=== PATIENT | female | born 1935 | race Caucasian/White ===

== ENCOUNTER → 2016-06-25 | Outpatient (REF) | payer MEDICARE, OTHER ==
[~2016-06-25] MED LIST: ACET500C PO; ASPI325T PO; CALCIUM CITRATE PO; CRES20TA PO; DULC5TAB PO; FISHCAP PO; MELO7.5T6 PO; MULTCAP PO; OMEP10CA45 PO; PRIL40CA PO; VITA100041 PO; VITA100T20 PO
== END | disposition home or self-care (01) ==
LOC: M SFHCPLAZ 12:08
PROVIDERS: ATTEND Physician Assistant Medical
DX: Z53.8 Procedure and treatment not carried out for other reasons (principal); E04.1 Nontoxic single thyroid nodule

== ENCOUNTER → 2016-06-30 | Outpatient (CLI) | payer MEDICARE, OTHER ==
--- NOTE | 2016-06-30 10:03 | REP ---
Clinical: Thyroid nodule. Technique: Real time ceron scale and color evaluation using linear high frequency transducer. Findings: The thyroid gland is diffusely heterogeneous with innumerable mixed, complex nodules. Right thyroid lobe measures 4.2 x 1.2 x 1.3 cm with the largest complex nodule in the lower pole measuring 12 x 8 x 7 mm. Left thyroid lobe measures 4.2 x 2.0 x 1.6 cm with the largest complex nodule in the lower pole measuring 21 x 16 x 15 mm. A prominent complex cyst is also identified to the left of the isthmus which measures 7 x 7 x 5 mm. Impression: Heterogeneous multinodular thyroid. Signed by Joce Hughes MD 06/30/2016 09:55 A
== END ==
LOC: M RAD 08:57
PROVIDERS: ATTEND Physician Assistant Medical
DX: E04.2 Nontoxic multinodular goiter (principal)

== ENCOUNTER → 2016-07-12 | Outpatient (CLI) | payer MEDICARE, OTHER ==
[~2016-07-12] MED LIST changes: +LIDOCAINE 1% MDV 20ML VIAL As Ordered ONE
--- NOTE | 2016-07-12 15:35 | REP ---
ULTRASOUND GUIDED LEFT THYROID BIOPSY: The procedure was performed under the direct supervision of Dr. Oliveira. The patient has a history of a large complex nodule in the lower pole of the left thyroid measuring 2.1 x 1.6 x 1.5 cm. The risks and benefits of the procedure were explained to the patient and informed consent was obtained. The left thyroid nodule was localized using ultrasound guidance. The skin was prepped and draped in a sterile fashion. 1% Xylocaine was used as a local anesthetic. Using ultrasound guidance 4 fine-needle aspirations were obtained using 25-gauges needles. The patient tolerated the procedure well and there were no immediate complications. After the appropriate amount of monitored convalescence the patient was discharged from the department. Reviewed by LATASHA Coleman 07/12/2016 04:54 PEdited and Signed by Jc Oliveira MD 07/12/2016 05:04 P
== END ==
LOC: M RADPRO 11:52
PROVIDERS: ATTEND Physician Assistant Medical
DX: D34 Benign neoplasm of thyroid gland (principal); Z88.8 Allergy status to other drugs, medicaments and biological substances; Z88.3 Allergy status to other anti-infective agents; I10 Essential (primary) hypertension; I63.9 Cerebral infarction, unspecified; K21.9 Gastro-esophageal reflux disease without esophagitis; G89.29 Other chronic pain; M54.5 Low back pain; M17.12 Unilateral primary osteoarthritis, left knee; Z79.82 Long term (current) use of aspirin; Z79.899 Other long term (current) drug therapy

== ENCOUNTER → 2016-08-03 | Outpatient (REF) | payer MEDICARE, OTHER ==
[~2016-08-03] MED LIST changes: -LIDOCAINE 1% MDV 20ML VIAL As Ordered ONE
[2016-08-03 15:32] LABS: ANION GAP 8 MEQ/L (8-16); BLOOD UREA NITROGEN 18 MG/DL (7-18); CALCIUM LEVEL 9.2 MG/DL (8.8-10.2); CARBON DIOXIDE LEVEL 28 MEQ/L (21-32); CHLORIDE LEVEL 109 MEQ/L (98-107); CREATININE FOR GFR 0.77 MG/DL (0.55-1.02); GLOMERULAR FILTRATION RATE > 60.0 (>39); GLUCOSE, FASTING 83 MG/DL (83-110); POTASSIUM SERUM 4.1 MEQ/L (3.5-5.1); SODIUM LEVEL 145 MEQ/L (136-145)
== END ==
LOC: M SFHCPLAZ 12:53
PROVIDERS: ATTEND Physician Assistant Medical
DX: N18.3 Chronic kidney disease, stage 3 (moderate) (principal)

== ENCOUNTER 2017-07-28 08:32 | Emergency (ER) | payer MEDICARE, OTHER ==
[2017-07-28 09:28] LABS: BASO % 0.3 % (0.0-1.0); EOS % 0.3 % (0.0-3.0); HEMATOCRIT 43.1 % (36.0-47.0); HEMOGLOBIN 15.4 g/dl (12.0-16.0); IMMATURE GRANULOCYTE % 0.3 % (0-3.0); LYMPH # 1.8 10^3/uL (1.5-4.5); LYMPH % 29.3 % (24.0-44.0); MEAN CORPUSCULAR HEMOGLOBIN 31.9 pg (27.0-33.0); MEAN CORPUSCULAR HGB CONC 35.7 g/dl (32.0-36.5); MEAN CORPUSCULAR VOLUME 89.2 fl (80.0-96.0); MONO # 0.3 10^3/uL (0.0-0.8); MONO % 5.5 % (0.0-5.0); NEUTROPHILS # 3.9 10^3/uL (1.8-7.7); NEUTROPHILS % 64.3 % (36.0-66.0); PLATELET COUNT, AUTOMATED 202 10^3/uL (150-450); RED BLOOD COUNT 4.83 10^6/uL (4.00-5.40); RED CELL DISTRIBUTION WIDTH 12.3 % (11.5-14.5); WHITE BLOOD COUNT 6.1 10^3/uL (4.0-10.0)
[2017-07-28] MEDS: ONDANSETRON 4MG/2ML VIAL (J2405) IV (09:30)
[2017-07-28] MEDS: fentaNYL 100 MCG/2 ML INJECTION (J3010) IV (09:30)
[2017-07-28 09:48] LABS: ALBUMIN 4.2 GM/DL (3.2-5.2); ALBUMIN/GLOBULIN RATIO 1.35 (1.00-1.93); ANION GAP 13 MEQ/L (8-16); AST/SGOT 24 U/L (7-37); BILIRUBIN,DIRECT 0.2 MG/DL (0.0-0.2); BILIRUBIN,TOTAL 0.8 MG/DL (0.2-1.0); BLOOD UREA NITROGEN 14 MG/DL (7-18); CALCIUM LEVEL 9.2 MG/DL (8.8-10.2); CARBON DIOXIDE LEVEL 19 MEQ/L (21-32); CHLORIDE LEVEL 111 MEQ/L (98-107); CPK CREATINE PHOSPHOKINASE 165 U/L (26-192); GLOMERULAR FILTRATION RATE > 60.0 (>32); GLUCOSE, FASTING 106 MG/DL (70-100); LIPASE 223 U/L (73-393); POTASSIUM SERUM 3.2 MEQ/L (3.5-5.1); SODIUM LEVEL 143 MEQ/L (136-145); TOTAL PROTEIN 7.3 GM/DL (6.4-8.2); TROPONIN I < 0.02 NG/ML (< 0.10)
[2017-07-28 09:51] LABS: ALKALINE PHOSPHATASE 66 U/L (45-117); ALT/SGPT 24 U/L (12-78); CK-MB VALUE MASS 1.7 NG/ML (0.0-3.6); MB/CK RELATIVE INDEX 1.03 (< OR =4); NT-PRO BNP 217 PG/ML (<450)
[2017-07-28] MEDS: PERCOCET 5MG/325MG TAB PO (12:31)
[2017-07-28] MEDS: methylPREDNISolone INJ 125 MG/2 ML VIAL (J2930) IV (12:32)
== END 2017-07-28 13:37 | disposition home or self-care (01) ==
LOC: M ED 08:32
DX: M54.2 Cervicalgia (principal); R42 Dizziness and giddiness; M79.621 Pain in right upper arm; M25.511 Pain in right shoulder; K80.20 Calculus of gallbladder without cholecystitis without obstruction; I25.10 Atherosclerotic heart disease of native coronary artery without angina pectoris; M17.11 Unilateral primary osteoarthritis, right knee; E04.2 Nontoxic multinodular goiter; Z86.73 Personal history of transient ischemic attack (TIA), and cerebral infarction without residual deficits
CPT/HCPCS: J2405

== ENCOUNTER → 2017-10-06 | Outpatient (CLI) | payer MEDICARE, OTHER | LOC: M RAD 12:09 | DX: E04.1 Nontoxic single thyroid nodule (principal) | CPT/HCPCS: 78012 ==

== ENCOUNTER → 2020-07-24 | Outpatient (CLI) | payer MEDICARE, OTHER ==
[~2020-07-24] MED LIST changes: +ACET1TAB55 PO; +ASPI-1 PO; +ASPI-546 PO; -ASPI325T PO; +B121000T PO; +CELE1CAP9 PO; +CO Q200C10 PO; -CRES20TA PO; +CRES20TA2 PO; +CYAN100049 PO; +DICL1GEL3 TOP; +MEDR4PAK PO; -MELO7.5T6 PO; +MELO7.5T7 PO; +OMEP10CA PO; -OMEP10CA45 PO; +PRESCAP6 PO; +VITA-182 PO; -VITA100041 PO; -VITA100T20 PO; +VITA100T51 PO; +VITA400C7 PO; +ZANA4TAB PO
--- NOTE | 2020-07-31 02:16 | ECWPNPC ---
PATIENT NAME: LORENZO KHAN : 1935 GENDER: FEMALE VISIT DATE: 07/24/2020 DISCHARGE DATE: 07/24/20 1402 VISIT LOCKED DATE TIME: PHYSICIAN: SUNDAY MARLEY PHYSICIAN PAGER NO: ACTIVE RESOURCE: SUNDAY MARLEY REASON FOR APPOINTMENT 1. THORACIC/LUMBAR INJ- WILL NEED WHEELCHAIR HISTORY OF PRESENT ILLNESS GENERAL: 84-YEAR-OLD FEMALE BEING REFERRED BY [facility] VALEN[facility] TO EVALUATE LOW BACK PAIN AND THORACIC BACK PAIN. LONG HISTORY OF LOW BACK PAIN. WORST AREA OF PAIN IS IN THE PARASPINAL REGION OF THE LOWER THORACIC AND LUMBAR SPINE. MRI OF THE THORACIC SPINE SHOWING T10 COMPRESSION FRACTURE. PAIN IS AGGRAVATED WITH MOVEMENT AND RANGE OF JOINT MOTION OF THE SPINE. HISTORY OF FALLING AND BATHTUB IN FEBRUARY WHEN HER PAIN BEGAN TO BE SEVERE. SHE WAS EVALUATED AFTER THE FALL AND A REFERRAL WAS SENT TO [facility] WHO THEN SENT PATIENT HERE. DENIES BOWEL OR BLADDER INCONTINENCE. DENIES RECENT ILLNESS OR SUDDEN WEIGHT LOSS. -. FALL RISK SCREENING: SCREENING : NO FALLS REPORTED IN THE LAST YEAR. PAIN SCREENING: PATIENT HAS A COMPLAINT OF ACUTE OR CHRONIC PAIN :YES LOCATION OF PAIN:LOW BACK INTENSITY OF PAIN (SCALE OF 1 TO 10):4 WHAT DOES YOUR PAIN FEEL LIKE:ACHING DURATION:CONTINOUS, CONSTANT, ALL DAY PAIN IS INCREASED BY:ACTIVITIES, PROLONGED STANDING PAIN IS DECREASED BY:SITTING NURSING NOTE: -. PAIN CENTER INTAKE QUESTIONS: DO YOU HAVE A HISTORY OF MRSA? :NO DO YOU TAKE A BLOOD THINNERS? :NO DO YOU HAVE ANY BLEEDING DISORDERS? :NO ANY NEW NUMBNESS OR WEAKNESS IN YOUR LEGS OR ARMS? :NO ANY PACEMAKER,DEFIBRILLATOR, OR DORSAL COLUMN STIMULATOR? :NO DO YOU HAVE ANY RASHES OR OPEN SORES? :NO ARE YOU ALLERGIC TO IV DYE? :NO ARE YOU DIABETIC? :NO ANY NEW PROBLEMS WITH YOUR MEDICATIONS? :NO HAVE YOU RECEIVED A VACCINE IN THE PAST 30 DAYS? :YES 1ST COVID 07/07/2020 DO YOU PLAN TO RECEIVE A VACCINE IN THE NEXT 21 DAYS? :YES IF SO WHAT VACCINE AND WHEN? 2ND COVID 08/01/2020 DO YOU NEED ANY PRESCRIPTION? :NO DO YOU TAKE ANY IMMUNOSUPPRESSIVE MEDICATIONS? :NO DO YOU HAVE ANY KIDNEY OR LIVER DISEASE? :NO IS THERE A CHANCE YOU COULD BE ? :NO ARE YOU BREAST FEEDING? :NO CURRENT MEDICATIONS TAKING VITAMIN B12 500 MCG TABLET 1 TABLET ORALLY 1500MG ONCE A DAY TAKING ASPIRIN 81 MG TABLET CHEWABLE 1 TABLET ORALLY ONCE A DAY TAKING OMEPRAZOLE 20 MG CAPSULE DELAYED RELEASE 1 CAPSULE ORALLY ONCE A DAY TAKING VITAMIN D3 50 MCG (2000 UT) CAPSULE 1 CAPSULE ORALLY ONCE A DAY TAKING ARTIFICIAL TEARS 0.2-0.2-1 % SOLUTION DIRECTED OPHTHALMIC THREE TIMES DAILY TAKING CELECOXIB 200 MG CAPSULE 1 CAPSULE WITH FOOD ORALLY TWICE A DAY TAKING KNEE SLIP-ON OPEN PATELLA - MISCELLANEOUS DIRECTED TAKING MAGNESIUM 250 MG TABLET 1 TABLET WITH A MEAL ORALLY ONCE A DAY TAKING PRESERVISION AREDS - TABLET DIRECTED ORALLY TAKING TIZANIDINE HCL 2 MG TABLET 1 TABLET NEEDED ORALLY THREE TIMES A DAY TAKING VITAMIN B COMPLEX - TABLET DIRECTED ORALLY TAKING VITAMIN E 400 UNIT CAPSULE 1 CAPSULE ORALLY ONCE A DAY NOT-TAKING CO Q10 MAXIMUM STRENGTH 200 MG CAPSULE 1 CAPSULE WITH A MEAL ORALLY ONCE A DAY NOT-TAKING DULOXETINE HCL 30 MG CAPSULE DELAYED RELEASE PARTICLES 1 CAPSULE ORALLY ONCE A DAY NOT-TAKING HYDROCODONE-ACETAMINOPHEN 5-325 MG TABLET 1 TABLET NEEDED ORALLY TWO TIMES A DAY NOT-TAKING VOLTAREN 1 % GEL DIRECTED EXTERNALLY NOT-TAKING LORATADINE 10 MG TABLET 1 TABLET ORALLY ONCE A DAY, NOTES: NEEDED NOT-TAKING PROBIOTIC CAPSULE ORALLY NOT-TAKING MAGNESIUM 400 MG CAPSULE 1 TABLET WITH A MEAL ORALLY ONCE A DAY NEEDED, NOTES: NEEDED NOT-TAKING PRESERVISION AREDS - CAPSULE 1 CAP ORALLY DAILY NOT-TAKING DICLOFENAC SODIUM 1 % GEL DIRECTED TRANSDERMAL EVERY 6 HOURS NEEDED NOT-TAKING CALCIUM CARBONATE ANTACID 500 MG TABLET CHEWABLE 1 TAB ORALLY ONCE DAILY AFTER A MEAL NOT-TAKING CELECOXIB 200MG CAPSULE TAKE 1 CAPSULE DAILY WITH FOOD MEDICATION LIST REVIEWED AND RECONCILED WITH THE PATIENT PAST MEDICAL HISTORY GERD ALLERGIC RHINITIS OA OF R KNEE, LUMBAR, HANDS B H/O COMPRESSION FRACTURE OF LUMBAR VERTEBRA 06/2013 H/O BPPV HTN CVA 04/[address] REED, FOR VIS. FIELD DEFICITS H/O HYPOMAGNESEMIA 04/28 S/P COLONOSCOPY 02/26 INCOMPLETE, BARIUM ENEMA NEG. F/U IN 2018 VITAMIN D DEFICIENCY H/O VITAMIN B12 DEFICIENCY THYROID NODULE 1.2 CM IN L LOBE, UNCHANGED FROM 07/19/[address] 01/30/16 ALLERGIES BETADINE: MONTANO SKIN - SIDE EFFECTS STATINS (FOR ALLERGY USE ONLY): MUSCLE PAINS - SIDE EFFECTS SURGICAL HISTORY COLONOSCOPY NEG.,BUT INCOMPLETE 2 SCAR TISSUE; BARIUM ENEMA DONE SAME DATE NEG. 05/2013 S/P HYSTERECTOMY 1964 FAMILY HISTORY FATHER: 75 YRS, DIAGNOSED WITH OTHER SPECIFIED CONDITIONS INFLUENCING HEALTH STATUS MOTHER: 90 YRS, OTHER MALIGNANT NEOPLASM OF UNSPECIFIED SITE SON(S): ALIVE DAUGHTER(S): ALIVE 2 SON(S) , 2 DAUGHTER(S) - HEALTHY. GRANDMA C DM, MOTHER C ORAL/SINUS CA & BLOOD DISORDER. SOCIAL HISTORY GENERAL: TOBACCO USE ARE YOU A:NONSMOKER LATEX QUESTIONNAIRE LATEX ALLERGY : HAVE YOU EVER DEVELOPED ANY TYPE OF REACTION AFTER HANDLING LATEX PRODUCTS SUCH RUBBER GLOVES, CONDOMS, DIAPHRAGMS, BALLOONS, SOCKS, OR UNDERWEAR?YES LATEX ALLERGY : HAVE YOU EVER DEVELOPED ANY TYPE OF REACTION DURING OR AFTER DENTAL APPOINTMENT, VAGINAL/RECTAL EXAMINATION, SURGICAL PROCEDURE, OR ANY OTHER EXPOSURE?NO LATEX RISK : HAVE YOU EVER HAD ANY DIFFICULTY BREATHING OR HIVES AFTER EATING OR HANDLING ANY FRUITS, OR VEGETABLES; SUCH KIWI, BANANAS, STONE FRUITS, OR CHESTNUTSNO LATEX RISK : DO YOU HAVE A PREVIOUS PERSONAL HISTORY OF MORE THAN NINE SURGERIES, SPINA BIFIDA, OR REPEATED CATHERIZATIONS? NO LATEX RISK : ARE YOU FREQUENTLY EXPOSED TO LATEX PRODUCTS IN YOUR OCCUPATION?NO DATE ASKED : 07/24/2020 ALCOHOL USE: YES A GLASS OF WINE. ALCOHOL SCREENING DID YOU HAVE A DRINK CONTAINING ALCOHOL IN THE PAST YEAR?YES HOW OFTEN DID YOU HAVE SIX OR MORE DRINKS ON ONE OCCASION IN THE PAST YEAR?NEVER (0 POINTS) HOW MANY DRINKS DID YOU HAVE ON A TYPICAL DAY WHEN YOU WERE DRINKING IN THE PAST YEAR?1 OR 2 (0 POINTS) HOW OFTEN DID YOU HAVE A DRINK CONTAINING ALCOHOL IN THE PAST YEAR?TWO TO THREE TIMES PER WEEK (3 POINTS) POINTS3 INTERPRETATIONPOSITIVE RECREATIONAL DRUG USE DRUG USE?NO PATIENT DENIES ABUSE OR MISSUSED OF ANY MEDICATION. CAFFEINE: YES CAFFEINE USE?YES HOW OFTEN AND HOW MUCH? 1CUP COFFEE/DAY LEARNING BARRIERS / SPECIAL NEEDS CHANGE FROM LAST VISIT?NO BARRIERS TO LEARNING?NO HEARING IMPAIRED?NO VISION IMPAIRED?YES :CORRECTIVE LENSES COGNITIVELY IMPAIRED?NO READINESS TO LEARN?YES LEARNING PREFERENCES?NO LEARNING CAPABILITIES PRESENT?YES EMOTIONAL BARRIERS?NO SPECIAL DEVICES?YES : NEEDS ONE AT EVERY VISIT DIRECTOR INFORMATION NEEDED?NO OCCUPATION: [employer] [place] RETIRED AFTER 22 YEARS, ALSO STAYED HOME WHEN CHILDREN WERE YOUNG. MARITAL STATUS: . HOSPITALIZATION/MAJOR DIAGNOSTIC PROCEDURE SEE ABOVE REVIEW OF SYSTEMS CONSTITUTIONAL: ANY RECENT FEVER NO . CHILLS NO . WEIGHT CHANGE OF UNKNOWN REASONS NO . MUSCULOSKELETAL: ANY UNUSUAL JOINT PAIN OR SWELLING NOT MENTIONED NO . SYSTEMIC LUPUS NO . ANY NEUROMUSCULAR DISORDER NOT MENTIONED NO . LYME DISEASE NO . GASTROENTEROLOGY: ANY NEW CHANGE IN BOWEL CONTROL? NO . HISTORY OF LIVER DISORDER NOT MENTIONED NO . HISTORY OF UNUSUAL ABDOMINAL PAIN OR CRAMPING NOT MENTIONED NO . NO CONSTIPATION. GENITOURINARY: ANY NEW CHANGE IN BLADDER CONTROL? NO . ANY RENAL/KIDNEY CONDITON NOT MENTIONED NO . NEUROLOGY: HISTORY OF TBI NOT MENTIONED NO . HAVE YOU FALLEN IN THE PAST 12 MONTHS? NO . HEAD INJURY NO . DEMENTIA NO . CEREBRAL PALSY NO . MULTIPLE SCLEROSIS NO . MYAASTHENIA GRAVIS NO . NEW ONSET DIZZINESS OR NEUROLOGICAL CHANGES NOT MENTIONED NO . PATIENT COMPLAINING OF UNSTEADY GAIT SINCE STROKE 2017 . DIZZINESS NO . VERTIGO NO . CARDIOLOGY: HEART SURGERY NO . CONGESTIVE HEART FAILURE/FLUID OVERLOAD NOT MENTIONED NO . STROKE HAD STROKE 2017.REPORTING SLIGHT BALANCE PROBLEMS SINCE STROKE . HISTORY OF CHEST PAIN,IRREGULAR HEART BEAT NOT MENTIONED NO . RESPIRATORY: SHORTNESS OF BREATH ON EXERTION, WHEEZES, UNUSUAL COUGH NOT MENTIONED NO . ENDOCRINOLOGY: ADRENAL GLAND OR THYROID DISORDERS NOT MENTIONED NO . UNUSUAL URINATION, DIZZINESS OR LETHARGY NOT MENTIONED NO . VITAL SIGNS WT 144 LBS, HT 62 IN, BMI 26.34 INDEX, BP 137/69 MM HG, HR 85 /MIN, RR 16 /MIN, TEMP 97.8 F, OXYGEN SAT % 98%, SAFE IN ENV? (Y/N) YEST.TRINA DOMINGO. EXAMINATION GENERAL EXAMINATION: GENERALNO ACUTE DISTRESS, WELL NOURISHED AND HYDRATED. PSYCHAPPROPRIATE MOOD AND AFFECT . NECK:NO LYMPHADENOPATHY, SUPPLE, NO THYROMEGALLY, NO JVD OR BRUITS. LUNGS:CLEAR TO AUSCULTATION BILATERALLY, NO WHEEZES, RHONCHI, RALES. HEART:NO MURMURS, REGULAR RATE AND RHYTHM. MUSCULOSKELETAL: TRIGGER POINTS:, ELICITED WITH PALPATION OVER LUMBAR PARAVERTEBRAL MUSCLES BILATERAL. LUMBAR:TENDERNESS NOTED OVER L/S AXIS AND LUMBAR PARASPINALS . DIAGNOSTIC TESTS REVIEWEDMRI THORACIC SPINE 02/2020 CT LUMBAR SPINE-02/13/2020. ASSESSMENTS MYALGIA, OTHER SITE - M79.18 (PRIMARY) TREATMENT MYALGIA, OTHER SITE [facility] MRI SPINE, L.S. WITHOUT [id number] NOTES: TRIGGER POINT INJECTIONS BILATERAL LOW BACK,BILATERAL THORACIC/MED HOLD SCHEDULE MID AUGUST/COVID IMMO PRINTED AND REVIEWED PRE PROCEDURE WITH PATIENT PADMA DOMINGO. DISPOSITION & COMMUNICATION FOLLOW UP POST PROCEDURE/REVIEW MRI L/S SPINE (REASON: TRIGGER POINT INJECTIONS BILATERAL LOW BACK,BILATERAL THORACIC/MED HOLD SCHEDULE MID AUGUST/COVID IMMO) ELECTRONICALLY SIGNED BY ORALIA DIAL ON 07/30/2020 AT 01:41 PM EDT DISCLAIMER : THIS IS A VISIT SUMMARY EXTRACTED FROM THE [employer] CHART. IT IS NOT A COPY OF THE [employer] PROGRESS NOTE. MTDD
== END ==
LOC: M PAIN 13:00
PROVIDERS: ATTEND Nurse Practitioner Family
DX: M79.18 Myalgia, other site (principal); K21.9 Gastro-esophageal reflux disease without esophagitis; E55.9 Vitamin D deficiency, unspecified; Z88.3 Allergy status to other anti-infective agents; Z88.8 Allergy status to other drugs, medicaments and biological substances; Z79.82 Long term (current) use of aspirin; Z79.899 Other long term (current) drug therapy

== ENCOUNTER → 2020-08-15 | Outpatient (CLI) | payer MEDICARE, OTHER | LOC: M LABSMTC 13:31 | PROVIDERS: ATTEND Anesthesiology | DX: Z20.822 Contact with and (suspected) exposure to COVID-19 (principal) ==

== ENCOUNTER → 2020-08-24 | Outpatient (CLI) | payer MEDICARE, OTHER | LOC: M LABSMTC 11:24 | PROVIDERS: ATTEND Anesthesiology | DX: Z01.812 Encounter for preprocedural laboratory examination (principal) ==

== ENCOUNTER → 2020-08-29 | Outpatient (CLI) | payer MEDICARE, OTHER ==
[~2020-08-29] MED LIST changes: +BUPIVACAINE HCL 0.25% 10ML VIAL As Ordered ONE; +BUPIVACAINE HCL 0.25% 30ML VIAL As Ordered ONE; +TRIAMCINOLONE ACETONIDE SUSP 40 MG/ML VIAL (J3301) As Ordered ONE; +diazePAM 2 MG TAB As Ordered ONE
--- NOTE | 2020-08-29 15:15 | REP ---
INDICATION: ON INSPIRATION . COMPARISON: 07/28/2017 a portable examination and the latest prior FINDINGS: The superior mediastinal structures are midline. The cardiac silhouette is unremarkable in size, shape, and position. The diaphragmatic surfaces of the lungs are regular, and the costophrenic angles are clear. The pulmonary saucedo are clear. The imaged osseous structures show a grade 3 lower thoracic vertebral body anterior wedge compression deformity. The lung saucedo are hyperexpanded. IMPRESSION: 1. Lung field hyperexpansion without evidence of acute cardiopulmonary disease. 2. Age undetermined thoracic vertebral body compression fracture as described above. <Electronically signed by Cedrick Reyes > 08/29/20 [id number]
--- NOTE | 2020-09-05 00:59 | ECWPNPC ---
PATIENT NAME: LORENZO KHAN : 1935 GENDER: FEMALE VISIT DATE: 08/29/2020 DISCHARGE DATE: 08/29/20 154 VISIT LOCKED DATE TIME: PHYSICIAN: BRUCE URIBE MD PHYSICIAN PAGER NO: ACTIVE RESOURCE: BRUCE URIBE MD REASON FOR APPOINTMENT 1. TRIGGER POINT INJECTIONS BILATERAL LOW BACK,BILATERAL THORACIC HISTORY OF PRESENT ILLNESS GENERAL: -. FALL RISK SCREENING: SCREENING 2 OR MORE FALLS IN THE LAST YEAR WITH ER VISITS. PAIN SCREENING: PATIENT HAS A COMPLAINT OF ACUTE OR CHRONIC PAIN :YES LOCATION OF PAIN:MID BACK, LOW BACK INTENSITY OF PAIN (SCALE OF 1 TO 10):5 WHAT DOES YOUR PAIN FEEL LIKE:ACHING DURATION:ONLY WITH SPECIFIC ACTIVITIES PAIN IS INCREASED BY:ACTIVITIES WALKING & STANDING PAIN IS DECREASED BY:USE OF PAIN MEDICATIONS, SITTING NURSING NOTE: -. PAIN CENTER INTAKE QUESTIONS: DO YOU HAVE A HISTORY OF MRSA? :NO DO YOU TAKE A BLOOD THINNERS? :NO DO YOU HAVE ANY BLEEDING DISORDERS? :NO ANY NEW NUMBNESS OR WEAKNESS IN YOUR LEGS OR ARMS? :NO ANY PACEMAKER,DEFIBRILLATOR, OR DORSAL COLUMN STIMULATOR? :NO DO YOU HAVE ANY RASHES OR OPEN SORES? :NO ARE YOU ALLERGIC TO IV DYE? :NO ARE YOU DIABETIC? :NO ANY NEW PROBLEMS WITH YOUR MEDICATIONS? :NO HAVE YOU RECEIVED A VACCINE IN THE PAST 30 DAYS? :YES IF SO WHAT VACCINE AND WHEN? 2ND COVID VACCINE OVER 2 WEEKS AGO DO YOU PLAN TO RECEIVE A VACCINE IN THE NEXT 21 DAYS? :NO DO YOU TAKE ANY IMMUNOSUPPRESSIVE MEDICATIONS? :NO ANY HISTORY OF SEIZURES? :NO ANY HISTORY OF CARDIAC ISSUES OR EVENTS? :YES CVA, VERTIGO, HTN DO YOU HAVE ANY KIDNEY OR LIVER DISEASE? :NO DO YOU HAVE SLEEP APNEA? :NO ANY RECENT HEAD INJURY? :NO DO YOU HAVE ANY NEW INFECTIONS? :NO IS THERE A CHANCE YOU COULD BE ? :NO ARE YOU BREAST FEEDING? :NO WHEN DID YOU LAST EAT? : 08/29/20629 WHEN DID YOU LAST DRINK? : 08/29/20629 WHAT DID YOU LAST DRINK? : MILK NAME OF PERSON DRIVING YOU HOME? : SON DO YOU HAVE ANY OTHER QUESTIONS OR CONCERNS? : - CURRENT MEDICATIONS TAKING VITAMIN B12 500 MCG TABLET 1 TABLET ORALLY 1500MG ONCE A DAY TAKING ASPIRIN 81 MG TABLET CHEWABLE 1 TABLET ORALLY ONCE A DAY TAKING OMEPRAZOLE 20 MG CAPSULE DELAYED RELEASE 1 CAPSULE ORALLY ONCE A DAY TAKING VITAMIN D3 50 MCG (2000 UT) CAPSULE 1 CAPSULE ORALLY ONCE A DAY TAKING ARTIFICIAL TEARS 0.2-0.2-1 % SOLUTION DIRECTED OPHTHALMIC THREE TIMES DAILY TAKING CELECOXIB 200 MG CAPSULE 1 CAPSULE WITH FOOD ORALLY TWICE A DAY TAKING KNEE SLIP-ON OPEN PATELLA - MISCELLANEOUS DIRECTED TAKING MAGNESIUM 250 MG TABLET 1 TABLET WITH A MEAL ORALLY ONCE A DAY TAKING PRESERVISION AREDS - TABLET DIRECTED ORALLY TAKING TIZANIDINE HCL 2 MG TABLET 1 TABLET NEEDED ORALLY THREE TIMES A DAY TAKING VITAMIN B COMPLEX - TABLET DIRECTED ORALLY TAKING VITAMIN E 400 UNIT CAPSULE 1 CAPSULE ORALLY ONCE A DAY NOT-TAKING CO Q10 MAXIMUM STRENGTH 200 MG CAPSULE 1 CAPSULE WITH A MEAL ORALLY ONCE A DAY NOT-TAKING DULOXETINE HCL 30 MG CAPSULE DELAYED RELEASE PARTICLES 1 CAPSULE ORALLY ONCE A DAY NOT-TAKING HYDROCODONE-ACETAMINOPHEN 5-325 MG TABLET 1 TABLET NEEDED ORALLY TWO TIMES A DAY NOT-TAKING VOLTAREN 1 % GEL DIRECTED EXTERNALLY NOT-TAKING LORATADINE 10 MG TABLET 1 TABLET ORALLY ONCE A DAY, NOTES: NEEDED NOT-TAKING PROBIOTIC CAPSULE ORALLY NOT-TAKING MAGNESIUM 400 MG CAPSULE 1 TABLET WITH A MEAL ORALLY ONCE A DAY NEEDED, NOTES: NEEDED NOT-TAKING PRESERVISION AREDS - CAPSULE 1 CAP ORALLY DAILY NOT-TAKING DICLOFENAC SODIUM 1 % GEL DIRECTED TRANSDERMAL EVERY 6 HOURS NEEDED NOT-TAKING CALCIUM CARBONATE ANTACID 500 MG TABLET CHEWABLE 1 TAB ORALLY ONCE DAILY AFTER A MEAL NOT-TAKING CELECOXIB 200MG CAPSULE TAKE 1 CAPSULE DAILY WITH FOOD MEDICATION LIST REVIEWED AND RECONCILED WITH THE PATIENT PAST MEDICAL HISTORY GERD ALLERGIC RHINITIS OA OF R KNEE, LUMBAR, HANDS B H/O COMPRESSION FRACTURE OF LUMBAR VERTEBRA 06/2013 H/O BPPV HTN CVA 04/[address] REED, FOR VIS. FIELD DEFICITS H/O HYPOMAGNESEMIA 04/28 S/P COLONOSCOPY 02/26 INCOMPLETE, BARIUM ENEMA NEG. F/U IN 2019 VITAMIN D DEFICIENCY H/O VITAMIN B12 DEFICIENCY THYROID NODULE 1.2 CM IN L LOBE, UNCHANGED FROM 07/19/[address] 01/30/16 ALLERGIES BETADINE: MONTANO SKIN - SIDE EFFECTS STATINS (FOR ALLERGY USE ONLY): MUSCLE PAINS - SIDE EFFECTS LATEX (FOR ALLERGY USE ONLY): SIDE EFFECTS SURGICAL HISTORY COLONOSCOPY NEG.,BUT INCOMPLETE 2 SCAR TISSUE; BARIUM ENEMA DONE SAME DATE NEG. 05/2013 S/P HYSTERECTOMY 1965 SOCIAL HISTORY GENERAL: TOBACCO USE ARE YOU A:NONSMOKER LATEX QUESTIONNAIRE LATEX ALLERGY : HAVE YOU EVER DEVELOPED ANY TYPE OF REACTION AFTER HANDLING LATEX PRODUCTS SUCH RUBBER GLOVES, CONDOMS, DIAPHRAGMS, BALLOONS, SOCKS, OR UNDERWEAR?YES LATEX ALLERGY : HAVE YOU EVER DEVELOPED ANY TYPE OF REACTION DURING OR AFTER DENTAL APPOINTMENT, VAGINAL/RECTAL EXAMINATION, SURGICAL PROCEDURE, OR ANY OTHER EXPOSURE?NO LATEX RISK : HAVE YOU EVER HAD ANY DIFFICULTY BREATHING OR HIVES AFTER EATING OR HANDLING ANY FRUITS, OR VEGETABLES; SUCH KIWI, BANANAS, STONE FRUITS, OR CHESTNUTSNO LATEX RISK : DO YOU HAVE A PREVIOUS PERSONAL HISTORY OF MORE THAN NINE SURGERIES, SPINA BIFIDA, OR REPEATED CATHERIZATIONS? NO LATEX RISK : ARE YOU FREQUENTLY EXPOSED TO LATEX PRODUCTS IN YOUR OCCUPATION?NO DATE ASKED : 08/28/2020 ALCOHOL USE: NO. ALCOHOL SCREENING DID YOU HAVE A DRINK CONTAINING ALCOHOL IN THE PAST YEAR?YES HOW OFTEN DID YOU HAVE SIX OR MORE DRINKS ON ONE OCCASION IN THE PAST YEAR?NEVER (0 POINTS) HOW MANY DRINKS DID YOU HAVE ON A TYPICAL DAY WHEN YOU WERE DRINKING IN THE PAST YEAR?1 OR 2 (0 POINTS) HOW OFTEN DID YOU HAVE A DRINK CONTAINING ALCOHOL IN THE PAST YEAR?TWO TO THREE TIMES PER WEEK (3 POINTS) POINTS3 INTERPRETATIONPOSITIVE RECREATIONAL DRUG USE DRUG USE?NO PATIENT DENIES ABUSE OR MISSUSED OF ANY MEDICATION. CAFFEINE: YES CAFFEINE USE?YES HOW OFTEN AND HOW MUCH? 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 MARITAL STATUS: . HOSPITALIZATION/MAJOR DIAGNOSTIC PROCEDURE SEE ABOVE VITAL SIGNS WT 128 LBS, HT 62 IN, BMI 23.41 INDEX, BP 147/69 MM HG, HR 85 /MIN, RR 16 /MIN, TEMP 96.1 F, OXYGEN SAT % 99%, SAFE IN ENV? (Y/N) Y, NA INITIALS SC 13:09, REVIEWED BY: SALO. EXAMINATION GENERAL: A HISTORY AND PHYSICAL EXAM ON THE PATIENT WAS DONE ON 07/24/2020 (DATE OF ORIGINAL ASSESSMENT) IN PREPARATION OF SURGERY/PROCEDURE. I HAVE NOW REASSESSED THIS PATIENT'S HEALTH STATUS AND PERFORMED AN UPDATED EXAM TODAY. ALL CHANGES IN THE PATIENT'S HISTORY, PHYSICAL EXAM, PRE-EXISTING CONDITONS, AND INDICATIONS/CONTRAINDICATIONS TO THE PLANNED PROCEDURE AND ANESTHESIA ARE DOCUMENTED AND EVALUATED BELOW. I ATTEST TO THE ADEQUACY AND APPROPRIATENESS OF MY ASSESSMENT, AND CONFIRM THE NECESSITY FOR THE PLANNED PROCEDURE. THE PATIENT IS ALERT, ORIENTED TIMES THREE AND COOPERATIVE. LUNGS ARE CLEAR TO AUSCULTATION. HEART SHOWS REGULAR RHYTHM, NO MURMURS AND NO GALLOPS. ASSESSMENTS MYALGIA - M79.10 (PRIMARY) TREATMENT MYALGIA [facility] CHEST, 2 VIEW (PA\LAT)[id number],KRISTAL 08/29/2020 2:32:35 PM > ON INSPIRATION AND EXPIRATION MEDICATION: VALIUM TAB 2MG ORALLY (DIAZEPAM)YAQUELIN WILDE RN 08/29/2020 1:56:57 PM > VERIFIED. ELLIE CARDENAS 08/29/2020 1:59:15 PM > ADMINISTERED COMPLETION OF PROCEDURAL VISIT WHEN MEETS CRITERIA PROCEDURES PAIN NURSING RECORD PROCEDURE IN ROOM 1300, PHYSICIAN IN ROOM 1422, START 1427, FINISH 1430, PHYSICIAN OUT OF ROOM 1431, OUT OF ROOM 1540, ECG N/A, PATIENT SHIELDED NO, SAFETY STRAP NO, PREP ALCOHOL DR. URIBE, DRESSING TEGADERM Anam CARDENAS RN LOC: 1. ALERT, ORIENTED, ELLIE CARDENAS 08/29/2020 2:30:15 PM > RESP: 1. REGULAR, NO DYSPNEA, ELLIE CARDENAS 08/29/2020 2:30:18 PM > COLOR: 1. PINK, ELLIE CARDENAS 08/29/2020 2:30:22 PM > SKIN: 1. WARM, DRY, ELLIE CARDENAS 08/29/2020 2:30:25 PM > POSITION: 5. SITTING, ELLIE CARDENAS 08/29/2020 2:30:30 PM > VITALS: 171/75, 71, 16, 98%, ELLIE CARDENAS 08/29/2020 3:20:03 PM > 172/90 MANUAL, ELLIE CARDENAS 08/29/2020 3:35:22 PM > PT DENIES CHEST PAIN OR PRESSURE, SOB, EXPLAINED TO PT THAT IT IS COMMON FOR PT'S BLOOD PRESSURE INCREASES S/P PROCEDURE. OFFERED FOR PT TO STAY ANOTHER 20 MINUTES TO SEE IF B/P COMES DOWN AND RECHECK, PT DECLINED STATING SHE WANTED TO GO HOME., ELLIE CARDENAS 08/29/2020 3:42:32 PM > NOTES Anam CARDENAS RN COMPLETION OF PROCEDURE APPOINTMENT: POST PAIN 2, DRESSING SITE DRY AND INTACT, IV N/A, GAIT WHEELCHAIR, TEACHING COMPLETED, PATIENT ACKNOWLEDGES UNDERSTANDING YES, PROCEDURE APPOINTMENT COMPLETED AT 1543 : S/P PROCEDURE, DR URIBE DECIDED HE WANTED PT TO GET CXR PT HAS KYPHOSIS AND WE INJECTED VERY CLOSE TO LUNG. PT WAS BROUGHT DOWN TO X-RAY VIA WHEELCHAIR FOR STAT X-RAY, THEN BROUGHT BACK TO ROOM, PT TOLERATED ACTIVITY WELL. PT DRESSED HERSELF. CXR RESULTS RECEIVED AND GIVEN TO DR URIBE. THERE WAS A COMPRESSION FX NOTED ON XRAY AND DR URIBE DISCUSSED THIS WITH THE PT. THERE WAS NO PNEUMOTHORAX NOTED ON CXR RESULTS. RESULTS SCANNED INTO PT CHART. PT WAS D/C HOME VIA WHEELCHAIR TO CAR WITH BENOIT DAVIS CNA, ELLIE CARDENAS 08/29/2020 3:46:30 PM > PN TRIGGER POINT INJECTION WITH STEROIDS PRE PROCEDURE DIAGNOSIS 1. MYALGIA 2. PAIN AT BILATERAL LOW BACK AREA AND BILATERAL THORACIC AREA POST PROCEDURE DIAGNOSIS 1. MYALGIA 2. PAIN AT BILATERAL LOW BACK AREA AND BILATERAL THORACIC AREA PROCEDURE TRIGGER POINT INJECTION AT BILATERAL LOW BACK AREA AND BILATERAL THORACIC AREA SURGEON DR. BRUCE URIBE FIELD OPERATIONS TECHNICIAN NONE ANESTHESIA LOCAL PRE PROCEDURE NOTE THE PATIENT HAS A HISTORY OF CHRONIC PAIN AT THE RIGHT AND LEFT LOW BACK AREA AND RIGHT AND LEFT THORACIC AREA. I EVALUATED THE PATIENT AND REVIEWED THE CHART. THERE IS EVIDENCE OF BANDS OF TISSUE WITH RESTRICTION OF MOVEMENT AND PRESENCE OF TRIGGER POINT AT THE RIGHT AND LEFT LOW BACK AREA AND RIGHT AND LEFT THORACIC AREA. I WENT OVER THE RISKS, ALTERNATIVES, AND BENEFITS ASSOCIATED WITH THIS PROCEDURE. THE PATIENT WOULD LIKE TO PROCEED AND GIVE CONSENT TO PERFORMED THE PROCEDURE. THE PATIENT DENIES UNEXPLAINABLE WEIGHT LOSS, FEVER, CHILLS, OR NEW CHANGES IN URINARY OR BOWEL CONTROL. THE PATIENT IS COVID-19 NEGATIVE DESCRIPTION OF PROCEDURE THE PATIENT WAS BROUGHT TO THE PROCEDURE ROOM AND PLACED IN THE SITTING POSITION. THE AREA WAS CLEANED WITH ALCOHOL. THE PROCEDURE WAS DONE USING ASEPTIC STERILE TECHNIQUE. A TIMEOUT WAS PERFORMED WHERE THE CONSENTED SITE WAS VERIFIED WITH EVERYONE IN THE ROOM. USING A 25-GAUGE NEEDLE, TRIGGER POINTS WERE INJECTED AT THE RIGHT AND LEFT LOW BACK AREA AND RIGHT AND LEFT THORACIC AREA WITH A TOTAL OF 40 ML OF BUPIVACAINE 0.25% AND KENALOG 40 MG. THE MEDICATIONS WERE VERIFIED WITH THE NURSE. THERE WAS NO EVIDENCE OF BLOOD OR PARESTHESIA DURING THE PROCEDURE. THE PATIENT WAS SENT TO THE RECOVERY ROOM. THE PATIENT WAS MOVING THE EXTREMITIES AND DOING WELL. THERE WERE NO COMPLICATIONS DURING THE PROCEDURE. ESTIMATED BLOOD LOSS WAS LESS THAN 5 ML POST PROCEDURE NOTE I AM LOOKING FOR LONG LASTING PAIN RELIEF. IF PAIN PERSISTS, CONSIDER WORKING WITH THE FACET JOINTS. I WILL ORDER A STAT CHEST X-RAY, AP AND LATERAL ON INSPIRATION AND EXPIRATION, TO RULE OUT PNEUMOTHORAX. THE PROCEDURE DONE WAS DISCUSSED WITH THE PATIENT. THE PATIENT WILL BE SEEN IN A FOLLOW UP IN THE NEXT FEW WEEKS. INSTRUCTIONS WERE GIVEN, QUESTIONS WERE ANSWERED, AND THE PATIENT EXPRESSED UNDERSTANDING AND AGREES WITH THE PLAN. I, KENDRA CARRENO, DOCUMENTED THE ABOVE INFORMATION ACTING A SCRIBE FOR DR. URIBE. I HAVE REVIEWED THE ABOVE DOCUMENT, WRITTEN BY KENDRA CARRENO, [employer] FINANCIAL DEVELOPER, AND I VERIFY THAT IT IS ACCURATE PROCEDURE CODES 03011 INJECT TRIGGER POINTS 3/> DISPOSITION & COMMUNICATION FOLLOW UP FOLLOW UP WITH DIRECTOR [employer] (REASON: POST TRIGGER POINT INJECTION BILATERAL LOW BACK AND BILATERAL THORACIC) ELECTRONICALLY SIGNED BY BRUCE URIBE MD, MD ON 09/04/2020 AT 06:05 PM EDT DISCLAIMER : THIS IS A VISIT SUMMARY EXTRACTED FROM THE [employer] CHART. IT IS NOT A COPY OF THE [employer] PROGRESS NOTE. MTDD
== END ==
LOC: M PAIN 13:00
PROVIDERS: ATTEND Anesthesiology
DX: M79.18 Myalgia, other site (principal); K21.9 Gastro-esophageal reflux disease without esophagitis; E55.9 Vitamin D deficiency, unspecified; Z88.3 Allergy status to other anti-infective agents; Z88.8 Allergy status to other drugs, medicaments and biological substances; Z91.040 Latex allergy status; Z79.82 Long term (current) use of aspirin; Z79.899 Other long term (current) drug therapy
CPT/HCPCS: 20553; 71046; J3301

== ENCOUNTER → 2020-09-26 | Outpatient (CLI) | payer MEDICARE, OTHER ==
[~2020-09-26] MED LIST changes: -BUPIVACAINE HCL 0.25% 10ML VIAL As Ordered ONE; -BUPIVACAINE HCL 0.25% 30ML VIAL As Ordered ONE; -TRIAMCINOLONE ACETONIDE SUSP 40 MG/ML VIAL (J3301) As Ordered ONE; -diazePAM 2 MG TAB As Ordered ONE
--- NOTE | 2020-09-30 03:14 | ECWPNPC ---
PATIENT NAME: LORENZO KHAN : 1935 GENDER: FEMALE VISIT DATE: 09/26/2020 DISCHARGE DATE: 09/26/20 1509 VISIT LOCKED DATE TIME: PHYSICIAN: SUNDAY MARLEY PHYSICIAN PAGER NO: ACTIVE RESOURCE: SUNDAY MARLEY REASON FOR APPOINTMENT 1. POST TRIGGER POINT INJECTIONS BILATERAL LOW BACK,BILATERAL THORACIC HISTORY OF PRESENT ILLNESS DEPRESSION SCREENING: PHQ-9 LITTLE INTEREST OR PLEASURE IN DOING THINGSMORE THAN HALF THE DAYS FEELING DOWN, DEPRESSED, OR HOPELESSSEVERAL DAYS TROUBLE FALLING OR STAYING ASLEEP, OR SLEEPING TOO MUCHNOT AT ALL FEELING TIRED OR HAVING LITTLE ENERGYNOT AT ALL POOR APPETITE OR OVEREATING NOT AT ALL FEELING BAD ABOUT YOURSELF-OR THAT YOU ARE A FAILURE OR HAVE LET YOURSELF OR YOUR FAMILY DOWN NOT AT ALL TROUBLE CONCENTRATING ON THINGS, SUCH READING THE NEWSPAPER OR WATCHING TELEVISION NOT AT ALL MOVING OR SPEAKING SO SLOWLY THAT OTHER PEOPLE COULD HAVE NOTICED. OR THE OPPOSITE- BEING SO FIDGETY OR RESTLESS THAT YOU HAVE BEEN MOVING AROUND A LOT MORE THAN USUALNOT AT ALL THOUGHTS THAT YOU WOULD BE BETTER OFF , OR OF HURTING YOURSELF IN SOME WAY?NOT AT ALL TOTAL SCORE:3 INTERPRETATIONMINIMAL DEPRESSION PHQ-2 (2015 EDITION) LITTLE INTEREST OR PLEASURE IN DOING THINGS?MORE THAN HALF THE DAYS FEELING DOWN, DEPRESSED, OR HOPELESS?SEVERAL DAYS TOTAL SCORE3 GENERAL: HERE FOR FOLLOW-UP OF CHRONIC LOW BACK PAIN. FEELS TRIGGER POINT INJECTIONS THAT SHE HAD AT LAST VISIT WERE SOMEWHAT HELPFUL ALTHOUGH SHE CONTINUES TO SUFFER WITH LOW BACK PAIN. PAIN IS AGGRAVATED BY EXTENSION OF SPINE. PAIN IS RELIEVED BY FLEXION OF SPINE. DISCUSSED THERAPEUTIC LUMBAR FACET BLOCK. REVIEWED LUMBAR STRETCHING EXERCISES. -. FALL RISK SCREENING: SCREENING : NO FALLS REPORTED IN THE LAST YEAR, 2 FALL THIS YEAR ONE IN THE [place] AND WENT TO THE ER IN [place] AND OUTSIDE OF HER HOUSE NO INJURIES FOR EITHER FALL JUST WAS BLACK AND BLUE IN A FEW AREAS. PAIN SCREENING: PATIENT HAS A COMPLAINT OF ACUTE OR CHRONIC PAIN :YES LOCATION OF PAIN:LOW BACK PAIN GOES DOWN BOTH LEGS INTENSITY OF PAIN (SCALE OF 1 TO 10):4 WHAT DOES YOUR PAIN FEEL LIKE:ACHING, CONTINOUS DURATION:ONLY WITH SPECIFIC ACTIVITIES PAIN IS INCREASED BY:ACTIVITIES, PROLONGED STANDING PAIN IS DECREASED BY:SITTING NURSING NOTE: -. PAIN CENTER INTAKE QUESTIONS: DO YOU HAVE A HISTORY OF MRSA? :NO DO YOU TAKE A BLOOD THINNERS? :NO DO YOU HAVE ANY BLEEDING DISORDERS? :NO ANY NEW NUMBNESS OR WEAKNESS IN YOUR LEGS OR ARMS? :YES PAIN IN KNEE MOSTLY ON THE RIGHT ANY PACEMAKER,DEFIBRILLATOR, OR DORSAL COLUMN STIMULATOR? :NO DO YOU HAVE ANY RASHES OR OPEN SORES? :NO ARE YOU ALLERGIC TO IV DYE? :NO ARE YOU DIABETIC? :NO ANY NEW PROBLEMS WITH YOUR MEDICATIONS? :NO HAVE YOU RECEIVED A VACCINE IN THE PAST 30 DAYS? :YES 1ST COVID 07/07/2020 DO YOU PLAN TO RECEIVE A VACCINE IN THE NEXT 21 DAYS? :YES IF SO WHAT VACCINE AND WHEN? 2ND COVID 08/01/2020 DO YOU NEED ANY PRESCRIPTION? :NO DO YOU TAKE ANY IMMUNOSUPPRESSIVE MEDICATIONS? :NO DO YOU HAVE ANY KIDNEY OR LIVER DISEASE? :NO IS THERE A CHANCE YOU COULD BE ? :NO ARE YOU BREAST FEEDING? :NO CURRENT MEDICATIONS TAKING VITAMIN B12 500 MCG TABLET 1 TABLET ORALLY 1500MG ONCE A DAY TAKING ASPIRIN 81 MG TABLET CHEWABLE 1 TABLET ORALLY ONCE A DAY TAKING OMEPRAZOLE 20 MG CAPSULE DELAYED RELEASE 1 CAPSULE ORALLY ONCE A DAY TAKING VITAMIN D3 50 MCG (2000 UT) CAPSULE 1 CAPSULE ORALLY ONCE A DAY TAKING ARTIFICIAL TEARS 0.2-0.2-1 % SOLUTION DIRECTED OPHTHALMIC THREE TIMES DAILY TAKING CELECOXIB 200 MG CAPSULE 1 CAPSULE WITH FOOD ORALLY TWICE A DAY TAKING KNEE SLIP-ON OPEN PATELLA - MISCELLANEOUS DIRECTED TAKING MAGNESIUM 250 MG TABLET 1 TABLET WITH A MEAL ORALLY ONCE A DAY TAKING PRESERVISION AREDS - TABLET DIRECTED ORALLY TAKING TIZANIDINE HCL 2 MG TABLET 1 TABLET NEEDED ORALLY THREE TIMES A DAY TAKING VITAMIN B COMPLEX - TABLET DIRECTED ORALLY TAKING VITAMIN E 400 UNIT CAPSULE 1 CAPSULE ORALLY ONCE A DAY NOT-TAKING CO Q10 MAXIMUM STRENGTH 200 MG CAPSULE 1 CAPSULE WITH A MEAL ORALLY ONCE A DAY NOT-TAKING DULOXETINE HCL 30 MG CAPSULE DELAYED RELEASE PARTICLES 1 CAPSULE ORALLY ONCE A DAY NOT-TAKING HYDROCODONE-ACETAMINOPHEN 5-325 MG TABLET 1 TABLET NEEDED ORALLY TWO TIMES A DAY NOT-TAKING VOLTAREN 1 % GEL DIRECTED EXTERNALLY NOT-TAKING LORATADINE 10 MG TABLET 1 TABLET ORALLY ONCE A DAY, NOTES: NEEDED NOT-TAKING PROBIOTIC CAPSULE ORALLY NOT-TAKING MAGNESIUM 400 MG CAPSULE 1 TABLET WITH A MEAL ORALLY ONCE A DAY NEEDED, NOTES: NEEDED NOT-TAKING PRESERVISION AREDS - CAPSULE 1 CAP ORALLY DAILY NOT-TAKING DICLOFENAC SODIUM 1 % GEL DIRECTED TRANSDERMAL EVERY 6 HOURS NEEDED NOT-TAKING CALCIUM CARBONATE ANTACID 500 MG TABLET CHEWABLE 1 TAB ORALLY ONCE DAILY AFTER A MEAL NOT-TAKING CELECOXIB 200MG CAPSULE TAKE 1 CAPSULE DAILY WITH FOOD MEDICATION LIST REVIEWED AND RECONCILED WITH THE PATIENT PAST MEDICAL HISTORY GERD ALLERGIC RHINITIS OA OF R KNEE, LUMBAR, HANDS B H/O COMPRESSION FRACTURE OF LUMBAR VERTEBRA 06/2013 H/O BPPV HTN CVA 04/[address] REED, FOR VIS. FIELD DEFICITS H/O HYPOMAGNESEMIA 04/28 S/P COLONOSCOPY 02/26 INCOMPLETE, BARIUM ENEMA NEG. F/U IN 2018 VITAMIN D DEFICIENCY H/O VITAMIN B12 DEFICIENCY THYROID NODULE 1.2 CM IN L LOBE, UNCHANGED FROM 07/19/[address] 01/30/16 ALLERGIES BETADINE: MONTANO SKIN - SIDE EFFECTS STATINS (FOR ALLERGY USE ONLY): MUSCLE PAINS - SIDE EFFECTS LATEX (FOR ALLERGY USE ONLY): SIDE EFFECTS SOCIAL HISTORY GENERAL: TOBACCO USE ARE YOU A:NONSMOKER LATEX QUESTIONNAIRE LATEX ALLERGY : HAVE YOU EVER DEVELOPED ANY TYPE OF REACTION AFTER HANDLING LATEX PRODUCTS SUCH RUBBER GLOVES, CONDOMS, DIAPHRAGMS, BALLOONS, SOCKS, OR UNDERWEAR?YES LATEX ALLERGY : HAVE YOU EVER DEVELOPED ANY TYPE OF REACTION DURING OR AFTER DENTAL APPOINTMENT, VAGINAL/RECTAL EXAMINATION, SURGICAL PROCEDURE, OR ANY OTHER EXPOSURE?NO LATEX RISK : HAVE YOU EVER HAD ANY DIFFICULTY BREATHING OR HIVES AFTER EATING OR HANDLING ANY FRUITS, OR VEGETABLES; SUCH KIWI, BANANAS, STONE FRUITS, OR CHESTNUTSNO LATEX RISK : DO YOU HAVE A PREVIOUS PERSONAL HISTORY OF MORE THAN NINE SURGERIES, SPINA BIFIDA, OR REPEATED CATHERIZATIONS? NO LATEX RISK : ARE YOU FREQUENTLY EXPOSED TO LATEX PRODUCTS IN YOUR OCCUPATION?NO DATE ASKED : 09/26/2020 ALCOHOL USE: NO. ALCOHOL SCREENING DID YOU HAVE A DRINK CONTAINING ALCOHOL IN THE PAST YEAR?YES HOW OFTEN DID YOU HAVE SIX OR MORE DRINKS ON ONE OCCASION IN THE PAST YEAR?NEVER (0 POINTS) HOW MANY DRINKS DID YOU HAVE ON A TYPICAL DAY WHEN YOU WERE DRINKING IN THE PAST YEAR?1 OR 2 (0 POINTS) HOW OFTEN DID YOU HAVE A DRINK CONTAINING ALCOHOL IN THE PAST YEAR?TWO TO THREE TIMES PER WEEK (3 POINTS) POINTS3 INTERPRETATIONPOSITIVE RECREATIONAL DRUG USE DRUG USE?NO PATIENT DENIES ABUSE OR MISSUSED OF ANY MEDICATION. CAFFEINE: YES CAFFEINE USE?YES HOW OFTEN AND HOW MUCH? 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 MARITAL STATUS: . REVIEW OF SYSTEMS CONSTITUTIONAL: ANY RECENT FEVER NO . CHILLS NO . WEIGHT CHANGE OF UNKNOWN REASONS NO . GASTROENTEROLOGY: NEW UNEXPLAINABLE CHANGES IN BOWEL CONTROL NO . CONSTIPATION NO . GENITOURINARY: ANY NEW CHANGE IN BLADDER CONTROL? NO . NEUROLOGY: NEW ONSET DIZZINESS OR NEUROLOGICAL CHANGES NOT MENTIONED NO . NEW NUMBNESS OR PAIN PATTERNS NOT MENTIONED AND PERTINENT TO TODAY'S VISIT NO . CARDIOLOGY: NEW CHEST PRESSURE NO . PATIENT DENIES NO . RESPIRATORY: UNEXPLAINABLE COUGH NO . NEW SHORTNESS OF BREATH NO . VITAL SIGNS WT 127.4 LBS, HT 62 IN, BMI 23.30 INDEX, BP 134/69 MM HG, HR 102 /MIN, RR 16 /MIN, TEMP 97.5 F, OXYGEN SAT % 97%, SAFE IN ENV? (Y/N) YES, NA INITIALS PR 14:15T.TRINA DOMINGO. EXAMINATION GENERAL EXAMINATION: LUNGS: LUNG SOUNDS ARE CLEAR . HEART: HEART RATE REGULAR . MUSCULOSKELETAL:*, MUSCLE STRENGTH TESTING 5/5 BILATERAL LOWER EXTREMITIES., ,PALPATION: POSITIVE FOR PAIN OVER L/S SPINE. POSITIVE FOR PAIN OVER L/S PARSPINALS.SPECIFIC POINT TENDERNESS OVER BILAT L4/5-L5/S1 LUMBR FACETS WITH FACET LOADING . DIAGNOSTIC:MRI L/S SPINE . ASSESSMENTS OTHER CHRONIC PAIN - G89.29 (PRIMARY) LOW BACK PAIN - M54.5 LUMBOSACRAL SPONDYLOLYSIS - M43.07 TREATMENT OTHER CHRONIC PAIN PAIN PROCEDURE LOGDATE OF PROCEDURE1PROCEDURE:TRIGGER POINT INJECTION BILATERAL LOW BACK, BILATERAL THORACICAMOUNT OF PRE SEDATEVALIUM 2MGRESULT:SOME IMPROVEMENT CONTINUES TODAY MEDICATION: VALIUM TAB 5MG ORALLY (DIAZEPAM) (ORDERED FOR 10/03/2020) MED: PAIN NORCO TABLET 5MG/325MG ORALLY HYDROCODONE/ACETAMINOPHEN (ORDERED FOR 10/03/2020) SALINE LOCK (ORDERED FOR 10/03/2020) NOTES: BILATERAL THERAPEUTIC LUMBAR FACET BLOCK L4-5,L5-S1 PLEASE GIVE PATIENT HOME STRETCHING EXCERSISES FOR LOW BACK REVIEWED PRE PROCEDURE INFORMATION, PATIENT VERBALIZED UNDERSTANDING, ALSO PRINT INFORMATION ON LOWER BACK STRETCHING AND EXCERSISES FOR PATIENT TonyaJOSUÉ DOMINGO. PROCEDURE CODES FA211 ESTABILISHED PATIENT [facility] CHARGE DISPOSITION & COMMUNICATION FOLLOW UP POST (REASON: BILATERAL THERAPEUTIC LUMBAR FACET BLOCK L4-5,L5-S1) ELECTRONICALLY SIGNED BY ORALIA DIAL ON 09/29/2020 AT 08:37 AM EDT DISCLAIMER : THIS IS A VISIT SUMMARY EXTRACTED FROM THE [employer] CHART. IT IS NOT A COPY OF THE [employer] PROGRESS NOTE. KEILY
== END ==
LOC: M PAIN 13:45
PROVIDERS: ATTEND Nurse Practitioner Family
DX: M54.5 Low back pain (principal); M43.07 Spondylolysis, lumbosacral region; G89.29 Other chronic pain; K21.9 Gastro-esophageal reflux disease without esophagitis; E55.9 Vitamin D deficiency, unspecified; Z88.3 Allergy status to other anti-infective agents; Z88.8 Allergy status to other drugs, medicaments and biological substances; Z91.040 Latex allergy status; Z79.82 Long term (current) use of aspirin; Z79.899 Other long term (current) drug therapy

== ENCOUNTER → 2020-09-27 | Outpatient (CLI) | payer MEDICARE, OTHER | LOC: M LABSMTC 11:09 | PROVIDERS: ATTEND Anesthesiology | DX: Z20.822 Contact with and (suspected) exposure to COVID-19 (principal) ==

== ENCOUNTER → 2020-10-02 | Outpatient (CLI) | payer MEDICARE, OTHER ==
[~2020-10-02] MED LIST changes: +BUPIVACAINE HCL 0.25% 30ML VIAL As Ordered ONE; +LIDOCAINE 1% SDV 30ML VIAL As Ordered ONE; +NORCO, ANEXSIA 5/325MG TABLET (HYDROcodone/ACETAMINOPHEN) As Ordered ONE; +TRIAMCINOLONE ACETONIDE SUSP 40 MG/ML VIAL (J3301) As Ordered ONE; +diazePAM 5MG TABLET As Ordered ONE
--- NOTE | 2020-10-02 14:38 | REP ---
INDICATION: BILATERAL THERAPEUTIC LUMBAR FACET BLOCK. COMPARISON: None. TECHNIQUE: Two C-arm views lower lumbar spine. FINDINGS: [place]and[place] are seen along the lower lumbar facet joints bilaterally. IMPRESSION: 23 seconds fluoroscopy time utilized. <Electronically signed by Stanislav Britt > 10/02/20 5627
--- NOTE | 2020-10-08 00:25 | ECWPNPC ---
PATIENT NAME: LORENZO KHAN : 1935 GENDER: FEMALE VISIT DATE: 10/02/2020 DISCHARGE DATE: 10/02/20 1424 VISIT LOCKED DATE TIME: PHYSICIAN: BRUCE URIBE MD PHYSICIAN PAGER NO: ACTIVE RESOURCE: BRUCE URIBE MD REASON FOR APPOINTMENT 1. BILATERAL THERAPEUTIC LUMBAR FACET BLOCK L4-L5,L5-S1 HISTORY OF PRESENT ILLNESS GENERAL: -. FALL RISK SCREENING: SCREENING : TWO FALLS REPORTED IN THE LAST YEAR, NONE SINCE LAST VISIT WITH US. PAIN SCREENING: PATIENT HAS A COMPLAINT OF ACUTE OR CHRONIC PAIN :YES LOCATION OF PAIN:LOW BACK LEFT > RIGHT INTENSITY OF PAIN (SCALE OF 1 TO 10):7 WHAT DOES YOUR PAIN FEEL LIKE:ACHING DURATION:CONTINOUS PAIN IS INCREASED BY:ACTIVITIES, PROLONGED STANDING PAIN IS DECREASED BY:SITTING NURSING NOTE: -. PAIN CENTER INTAKE QUESTIONS: DO YOU HAVE A HISTORY OF MRSA? :NO DO YOU TAKE A BLOOD THINNERS? :NO DO YOU HAVE ANY BLEEDING DISORDERS? :NO ANY NEW NUMBNESS OR WEAKNESS IN YOUR LEGS OR ARMS? :YES WEAKNESS TO BILATERAL LEGS ANY PACEMAKER,DEFIBRILLATOR, OR DORSAL COLUMN STIMULATOR? :NO DO YOU HAVE ANY RASHES OR OPEN SORES? :NO ARE YOU ALLERGIC TO IV DYE? :YES ARE YOU DIABETIC? :NO ANY NEW PROBLEMS WITH YOUR MEDICATIONS? :NO HAVE YOU RECEIVED A VACCINE IN THE PAST 30 DAYS? :NO DO YOU PLAN TO RECEIVE A VACCINE IN THE NEXT 21 DAYS? :NO DO YOU TAKE ANY IMMUNOSUPPRESSIVE MEDICATIONS? :NO ANY HISTORY OF SEIZURES? :NO ANY HISTORY OF CARDIAC ISSUES OR EVENTS? :YES BLOCKAGE IN [place] 10 YEARS AGO; FOLLOWS WITH DR. GARRETT YEARLY DO YOU HAVE ANY KIDNEY OR LIVER DISEASE? :NO DO YOU HAVE SLEEP APNEA? :NO ANY RECENT HEAD INJURY? :NO DO YOU HAVE ANY NEW INFECTIONS? :NO IS THERE A CHANCE YOU COULD BE ? :NO ARE YOU BREAST FEEDING? :NO WHEN DID YOU LAST EAT? : 0500 WHEN DID YOU LAST DRINK? : 0900 WHAT DID YOU LAST DRINK? : WATER NAME OF PERSON DRIVING YOU HOME? : [employer] DO YOU HAVE ANY OTHER QUESTIONS OR CONCERNS? : - CURRENT MEDICATIONS TAKING VITAMIN B12 500 MCG TABLET 1 TABLET ORALLY 1500MG ONCE A DAY TAKING ASPIRIN 81 MG TABLET CHEWABLE 1 TABLET ORALLY ONCE A DAY TAKING OMEPRAZOLE 20 MG CAPSULE DELAYED RELEASE 1 CAPSULE ORALLY ONCE A DAY TAKING VITAMIN D3 50 MCG (1999 UT) CAPSULE 1 CAPSULE ORALLY ONCE A DAY TAKING ARTIFICIAL TEARS 0.2-0.2-1 % SOLUTION DIRECTED OPHTHALMIC THREE TIMES DAILY TAKING CELECOXIB 200 MG CAPSULE 1 CAPSULE WITH FOOD ORALLY TWICE A DAY TAKING KNEE SLIP-ON OPEN PATELLA - MISCELLANEOUS DIRECTED TAKING MAGNESIUM 250 MG TABLET 1 TABLET WITH A MEAL ORALLY ONCE A DAY TAKING PRESERVISION AREDS - TABLET DIRECTED ORALLY TAKING TIZANIDINE HCL 2 MG TABLET 1 TABLET NEEDED ORALLY THREE TIMES A DAY, NOTES: NONE RECENT TAKING VITAMIN B COMPLEX - TABLET DIRECTED ORALLY TAKING VITAMIN E 400 UNIT CAPSULE 1 CAPSULE ORALLY ONCE A DAY NOT-TAKING CO Q10 MAXIMUM STRENGTH 200 MG CAPSULE 1 CAPSULE WITH A MEAL ORALLY ONCE A DAY NOT-TAKING DULOXETINE HCL 30 MG CAPSULE DELAYED RELEASE PARTICLES 1 CAPSULE ORALLY ONCE A DAY NOT-TAKING HYDROCODONE-ACETAMINOPHEN 5-325 MG TABLET 1 TABLET NEEDED ORALLY TWO TIMES A DAY NOT-TAKING VOLTAREN 1 % GEL DIRECTED EXTERNALLY NOT-TAKING LORATADINE 10 MG TABLET 1 TABLET ORALLY ONCE A DAY, NOTES: NEEDED NOT-TAKING PROBIOTIC CAPSULE ORALLY NOT-TAKING MAGNESIUM 400 MG CAPSULE 1 TABLET WITH A MEAL ORALLY ONCE A DAY NEEDED, NOTES: NEEDED NOT-TAKING PRESERVISION AREDS - CAPSULE 1 CAP ORALLY DAILY NOT-TAKING DICLOFENAC SODIUM 1 % GEL DIRECTED TRANSDERMAL EVERY 6 HOURS NEEDED NOT-TAKING CALCIUM CARBONATE ANTACID 500 MG TABLET CHEWABLE 1 TAB ORALLY ONCE DAILY AFTER A MEAL NOT-TAKING CELECOXIB 200MG CAPSULE TAKE 1 CAPSULE DAILY WITH FOOD MEDICATION LIST REVIEWED AND RECONCILED WITH THE PATIENT PAST MEDICAL HISTORY GERD ALLERGIC RHINITIS OA OF R KNEE, LUMBAR, HANDS B H/O COMPRESSION FRACTURE OF LUMBAR VERTEBRA 06/2013 H/O BPPV HTN CVA 04/[address] REED, FOR VIS. FIELD DEFICITS H/O HYPOMAGNESEMIA 04/28 S/P COLONOSCOPY 02/26 INCOMPLETE, BARIUM ENEMA NEG. F/U IN 2018 VITAMIN D DEFICIENCY H/O VITAMIN B12 DEFICIENCY THYROID NODULE 1.2 CM IN L LOBE, UNCHANGED FROM 07/19/[address] 01/30/16 ALLERGIES BETADINE: MONTANO SKIN - SIDE EFFECTS STATINS (FOR ALLERGY USE ONLY): MUSCLE PAINS - SIDE EFFECTS LATEX (FOR ALLERGY USE ONLY): ITCHING - SIDE EFFECTS IV DYE: DOESN'T REMEMBER - ALLERGY SOCIAL HISTORY GENERAL: TOBACCO USE ARE YOU A:NONSMOKER LATEX QUESTIONNAIRE LATEX ALLERGY : HAVE YOU EVER DEVELOPED ANY TYPE OF REACTION AFTER HANDLING LATEX PRODUCTS SUCH RUBBER GLOVES, CONDOMS, DIAPHRAGMS, BALLOONS, SOCKS, OR UNDERWEAR?YES LATEX ALLERGY : HAVE YOU EVER DEVELOPED ANY TYPE OF REACTION DURING OR AFTER DENTAL APPOINTMENT, VAGINAL/RECTAL EXAMINATION, SURGICAL PROCEDURE, OR ANY OTHER EXPOSURE?NO LATEX RISK : HAVE YOU EVER HAD ANY DIFFICULTY BREATHING OR HIVES AFTER EATING OR HANDLING ANY FRUITS, OR VEGETABLES; SUCH KIWI, BANANAS, STONE FRUITS, OR CHESTNUTSNO LATEX RISK : DO YOU HAVE A PREVIOUS PERSONAL HISTORY OF MORE THAN NINE SURGERIES, SPINA BIFIDA, OR REPEATED CATHERIZATIONS? NO LATEX RISK : ARE YOU FREQUENTLY EXPOSED TO LATEX PRODUCTS IN YOUR OCCUPATION?NO DATE ASKED : 09/26/2020 ACTIVE LATEX ALLERGY ALCOHOL USE: NO. ALCOHOL SCREENING DID YOU HAVE A DRINK CONTAINING ALCOHOL IN THE PAST YEAR?YES HOW OFTEN DID YOU HAVE SIX OR MORE DRINKS ON ONE OCCASION IN THE PAST YEAR?NEVER (0 POINTS) HOW MANY DRINKS DID YOU HAVE ON A TYPICAL DAY WHEN YOU WERE DRINKING IN THE PAST YEAR?1 OR 2 (0 POINTS) HOW OFTEN DID YOU HAVE A DRINK CONTAINING ALCOHOL IN THE PAST YEAR?TWO TO THREE TIMES PER WEEK (3 POINTS) POINTS3 INTERPRETATIONPOSITIVE RECREATIONAL DRUG USE DRUG USE?NO PATIENT DENIES ABUSE OR MISSUSED OF ANY MEDICATION. CAFFEINE: YES CAFFEINE USE?YES HOW OFTEN AND HOW MUCH? 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 MARITAL STATUS: . VITAL SIGNS WT 125.2 LBS, HT 62 IN, BMI 22.90 INDEX, BP 149/70 MM HG, HR 98 /MIN, RR 18 /MIN, TEMP 97.0 F, OXYGEN SAT % 97%, SAFE IN ENV? (Y/N) YES, NA INITIALS AW 1144, REVIEWED BY: Johnny RAMIREZ RN. EXAMINATION GENERAL EXAMINATION: A HISTORY AND PHYSICAL EXAM ON THE PATIENT WAS DONE ON 09/26/2020 (DATE OF ORIGINAL ASSESSMENT) IN PREPARATION OF SURGERY/PROCEDURE. I HAVE NOW REASSESSED THIS PATIENT'S HEALTH STATUS AND PERFORMED AN UPDATED EXAM TODAY. ALL CHANGES IN THE PATIENT'S HISTORY, PHYSICAL EXAM, PRE-EXISTING CONDITONS, AND INDICATIONS/CONTRAINDICATIONS TO THE PLANNED PROCEDURE AND ANESTHESIA ARE DOCUMENTED AND EVALUATED BELOW. I ATTEST TO THE ADEQUACY AND APPROPRIATENESS OF MY ASSESSMENT, AND CONFIRM THE NECESSITY FOR THE PLANNED PROCEDURE. THE PATIENT IS ALERT, ORIENTED TIMES THREE AND COOPERATIVE. LUNGS ARE CLEAR TO AUSCULTATION. HEART SHOWS REGULAR RHYTHM, NO MURMURS AND NO GALLOPS. ASSESSMENTS SPONDYLOSIS WITHOUT MYELOPATHY OR RADICULOPATHY, LUMBAR REGION - M47.816 (PRIMARY) SPONDYLOSIS WITHOUT MYELOPATHY OR RADICULOPATHY, LUMBOSACRAL REGION - M47.817 TREATMENT SPONDYLOSIS WITHOUT MYELOPATHY OR RADICULOPATHY, LUMBAR REGION [facility] FACET BLOCK (PAIN)[id number] COMPLETION OF PROCEDURAL VISIT WHEN MEETS CRITERIAELIAS RAMIREZ 10/02/2020 2:09:23 PM > CRITERIA MET. MEDICATION: VALIUM TAB 5MG ORALLY (DIAZEPAM)ELLIE CARDENAS 10/02/2020 12:32:33 PM > VERIFIED ELIAS RAMIREZ 10/02/2020 12:34:47 PM > ADMINISTERED. SALINE LOCKELIAS RAMIREZ 10/02/2020 12:47:41 PM > SL INSERTED IN LEFT AC, 22 GAUGE, ON FIRST ATTEMPT. SITE CLEAR, FLUSHING WITHOUT DIFFICULTY. ELIAS RAMIREZ 10/02/2020 2:10:08 PM > SL REMOVED, SITE CLEAR, CATHETER TIP INTACT. DSD PLACED OVER SITE. MED: PAIN NORCO TABLET 5MG/325MG ORALLY HYDROCODONE/ACETAMINOPHENELLIE CARDENAS 10/02/2020 12:32:48 PM > VERIFIED ELIAS RAMIREZ 10/02/2020 12:35:04 PM > ADMINISTERED. PROCEDURES PAIN NURSING RECORD PROCEDURE IN ROOM 1316, PHYSICIAN IN ROOM 1339, START 1344, FINISH 1348, PHYSICIAN OUT OF ROOM 1349, OUT OF ROOM 1356, ECG NORMAL SINUS, PATIENT SHIELDED YES, SAFETY STRAP YES, PREP CHLOROPREP Johnny RAMIREZ RN, DRESSING TEGADERM DR. URIBE LOC: ELIAS RAMIREZ 10/02/2020 1:45:23 PM > , 1. ALERT, ORIENTED RESP: ELIAS RAMIREZ 10/02/2020 1:45:26 PM > , 1. REGULAR, NO DYSPNEA COLOR: ELIAS RAMIREZ 10/02/2020 1:45:29 PM > , 1. PINK SKIN: ELIAS RAMIREZ 10/02/2020 1:45:32 PM > , 1. WARM, DRY POSITION: ELIAS RAMIREZ 10/02/2020 1:45:36 PM > , 1. PRONE VITALS: GRETA BURGER 10/02/2020 12:55:07 PM > HR 84 O2 98% 148/73 1310 HR 81 0294% BP 136/71 AW ELIAS RAMIREZ 10/02/2020 1:24:43 PM > 166/97, 91, 18, 98% ELIAS RAMIREZ 10/02/2020 1:28:51 PM > 173/101, 89, 16, 98% ELIAS RAMIREZ 10/02/2020 1:43:34 PM > 171/101, 86, 16, 99% ELIAS RAMIREZ 10/02/2020 1:51:43 PM > 171/93, 83, 16, 98% ELIAS RAMIREZ 10/02/2020 2:07:15 PM > 165/92, 75, 14, 100% COMPLETION OF PROCEDURE APPOINTMENT: POST PAIN 2, DRESSING SITE DRY AND INTACT, IV DISCONTINUED, SITE CLEAR, CATHETER INTACT, GAIT WHEELCHAIR, TEACHING COMPLETED, PATIENT ACKNOWLEDGES UNDERSTANDING YES, PROCEDURE APPOINTMENT COMPLETED AT 1423 BY: Johnny RAMIREZ RN PN LUMBAR FACET BLOCK THERAPEUTIC PRE PROCEDURE DIAGNOSIS LUMBAR SPONDYLOSIS, LUMBOSACRAL SPONDYLOSIS POST PROCEDURE DIAGNOSIS LUMBAR SPONDYLOSIS, LUMBOSACRAL SPONDYLOSIS PROCEDURE BILATERAL L4-L5 AND BILATERAL L5-S1 LUMBAR FACET THERAPEUTIC BLOCK SURGEON DR. BRUCE URBIE SOFTWARE ENGINEER ADVISOR NONE ANESTHESIA LOCAL PRE PROCEDURE NOTE THE PATIENT HAS A HISTORY OF CHRONIC LOW BACK PAIN. I EVALUATED THE PATIENT AND REVIEWED THE CHART. I WENT OVER THE RISKS, ALTERNATIVES, AND BENEFITS ASSOCIATED WITH THIS PROCEDURE. THE PATIENT WOULD LIKE TO PROCEED AND GIVES CONSENT TO PERFORM THE PROCEDURE. THE PATIENT DENIES UNEXPLAINABLE WEIGHT LOSS, FEVER, CHILLS, OR NEW CHANGES IN URINARY OR BOWEL CONTROL. THE PATIENT IS COVID-19 NEGATIVE DESCRIPTION OF PROCEDURE THE PATIENT WAS BROUGHT TO THE PROCEDURE ROOM AND PLACED IN THE PRONE POSITION. THE LUMBOSACRAL AREA WAS CLEANED WITH CHLORAPREP SOLUTION AND DRAPED ASEPTICALLY. THE PROCEDURE WAS DONE UNDER STERILE CONDITIONS. A TIMEOUT WAS PERFORMED WHERE THE CONSENTED SITE WAS VERIFIED WITH EVERYONE IN THE ROOM. UNDER FLUOROSCOPIC GUIDANCE, THE TARGET POINT WAS SELECTED AT THE RIGHT AND LEFT L4-L5 AND RIGHT AND LEFT L5-S1 FACET JOINTS. TARGET POINT WAS SELECTED AFTER LATERAL ROTATION AND TILT OF THE MAGNIFIER OF THE C-ARM. I CONFIRMED AGAIN THE SITE OF TARGET. LIDOCAINE 0.5% WAS USED TO NUMB THE SKIN AND THE SUBCUTANEOUS TISSUE BELOW IT. SPINAL NEEDLES, 22-GAUGE, WERE ADVANCED UNDER FLUOROSCOPIC GUIDANCE AND FOLLOWING PATIENT FEEDBACK UNTIL THE TARGETS WERE TOUCHED. THE POSITION OF THE NEEDLES WAS VERIFIED WITH AP AND LATERAL VIEWS. THE PATIENT HAS AN ALLERGY TO ISOVUE-M DYE. NO ISOVUE-M DYE WAS USED. AFTER PROPER POSITION OF THE NEEDLES WAS ACHIEVED, ISOVUE-M DYE 30%, 0.1 ML, WAS INJECTED SHOWING ADEQUATE SPREAD OF THE DYE. KENALOG 10 MG WAS INJECTED AT EACH SITE. THEN, A SOLUTION OF 1.0 ML OF BUPIVACAINE 0.125% OF WAS USED TO FLUSH EACH SITE. THE MEDICATION WAS VERIFIED WITH THE NURSE. THERE WAS NO EVIDENCE OF BLOOD, PARESTHESIA OR CEREBROSPINAL FLUID DURING THE PROCEDURE. THE PATIENT WAS SENT TO THE RECOVERY ROOM. THE PATIENT WAS MOVING THE EXTREMITIES AND DOING WELL. THERE WERE NO COMPLICATIONS DURING THE PROCEDURE. ESTIMATED BLOOD LOSS WAS LESS THAN 5 ML. FLUOROSCOPY TIME WAS 23 SECONDS POST PROCEDURE NOTE THE PATEINT EXPLAINED TO ME THAT SHE IS HAVING PAIN IN HER UPPER THORACIC. WE SHOULD CONSIDER TRIGGER POINT INJECTIONS IN THE THORACIC AREA. I EXPLAINED TO HER THAT SHE IS BOOKED FOR AN INJECTION IN HER LOW BACK. SHE WANTS TO MOVE FORWARD WITH THE INJECTION THAT SHE IS BOOKED FOR. WE SHOULD WORK WITH HER THORACIC AFTER THIS INJECTION. THE PATIENT WILL BE SEEN IN A FOLLOW UP IN THE NEXT FEW WEEKS. I AM LOOKING FOR LONG LASTING RELIEF FOR THE PATIENT WITH THIS INTERVENTION. INSTRUCTIONS WERE GIVEN, QUESTIONS WERE ANSWERED, AND THE PATIENT EXPRESSED UNDERSTANDING AND AGREES WITH THE PLAN. I, KENDRA CARRENO, DOCUMENTED THE ABOVE INFORMATION ACTING A SCRIBE FOR DR. URIBE. I HAVE REVIEWED THE ABOVE DOCUMENT, WRITTEN BY KENDRA CARRENO, MECHANICAL SERVICE SPECIALIST, AND I VERIFY THAT IT IS ACCURATE PROCEDURE CODES 84458 INJ PARAVERT F JNT L/S 1 LEV, MODIFIERS: 50 [id number] INJ PARAVERT F JNT L/S 2 LEV, MODIFIERS: 50 DISPOSITION & COMMUNICATION FOLLOW UP FOLLOW UP WITH INDEPENDENT DRIVER (REASON: POST BILATERAL THERAPEUTIC LUMBAR FACET BLOCK L4-L5, L5-S1) ELECTRONICALLY SIGNED BY BRUCE URIBE MD, ON 10/07/2020 AT 05:33 PM EDT DISCLAIMER : THIS IS A VISIT SUMMARY EXTRACTED FROM THE [employer] CHART. IT IS NOT A COPY OF THE [employer] PROGRESS NOTE. MTDD
== END ==
LOC: M PAIN 11:20
PROVIDERS: ATTEND Anesthesiology
DX: M47.816 Spondylosis without myelopathy or radiculopathy, lumbar region (principal); M47.817 Spondylosis without myelopathy or radiculopathy, lumbosacral region; K21.9 Gastro-esophageal reflux disease without esophagitis; E55.9 Vitamin D deficiency, unspecified; Z88.8 Allergy status to other drugs, medicaments and biological substances; Z91.040 Latex allergy status; Z91.041 Radiographic dye allergy status; Z79.82 Long term (current) use of aspirin; Z79.899 Other long term (current) drug therapy
CPT/HCPCS: 64493; 64494; J3301

== ENCOUNTER → 2020-10-16 | Outpatient (CLI) | payer MEDICARE, OTHER ==
[~2020-10-16] MED LIST changes: -BUPIVACAINE HCL 0.25% 30ML VIAL As Ordered ONE; -LIDOCAINE 1% SDV 30ML VIAL As Ordered ONE; -NORCO, ANEXSIA 5/325MG TABLET (HYDROcodone/ACETAMINOPHEN) As Ordered ONE; -TRIAMCINOLONE ACETONIDE SUSP 40 MG/ML VIAL (J3301) As Ordered ONE; -diazePAM 5MG TABLET As Ordered ONE
--- NOTE | 2020-10-18 04:15 | ECWPNPC ---
PATIENT NAME: LORENZO KHAN : 1935 GENDER: FEMALE VISIT DATE: 10/16/2020 DISCHARGE DATE: 10/16/20 1506 VISIT LOCKED DATE TIME: PHYSICIAN: SUNDAY MARLEY PHYSICIAN PAGER NO: ACTIVE RESOURCE: SUNDAY MARLEY REASON FOR APPOINTMENT 1. POST BILATERAL THERAPEUTIC LUMBAR FACET BLOCK L4-5,L5-S1 HISTORY OF PRESENT ILLNESS GENERAL: HERE FOR POST PROCEDURE FOLLOW-UP. HAD BILATERAL LUMBAR L4-5, L5-S1 THERAPEUTIC FACET BLOCK ON 10/02/2020. REPORTING MARKED REDUCTION IN LOW BACK PAIN POST PROCEDURE THAT CONTINUES TODAY. REPORTING TWO-WEEK ONSET OF LEFT THORACIC PAIN WITH MOVEMENT. ON EXAM TODAY SHE DEMONSTRATES TRIGGER POINTS IN THAT AREA. REVIEWED TREATMENT PLAN. -. FALL RISK SCREENING: SCREENING : NO FALLS REPORTED IN THE LAST YEAR. PAIN SCREENING: PATIENT HAS A COMPLAINT OF ACUTE OR CHRONIC PAIN :YES LOCATION OF PAIN:LOW BACK INTENSITY OF PAIN (SCALE OF 1 TO 10):0 WHAT DOES YOUR PAIN FEEL LIKE:OTHER NOT IN ANY PAIN RIGHT NOW BECAUSE SHE IS SITTING DURATION:ONLY WITH SPECIFIC ACTIVITIES PAIN IS INCREASED BY:ACTIVITIES PAIN IS DECREASED BY:SITTING, OTHERS RELAXING NURSING NOTE: -. PAIN CENTER INTAKE QUESTIONS: DO YOU HAVE A HISTORY OF MRSA? :NO DO YOU TAKE A BLOOD THINNERS? :NO DO YOU HAVE ANY BLEEDING DISORDERS? :NO ANY NEW NUMBNESS OR WEAKNESS IN YOUR LEGS OR ARMS? :YES PAIN IN KNEE MOSTLY ON THE RIGHT ANY PACEMAKER,DEFIBRILLATOR, OR DORSAL COLUMN STIMULATOR? :NO DO YOU HAVE ANY RASHES OR OPEN SORES? :NO ARE YOU ALLERGIC TO IV DYE? :NO ARE YOU DIABETIC? :NO ANY NEW PROBLEMS WITH YOUR MEDICATIONS? :NO HAVE YOU RECEIVED A VACCINE IN THE PAST 30 DAYS? :YES 1ST COVID 07/07/2020 DO YOU PLAN TO RECEIVE A VACCINE IN THE NEXT 21 DAYS? :YES IF SO WHAT VACCINE AND WHEN? 2ND COVID 08/01/2020 DO YOU NEED ANY PRESCRIPTION? :NO DO YOU TAKE ANY IMMUNOSUPPRESSIVE MEDICATIONS? :NO DO YOU HAVE ANY KIDNEY OR LIVER DISEASE? :NO IS THERE A CHANCE YOU COULD BE ? :NO ARE YOU BREAST FEEDING? :NO CURRENT MEDICATIONS TAKING VITAMIN B12 500 MCG TABLET 1 TABLET ORALLY 1500MG ONCE A DAY TAKING ASPIRIN 81 MG TABLET CHEWABLE 1 TABLET ORALLY ONCE A DAY TAKING OMEPRAZOLE 20 MG CAPSULE DELAYED RELEASE 1 CAPSULE ORALLY ONCE A DAY TAKING VITAMIN D3 50 MCG (2000 UT) CAPSULE 1 CAPSULE ORALLY ONCE A DAY TAKING ARTIFICIAL TEARS 0.2-0.2-1 % SOLUTION DIRECTED OPHTHALMIC THREE TIMES DAILY TAKING CELECOXIB 200 MG CAPSULE 1 CAPSULE WITH FOOD ORALLY TWICE A DAY TAKING KNEE SLIP-ON OPEN PATELLA - MISCELLANEOUS DIRECTED TAKING MAGNESIUM 250 MG TABLET 1 TABLET WITH A MEAL ORALLY ONCE A DAY TAKING PRESERVISION AREDS - TABLET DIRECTED ORALLY TAKING TIZANIDINE HCL 2 MG TABLET 1 TABLET NEEDED ORALLY THREE TIMES A DAY, NOTES: NONE RECENT TAKING VITAMIN B COMPLEX - TABLET DIRECTED ORALLY TAKING VITAMIN E 400 UNIT CAPSULE 1 CAPSULE ORALLY ONCE A DAY NOT-TAKING CO Q10 MAXIMUM STRENGTH 200 MG CAPSULE 1 CAPSULE WITH A MEAL ORALLY ONCE A DAY NOT-TAKING DULOXETINE HCL 30 MG CAPSULE DELAYED RELEASE PARTICLES 1 CAPSULE ORALLY ONCE A DAY NOT-TAKING HYDROCODONE-ACETAMINOPHEN 5-325 MG TABLET 1 TABLET NEEDED ORALLY TWO TIMES A DAY NOT-TAKING VOLTAREN 1 % GEL DIRECTED EXTERNALLY NOT-TAKING LORATADINE 10 MG TABLET 1 TABLET ORALLY ONCE A DAY, NOTES: NEEDED NOT-TAKING PROBIOTIC CAPSULE ORALLY NOT-TAKING MAGNESIUM 400 MG CAPSULE 1 TABLET WITH A MEAL ORALLY ONCE A DAY NEEDED, NOTES: NEEDED NOT-TAKING PRESERVISION AREDS - CAPSULE 1 CAP ORALLY DAILY NOT-TAKING DICLOFENAC SODIUM 1 % GEL DIRECTED TRANSDERMAL EVERY 6 HOURS NEEDED NOT-TAKING CALCIUM CARBONATE ANTACID 500 MG TABLET CHEWABLE 1 TAB ORALLY ONCE DAILY AFTER A MEAL NOT-TAKING CELECOXIB 200MG CAPSULE TAKE 1 CAPSULE DAILY WITH FOOD MEDICATION LIST REVIEWED AND RECONCILED WITH THE PATIENT PAST MEDICAL HISTORY GERD ALLERGIC RHINITIS OA OF R KNEE, LUMBAR, HANDS B H/O COMPRESSION FRACTURE OF LUMBAR VERTEBRA 06/2013 H/O BPPV HTN CVA 04/[address] REED, FOR VIS. FIELD DEFICITS H/O HYPOMAGNESEMIA 04/28 S/P COLONOSCOPY 02/26 INCOMPLETE, BARIUM ENEMA NEG. F/U IN 2019 VITAMIN D DEFICIENCY H/O VITAMIN B12 DEFICIENCY THYROID NODULE 1.2 CM IN L LOBE, UNCHANGED FROM 07/19/[address] 01/30/16 ALLERGIES BETADINE: MONTANO SKIN - SIDE EFFECTS STATINS (FOR ALLERGY USE ONLY): MUSCLE PAINS - SIDE EFFECTS LATEX (FOR ALLERGY USE ONLY): ITCHING - SIDE EFFECTS IV DYE: DOESN'T REMEMBER - ALLERGY SOCIAL HISTORY GENERAL: TOBACCO USE ARE YOU A:NONSMOKER LATEX QUESTIONNAIRE LATEX ALLERGY : HAVE YOU EVER DEVELOPED ANY TYPE OF REACTION AFTER HANDLING LATEX PRODUCTS SUCH RUBBER GLOVES, CONDOMS, DIAPHRAGMS, BALLOONS, SOCKS, OR UNDERWEAR?YES LATEX ALLERGY : HAVE YOU EVER DEVELOPED ANY TYPE OF REACTION DURING OR AFTER DENTAL APPOINTMENT, VAGINAL/RECTAL EXAMINATION, SURGICAL PROCEDURE, OR ANY OTHER EXPOSURE?NO LATEX RISK : HAVE YOU EVER HAD ANY DIFFICULTY BREATHING OR HIVES AFTER EATING OR HANDLING ANY FRUITS, OR VEGETABLES; SUCH KIWI, BANANAS, STONE FRUITS, OR CHESTNUTSNO LATEX RISK : DO YOU HAVE A PREVIOUS PERSONAL HISTORY OF MORE THAN NINE SURGERIES, SPINA BIFIDA, OR REPEATED CATHERIZATIONS? NO LATEX RISK : ARE YOU FREQUENTLY EXPOSED TO LATEX PRODUCTS IN YOUR OCCUPATION?NO DATE ASKED : 10/16/2020 ACTIVE LATEX ALLERGY ALCOHOL USE: NO. ALCOHOL SCREENING DID YOU HAVE A DRINK CONTAINING ALCOHOL IN THE PAST YEAR?YES HOW OFTEN DID YOU HAVE SIX OR MORE DRINKS ON ONE OCCASION IN THE PAST YEAR?NEVER (0 POINTS) HOW MANY DRINKS DID YOU HAVE ON A TYPICAL DAY WHEN YOU WERE DRINKING IN THE PAST YEAR?1 OR 2 (0 POINTS) HOW OFTEN DID YOU HAVE A DRINK CONTAINING ALCOHOL IN THE PAST YEAR?TWO TO THREE TIMES PER WEEK (3 POINTS) POINTS3 INTERPRETATIONPOSITIVE RECREATIONAL DRUG USE DRUG USE?NO PATIENT DENIES ABUSE OR MISSUSED OF ANY MEDICATION. CAFFEINE: YES CAFFEINE USE?YES HOW OFTEN AND HOW MUCH? 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 MARITAL STATUS: . REVIEW OF SYSTEMS CONSTITUTIONAL: ANY RECENT FEVER NO . CHILLS NO . WEIGHT CHANGE OF UNKNOWN REASONS NO . GASTROENTEROLOGY: NEW UNEXPLAINABLE CHANGES IN BOWEL CONTROL NO . CONSTIPATION NO . GENITOURINARY: ANY NEW CHANGE IN BLADDER CONTROL? NO . NEUROLOGY: NEW ONSET DIZZINESS OR NEUROLOGICAL CHANGES NOT MENTIONED NO . NEW NUMBNESS OR PAIN PATTERNS NOT MENTIONED AND PERTINENT TO TODAY'S VISIT NO . CARDIOLOGY: NEW CHEST PRESSURE NO . PATIENT DENIES NO . RESPIRATORY: UNEXPLAINABLE COUGH NO . NEW SHORTNESS OF BREATH NO . VITAL SIGNS WT 127.6 LBS, HT 62 IN, BMI 23.34 INDEX, BP 138/77 MM HG, HR 85 /MIN, RR 18 /MIN, TEMP 99.3 F, OXYGEN SAT % 96%, SAFE IN ENV? (Y/N) YES, NA INITIALS ME 14:21T.TRINA DOMINGO. EXAMINATION GENERAL EXAMINATION: LUNGS:CLEAR TO AUSCULTATION BILATERALLY, NO WHEEZES, RHONCHI, RALES. HEART:NO MURMURS, REGULAR RATE AND RHYTHM. THORACIC SPINE:TRIGGER POINTS ELICITED LEFT SCAPULAR AND LEFT THORACIC REGION. PAIN IS AGGRAVATED WITH RANGE OF JOINT MOTION OF THE SPINE OR BENDING. . ASSESSMENTS MYALGIA, OTHER SITE - M79.18 (PRIMARY) OTHER CHRONIC PAIN - G89.29 TREATMENT MYALGIA, OTHER SITE MEDICATION: VALIUM TAB 5MG ORALLY (DIAZEPAM) (ORDERED FOR 10/30/2020) MED: PAIN NORCO TABLET 5MG/325MG ORALLY HYDROCODONE/ACETAMINOPHEN (ORDERED FOR 10/30/2020) NOTES: TRIGGER POINT INJECTIONS LEFT SCAPULAR,LEFT THORACIC REVIEWED PRE PROCEDURE INFORMATION, PATIENT VERBALIZED UNDERSTANDING. PADMA DOMINGO. OTHER CHRONIC PAIN PAIN PROCEDURE LOGDATE OF PROCEDURE10/02/20PROCEDURE:BILATERAL THERAPEUTIC LUMBAR FACET BLOCK L4-L5, L5-L3FQXNBV OF PRE SEDATEVALIUM 5 MG, NORCO 5-325 MGRESULT:MARKED REDUCTION IN LOW BACK PAIN CONTINUES TODAY PROCEDURE CODES FA211 ESTABILISHED PATIENT [facility] CHARGE DISPOSITION & COMMUNICATION FOLLOW UP POST (REASON: TRIGGER POINT INJECTIONS LEFT SCAPULAR,LEFT THORACIC) ELECTRONICALLY SIGNED BY ORALIA DIAL ON 10/17/2020 AT 01:21 PM EDT DISCLAIMER : THIS IS A VISIT SUMMARY EXTRACTED FROM THE [employer] CHART. IT IS NOT A COPY OF THE [employer] PROGRESS NOTE. KEILY
== END ==
LOC: M PAIN 14:00
PROVIDERS: ATTEND Nurse Practitioner Family
DX: M79.18 Myalgia, other site (principal); K21.9 Gastro-esophageal reflux disease without esophagitis; E55.9 Vitamin D deficiency, unspecified; Z88.3 Allergy status to other anti-infective agents; Z88.8 Allergy status to other drugs, medicaments and biological substances; Z91.040 Latex allergy status; Z91.041 Radiographic dye allergy status; Z79.82 Long term (current) use of aspirin; Z79.899 Other long term (current) drug therapy

== ENCOUNTER → 2020-11-08 | Outpatient (CLI) | payer MEDICARE, OTHER | LOC: M LABSMTC 11:23 | PROVIDERS: ATTEND Anesthesiology | DX: Z20.828 Contact with and (suspected) exposure to other viral communicable diseases (principal); Z11.59 Encounter for screening for other viral diseases ==

== ENCOUNTER 2020-11-19 12:23 | Emergency (ER) | payer MEDICARE, OTHER ==
[~2020-11-19] VITALS: Ht 152.4 cm; Wt 56.8 kg
[2020-11-19] MEDS ORDERED: GABA-1171 (13:07)
[2020-11-19] MEDS ORDERED: PRESCAP PO (13:07)
[2020-11-19] MEDS ORDERED: GNP250TA9 PO (13:07)
[2020-11-19] MEDS ORDERED: NS 1,000 ML IV SCH (13:45)
--- NOTE | 2020-11-19 14:13 | REP ---
INDICATION: Altered Mental Status COMPARISON: None. TECHNIQUE: Frontal view of the pelvis with neutral and frog lateral views of the left hip. FINDINGS: Osteopenia and degenerative changes are appreciated. No acute fracture or dislocation. IMPRESSION: No acute fracture or dislocation. <Electronically signed by Joce Hughes > 11/19/20 [id number]
--- NOTE | 2020-11-19 14:14 | REP ---
INDICATION: Altered Mental Status COMPARISON: 08/29/2020 TECHNIQUE: Portable AP view of the chest FINDINGS: The mediastinum and cardiac silhouette are stable and within normal limits for portable technique. Incidental hiatal hernia again noted. The lung saucedo are clear without acute consolidation, effusion, or pneumothorax. Skeletal structures are intact. IMPRESSION: No acute cardiopulmonary process appreciated. <Electronically signed by Joce Hughes > 11/19/20 [id number]
--- NOTE | 2020-11-19 14:14 | REP ---
INDICATION: Altered Mental Status. COMPARISON: Comparison head CT study 10 April 2014.. TECHNIQUE: Helical scanning is acquired. 5 mm axial images were reformatted. Coronal MPR images were generated. FINDINGS: Bone window settings demonstrate an intact bony calvarium. There is no evidence of skull fracture or incidental bony calvarial lesion. The visualized paranasal sinuses appear clear. No intraorbital abnormality is seen. On soft tissue window setting images; the lateral, third, and fourth ventricles are normal in size and position. Britt-white differentiation pattern is normal above and below the tentorium. There are is no evidence of intracranial hemorrhage. No mass, edema, infarction, or midline shift is seen. No extra-axial fluid collection is appreciated. There is mild generalized volume loss and small vessel changes are noted in the periventricular white matter of the supratentorial brain bilaterally. There is physiologic calcification in the basal ganglia noted bilaterally unchanged from the prior study in 2013. There is mild vascular calcification. IMPRESSION: Generalized volume loss and small vessel changes. No acute intracranial abnormality.. <Electronically signed by Alec Oliveira > 11/19/20 [id number]
--- NOTE | 2020-11-19 14:21 | REP ---
INDICATION: Altered Mental Status. COMPARISON: Comparison lumbar spine radiographs are from May 25, 2013.. TECHNIQUE: Helical scanning is acquired and 4 mm axial images re-formatted. Coronal and sagittal MPR images are generated. FINDINGS: There is mild loss of anterior vertebral body height at the L5 vertebral body, 15-20%. This is unchanged from the comparison radiographs May 25, 2013 and is consistent with an old compression fracture deformity. Lumbar vertebral body heights are otherwise preserved. There are fairly advanced degenerative disc disease changes at L5-S1, L4-5, L2-3, and L1-2. At vacuum phenomena are noted at the L1-2 and L2-3 disc levels. There is a small area of vacuum phenomena in the right side of the L3-4 disc as well. There is no evidence of spondylolysis. There is a degenerative grade 1, 5 mm, L4-5 spondylolisthesis with L4 slightly anterior with respect L5. This is unchanged as well from the 2014 prior study. At L4-5, there is mild central canal stenosis due to diffuse disc bulging along with moderate to marked osteoarthritic facet and mild ligamentum flavum hypertrophy which is present bilaterally. The spinal canal has a triangular configuration at this level. There is disc bulging in the foraminal segments bilaterally producing mild neural foraminal narrowing. At L5-S1, there is diffuse disc bulging. There is discogenic spurring in which in combination with facet hypertrophy produces moderate narrowing of the left L5-S1 neural foramen. The right neural foramen appears adequate. Borderline canal size at L5-S1. At L3-4, there is diffuse disc bulging. Borderline canal size. Facet hypertrophy is noted bilaterally. There is mild neural foraminal narrowing on the right due to disc bulging and facet hypertrophy. At L2-L3, there is diffuse disc bulging. Mild facet hypertrophy is present. There is mild right-sided neural foraminal narrowing due to facet hypertrophy. At L1-2, there is a 3 mm retrolisthesis due to degenerative disc disease and some facet arthropathy. No spinal stenosis is noted. There is bilateral neural foraminal narrowing at L1-2. IMPRESSION: Multilevel degenerative disc and osteoarthritic facet disease. Multilevel neural foraminal narrowing as above. Degenerative spondylolisthesis at L4-5 and degenerative retrolisthesis at L1-2. Chronic partial anterior wedging L5 vertebral body. <Electronically signed by Alec Oliveira > 11/19/20 [id number]
--- NOTE | 2020-11-19 14:25 | REP ---
INDICATION: Altered Mental Status. COMPARISON: Comparison is made with chest radiographs from August 29, 2020.. TECHNIQUE: Helical scanning is acquired and 4 mm axial images re-formatted. Coronal and sagittal MPR images are generated. FINDINGS: There is an old moderate anterior wedge compression fracture deformity at the T10 vertebral body with approximately 50% loss of anterior vertebral body height. There are some reactive sclerosis along the inferior aspect of the T10 vertebral body. Vacuum phenomena is visible in the degenerated T9-10 and in the T10-11 disc spaces. There is a Schmorl's node at the inferior endplate of T10. These findings are all unchanged from the lateral chest x-ray August 29, 2020. Otherwise, thoracic vertebral body heights are preserved. No fracture or collapse is seen. There is partial fusion of the anterior margin of the disc space at the T5-T6 disc level. Mild degenerative disc spurring is seen at the other mid and lower thoracic spine levels. No bony neural foraminal narrowing is seen. No bony destructive lesion is seen. There is no visible thoracic disc protrusion. Lung window settings show no pulmonary parenchymal abnormality. There is a moderate-sized sliding-type hiatal hernia. IMPRESSION: No acute bony abnormality. Old wedge compression deformity T10. Degenerative spondylosis changes. <Electronically signed by Alec Oliveira > 11/19/20 [id number]
[2020-11-19 14:36] LABS: BASO % 0.3 % (0.0-1.0); EOS % 0.5 % (0.0-3.0); HEMATOCRIT 47.1 % (36.0-47.0); HEMOGLOBIN 15.8 g/dl (12.0-15.5); LYMPH # 1.5 10^3/uL (1.5-5.0); LYMPH % 20.5 % (24.0-44.0); MEAN CORPUSCULAR HEMOGLOBIN 31.8 pg (27.0-33.0); MEAN CORPUSCULAR HGB CONC 33.5 g/dl (32.0-36.5); MEAN CORPUSCULAR VOLUME 94.8 fl (80.0-96.0); MONO # 0.6 10^3/uL (0.0-0.8); MONO % 8.5 % (2.0-8.0); NEUTROPHILS # 5.3 10^3/uL (1.5-8.5); NEUTROPHILS % 69.7 % (36.0-66.0); PLATELET COUNT, AUTOMATED 256 10^3/uL (150-450); RED BLOOD COUNT 4.97 10^6/uL (4.00-5.40); WHITE BLOOD COUNT 7.5 10^3/uL (4.0-10.0)
[2020-11-19 15:06] LABS: ACETAMINOPHEN LEVEL < 2.0 UG/ML (10.0-30.0); ALBUMIN 3.6 GM/DL (3.2-5.2); ALT/SGPT 27 U/L (12-78); BILIRUBIN,DIRECT 0.2 MG/DL (0.0-0.2); BILIRUBIN,TOTAL 0.6 MG/DL (0.2-1.0); BLOOD UREA NITROGEN 23 MG/DL (7-18); CALCIUM LEVEL 9.6 MG/DL (8.8-10.2); CARBON DIOXIDE LEVEL 31 MEQ/L (21-32); CHLORIDE LEVEL 104 MEQ/L (98-107); CK-MB VALUE MASS < 1.0 NG/ML (<3.6); CPK CREATINE PHOSPHOKINASE 56 U/L (26-192); CREATININE FOR GFR 0.71 MG/DL (0.55-1.30); ETHYL ALCOHOL (ETHANOL) < 0.003 % (0.000-0.010); GLOMERULAR FILTRATION RATE > 60.0 (>32); GLUCOSE, FASTING 96 MG/DL (70-100); MB/CK RELATIVE INDEX 1.79 (< OR =4); SALICYLATE LEVEL < 1.7 MG/DL (5.0-30.0); SODIUM LEVEL 144 MEQ/L (136-145); THYROID STIMULATING HORMONE 0.893 uIU/ML (0.358-3.740); TOTAL PROTEIN 7.2 GM/DL (6.4-8.2); TROPONIN I 0.03 NG/ML (< 0.10)
[2020-11-19] MEDS ORDERED: NITROFURANTOIN (MACROBID) 100 MG CAP PO ONE (15:45)
[2020-11-19] MEDS ORDERED: NAPROXEN 250 MG TAB PO ONE (15:55)
[2020-11-19] MEDS ORDERED: MACR100C43 PO (16:29)
[2020-11-19] MEDS ORDERED: ROLLMIS8 XX (16:29)
[2020-11-19] MEDS ORDERED: NAPR-837 PO (16:29)
[2020-11-19 16:51] VITALS: BP 203/95
--- NOTE | 2020-11-19 20:15 | ECGEPIP ---
[facility] - ED Test Date: 2020-11-19 Pat Name: LORENZO KHAN Department: Room: - Gender: Female Wrap Turner: vc : 1935 Requested By: ORESTES BARTON Order Number: [id number] Reading MD: Janie Fuentes Measurements Intervals [place] Rate: 66 P: 58 NM: 124 QRS: 22 QRSD: 74 T: 63 QT: 392 QTc: 410 Interpretive Statements Normal sinus rhythm decreased rate 07/28/17 Electronically Signed on 11-19-2020 20:15:17 EDT by Janie Fuentes
--- NOTE | 2020-11-21 14:34 | ED PDOC ---
Post-Departure Follow-Up ct ls spine faxed to dr howell for fu Fe Hastings MD Nov 21, 2020 14:34
== END 2020-11-19 17:10 | disposition home or self-care (01) ==
LOC: EDBD 12:23 → M ED 12:23
DX: N39.0 Urinary tract infection, site not specified (principal); R53.1 Weakness; I10 Essential (primary) hypertension; Z91.030 Bee allergy status; Z88.8 Allergy status to other drugs, medicaments and biological substances

== ENCOUNTER 2020-11-28 22:56 | Inpatient (IN) | payer MEDICARE, OTHER ==
[~2020-11-28] VITALS: Ht 152.4 cm; Wt 57.0 kg
[2020-11-28 16:40] VITALS: BP 142/79
[~2020-11-28 22:56] MED LIST changes: +GABA-1171; +GNP250TA9 PO; +MACR100C43 PO; +NAPR-837 PO; +PRESCAP PO; +ROLLMIS8 XX
[2020-11-28] MEDS ORDERED: HYDR-4571 (23:35)
[2020-11-28] MEDS ORDERED: PRED20TA (23:35)
[2020-11-28] MEDS ORDERED: NAPR-885 (23:35)
[2020-11-28] MEDS ORDERED: GABA-282 (23:35)
[2020-11-29] MEDS ORDERED: ACETAMINOPHEN *IV* 650 MG in IV 1 EA IV ONE (00:20)
[2020-11-29 00:56] LABS: BASO % 0.1 % (0.0-1.0); EOS % 0.3 % (0.0-3.0); HEMATOCRIT 41.5 % (36.0-47.0); HEMOGLOBIN 14.9 g/dl (12.0-15.5); LYMPH # 0.9 10^3/uL (1.5-5.0); LYMPH % 8.7 % (24.0-44.0); MEAN CORPUSCULAR HEMOGLOBIN 32.3 pg (27.0-33.0); MEAN CORPUSCULAR HGB CONC 35.9 g/dl (32.0-36.5); MONO # 0.7 10^3/uL (0.0-0.8); MONO % 6.5 % (2.0-8.0); NEUTROPHILS # 8.7 10^3/uL (1.5-8.5); NEUTROPHILS % 83.9 % (36.0-66.0); PLATELET COUNT, AUTOMATED 262 10^3/uL (150-450); RED BLOOD COUNT 4.61 10^6/uL (4.00-5.40); WHITE BLOOD COUNT 10.4 10^3/uL (4.0-10.0)
[2020-11-29 01:13] LABS: ERYTHROCYTE SEDIMENTATION RATE 7 mm/hr (0-30)
[2020-11-29 01:29] LABS: ALBUMIN 3.4 GM/DL (3.2-5.2); ALT/SGPT 25 U/L (12-78); BILIRUBIN,TOTAL 1.3 MG/DL (0.2-1.0); BLOOD UREA NITROGEN 17 MG/DL (7-18); CALCIUM LEVEL 8.9 MG/DL (8.8-10.2); CARBON DIOXIDE LEVEL 28 MEQ/L (21-32); CHLORIDE LEVEL 89 MEQ/L (98-107); CREATININE FOR GFR 0.58 MG/DL (0.55-1.30); GLOMERULAR FILTRATION RATE > 60.0 (>32); GLUCOSE, FASTING 129 MG/DL (70-100); POTASSIUM SERUM 3.8 MEQ/L (3.5-5.1); SODIUM LEVEL 125 MEQ/L (136-145); TOTAL PROTEIN 6.4 GM/DL (6.4-8.2)
[2020-11-29 01:36] LABS: RSV AMPLIFICATION NEGATIVE (NEGATIVE)
[2020-11-29] MEDS ORDERED: KETOROLAC 30 MG/ML 1ML VIAL IV ONE (02:10)
--- NOTE | 2020-11-29 02:38 | REPVR ---
PROCEDURE INFORMATION: Exam: XR Left Hip Exam date and time: 11/29/2020 1:24 AM Age: 85 years old Clinical indication: Pain, fall TECHNIQUE: Imaging protocol: XR Left hip. Views: 2 or 3 views hip with pelvis when performed. COMPARISON: CR Hip,AP,LAT to include Pelvis 11/19/2020 1:49 PM FINDINGS: Bones/joints: There is no fracture or dislocation of the bony pelvis or left hip. 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 Degenerative changes of the pubic symphysis and lumbar spine are present. Soft tissues: There is calcification in the left gluteus medius tendon that is similar in appearance compared to the prior study on 11/19/2020 and may represent calcific tendinitis or may be dystrophic in nature. Vasculature: Incidental note is made of small round calcifications in the pelvis, which are compatible with phleboliths. IMPRESSION: No fracture or dislocation of the bony pelvis or left hip. Electronically signed by: Toni Orourke On 11/29/2020 02:38:11 AM
[2020-11-29] MEDS ORDERED: MAALOX 30 ML SUSP *UDC PO PRN (03:00)
[2020-11-29] MEDS ORDERED: MOM 30ML SUSPENSION UDC PO PRN (03:00)
[2020-11-29] MEDS ORDERED: ACETAMINOPHEN TAB 650MG DOSE (2X325MG) PO PRN (03:00)
--- NOTE | 2020-11-29 03:02 | HPEPDOC ---
[facility] Medical History & Physical Date of Admission Nov 29, 2020 Date of Service: Nov 29, [address] Issa Alvarez Attending Physician: FRIDA GALLARDO MD History and Physical TIME OF SERVICE: 4:20 AM CHIEF COMPLAINT: Back pain HISTORY OF PRESENT ILLNESS: The history was obtained via chart review and from the patient's son Storm Todd ([phone]) who was at the bedside. the patient has dementia and was too confused to provide any meaningful history. Ms. Orozco, an 85 old female, has been suffering with back pain for several weeks. In September of this year underwent bilateral lumbar L4-L5 and L5-S1 therapeutic facet block; based on the pain management notes from early October she appeared to have improvement of the pain but more recently the pain has become more severe. She was seen at [facility] on November 19 with complaints of left leg pain, and diagnosed with a pinched nerve. According to the patient's son she has been in and out of the hospital about 4 times over the last few weeks for evaluation of back pain. The patient had reported falling earlier on today but according to Mr. Todd, this is in accurate. Mr. Todd added that over the last 3 weeks the patient has been more confused, compared to her baseline, and has been more difficult to manage. About a month ago she could walk. As she developed more difficulties walking the patient's family borrowed a walker from a friend, for her to use but today she was unable to walk. Mr. Todd is not sure if the patient has had any changes in her medications, beyond starting antibiotics for a UTI. Despite treatment for the UTI the patient's mental status has not improved; she has had a poor appetite. A couple of days ago she had diarrhea which subsequently resolved. The patient resides with her niece therefore is unsure whether the patient had fevers or chills recently. REVIEW OF SYSTEMS: Unable to obtain because the patient has dementia PAST MEDICAL/ SURGICAL HISTORY: Dementia, right knee OA, migraines, chronic lower back pain , history of lumbar vertebral compression fracture/osteoporosis, essential HTN, hx of BPPV, hx of CVA, chronic HFpEF with pulmonary hypertension, GERD, allergic rhinitis, vitamin D deficiency, hysterectomy, appendectomy, bilateral bunionectomy, left breast lumpectomy, perineorrhaphy and vaginal suspension to manage cystourethrocele with enterocele, PCI in 2007 that was unremarkable, resection of left foot neuroma, bilateral cataract surgery SOCIAL HISTORY: She resides with her niece, she does not smoke, 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 FAMILY HISTORY: Her father of colon cancer at 75/her mother of some sort of ENT cancer in her 90s/both of her have sons hypertension/one of her daughters has hypothyroidism ALLERGIES: Please see below. HOME MEDICATIONS: Please see below. PHYSICAL EXAMINATION: Vital Signs Date Time Temp Pulse Resp B/P (MAP) Pulse Ox O2 Delivery O2 Flow Rate FiO2 11/28/20 23:18 97.1 109 18 184/99 97 Room Air GENERAL APPEARANCE: well-nourished and developed /is slightly anxious HEENT: EOMI /mucous membranes pink but slightly dry CARDIOVASCULAR: RRR/NMRG / no LE edema LUNGS: CTAB on RA ABDOMEN: contour flat : She has a Devi in place draining clear yellow urine MUSCULOSKELETAL: NCAT INTEGUMENT: not flushed or diaphoretic NEUROLOGICAL: speech not dysarthric /strength is 4 out of 5 at right hip flexor and 3-5 with left hip flexor/she has atrophy of the left quadriceps muscles when compared to the right PSYCHIATRIC: A&O /able to understand and follow all commands LABORATORY DATA: IMAGING: X-ray pelvis and hips IMPRESSION: No fracture or dislocation of the bony pelvis or left hip. MICROBIOLOGY: The respiratory panel is negative ASSESSMENT: Ms. Orozco is an 85-year-old female with a history of Dementia, OA, migraines, chronic back pain, lumbar verterbral fx /osteoporosis, HTN, hx of CVA, & HFpEF who was admitted for evaluation of hyponatremia, encephalopathy, and acute on chronic back pain. PLAN: 1. Acute hyponatremia On November 19 her sodium was 144, today it is 125 This could explain her change in mental status Plan: Admit to medical floor/Place Devi to monitor strict I's and O's/follow-up serum osmolality, urine osmolality, and urine sodium to determine the subtype of hyponatremia prior to selecting IV fluids/follow-up serial BMPs 2 Encephalopathy This could be due to hyponatremia and/or delirium due to uncontrolled pain; we also need to rule out a subacute stroke Plan: Frequent neurochecks/correct hyponatremia/manage pain /follow-up CT of the brain 3 Acute on chronic back pain Plan: Continue with [place], naproxen, celecoxib with PPI, lidocaine patches, and gabapentin/we will asked the daytime team to consult Ortho to discuss whether the patient needs imaging studies and or repeat nerve block 4 Uncontrolled hypertension Plan: IV hydralazine X1 /controlled back pain/the daytime team may consider starting maintenance medications if her blood pressure does not improve DVT PROPHYLAXIS: Lovenox DISPOSITION: Her family is having difficulties caring for her, she will likely need placement in a SNF after more than 2 midnight's stay /PFS consult has been placed LATE ENTRY 1050PM The patient's work-up so far indicates that she has hypovolemic hyponatremia. Her sodium has not improved despite NS Plan: we will dc/NS / dc NSAIDs & PPI which can cause SIADH / check AM cortisol and TSH Home Medications Scheduled Aspirin (Aspirin EC) 81 Mg Tab, 81 MG PO DAILY Celecoxib (Celecoxib) 200 Mg Cap, 200 MG PO BID Cholecalciferol (Vitamin D3) (Vitamin D3) 50 Mcg Capsule, 50 MCG PO DAILY Cyanocobalamin (Vitamin B-12) (B-12) 500 Mcg Tablet, 1,500 MCG PO DAILY Gabapentin (Gabapentin) 300 Mg Capsule, 300 MG PO TID Magnesium Oxide (Magnesium Oxide) 250 Mg Tablet, 250 MG PO DAILY Nitrofurantoin Monohyd/M-Cryst (Macrobid 100 mg Capsule) 100 Mg Capsule, 100 MG PO BID STARTED ON 11/19/20 Omeprazole (Omeprazole) 20 Mg Capsule.dr, 20 MG PO DAILY Vit A/Vit C/Vit E/Zinc/Copper (Preservision Areds Softgel) 1 Each Capsule, 1 CAP PO DAILY Vitamin E (Dl,Tocopheryl Acet) (Vitamin E) 400 Unit Capsule, 400 UNIT PO DAILY Scheduled PRN Hydrocodone/Acetaminophen (Hydrocodone-Acetamin 5-325 mg) 1 Each Tablet, 1 TAB PO TID PRN for PAIN LEVEL 6-10 Lidocaine (Lidocaine) 5% Adh..patch, 1 PATCH TOP DAILY PRN for BACK PAIN PLACED ON LEFT SIDE OF LOWER BACK AROUND THE HIP AREA Naproxen (Naproxen) 500 Mg Tablet, 500 MG PO BID PRN for PAIN LEVEL 1-5 Allergies Coded Allergies: bee venom protein (honey bee) (Verified Allergy, Unknown, 11/19/20) povidone-iodine (Verified Allergy, Unknown, 11/19/20) FRIDA GALLARDO MD Nov 29, 2020 03:02
[2020-11-29] MEDS ORDERED: MAGN400T2 PO (03:22)
[2020-11-29] MEDS ORDERED: GABA-282 PO (03:22)
[2020-11-29] MEDS ORDERED: NAPR-885 PO (03:22)
[2020-11-29] MEDS ORDERED: MACR100C43 PO (03:22)
[2020-11-29] MEDS ORDERED: D31000TA2 PO (03:22)
[2020-11-29] MEDS ORDERED: OMEP1CAP73 PO (03:22)
[2020-11-29] MEDS ORDERED: VITAE40CA PO (03:22)
[2020-11-29] MEDS ORDERED: LIDO1PAD TOP (03:22)
[2020-11-29] MEDS ORDERED: HYDR-4571 PO (03:22)
[2020-11-29] MEDS ORDERED: DICL1GEL3 TOP (03:22)
[2020-11-29] MEDS ORDERED: B-121TAB3 PO (03:24)
[2020-11-29] MEDS ORDERED: D32000CA PO (03:24)
[2020-11-29] MEDS ORDERED: MAGN250T11 PO (03:24)
[2020-11-29] MEDS: PERCOCET 5MG/325MG TAB PO PRN ×2 (04:09→16:59)
[2020-11-29] MEDS ORDERED: hydrALAZINE 20MG/ML 1ML VIAL (J0360 PER 20MG) IV ONE (04:55)
[2020-11-29 04:59] VITALS: BP 177/89
[2020-11-29] MEDS ORDERED: NAPROXEN 250 MG TAB PO PRN (05:20)
[2020-11-29 05:50] LABS: AMORPHOUS SEDIMENT SMALL (NEGATIVE); APPEARANCE, URINE HAZY (CLEAR); BACTERIA, URINE AUTO NEGATIVE (NEGATIVE); BILIRUBIN, URINE AUTO NEGATIVE (NEGATIVE); BLOOD, URINE BLOOD NEGATIVE (NEGATIVE); COLOR, URINE YELLOW (YELLOW); GLUCOSE, URINE (UA) AUTO 2+ mg/dL (NEGATIVE); KETONE, URINE AUTO 1+ mg/dL (NEGATIVE); LEUKOCYTE ESTERASE, URINE AUTO NEGATIVE (NEGATIVE); MUCUS, URINE SMALL (NEGATIVE); NITRITE, URINE AUTO NEGATIVE (NEGATIVE); PROTEIN, URINE AUTO 1+ mg/dL (NEGATIVE); RBC, URINE AUTO 2 /HPF (0-3); SPECIFIC GRAVITY URINE AUTO 1.015 (1.002-1.035); SQUAMOUS EPITHELIAL CELL UR AU 0 /HPF (0-6); UROBILINOGEN, URINE AUTO 0.2 mg/dL (0.0-2.0); WBC, URINE AUTO 8 /HPF (0-3)
[2020-11-29 06:09] LABS: SODIUM,RANDOM URINE 57 MEQ/L
[2020-11-29 06:24] LABS: OSMOLALITY URINE 510 MOSM/KG (50-1400)
[2020-11-29 06:40] VITALS: BP 142/79
[2020-11-29] MEDS: NS 1,000 ML IV SCH ×2 (07:43→19:23)
[2020-11-29 07:58] LABS: HEMATOCRIT 43.4 % (36.0-47.0); HEMOGLOBIN 15.7 g/dl (12.0-15.5); MEAN CORPUSCULAR HEMOGLOBIN 32.4 pg (27.0-33.0); MEAN CORPUSCULAR HGB CONC 36.2 g/dl (32.0-36.5); MEAN CORPUSCULAR VOLUME 89.7 fl (80.0-96.0); PLATELET COUNT, AUTOMATED 177 10^3/uL (150-450); RED BLOOD COUNT 4.84 10^6/uL (4.00-5.40); WHITE BLOOD COUNT 8.8 10^3/uL (4.0-10.0)
[2020-11-29 08:23] LABS: OSMOLALITY SERUM 261 MOSM/KG (280-301)
[2020-11-29 08:27] LABS: BLOOD UREA NITROGEN 19 MG/DL (7-18); CALCIUM LEVEL 9.2 MG/DL (8.8-10.2); CARBON DIOXIDE LEVEL 26 MEQ/L (21-32); CHLORIDE LEVEL 90 MEQ/L (98-107); CREATININE FOR GFR 0.54 MG/DL (0.55-1.30); GLOMERULAR FILTRATION RATE > 60.0 (>32); GLUCOSE, FASTING 123 MG/DL (70-100); POTASSIUM SERUM 4.4 MEQ/L (3.5-5.1); SODIUM LEVEL 126 MEQ/L (136-145)
--- NOTE | 2020-11-29 08:27 | REPVR ---
PROCEDURE INFORMATION: Exam: CT Head Without Contrast Exam date and time: 11/29/2020 5:06 AM Age: 85 years old Clinical indication: Altered mental status/memory loss; Confusion or disorientation TECHNIQUE: Imaging protocol: Computed tomography of the head without contrast. Radiation optimization: All CT scans at this facility use at least one of these dose optimization techniques: automated exposure control; mA and/or kV adjustment per patient size (includes targeted exams where dose is matched to clinical indication); or iterative reconstruction. COMPARISON: CT Head without contrast 11/19/2020 1:47 PM FINDINGS: Brain: There is moderate, diffuse parenchymal volume loss. There is heterogeneity of the white matter attenuation, most consistent with moderate chronic white matter ischemic changes. The cortical/white matter interfaces are preserved throughout the brain. There is no evidence of intracranial hemorrhage. Cerebral ventricles: The ventricular system demonstrates moderate diffuse compensatory enlargement. Paranasal sinuses: The visualized paranasal sinuses are clear. Mastoid air cells: The mastoid air cells are clear. Bones/joints: No acute fractures of the skull are identified. Soft tissues: The soft tissues appear unremarkable. IMPRESSION: 1. Diffuse parenchymal volume loss and heterogeneous low attenuation in the white matter, most consistent with chronic small vessel ischemic disease and similar to the prior exam. 2. No evidence of acute infarct or hemorrhage. Electronically signed by: Madhavi Burgos On 11/29/2020 08:26:46 AM
[2020-11-29] MEDS ORDERED: OMEPRAZOLE 20 MG CAP PO SCH (09:00)
[2020-11-29] MEDS: OCUVITE 1 TAB PO SCH (09:57)
[2020-11-29] MEDS: CelecoXIB (CeleBREX) 100 MG CAP PO SCH ×2 (09:57→21:57)
[2020-11-29] MEDS: GABAPENTIN 300 MG CAP PO SCH ×3 (09:57→21:57)
[2020-11-29] MEDS: CYANOCOBALAMIN 500 MCG TAB PO SCH (09:57)
[2020-11-29] MEDS: ASPIRIN 81MG ENTERIC TABLET PO SCH (09:57)
[2020-11-29] MEDS: ENOXAPARIN 40MG/0.4ML SYRINGE (J1650 PER 10MG) SC SCH (09:58)
[2020-11-29 11:24] LABS: BLOOD UREA NITROGEN 19 MG/DL (7-18); CALCIUM LEVEL 8.7 MG/DL (8.8-10.2); CARBON DIOXIDE LEVEL 24 MEQ/L (21-32); CHLORIDE LEVEL 91 MEQ/L (98-107); CREATININE FOR GFR 0.53 MG/DL (0.55-1.30); GLOMERULAR FILTRATION RATE > 60.0 (>32); GLUCOSE, FASTING 119 MG/DL (70-100); POTASSIUM SERUM 3.6 MEQ/L (3.5-5.1); SODIUM LEVEL 127 MEQ/L (136-145)
[2020-11-29] MEDS: NITROFURANTOIN (MACROBID) 100 MG CAP PO SCH ×2 (13:06→21:57)
[2020-11-29 14:00] VITALS: BP 150/82
[2020-11-29 15:33] LABS: BLOOD UREA NITROGEN 19 MG/DL (7-18); CALCIUM LEVEL 8.8 MG/DL (8.8-10.2); CARBON DIOXIDE LEVEL 24 MEQ/L (21-32); CHLORIDE LEVEL 90 MEQ/L (98-107); CREATININE FOR GFR 0.54 MG/DL (0.55-1.30); GLOMERULAR FILTRATION RATE > 60.0 (>32); GLUCOSE, FASTING 151 MG/DL (70-100); POTASSIUM SERUM 3.6 MEQ/L (3.5-5.1); SODIUM LEVEL 125 MEQ/L (136-145)
[2020-11-29] MEDS ORDERED: **NOTE PATIENT COMMENT** MISC XX PRN (21:00)
[2020-11-29 22:00] VITALS: BP 167/79
[2020-11-29 23:30] LABS: BLOOD UREA NITROGEN 17 MG/DL (7-18); CARBON DIOXIDE LEVEL 23 MEQ/L (21-32); CHLORIDE LEVEL 93 MEQ/L (98-107); CREATININE FOR GFR 0.49 MG/DL (0.55-1.30); GLOMERULAR FILTRATION RATE > 60.0 (>32); GLUCOSE, FASTING 111 MG/DL (70-100); POTASSIUM SERUM 3.2 MEQ/L (3.5-5.1); SODIUM LEVEL 124 MEQ/L (136-145)
[2020-11-30 06:00] VITALS: BP 134/69
[2020-11-30 06:41] LABS: BASO % 0.1 % (0.0-1.0); EOS # 0.1 10^3/uL (0.0-0.5); EOS % 0.6 % (0.0-3.0); HEMATOCRIT 36.1 % (36.0-47.0); LYMPH # 0.9 10^3/uL (1.5-5.0); LYMPH % 9.4 % (24.0-44.0); MEAN CORPUSCULAR HEMOGLOBIN 31.8 pg (27.0-33.0); MEAN CORPUSCULAR VOLUME 88.3 fl (80.0-96.0); MONO # 0.8 10^3/uL (0.0-0.8); MONO % 8.8 % (2.0-8.0); NEUTROPHILS # 7.3 10^3/uL (1.5-8.5); NEUTROPHILS % 80.5 % (36.0-66.0); PLATELET COUNT, AUTOMATED 244 10^3/uL (150-450); RED BLOOD COUNT 4.09 10^6/uL (4.00-5.40)
[2020-11-30 06:56] LABS: BLOOD UREA NITROGEN 15 MG/DL (7-18); CALCIUM LEVEL 8.1 MG/DL (8.8-10.2); CARBON DIOXIDE LEVEL 24 MEQ/L (21-32); CHLORIDE LEVEL 93 MEQ/L (98-107); CREATININE FOR GFR 0.39 MG/DL (0.55-1.30); GLOMERULAR FILTRATION RATE > 60.0 (>32); GLUCOSE, FASTING 97 MG/DL (70-100); POTASSIUM SERUM 3.3 MEQ/L (3.5-5.1); SODIUM LEVEL 126 MEQ/L (136-145)
[2020-11-30] MEDS: GABAPENTIN 300 MG CAP PO SCH ×3 (10:11→21:37)
[2020-11-30] MEDS: ASPIRIN 81MG ENTERIC TABLET PO SCH (10:11)
[2020-11-30] MEDS: NITROFURANTOIN (MACROBID) 100 MG CAP PO SCH ×2 (10:11→21:37)
[2020-11-30] MEDS: OCUVITE 1 TAB PO SCH (10:11)
[2020-11-30] MEDS: ENOXAPARIN 40MG/0.4ML SYRINGE (J1650 PER 10MG) SC SCH (10:11)
[2020-11-30] MEDS: CYANOCOBALAMIN 500 MCG TAB PO SCH (10:11)
[2020-11-30] MEDS: PERCOCET 5MG/325MG TAB PO PRN (13:43)
[2020-11-30 14:00] VITALS: BP 149/81
--- NOTE | 2020-11-30 17:46 | IPNPDOC ---
Text Note Date of Service The patient was seen on 11/30/20. NOTE SUBJECTIVE: Patient is fully AOx3 this morning and is c/o low back pain that is worse since a fall 2 weeks ago. She also reports left lower extremity weakness that has been stable since around the time of the fall. She does report MRI of low back performed by [facility] last week and cannot recall specifically what it said. Her son corroborated this and also cannot recall the specifics, but does state that she was not told to go to the ED because of the findings. PHYSICAL EXAMINATION: VITAL SIGNS: see below GENERAL APPEARANCE: Awake, alert, oriented x 3, sleeping but easily roused for exam with soft voice HEENT: Atraumatic, normocephalic. Eyes are anicteric. Mucous membranes are pink and moist CARDIOVASCULAR: NSR, regular rhythm, no noted murmurs LUNGS: CTAB ABDOMEN: Normoactive sounds, soft, nondistended. No rebound tenderness or guarding. MSK: pain with left SLR, TTP over mid lumbar spinal region, no fluctuation, erythema or warmth. EXTREMITIES: No lower extremity edema, no apparent rashes/petechiae. NEUROLOGICAL: Awake, speech is clear, AOx3, 3/5 strength in LLE, 5/5 strength in all other extremities, 1+ reflexes bilaterally. Sensation to light touch intact to BLE. Did not ambulate patient at this time LABORATORY STUDIES: See below RADIOLOGY STUDIES: No recent. Will obtain MRI results in the am. ASSESSMENT: Ms. Orozco is an 85-year-old female with a history of Dementia, OA, migraines, chronic back pain, lumbar verterbral fx /osteoporosis, HTN, hx of CVA, & HFpEF who was admitted for evaluation of hyponatremia, encephalopathy, and acute on chronic back pain. PLAN: # Acute hyponatremia: This is slightly improved on labs today, however her mentation is considerably improved and therefore while it is a possible contributor to her encephalopathy, it is not likely solely causing her encephalopathy. 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 Cortisol level is pending, all other causes have been optimized at this time including discontinuation of her celebrex. Now that she is tolerating PO, will hold IVF, though if serum sodium level decreases again, may have to restart IVF. Meds: None Encourage PO Follow am cortisol # Encephalopathy: Resolved, likely multifactorial including acute on chronic pain, hyponatremia, polypharmacy. Will continue to monitor. # acute on chronic back pain: Will receive results of MRI obtained earlier this week and consider additional management. Will also engage with physical therapy. 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 Meds: Gabapentin Lidoderm Hot/Cold packs Repositioning PT consult Obtain MRI results in the morning # HTN: Patient's BP is improved following improvement in pain and mentation. Will continue to monitor and consider initiating new medications for SBP goal of <130/80 # Recent UTI: Continuing Macrobid BID DISPOSITION: Med surg DIET: regular DVT PROPHY: Lovenox CONSULTS: PT DISCHARGE: Pending pain improvement and PT eval VS,Aze, I+O VS, Marciobone, I+O Laboratory Tests 11/29/20 22:55 11/30/20 05:37 Vital Signs Date Time Temp Pulse Resp B/P (MAP) Pulse Ox O2 Delivery O2 Flow Rate FiO2 11/30/20 14:13 18 97 Room Air 11/30/20 06:00 97.8 111 134/69 (90) I&O- Last 24 Hours up to 6 AM 11/30/20 06:00 Intake Total 985 ml Output Total 1375 ml Balance -390 ml VELASQUEZ NOEL MD MPH Nov 30, 2020 17:46
[2020-11-30] MEDS ORDERED: ACETAMINOPHEN TAB 650MG DOSE (2X325MG) PO PRN (17:50)
[2020-11-30 22:00] VITALS: BP 118/70
[2020-12-01] MEDS: PERCOCET 5MG/325MG TAB PO PRN ×2 (03:52→10:17)
[2020-12-01 06:00] VITALS: BP 142/68
--- NOTE | 2020-12-01 07:52 | IPNPDOC ---
Text Note Date of Service The patient was seen on 12/01/20. NOTE SUBJECTIVE: Patient was seen this morning and had endorsed minimal to no pain. Just after lunch nursing obtain VS and found her slightly hypotensive but mentating appropriately. This was shortly after receiving Percocet and Gabapentin. Patient endorsed only feeling sleepy. Repeat manual BP was improved. PHYSICAL EXAMINATION: VITAL SIGNS: see below GENERAL APPEARANCE: Awake, alert, oriented x 3, sleeping but easily roused for exam with soft voice HEENT: Atraumatic, normocephalic. Eyes are anicteric. Mucous membranes are pink and moist CARDIOVASCULAR: NSR, regular rhythm, no noted murmurs LUNGS: CTAB ABDOMEN: Normoactive sounds, soft, nondistended. No rebound tenderness or guarding. MSK: Unchanged from prior EXTREMITIES: No lower extremity edema, no apparent rashes/petechiae. NEUROLOGICAL: Awake, speech is clear, AOx3, 3/5 strength in LLE, 5/5 strength in all other extremities LABORATORY STUDIES: See below RADIOLOGY STUDIES: MRI from 11/26/2020: Impression: Significant diffuse degenerative disease with multiple areas of spondylolisthesis identified. There is only mild spinal stenosis although there is fairly significant foraminal compromise at multiple levels most significant at L1-2. There is chronic compression fracture of L5. ASSESSMENT: Ms. Orozco is an 85-year-old female with a history of Dementia, OA, migraines, chronic back pain, lumbar verterbral fx /osteoporosis, HTN, hx of CVA, & HFpEF who was admitted for evaluation of hyponatremia, encephalopathy, and acute on chronic back pain. PLAN: # Acute hyponatremia: This is unchanged today. 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 Cortisol level is high normal and therefore unlikely to be the cause of her SIADH, all other causes have been optimized at this time including discontinuation of her celebrex. Now that she is tolerating PO she has only been taking in 300-500cc fluids and this free water limitation has not led to improvement in serum sodium levels. Will increase NS and recheck BMP this afternoon. She may ultimately require salt supplementation Meds: NS @200 cc/hr Encourage PO food and continued free water limitation # Transient hypotension: This is likely due to concurrent slightly sedating medications. Will adjust pain regimen as per below. # Encephalopathy: Resolved, likely multifactorial including acute on chronic pain, hyponatremia, polypharmacy. Will continue to monitor. # acute on chronic back pain: Will receive results of MRI obtained early last week and consider additional management. Will also engage with physical therapy. Have held scheduled NSAIDs in setting of SIADH and will provide with topical medications, gabapentin and consideration for nerve block by ortho following MRI results review. Meds: Gabapentin decreased to 100mg TID Schedule Acetaminophen 400mg QID Provide with PRN Ibuprofen Lidoderm Hot/Cold packs Repositioning PT consult # HTN: Patient's BP is improved following improvement in pain and mentation. Will continue to monitor. # Recent UTI: Completed Macrobid DISPOSITION: Med surg DIET: regular DVT PROPHY: Lovenox CONSULTS: PT DISCHARGE: Pending pain improvement and PT eval VS,Fishbone, I+O VS, Fishbone, I+O Vital Signs Date Time Temp Pulse Resp B/P (MAP) Pulse Ox O2 Delivery O2 Flow Rate FiO2 12/01/20 06:00 98.0 99 18 142/68 (92) 96 Room Air I&O- Last 24 Hours up to 6 AM 12/01/20 06:00 Intake Total 1410 ml Output Total 1300 ml Balance 110 ml VELASQUEZ NOEL MD [facility] Dec 01, 2020 07:52
[2020-12-01 09:16] LABS: BLOOD UREA NITROGEN 13 MG/DL (7-18); CALCIUM LEVEL 8.8 MG/DL (8.8-10.2); CARBON DIOXIDE LEVEL 26 MEQ/L (21-32); CHLORIDE LEVEL 90 MEQ/L (98-107); CREATININE FOR GFR 0.41 MG/DL (0.55-1.30); GLOMERULAR FILTRATION RATE > 60.0 (>32); GLUCOSE, FASTING 98 MG/DL (70-100); POTASSIUM SERUM 3.1 MEQ/L (3.5-5.1); SODIUM LEVEL 125 MEQ/L (136-145)
[2020-12-01 09:44] LABS: CORTISOL AM 25.4 UG/DL (4.3-22.4)
[2020-12-01] MEDS: CYANOCOBALAMIN 500 MCG TAB PO SCH (10:14)
[2020-12-01] MEDS: ASPIRIN 81MG ENTERIC TABLET PO SCH (10:14)
[2020-12-01] MEDS: OCUVITE 1 TAB PO SCH (10:14)
[2020-12-01] MEDS: NITROFURANTOIN (MACROBID) 100 MG CAP PO SCH (10:14)
[2020-12-01] MEDS: GABAPENTIN 300 MG CAP PO SCH (10:14)
[2020-12-01] MEDS: ENOXAPARIN 40MG/0.4ML SYRINGE (J1650 PER 10MG) SC SCH (10:15)
[2020-12-01] MEDS: LIDOCAINE 5% (LIDODERM) PATCH TOP PRN (10:16)
[2020-12-01] MEDS: NS 1,000 ML IV SCH ×3 (12:40→23:14)
[2020-12-01 14:00] VITALS: BP 76/40
[2020-12-01 14:05] VITALS: BP 90/60
[2020-12-01 15:23] VITALS: BP 138/80
[2020-12-01] MEDS: ACETAMINOPHEN TAB 650MG DOSE (2X325MG) PO SCH ×3 (15:55→20:36)
[2020-12-01] MEDS: GABAPENTIN 100 MG CAP PO SCH ×2 (15:55→20:36)
[2020-12-01 16:09] LABS: BLOOD UREA NITROGEN 16 MG/DL (7-18); CALCIUM LEVEL 8.6 MG/DL (8.8-10.2); CARBON DIOXIDE LEVEL 24 MEQ/L (21-32); CHLORIDE LEVEL 93 MEQ/L (98-107); CREATININE FOR GFR 0.49 MG/DL (0.55-1.30); GLOMERULAR FILTRATION RATE > 60.0 (>32); GLUCOSE, FASTING 92 MG/DL (70-100); POTASSIUM SERUM 3.1 MEQ/L (3.5-5.1); SODIUM LEVEL 126 MEQ/L (136-145)
[2020-12-01] MEDS: IBUPROFEN 400MG TAB PO PRN (21:34)
[2020-12-01 22:00] VITALS: BP 134/69
[2020-12-01] MEDS ORDERED: KETOROLAC 30 MG/ML 1ML VIAL IV ONE (22:55)
[2020-12-01] MEDS ORDERED: NORCO, ANEXSIA 5/325MG TABLET (HYDROcodone/ACETAMINOPHEN) PO ONE (23:05)
[2020-12-02] MEDS: NS 1,000 ML IV SCH ×3 (04:06→23:46)
[2020-12-02 05:43] VITALS: BP 153/92
[2020-12-02] MEDS: IBUPROFEN 400MG TAB PO PRN (06:10)
[2020-12-02 06:36] LABS: BLOOD UREA NITROGEN 10 MG/DL (7-18); CALCIUM LEVEL 7.9 MG/DL (8.8-10.2); CARBON DIOXIDE LEVEL 23 MEQ/L (21-32); CHLORIDE LEVEL 95 MEQ/L (98-107); CREATININE FOR GFR 0.37 MG/DL (0.55-1.30); GLOMERULAR FILTRATION RATE > 60.0 (>32); GLUCOSE, FASTING 90 MG/DL (70-100); MAGNESIUM LEVEL 1.7 MG/DL (1.8-2.4); SODIUM LEVEL 126 MEQ/L (136-145)
[2020-12-02] MEDS: CYANOCOBALAMIN 500 MCG TAB PO SCH (08:55)
[2020-12-02] MEDS: GABAPENTIN 100 MG CAP PO SCH ×3 (08:55→20:05)
[2020-12-02] MEDS: OCUVITE 1 TAB PO SCH (08:55)
[2020-12-02] MEDS: ASPIRIN 81MG ENTERIC TABLET PO SCH (08:55)
[2020-12-02] MEDS: ACETAMINOPHEN TAB 650MG DOSE (2X325MG) PO SCH ×4 (08:56→20:06)
[2020-12-02] MEDS: ENOXAPARIN 40MG/0.4ML SYRINGE (J1650 PER 10MG) SC SCH (08:57)
[2020-12-02] MEDS ORDERED: MAG SULF 1GM/100ML (MAG RUN) 1 GM in IV 1 EA IV ONE (09:00)
[2020-12-02] MEDS ORDERED: DOCUSATE SODIUM 100MG CAPSULE PO SCH (09:15)
[2020-12-02] MEDS: SODIUM CHLORIDE 1 GM TAB PO SCH ×2 (10:29→20:05)
[2020-12-02] MEDS: DOCUSATE SODIUM 100MG CAPSULE PO SCH ×2 (10:30→20:05)
[2020-12-02 14:00] VITALS: BP 124/71
--- NOTE | 2020-12-02 19:33 | IPNPDOC ---
Date Seen The patient was seen on 12/02/20. Progress Note SUBJECTIVE: Patient appear to be in mild discomfort and fatigue. However, states that she looks better than yesterday. Reports stiffness in R. leg. Na unchanged 126, K 3.0. Some ankle edema, IVF @ 200 cc/hr reduced. OBJECTIVE PHYSICAL EXAMINATION: VITAL SIGNS: Please see below. General: No acute distress, Alert Eyes: Normal sclera, EOMI HENT: Atraumatic Cardiovascular: Normal rate, normal rhythm. Pulmonary: Clear to auscultation b/l, no wheezing GI: Soft, nontender, nondistended Skin: Warm and dry Neuro: CN grossly intact. No focal deficits. Strengths equal b/l. Psych: oriented x 3 LABORATORY DATA, IMAGING STUDIES, MICROBIOLOGY: Please see below. ASSESSMENT AND PLAN: 1. Acute hypotonic hyponatremia - Cortisol level high, TSH WNL. - Serum osmo lower at 261. - IVF previously at 200 cc/hr without improvement but increased swelling. Reduced down to 75 cc/hr and added sodium tablets. - No significant symptoms at this time. - Free water restriction. 2. Encephalopathy - polypharmacy, pain and hyponatremia. Appear to have resolved although Na has not changed much. - Treatment of hyponatremia ongoing. Salt tablets added. 3. Acute on chronic pain - MRI reportedly done last week. - NSAID held due to SIADH. c/w gabapentin, tylenol, lidoderm patch. 4. HTN - monitor DVT ppx: lovenox Code status: Full code DISPOSITION: Home. VS, I&O, 24H, Fishbone Vital Signs/I&O Vital Signs Date Time Temp Pulse Resp B/P (MAP) Pulse Ox O2 Delivery O2 Flow Rate FiO2 12/02/20 14:00 97.9 100 18 124/71 (88) 95 Room Air I&O- Last 24 Hours up to 6 AM 12/02/20 05:59 Intake Total 1957 ml Output Total 900 ml Balance 1057 ml Laboratory Data 24H LABS Laboratory Tests 2 12/02/20 05:51: Anion Gap 8, Glomerular Filtration Rate > 60.0, Calcium Level 7.9L, Magnesium Level 1.7L CBC/BMP Laboratory Tests 12/02/20 05:51 KOLTON PAULA MD Dec 02, 2020 19:33
[2020-12-02] MEDS: POTASSIUM CHLORIDE 10 MEQ SR TABLET PO SCH (20:05)
[2020-12-02 22:00] VITALS: BP 141/82
[2020-12-03] MEDS: IBUPROFEN 400MG TAB PO PRN (01:26)
[2020-12-03] MEDS ORDERED: KETOROLAC 30 MG/ML 1ML VIAL IV ONE (05:20)
[2020-12-03] MEDS ORDERED: PERCOCET 5MG/325MG TAB PO ONE (05:35)
[2020-12-03] MEDS: LIDOCAINE 5% (LIDODERM) PATCH TOP PRN (05:50)
[2020-12-03 06:00] VITALS: BP 148/78
[2020-12-03 06:04] LABS: BLOOD UREA NITROGEN 9 MG/DL (7-18); CARBON DIOXIDE LEVEL 24 MEQ/L (21-32); CHLORIDE LEVEL 104 MEQ/L (98-107); CREATININE FOR GFR 0.35 MG/DL (0.55-1.30); GLOMERULAR FILTRATION RATE > 60.0 (>32); GLUCOSE, FASTING 96 MG/DL (70-100); POTASSIUM SERUM 3.5 MEQ/L (3.5-5.1); SODIUM LEVEL 134 MEQ/L (136-145)
[2020-12-03 06:05] LABS: CALCIUM LEVEL 7.7 MG/DL (8.8-10.2); MAGNESIUM LEVEL 1.9 MG/DL (1.8-2.4)
[2020-12-03] MEDS: GABAPENTIN 100 MG CAP PO SCH (09:36)
[2020-12-03] MEDS: ENOXAPARIN 40MG/0.4ML SYRINGE (J1650 PER 10MG) SC SCH (09:36)
[2020-12-03] MEDS: POTASSIUM CHLORIDE 10 MEQ SR TABLET PO SCH (09:37)
[2020-12-03] MEDS: SODIUM CHLORIDE 1 GM TAB PO SCH (09:37)
[2020-12-03] MEDS: DOCUSATE SODIUM 100MG CAPSULE PO SCH (09:37)
[2020-12-03] MEDS: ACETAMINOPHEN TAB 650MG DOSE (2X325MG) PO SCH ×2 (09:37→13:00)
[2020-12-03] MEDS: CYANOCOBALAMIN 500 MCG TAB PO SCH (09:37)
[2020-12-03] MEDS: ASPIRIN 81MG ENTERIC TABLET PO SCH (09:37)
[2020-12-03] MEDS: OCUVITE 1 TAB PO SCH (09:38)
[2020-12-03] MEDS ORDERED: traMADol 50 MG TAB PO PRN (11:45)
[2020-12-03] MEDS ORDERED: IBUP-1114 PO (11:53)
[2020-12-03] MEDS ORDERED: TRAM50TA2 PO (11:53)
[2020-12-03] MEDS ORDERED: MOM30SS2 PO (11:53)
[2020-12-03] MEDS ORDERED: MYLASSUD PO (11:53)
[2020-12-03] MEDS ORDERED: GABA-1171 PO (11:53)
[2020-12-03] MEDS ORDERED: DOK1CAP7 PO (11:53)
[2020-12-03] MEDS ORDERED: ACET1TAB55 PO (11:53)
[2020-12-03] MEDS ORDERED: SODI1TAB6 PO (11:53)
--- NOTE | 2020-12-03 11:55 | DS.PDOC ---
Discharge Summary General Date of Admission Nov 29, 2020 at 07:25 Date of Discharge 12/03/20 Discharge Summary PROCEDURES PERFORMED DURING STAY: [None]. ADMITTING DIAGNOSES: 1. Acute on chronic back pain DISCHARGE DIAGNOSES: 1. Acute on chronic back pain Secondary diagnosis: 1. Dementia 2. Migraines 3. HTN 4. hx CVA 5. HFpEF chronic COMPLICATIONS/CHIEF COMPLAINT: Hyponatremia. HISTORY OF PRESENT ILLNESS: Dr. Renee: "The history was obtained via chart review and from the patient's son Storm Todd ([phone]) who was at the bedside. the patient has dementia and was too confused to provide any meaningful history. Ms. Orozco, an 85 old female, has been suffering with back pain for several weeks. In September of this year underwent bilateral lumbar L4-L5 and L5-S1 therapeutic facet block; based on the pain management notes from early October she appeared to have improvement of the pain but more recently the pain has become more severe. She was seen at [facility] on November 19 with complaints of left leg pain, and diagnosed with a pinched nerve. According to the patient's son she has been in and out of the hospital about 4 times over the last few weeks for evaluation of back pain. The patient had reported falling earlier on today but according to Mr. Todd, this is in acc urate. Mr. Todd added that over the last 3 weeks the patient has been more confused, compared to her baseline, and has been more difficult to manage. About a month ago she could walk. As she developed more difficulties walking the patient's family borrowed a walker from a friend, for her to use but today she was unable to walk. Mr. Todd is not sure if the patient has had any changes in her medications, beyond starting antibiotics for a UTI. Despite treatment for the UTI the patient's mental status has not improved; she has had a poor appetite. A couple of days ago she had diarrhea which subsequently resolved. The patient resides with her niece therefore is unsure whether the patient had fevers or chills recently." HOSPITAL COURSE: Patient was treated for hyponatremia and a number of electrolyte disturbance. Mental status improved notably and has been working with PT and OT. ARU was consulted and accepted patient for Rehab. Patient to be discharged to ARU for further therapy prior to discharge home. Some medications were changed due to encephalopathy potentially due to polypharmacy. She was previously on Percocet but changed to Tramadol now. May escalate in future if needed. DISCHARGE MEDICATIONS: Please see below. ALLERGIES: Please see below. PHYSICAL EXAMINATION ON DISCHARGE: VITAL SIGNS: Please see below. PHYSICAL EXAMINATION: VITAL SIGNS: Please see below. General: No acute distress, Alert Eyes: Normal sclera, EOMI HENT: Atraumatic Cardiovascular: Normal rate, normal rhythm. Pulmonary: Clear to auscultation b/l, no wheezing GI: Soft, nontender, nondistended Skin: Warm and dry Neuro: CN grossly intact. No focal deficits. Strengths equal b/l. Psych: oriented x 3 LABORATORY DATA: Please see below. IMAGING: X-ray pelvis and hips : IMPRESSION: No fracture or dislocation of the bony pelvis or left hip. CT head: 1. Diffuse parenchymal volume loss and heterogeneous low attenuation in the white matter, most consistent with chronic small vessel ischemic disease and similar to the prior exam. 2. No evidence of acute infarct or hemorrhage. ACTIVITY: [As tolerated]. DIET: Regular DISCHARGE PLAN: Start daily na tablet supplementation f/u PCP post discharge c/w PT in ARU DISPOSITION: ARU. DISCHARGE INSTRUCTIONS: Start daily na tablet supplementation f/u PCP post discharge c/w PT in ARU DISCHARGE CONDITION: [Stable]. TIME SPENT ON DISCHARGE: 34 minutes. Vital Signs/I&Os Vital Signs Date Time Temp Pulse Resp B/P (MAP) Pulse Ox O2 Delivery O2 Flow Rate FiO2 12/03/20 06:16 16 Room Air 12/03/20 06:00 97.5 96 148/78 (101) 94 I&O- Last 24 Hours up to 6 AM 12/03/20 05:59 Intake Total 4295 ml Output Total 1950 ml Balance 2345 ml Laboratory Data Labs 24H Laboratory Tests 2 12/03/20 05:27: Anion Gap 6L, Glomerular Filtration Rate > 60.0, Calcium Level 7.7L, Magnesium Level 1.9 CBC/BMP Laboratory Tests 12/03/20 05:27 Discharge Medications Scheduled Acetaminophen (Acetaminophen) 325 Mg Tablet, 650 MG PO QID Aspirin (Aspirin EC) 81 Mg Tab, 81 MG PO DAILY, (Reported) Celecoxib (Celecoxib) 200 Mg Cap, 200 MG PO BID, (Reported) Cholecalciferol (Vitamin D3) (Vitamin D3) 50 Mcg Capsule, 50 MCG PO DAILY, (Reported) Cyanocobalamin (Vitamin B-12) (B-12) 500 Mcg Tablet, 1,500 MCG PO DAILY, (Reported) Docusate Sodium (Dok) 100 Mg Capsule, 100 MG PO BID Gabapentin (Gabapentin) 300 Mg Capsule, 300 MG PO TID, (Reported) Gabapentin (Gabapentin) 100 Mg Capsule, 100 MG PO TID Magnesium Oxide (Magnesium Oxide) 250 Mg Tablet, 250 MG PO DAILY, (Reported) Omeprazole (Omeprazole) 20 Mg Capsule.dr, 20 MG PO DAILY, (Reported) Sodium Chloride (Sodium Chloride) 1 Gm Tablet, 1 GM PO DAILY Vit A/Vit C/Vit E/Zinc/Copper (Preservision Areds Softgel) 1 Each Capsule, 1 CAP PO DAILY, (Reported) Vitamin E (Dl,Tocopheryl Acet) (Vitamin E) 400 Unit Capsule, 400 UNIT PO DAILY, (Reported) Scheduled PRN Aluminum/Magnesium/Simeth (Mag-Al Plus Suspension) 30 Ml Oral.susp, 30 ML PO DAILY PRN for DYSPEPSIA Ibuprofen (Ibuprofen) 400 Mg Tablet, 400 MG PO Q8HP PRN for PAIN LEVEL 1-5 Lidocaine (Lidocaine) 5% Adh..patch, 1 PATCH TOP DAILY PRN for BACK PAIN, (Reported) PLACED ON LEFT SIDE OF LOWER BACK AROUND THE HIP AREA Magnesium Hydroxide (Milk of Magnesia) 400 Mg/5 Ml Oral.susp, 30 ML PO DAILY PRN for CONSTIPATION Naproxen (Naproxen) 500 Mg Tablet, 500 MG PO BID PRN for PAIN LEVEL 1-5, (Reported) Tramadol HCl (Tramadol HCl) 50 Mg Tablet, 50 MG PO Q6HP PRN for SEVERE PAIN Allergies Coded Allergies: bee venom protein (honey bee) (Verified Allergy, Unknown, 11/19/20) povidone-iodine (Verified Allergy, Unknown, 11/19/20) KOLTON PAULA MD Dec 03, 2020 11:55
[2020-12-03] MEDS: NS 1,000 ML IV SCH (13:09)
[2020-12-03 14:00] VITALS: BP 166/96
--- NOTE | 2020-12-03 18:19 | ECGEPIP ---
[facility] Test Date: 2020-12-03 Pat Name: LORENZO KHAN Department: Room: [place] [address] Gender: Female Power Crane Operator: TRANG : [id number] Requested By: SHERIN Garcia Order Number: [id number] Reading MD: Bret Dahl Measurements Intervals Thicket Rate: 94 P: 58 NJ: 130 QRS: -5 QRSD: 78 T: 49 QT: 342 QTc: 427 Interpretive Statements Normal sinus rhythm Compared to prior tracings in the system, no remarkable changes but faster heart rate Electronically Signed on 12-03-2020 18:18:59 EDT by Bret Dahl
== END 2020-12-03 16:34 | DRG 641 ==
LOC: M ED 22:56 → ENRESERV 11-29 05:29 → M ED 11-29 06:36 → M MSPAV 11-29 07:25
PROVIDERS: ADMIT Internal Medicine; ATTEND Student in an Organized Health Care Education/Training Program
DX: E87.1 Hypo-osmolality and hyponatremia (principal); G93.40 Encephalopathy, unspecified; I50.32 Chronic diastolic (congestive) heart failure; F03.90 Unspecified dementia, unspecified severity, without behavioral disturbance, psychotic disturbance, mood disturbance, and anxiety; Z86.73 Personal history of transient ischemic attack (TIA), and cerebral infarction without residual deficits; I11.0 Hypertensive heart disease with heart failure; G43.909 Migraine, unspecified, not intractable, without status migrainosus; Z79.899 Other long term (current) drug therapy; Z79.82 Long term (current) use of aspirin; Z91.030 Bee allergy status; Z88.8 Allergy status to other drugs, medicaments and biological substances; M17.11 Unilateral primary osteoarthritis, right knee; M81.0 Age-related osteoporosis without current pathological fracture; I27.20 Pulmonary hypertension, unspecified; K21.9 Gastro-esophageal reflux disease without esophagitis; E55.9 Vitamin D deficiency, unspecified; M54.5 Low back pain

== ENCOUNTER 2020-12-03 12:52 | Inpatient (IN) | payer MEDICARE, OTHER ==
[~2020-12-03] VITALS: Ht 152.4 cm; Wt 50.6 kg
[~2020-12-03 12:52] MED LIST changes: +B-121TAB3 PO; +D31000TA2 PO; +D32000CA PO; +DOK1CAP4 PO; +GABA-1171 PO; +GABA-282; +GABA-282 PO; +HYDR-4571; +HYDR-4571 PO; +IBUP-1114 PO; +LIDO1PAD TOP; +MAGN250T11 PO; +MAGN400T2 PO; +MOM30SS2 PO; +MYLASSUD PO; +NAPR-885; +NAPR-885 PO; +OMEP1CAP73 PO; +PRED20TA; +SODI1TAB6 PO; +TRAM50TA2 PO; +VITAE40CA PO
[2020-12-03] MEDS ORDERED: MAALOX 30 ML SUSP *UDC PO PRN (13:10)
[2020-12-03] MEDS ORDERED: BISACODYL 10 MG SUPP PR PRN (13:10)
--- NOTE | 2020-12-03 13:22 | HPEPDOC ---
Finance Advisor Note DATE OF ADMISSION: 12/03/20 DATE OF SERVICE: 12/04/20 TIME OF ADMISSION: Please refer to physician's admission order. SOURCE OF ADMISSION INFORMATION: [facility] record and patient CHIEF COMPLAINT: weakness in setting of low back pain HISTORY OF PRESENT ILLNESS: 85F pmh chronic diastolic CHF, HTN, migraines, dementia, right knee OA, lumbar vertebral compression fractures, BPPV, hx of CVAs, diplopia, pulmonary HTN, chronic low back pain s/p recent bilateral lumbar facet blocks with left leg pain and weakness presented to [facility] ED On 11-29-20 with worsening confusion, reported falls, and found to have acute hyponatremia with a sodium level of 125. She was noted to be encephalopathic and had uncontrolled blood pressures. CTH was negative for acute intracranial findings and pelvic imaging was negative for fracture. 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 Her NSAIDs were also discontinued as thought to be contributing to SIADH. Her sodium improved as well as her mentation and she was evaluated by therapy who found her to have mobility and ADL impairments below her prior level of function and she was deemed medically appropriate for discharge to ARU on 12-03-20. On initial eval patient reports she feels short of breath, but denies cough or congestion. She also states she has some difficulty swallowing which she attributes to the dry hospital air and states this happens to her any time she in the hospital. She reports she has not had a bowel movement in days. REVIEW OF SYSTEMS: The following is a completed review of systems and has been reviewed. Review of systems otherwise unremarkable. PAIN: Patient self reports left leg pain and low back EYES: No recent vision changes, chronic diplopia EARS, NOSE, & THROAT: No throat pain, + reports difficulty swallowing due to dry mouth CARDIOVASCULAR: Denies chest pain or palpitations PULMONARY: +mild shortness of breath GASTROINTESTINAL: + constipation GENITOURINARY: denies dysuria MUSCULOSKELETAL: left sided weakness NEUROLOGICAL:denies tremor or paresthesias HEMATOLOGICAL: denies easy bruising SKIN: denies rash PSYCHIATRIC: Unremarkable All other review of systems found to be negative. PAST MEDICAL HISTORY: as per HPI ALLERGIES: Please see below. MEDICATIONS: Please see below. FAMILY HISTORY: Cancer, cardiac, hypothyroidism SOCIAL HISTORY: Lives with her niece and , has a son who lives nearby, no smoking/etoh/illicit drugs DIET: regular PHYSICAL EXAMINATION: VITAL SIGNS: Please see below. GENERAL: Pleasant and cooperative. No acute distress. HEENT: PERRL. Extraocular movements intact. Clear conjunctiva CARDIOVASCULAR: Regular rate and rhythm. No murmurs, rubs, or gallops LUNGS: Clear to auscultation bilaterally. No wheezes. No rhonchi ABDOMEN: Soft, nontender, mildly distended, non-tender to palpation, Positive bowel sounds NEUROLOGICAL: Alert and oriented times three. Cranial nerves II through XII grossly intact. Sensation grossly intact in all 4 limbs EXTREMITIES: 5-\\5 strength bilateral upper extremities. 5\\5 strength right lower extremity. 4-/5 strength in left lower extremity. +bilat LE edema, + colton's on left SKIN: no sacral erythema LABORATORY DATA: Please see below. IMAGING:Imaging documentation personally reviewed by record FUNCTIONAL STATUS: Premorbid: Independent with all activities of daily life as well as mobility On Admission: Mod- Assist for bed mobility, functional transfers, ambulation, dressing GOALS: Supervision for bed mobility, functional transfers, ambulation, stairs, dressing, toileting, bathing ASSESSMENT:85-year-old F with past medical history of 2 CVAs, diastolic CHF, chronic low back pain s/p recent lumbar facet blocks with left leg weakness who presents status post encephalopathy due to hyponatremia and polypharmacy PLAN: 1. Rehab- PT/OT advance mobility and ADLs, strengthen/stretch/maintain ROM all 4 limbs, brace left leg as needed -ACCOUNTING OFFICER for swallow eval, patient reporting dry mouth interfering with swallowing, denies coughing with water 2. Neuro-recent admission for metabolic encephalopathy due to hyponatremia and polypharmacy, monitor on ARU, judicious with pain meds - hx of CVAs with diplopia, c/u secondary stroke prevention, ASA 3. 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 Multilevel neural foraminal narrowing as above. Degenerative spondylolisthesis at L4-5 and degenerative retrolisthesis at L1-2. Chronic partial anterior wedging L5 vertebral body." f/u pain clinic on d/c 3. Cardiac- chronic diastolic CHF, daily weights, fluid restrict, concern patient may be fluid overloaded given weight gain on record, subjective shortness of breath, and recent IVF given on acute side for her hyponatremia, will add BNP to today's labs, CXR ordered as well 4. Resp- monitor for infection 5. VAsc- patient reporting she has had clots in her legs in the past? +Colton's on left side, will order dopplers to r/o DVT - on lovenox currently for DVT ppx 6. GI ppx- omeprazole -maximize bowel meds as patient very constipated 7. Pain- gabapentin, tylneol, tramadol, lidoderm patch 8. - monitor PVRs 9. Electrolyes- recent hyponatremia due to SIADH, Na normalized, will stop salt tabs given concern for possible fluid overload, and c/u to monitor 10. Dispo- tbd 11. Code: patient does not want chest compressions, however if she still has a pulse, but her breathing is compromised she would like a trial of intubation, MOLST form has been signed POST ADMISSION PHYSICIAN EVALUATION: Medical and functional status: Description of medical status, medical assessment: As above. Rehabilitation diagnosis and current and prior cold morbid medical conditions as above. Risk of complications and plans to mitigate them as above. Description of functional status current status is as above. Prior status as above. Status compared to preadmission: There are no clinically significant differences between the patient's current status and the information described on the preadmission screening document. Treatment plan anticipated: Treatment plan is as described above. Required disciplines including physical therapy, occupational therapy, others as noted above Intensity of services: 3 hours a day, 6 days a week. Special considerations: There are no specific special or safety considerations that would likely preclude immediate implementation of an intensive rehabilitation program or subsequently influence the plan of care. ATTESTATION: Considering all the information above, it is my best judgment that this patient requires intensive rehabilitation therapy as described above and an inpatient hospital environment due to the complexity of nursing, medical, and rehabilitation needs required by the patient. Furthermore, this patient can reasonably be expected to participate in an benefit from an inpatient rehabilitation stay with an interdisciplinary team approach to the delivery of rehabilitation care under the direction and supervision of rehabilitation physician. PROGNOSIS: good ESTIMATED LENGTH OF STAY:18-21 days. PROJECTED DISCHARGE DESTINATION: Home with family support and any durable medical equipment required to increase functional safety and mobility. TIME SPENT COUNSELING AND COORDINATING INITIAL CARE: Greater than 70 minutes. Vital Signs Vital Signs Date Time Temp Pulse Resp B/P (MAP) Pulse Ox O2 Delivery O2 Flow Rate FiO2 12/03/20 16:43 98.5 95 18 152/74 (100) 97 Room Air Home Medications Scheduled Acetaminophen (Acetaminophen) 325 Mg Tablet, 650 MG PO QID Aspirin (Aspirin EC) 81 Mg Tab, 81 MG PO DAILY, (Reported) Celecoxib (Celecoxib) 200 Mg Cap, 200 MG PO BID, (Reported) Cholecalciferol (Vitamin D3) (Vitamin D3) 50 Mcg Capsule, 50 MCG PO DAILY, (Reported) Cyanocobalamin (Vitamin B-12) (B-12) 500 Mcg Tablet, 1,500 MCG PO DAILY, (Reported) Docusate Sodium (Dok) 100 Mg Capsule, 100 MG PO BID Gabapentin (Gabapentin) 300 Mg Capsule, 300 MG PO TID, (Reported) Gabapentin (Gabapentin) 100 Mg Capsule, 100 MG PO TID Magnesium Oxide (Magnesium Oxide) 250 Mg Tablet, 250 MG PO DAILY, (Reported) Omeprazole (Omeprazole) 20 Mg Capsule.dr, 20 MG PO DAILY, (Reported) Sodium Chloride (Sodium Chloride) 1 Gm Tablet, 1 GM PO DAILY Vit A/Vit C/Vit E/Zinc/Copper (Preservision Areds Softgel) 1 Each Capsule, 1 CAP PO DAILY, (Reported) Vitamin E (Dl,Tocopheryl Acet) (Vitamin E) 400 Unit Capsule, 400 UNIT PO DAILY, (Reported) Scheduled PRN Aluminum/Magnesium/Simeth (Mag-Al Plus Suspension) 30 Ml Oral.susp, 30 ML PO DAILY PRN for DYSPEPSIA Ibuprofen (Ibuprofen) 400 Mg Tablet, 400 MG PO Q8HP PRN for PAIN LEVEL 1-5 Lidocaine (Lidocaine) 5% Adh..patch, 1 PATCH TOP DAILY PRN for BACK PAIN, (Reported) PLACED ON LEFT SIDE OF LOWER BACK AROUND THE HIP AREA Magnesium Hydroxide (Milk of Magnesia) 400 Mg/5 Ml Oral.susp, 30 ML PO DAILY PRN for CONSTIPATION Naproxen (Naproxen) 500 Mg Tablet, 500 MG PO BID PRN for PAIN LEVEL 1-5, (Reported) Tramadol HCl (Tramadol HCl) 50 Mg Tablet, 50 MG PO Q6HP PRN for SEVERE PAIN Allergies Coded Allergies: bee venom protein (honey bee) (Verified Allergy, Unknown, 11/19/20) povidone-iodine (Verified Allergy, Unknown, 11/19/20) A-FIB/CHADSVASC A-FIB History Current/History of A-Fib/PAF?: No Current PO Anticoag Therapy: No MICHAEL NEGRO MD Dec 03, 2020 13:22
[2020-12-03] MEDS: REMEDY PHYTOPLEX Z-GUARD PASTE 113GM TUBE (FROM STOREROOM PRODUCT) TOP SCH ×2 (16:00→20:31)
[2020-12-03 16:43] VITALS: BP 152/74
[2020-12-03] MEDS: ACETAMINOPHEN TAB 650MG DOSE (2X325MG) PO SCH ×2 (17:25→20:31)
[2020-12-03] MEDS: GABAPENTIN 100 MG CAP PO SCH ×2 (17:25→20:31)
[2020-12-03] MEDS: SENNA 8.6 MG TAB (SENOKOT) PO SCH (20:30)
[2020-12-03] MEDS: DOCUSATE SODIUM 100MG CAPSULE PO SCH (20:30)
[2020-12-03] MEDS: **NOTE PATIENT COMMENT** MISC XX SCH (20:31)
[2020-12-03] MEDS: traMADol 50 MG TAB PO PRN (20:31)
[2020-12-03 22:00] VITALS: BP 140/67
[2020-12-04] MEDS: traMADol 50 MG TAB PO PRN (04:48)
[2020-12-04 06:00] VITALS: BP 138/73
[2020-12-04] MEDS: OMEPRAZOLE 20 MG CAP PO SCH (07:20)
[2020-12-04] MEDS: CYANOCOBALAMIN 500 MCG TAB PO SCH (07:20)
[2020-12-04] MEDS: GABAPENTIN 100 MG CAP PO SCH ×3 (07:20→20:42)
[2020-12-04] MEDS: DOCUSATE SODIUM 100MG CAPSULE PO SCH ×3 (07:20→20:42)
[2020-12-04] MEDS: ENOXAPARIN 40MG/0.4ML SYRINGE (J1650 PER 10MG) SC SCH (07:21)
[2020-12-04] MEDS: OCUVITE 1 TAB PO SCH (07:21)
[2020-12-04] MEDS: ACETAMINOPHEN TAB 650MG DOSE (2X325MG) PO SCH ×4 (07:21→20:43)
[2020-12-04] MEDS: LIDOCAINE 5% (LIDODERM) PATCH TD SCH (07:21)
[2020-12-04] MEDS: MAGNESIUM OXIDE 400MG TAB (MAG-OX) PO SCH (07:21)
[2020-12-04] MEDS: REMEDY PHYTOPLEX Z-GUARD PASTE 113GM TUBE (FROM STOREROOM PRODUCT) TOP SCH ×3 (07:22→20:45)
[2020-12-04] MEDS: ASPIRIN 81MG ENTERIC TABLET PO SCH (07:22)
[2020-12-04] MEDS: MIRALAX *UNIT DOSE* 17GM PACKET PO SCH (08:54)
[2020-12-04] MEDS ORDERED: SODIUM CHLORIDE 1 GM TAB PO SCH (09:00)
[2020-12-04 09:22] LABS: BASO % 0.4 % (0.0-1.0); EOS # 0.2 10^3/uL (0.0-0.5); EOS % 2.9 % (0.0-3.0); HEMATOCRIT 34.7 % (36.0-47.0); HEMOGLOBIN 12.2 g/dl (12.0-15.5); LYMPH # 1.1 10^3/uL (1.5-5.0); LYMPH % 13.8 % (24.0-44.0); MEAN CORPUSCULAR HEMOGLOBIN 32.7 pg (27.0-33.0); MEAN CORPUSCULAR HGB CONC 35.2 g/dl (32.0-36.5); MONO # 0.4 10^3/uL (0.0-0.8); MONO % 5.5 % (2.0-8.0); NEUTROPHILS # 6.2 10^3/uL (1.5-8.5); NEUTROPHILS % 77.1 % (36.0-66.0); PLATELET COUNT, AUTOMATED 240 10^3/uL (150-450); RED BLOOD COUNT 3.73 10^6/uL (4.00-5.40)
[2020-12-04 10:08] LABS: BLOOD UREA NITROGEN 11 MG/DL (7-18); CALCIUM LEVEL 8.6 MG/DL (8.8-10.2); CARBON DIOXIDE LEVEL 26 MEQ/L (21-32); CHLORIDE LEVEL 103 MEQ/L (98-107); CREATININE FOR GFR 0.47 MG/DL (0.55-1.30); GLOMERULAR FILTRATION RATE > 60.0 (>32); GLUCOSE, FASTING 114 MG/DL (70-100); SODIUM LEVEL 136 MEQ/L (136-145)
[2020-12-04] MEDS: SALIVA SUBSTITUTE(MOUTHKOTE) BTL MT SCH ×3 (12:40→20:43)
--- NOTE | 2020-12-04 13:11 | REP ---
INDICATION: shortness of breath COMPARISON: 11/19/2020 as well as other prior exams. TECHNIQUE: PA/Lateral FINDINGS: There is a new small left pleural effusion with some mild adjacent left base atelectasis/infiltrate. The right lung appears clear. The heart is not enlarged. The mediastinal silhouette is unchanged. There are degenerative changes of the spine. There is chronic compression deformity of a lower thoracic vertebral body which is stable. IMPRESSION: New small left pleural effusion with mild adjacent left base atelectasis/infiltrate. <Electronically signed by Stanislav Britt > 12/04/20 [id number]
[2020-12-04] MEDS ORDERED: FUROSEMIDE 20MG/2ML VIAL (J1940) IV ONE (13:20)
[2020-12-04 13:39] LABS: NT-PRO BNP 624 PG/ML (<450)
[2020-12-04 13:58] VITALS: BP 127/58
[2020-12-04] MEDS: COMBIVENT RESPIMAT 100-20MCG INHALER 4GM INH SCH ×2 (14:00→20:00)
[2020-12-04] MEDS: LACTOBACILLUS ACIDOPHILUS CAP (BACID) PO SCH ×2 (15:39→20:42)
[2020-12-04] MEDS: PIPERACILLIN/TAZOBACTAM SOD 4.5 GM in D5W MINI-BAG PLUS 50 ML IV SCH ×2 (15:40→20:43)
[2020-12-04] MEDS: guaiFENesin 200 MG TAB PO SCH ×2 (15:40→20:43)
[2020-12-04] MEDS ORDERED: FLEET ENEMA PR ONE (17:00)
[2020-12-04 20:00] VITALS: BP 123/57
[2020-12-04] MEDS: traMADol 50 MG TAB PO SCH (20:42)
[2020-12-04] MEDS: SENNA 8.6 MG TAB (SENOKOT) PO SCH (20:42)
--- NOTE | 2020-12-04 20:43 | REPVR ---
PROCEDURE INFORMATION: Exam: US Duplex Lower Extremity Veins, Bilateral Exam date and time: 12/04/2020 8:20 PM Age: 85 years old Clinical indication: Edema, localized; Lower extremity, bilateral; Additional info: Immobility R/O dvt TECHNIQUE: Imaging protocol: Real-time duplex ultrasound of the extremities with 2-D ceron scale, color Doppler flow and spectral waveform analysis with image documentation. Complete exam focused on the bilateral lower extremity veins. COMPARISON: No relevant prior studies available. FINDINGS: Right deep veins: Unremarkable. The common femoral, femoral and popliteal veins are patent without thrombus. Normal Doppler waveforms. Normal compressibility and/or augmentation response. Right superficial veins: Saphenofemoral junction is patent without thrombus. Left deep veins: Unremarkable. The common femoral, femoral and popliteal veins are patent without thrombus. Normal Doppler waveforms. Normal compressibility and/or augmentation response. Left superficial veins: Saphenofemoral junction is patent without thrombus. Soft tissues: Unremarkable. IMPRESSION: No sonographic evidence of deep vein thrombosis. Electronically signed by: Adan Johnson On 12/04/2020 20:42:21 PM
[2020-12-04] MEDS: **NOTE PATIENT COMMENT** MISC XX SCH (20:44)
[2020-12-05] MEDS: PIPERACILLIN/TAZOBACTAM SOD 4.5 GM in D5W MINI-BAG PLUS 50 ML IV SCH ×4 (01:50→22:13)
[2020-12-05] MEDS: traMADol 50 MG TAB PO SCH ×2 (05:16→21:46)
[2020-12-05 06:00] VITALS: BP 153/75
[2020-12-05] MEDS: COMBIVENT RESPIMAT 100-20MCG INHALER 4GM INH SCH ×3 (07:22→17:52)
[2020-12-05 07:43] LABS: BASO % 0.4 % (0.0-1.0); EOS # 0.3 10^3/uL (0.0-0.5); EOS % 3.9 % (0.0-3.0); HEMATOCRIT 35.8 % (36.0-47.0); HEMOGLOBIN 12.4 g/dl (12.0-15.5); LYMPH # 0.9 10^3/uL (1.5-5.0); LYMPH % 11.2 % (24.0-44.0); MEAN CORPUSCULAR HEMOGLOBIN 32.1 pg (27.0-33.0); MEAN CORPUSCULAR HGB CONC 34.6 g/dl (32.0-36.5); MEAN CORPUSCULAR VOLUME 92.7 fl (80.0-96.0); MONO # 0.4 10^3/uL (0.0-0.8); MONO % 5.1 % (2.0-8.0); NEUTROPHILS # 6.6 10^3/uL (1.5-8.5); PLATELET COUNT, AUTOMATED 240 10^3/uL (150-450); RED BLOOD COUNT 3.86 10^6/uL (4.00-5.40); WHITE BLOOD COUNT 8.4 10^3/uL (4.0-10.0)
[2020-12-05] MEDS: LIDOCAINE 5% (LIDODERM) PATCH TD SCH (08:22)
[2020-12-05] MEDS: MIRALAX *UNIT DOSE* 17GM PACKET PO SCH (08:22)
[2020-12-05] MEDS: OMEPRAZOLE 20 MG CAP PO SCH (08:23)
[2020-12-05] MEDS: FUROSEMIDE 20 MG TAB PO SCH (08:23)
[2020-12-05] MEDS: ENOXAPARIN 40MG/0.4ML SYRINGE (J1650 PER 10MG) SC SCH (08:23)
[2020-12-05] MEDS: CYANOCOBALAMIN 500 MCG TAB PO SCH (08:23)
[2020-12-05] MEDS: MAGNESIUM OXIDE 400MG TAB (MAG-OX) PO SCH (08:23)
[2020-12-05] MEDS: OCUVITE 1 TAB PO SCH (08:24)
[2020-12-05] MEDS: DOCUSATE SODIUM 100MG CAPSULE PO SCH ×3 (08:24→21:45)
[2020-12-05] MEDS: guaiFENesin 200 MG TAB PO SCH ×3 (08:24→21:45)
[2020-12-05] MEDS: ASPIRIN 81MG ENTERIC TABLET PO SCH (08:24)
[2020-12-05] MEDS: ACETAMINOPHEN TAB 650MG DOSE (2X325MG) PO SCH ×4 (08:24→21:46)
[2020-12-05] MEDS: LACTOBACILLUS ACIDOPHILUS CAP (BACID) PO SCH ×3 (08:24→21:46)
[2020-12-05] MEDS: REMEDY PHYTOPLEX Z-GUARD PASTE 113GM TUBE (FROM STOREROOM PRODUCT) TOP SCH ×3 (08:25→21:48)
[2020-12-05] MEDS: GABAPENTIN 100 MG CAP PO SCH ×3 (08:25→21:46)
[2020-12-05 08:27] LABS: BLOOD UREA NITROGEN 11 MG/DL (7-18); CALCIUM LEVEL 8.8 MG/DL (8.8-10.2); CARBON DIOXIDE LEVEL 27 MEQ/L (21-32); CHLORIDE LEVEL 105 MEQ/L (98-107); CREATININE FOR GFR 0.49 MG/DL (0.55-1.30); GLOMERULAR FILTRATION RATE > 60.0 (>32); GLUCOSE, FASTING 86 MG/DL (70-100); SODIUM LEVEL 139 MEQ/L (136-145)
[2020-12-05] MEDS: SALIVA SUBSTITUTE(MOUTHKOTE) BTL MT SCH ×4 (09:00→21:47)
--- NOTE | 2020-12-05 09:28 | IPNPDOC ---
PM&R Progress Note DATE OF SERVICE: Dec 05, 2020 Solar [employer] Progress Note Subjective: Patient reporting her left leg weakness is new and began about 3 weeks ago. Prior to that she was walking without any device. She also reports she has some numbness in the tina-anal area that also began a few weeks ago. REVIEW OF SYSTEMS: The following is a completed review of systems and has been reviewed. Review of systems otherwise unremarkable. PAIN: Patient self reports left leg pain and low back EYES: No recent vision changes, chronic diplopia EARS, NOSE, & THROAT: No throat pain, + reports difficulty swallowing due to dry mouth CARDIOVASCULAR: Denies chest pain or palpitations PULMONARY: +mild shortness of breath GASTROINTESTINAL: + constipation GENITOURINARY: denies dysuria MUSCULOSKELETAL: left sided weakness NEUROLOGICAL:denies tremor or paresthesias HEMATOLOGICAL: denies easy bruising SKIN: denies rash PSYCHIATRIC: Unremarkable All other review of systems found to be negative. PHYSICAL EXAMINATION: VITAL SIGNS: Please see below. GENERAL: Pleasant and cooperative. No acute distress. HEENT: PERRL. Extraocular movements intact. Clear conjunctiva CARDIOVASCULAR: Regular rate and rhythm. No murmurs, rubs, or gallops LUNGS: Clear to auscultation bilaterally. No wheezes. No rhonchi ABDOMEN: Soft, nontender, mildly distended, non-tender to palpation, Positive bowel sounds NEUROLOGICAL: Alert and oriented times three. Cranial nerves II through XII grossly intact. Sensation grossly intact in all 4 limbs, tina-anal region intact to light touch EXTREMITIES: 5-\\5 strength bilateral upper extremities. 5\\5 strength right lower extremity. 4-/5 strength in left lower extremity. +bilat LE edema SKIN: no sacral erythema ASSESSMENT:85-year-old F with past medical history of 2 CVAs, diastolic CHF, chronic low back pain s/p recent lumbar facet blocks with left leg weakness who presents status post encephalopathy due to hyponatremia and polypharmacy PLAN: 1. Rehab- PT/OT advance mobility and ADLs, strengthen/stretch/maintain ROM all 4 limbs, brace left leg as needed -[employer]NA[employer] for swallow eval, patient reporting dry mouth interfering with swallowing, denies coughing with water 2. Neuro-recent admission for metabolic encephalopathy due to hyponatremia and polypharmacy, monitor on ARU, judicious with pain meds - hx of CVAs with diplopia, c/u secondary stroke prevention, ASA 3. 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 Multilevel neural foraminal narrowing as above. Degenerative spondylolisthesis at L4-5 and degenerative retrolisthesis at L1-2. Chronic partial anterior wedging L5 vertebral body." s/p bilat L4-L5, L5-S1 facet blocks on 10-02-20, patient and family reporting her left leg became very week about 3 weeks ago, patient having constipation with subjective decreased sensation in the perianal region, concern for possible cauda equina, will order MRI and flexion/extension Xrays to check for instability of her spondylolisthesis, discussed case briefly with ortho air route controller recommended I call Spine Surgeon in [place] pending results 3. Cardiac- chronic diastolic CHF, daily weights, fluid restrict, concern patient may have been fluid overloaded on admission given weight gain on mark , subjective shortness of breath, and recent IVF given on acute side for her hyponatremia, BNP mildly elevated 600s, s/p 1x dose IV lasix, c/u on daily lasix and monitor, patient breathing better today 4. Resp- CXR 12-04-20 showing left sided infiltrate and new left sided pleural effusion, started on zosyn for possible aspiration PNA, diet downgraded to level 3 while awaiting [employer] eval, diuretic ordered to treat effusion 5. VAsc- patient reporting she has had clots in her legs in the past? +Kezia's on left side, Doppler negative for DVT bilat - on lovenox currently for DVT ppx 6. GI ppx- omeprazole -maximize bowel meds as patient very constipated, KUB ordered today to r/o ileus/obstruction/retention, it showed fecal retention, patient starting to have BMs 7. Pain- gabapentin, tylneol, tramadol, lidoderm patch 8. - monitor PVRs 9. Electrolytes- recent hyponatremia due to SIADH, Na normalized, c/u off salt tabs given concern for possible fluid overload, and c/u to monitor 10. Dispo- tbd, discussed clinical updates with son Alicia Todd today 11. Code: patient does not want chest compressions, however if she still has a pulse, but her breathing is compromised she would like a trial of intubation, MOLST form has been signed Allergies Coded Allergies: bee venom protein (honey bee) (Verified Allergy, Unknown, 11/19/20) povidone-iodine (Verified Allergy, Unknown, 11/19/20) Vital Signs Vital Signs Date Time Temp Pulse Resp B/P (MAP) Pulse Ox O2 Delivery O2 Flow Rate FiO2 12/05/20 06:00 98.1 97 18 153/75 (101) 97 Room Air Laboratory Data CBC/BMP Laboratory Tests 12/05/20 06:57 Labs 24H Laboratory Tests 2 12/05/20 06:57: Immature Granulocyte % (Auto) 0.4, Neutrophils (%) (Auto) 79.0H, Lymphocytes (%) (Auto) 11.2L, Monocytes (%) (Auto) 5.1, Eosinophils (%) (Auto) 3.9H, Basophils (%) (Auto) 0.4, Neutrophils # (Auto) 6.6, Lymphocytes # (Auto) 0.9L, Monocytes # (Auto) 0.4, Eosinophils # (Auto) 0.3, Basophils # (Auto) 0.0, Nucleated Red Blood Cells % (auto) 0.0, Anion Gap 7L, Glomerular Filtration Rate > 60.0, Margarito cium Level 8.8 Current Medications Current Medications Current Medications Medications (Trade) Dose Ordered Sig/Franck Route PRN Reason Start Time Stop Time Status Last Admin Dose Admin Acetaminophen (Tylenol Tab) 650 mg QID PO 12/03/20 17:00 12/05/20 08:24 Al Hydrox/Mg Hydrox/Simethicone (Mylanta) 30 ml Q4HP PRN PO DYSPEPSIA 12/03/20 13:10 12/03/20 20:31 Albuterol/ Ipratropium (Combivent Respimat 100-20mcg) 1 puff RTID INH 12/04/20 14:00 12/05/20 07:22 Aspirin (Ecotrin) 81 mg DAILY PO 12/04/20 09:00 12/05/20 08:24 Bisacodyl (Dulcolax Suppository) 10 mg DAILYPRN PRN [place] CONSTIPATION 12/03/20 13:10 Cyanocobalamin (Vitamin B12) 1,500 mcg DAILY PO 12/04/20 09:00 12/05/20 08:23 Docusate Sodium (Colace) 100 mg BID PO 12/03/20 21:00 12/04/20 11:47 DC 12/04/20 07:20 Docusate Sodium (Colace) 100 mg TID PO 12/04/20 16:00 12/05/20 08:24 Enoxaparin Sodium (Lovenox) 40 mg DAILY SC 12/04/20 09:00 12/05/20 08:23 Furosemide (Lasix) 20 mg DAILY PO 12/05/20 09:00 12/05/20 08:23 Gabapentin (Neurontin) 100 mg TID PO 12/03/20 16:00 12/05/20 08:25 Guaifenesin (Robitussin Tab) 400 mg TID PO 12/04/20 16:00 12/05/20 08:24 Lactobacillus Acidophilus (Bacid) 1 ea TID PO 12/04/20 16:00 12/05/20 08:24 Lidocaine (Lidoderm Patch) 2 patch DAILY TD 12/04/20 09:00 12/05/20 08:22 Magnesium Oxide (Mag-Ox) 400 mg DAILY PO 12/04/20 09:00 12/05/20 08:23 Multivitamins (Ocuvite(I-Zaira)) 1 tab DAILY PO 12/04/20 09:00 12/05/20 08:24 Non-Formulary Medication ( See Comment Field Below ) REMOVE LIDODERM PATCH DAILY@21 XX 12/03/20 21:00 12/04/20 20:44 Omeprazole (PriLOSEC) 20 mg DAILY PO 12/04/20 09:00 12/05/20 08:23 Piperacillin Sod/ Tazobactam Sod 4.5 gm/Dextrose 50 ml @ 50 mls/hr Q6H IV 12/04/20 14:00 12/05/20 08:22 Polyethylene Glycol (Miralax) 1 pkt DAILY PO 12/04/20 08:45 12/05/20 08:22 Saliva Substitute (Mouthkote) 2 sprays QID MT 12/04/20 13:00 12/04/20 20:43 Senna (Senokot) 1 tab QHS PO 12/03/20 21:00 12/04/20 20:42 Sodium Chloride (Sodium Chloride) 1 gm DAILY PO 12/04/20 09:00 12/04/20 12:37 DC 12/04/20 07:22 Tramadol HCl (Ultram) 50 mg BID@0600,2100 PO 12/04/20 21:00 12/05/20 05:16 Tramadol HCl (Ultram) 50 mg Q4HP PRN PO MODERATE PAIN (PS 5-7) 12/03/20 13:10 12/04/20 11:47 DC 12/04/20 04:48 Tramadol HCl (Ultram) 50 mg Q8HP PRN PO MODERATE PAIN (PS 5-7) 12/04/20 11:45 MICHAEL NEGRO MD Dec 05, 2020 09:28
--- NOTE | 2020-12-05 12:50 | REP ---
INDICATION: obstruction/ileus/fecal retention?. COMPARISON: None. TECHNIQUE: KUB. FINDINGS: There is moderate stool in the rectum. Formed stool is seen in the ascending and descending colon. No colonic distention is seen. No small bowel dilation is seen. Psoas margins are symmetric. Flank stripes are intact. There are phleboliths in the pelvis. No pathologic calcification is seen. IMPRESSION: Moderate formed stool. Otherwise negative KUB. <Electronically signed by Alec Oliveira > 12/05/20 [id number]
[2020-12-05 14:00] VITALS: BP 111/57
--- NOTE | 2020-12-05 14:47 | REP ---
INDICATION: FLEXION and EXTENSION, unstable spondylolisthesis?. COMPARISON: 05/25/2013. CT 11/19/2020. TECHNIQUE: Lateral flexion and extension views. FINDINGS: There is a compression deformity of a lower thoracic vertebral body which is unchanged since 08/29/2020 lateral chest radiograph. There is mild diffuse spurring. There is moderate disc space narrowing with subchondral sclerosis at L1-2 and L2-3. There is diffuse sclerosis at the posterior facet joints. There is mild retrolisthesis of L2 on L3 and mild anterolisthesis of L4 on L5. the listhesis does not change with flexion or extension. IMPRESSION: Degenerative changes as discussed above. Mild retrolisthesis of L 2 on L3 and anterolisthesis of L4 on L5 do not change with flexion and extension. <Electronically signed by Stanislav Britt > 12/05/20 [id number]
--- NOTE | 2020-12-05 18:25 | IPNPDOC ---
Text Note Date of Service The patient was seen on 12/05/20. NOTE Hospitalist Progress Note Subjective: Patient was asleep in bed when I entered the room, but she was easily aroused. She reports that her pain is actually fairly well controlled at this time, and she really does not have any other acute complaints. The remainder of her revi ew systems is negative. Her lunch was sitting untouched on the tray, and therefore I raise the head of the bed and put the tray in front of her, and she proceeded to eat her lunch after our interview, all of this she did without complaint. Objective: General: Awake, alert. Not in any acute distress. HEENT: Head normocephalic, atraumatic, sclera are nonicteric. Hearing is grossly intact to conversation. Respiratory: Clear to auscultation bilaterally with no wheezes, rales, or rhonchi. Cardiovascular: Regular rate and rhythm, with no rubs, gallops, or murmur. Abdomen: Soft, nontender, nondistended, no hepatosplenomegaly appreciated. Bowel sounds present. Extremities: 2+ pulses in the radial and dorsalis pedis bilaterally. No evidence of clubbing or cyanosis. Assessment/Plan: Rehabilitation for mobility and reduced functional ability to perform ADLs Chronic low back pain status post recent lumbar facet blocks with persistent left lower extremity weakness and pain -Per recommendations from PM&R team Left-sided chest infiltrate and pleural effusion -Agree with plan to treat for possible aspiration pneumonia with Zosyn -Patient does not have a productive cough, therefore sputum sample has not been obtained -Also agree with plan for evaluation by speech therapy -Continue to monitor labs on a daily basis. Metabolic encephalopathy Hyponatremia Polypharmacy -All of these seem to be resolved at this time, continue to monitor, and recommend judicious administration of pain medications. GERD -Continue omeprazole DVT prophylaxis -Continue Lovenox VS,Fishbone, I+O VS, Fishbone, I+O Laboratory Tests 12/05/20 06:57 Vital Signs Date Time Temp Pulse Resp B/P (MAP) Pulse Ox O2 Delivery O2 Flow Rate FiO2 12/05/20 14:00 97.5 93 18 111/57 (75) 99 Room Air I&O- Last 24 Hours up to 6 AM 12/05/20 06:00 Intake Total 730 ml Output Total 1400 ml Balance -670 ml SEAN MOYA DO Dec 05, 2020 18:25
[2020-12-05 20:00] VITALS: BP 116/56
[2020-12-05] MEDS: SENNA 8.6 MG TAB (SENOKOT) PO SCH (21:47)
[2020-12-05] MEDS: **NOTE PATIENT COMMENT** MISC XX SCH (21:47)
--- NOTE | 2020-12-06 01:34 | REPVR ---
PROCEDURE INFORMATION: Exam: MR Lumbar Spine Without Contrast Exam date and time: 12/05/2020 12:04 AM Age: 85 years old Clinical indication: Low back pain; Patient HX: Lbp; Additional info: Cauda equina? TECHNIQUE: Imaging protocol: Multiplanar magnetic resonance images of the lumbar spine without intravenous contrast. COMPARISON: 1. CT Spine, lumbar w/o contrast 2020-11-19 13:47 2. CO Spine, Lumbosacral, partial 2020-12-05 14:22 FINDINGS: Vertebrae: 4 mm degenerative L4-L5 retrolisthesis. Mild moderate chronic anterior L4 vertebral body height loss. Degenerative 3 mm L1-L2 retrolisthesis. Mild chronic anterior L1 vertebral body height loss. Spinal cord: Normal distal spinal cord terminating at L1. No cord tethering. Multilevel findings: Diffuse degenerative disc desiccation, disc height loss, and associated degenerative endplate marrow signal changes most severe at L3-L5. L1-L2: Minimal L1-L2 intervertebral disc T2 signal hyperintensity, and associated endplate marrow signal change, likely related to degenerative disc and joint disease with some fluid accumulation, early discitis could appear similarly. Mild disc bulge and facet arthropathy and retrolisthesis causes mild spinal and foraminal stenosis. L2-L3: Facet arthropathy and disc bulging causes mild foraminal and minimal spinal stenosis. L3-L4: Mild facet arthropathy, ligamentum flavum thickening, and disc bulging. Small right far posterolateral disc protrusion. Mild spinal and left and moderate right foraminal stenosis. L4-L5: Moderate facet arthropathy with anterolisthesis, disc bulging, and central disc protrusion causes mild spinal and foraminal and moderate subarticular stenosis. L5-S1: Moderate severe facet arthropathy with facet joint effusions. Moderate left ligamentum flavum thickening. Diffuse disc bulging. Moderate severe left subarticular and foraminal stenosis. Mild spinal and right foraminal stenosis. Soft tissues: Paraspinous muscle atrophy. Tiny filum terminalis lipoma incidentally noted. Kidneys and ureters: Lobulated T2 hyperintense benign appearing left renal 2 cm cyst. IMPRESSION: 1. Mild moderate lumbar spondylosis. 2. Mild L1-L2 inflammatory endplate and disc signal changes from degenerative disc disease. Early discitis could appear similar in the appropriate clinical setting. Electronically signed by: Jhonatan Tubbs On 12/06/2020 01:33:07 AM
[2020-12-06] MEDS: PIPERACILLIN/TAZOBACTAM SOD 4.5 GM in D5W MINI-BAG PLUS 50 ML IV SCH ×4 (02:36→20:12)
[2020-12-06] MEDS: traMADol 50 MG TAB PO SCH ×2 (05:45→20:18)
[2020-12-06 06:00] VITALS: BP 124/72
[2020-12-06] MEDS: COMBIVENT RESPIMAT 100-20MCG INHALER 4GM INH SCH ×3 (07:21→20:14)
[2020-12-06] MEDS: MIRALAX *UNIT DOSE* 17GM PACKET PO SCH (08:15)
[2020-12-06] MEDS: ENOXAPARIN 40MG/0.4ML SYRINGE (J1650 PER 10MG) SC SCH (08:15)
[2020-12-06] MEDS: OCUVITE 1 TAB PO SCH (08:16)
[2020-12-06] MEDS: DOCUSATE SODIUM 100MG CAPSULE PO SCH ×3 (08:16→21:00)
[2020-12-06] MEDS: LIDOCAINE 5% (LIDODERM) PATCH TD SCH (08:17)
[2020-12-06] MEDS: GABAPENTIN 100 MG CAP PO SCH ×3 (08:17→20:17)
[2020-12-06] MEDS: ASPIRIN 81MG ENTERIC TABLET PO SCH (08:22)
[2020-12-06] MEDS: MAGNESIUM OXIDE 400MG TAB (MAG-OX) PO SCH (08:22)
[2020-12-06] MEDS: CYANOCOBALAMIN 500 MCG TAB PO SCH (08:22)
[2020-12-06] MEDS: LACTOBACILLUS ACIDOPHILUS CAP (BACID) PO SCH ×3 (08:22→20:17)
[2020-12-06] MEDS: guaiFENesin 200 MG TAB PO SCH ×3 (08:23→20:16)
[2020-12-06] MEDS: OMEPRAZOLE 20 MG CAP PO SCH (08:23)
[2020-12-06] MEDS: ACETAMINOPHEN TAB 650MG DOSE (2X325MG) PO SCH ×4 (08:23→20:16)
[2020-12-06] MEDS: FUROSEMIDE 20 MG TAB PO SCH (08:23)
[2020-12-06] MEDS: SALIVA SUBSTITUTE(MOUTHKOTE) BTL MT SCH ×4 (08:23→20:19)
[2020-12-06] MEDS: REMEDY PHYTOPLEX Z-GUARD PASTE 113GM TUBE (FROM STOREROOM PRODUCT) TOP SCH ×3 (08:24→20:22)
[2020-12-06 09:37] LABS: C REACTIVE PROTEIN QUANTITATIV < 0.30 MG/DL (0.00-0.30)
[2020-12-06 10:37] LABS: ERYTHROCYTE SEDIMENTATION RATE 6 mm/hr (0-30)
[2020-12-06 14:00] VITALS: BP 129/61
[2020-12-06] MEDS: **NOTE PATIENT COMMENT** MISC XX SCH (20:24)
[2020-12-06] MEDS: SENNA 8.6 MG TAB (SENOKOT) PO SCH (21:00)
[2020-12-07] MEDS: LevoFLOXacin 750 MG TABLET PO SCH (05:37)
[2020-12-07] MEDS: traMADol 50 MG TAB PO SCH ×2 (05:38→19:35)
[2020-12-07 06:25] VITALS: BP 121/59
[2020-12-07] MEDS: COMBIVENT RESPIMAT 100-20MCG INHALER 4GM INH SCH ×3 (07:18→19:51)
[2020-12-07] MEDS: DOCUSATE SODIUM 100MG CAPSULE PO SCH ×3 (09:00→19:55)
[2020-12-07] MEDS: MIRALAX *UNIT DOSE* 17GM PACKET PO SCH (09:00)
[2020-12-07] MEDS: OCUVITE 1 TAB PO SCH (09:09)
[2020-12-07] MEDS: ACETAMINOPHEN TAB 650MG DOSE (2X325MG) PO SCH ×4 (09:09→19:54)
[2020-12-07] MEDS: LACTOBACILLUS ACIDOPHILUS CAP (BACID) PO SCH ×3 (09:09→19:53)
[2020-12-07] MEDS: MAGNESIUM OXIDE 400MG TAB (MAG-OX) PO SCH (09:09)
[2020-12-07] MEDS: OMEPRAZOLE 20 MG CAP PO SCH (09:09)
[2020-12-07] MEDS: ENOXAPARIN 40MG/0.4ML SYRINGE (J1650 PER 10MG) SC SCH (09:09)
[2020-12-07] MEDS: CYANOCOBALAMIN 500 MCG TAB PO SCH (09:10)
[2020-12-07] MEDS: guaiFENesin 200 MG TAB PO SCH ×3 (09:10→19:54)
[2020-12-07] MEDS: FUROSEMIDE 20 MG TAB PO SCH (09:10)
[2020-12-07] MEDS: SALIVA SUBSTITUTE(MOUTHKOTE) BTL MT SCH ×4 (09:10→19:56)
[2020-12-07] MEDS: GABAPENTIN 100 MG CAP PO SCH ×3 (09:10→19:54)
[2020-12-07] MEDS: ASPIRIN 81MG ENTERIC TABLET PO SCH (09:10)
[2020-12-07] MEDS: LIDOCAINE 5% (LIDODERM) PATCH TD SCH (09:11)
[2020-12-07] MEDS: REMEDY PHYTOPLEX Z-GUARD PASTE 113GM TUBE (FROM STOREROOM PRODUCT) TOP SCH ×3 (09:11→19:55)
[2020-12-07 14:00] VITALS: BP 117/57
[2020-12-07] MEDS: SENNA 8.6 MG TAB (SENOKOT) PO SCH (19:55)
[2020-12-07] MEDS: **NOTE PATIENT COMMENT** MISC XX SCH (19:56)
[2020-12-07 20:00] VITALS: BP 123/58
[2020-12-08] MEDS: LevoFLOXacin 750 MG TABLET PO SCH (05:28)
[2020-12-08] MEDS: traMADol 50 MG TAB PO SCH ×2 (05:29→20:23)
[2020-12-08 06:00] VITALS: BP 135/64
[2020-12-08] MEDS: COMBIVENT RESPIMAT 100-20MCG INHALER 4GM INH SCH ×3 (07:32→19:51)
[2020-12-08 07:46] LABS: BASO % 0.2 % (0.0-1.0); EOS # 0.2 10^3/uL (0.0-0.5); EOS % 3.8 % (0.0-3.0); HEMATOCRIT 32.7 % (36.0-47.0); LYMPH # 0.9 10^3/uL (1.5-5.0); LYMPH % 20.8 % (24.0-44.0); MEAN CORPUSCULAR HEMOGLOBIN 32.2 pg (27.0-33.0); MEAN CORPUSCULAR HGB CONC 33.6 g/dl (32.0-36.5); MEAN CORPUSCULAR VOLUME 95.6 fl (80.0-96.0); MONO # 0.3 10^3/uL (0.0-0.8); MONO % 7.5 % (2.0-8.0); NEUTROPHILS % 67.5 % (36.0-66.0); PLATELET COUNT, AUTOMATED 229 10^3/uL (150-450); RED BLOOD COUNT 3.42 10^6/uL (4.00-5.40); WHITE BLOOD COUNT 4.5 10^3/uL (4.0-10.0)
[2020-12-08] MEDS: ACETAMINOPHEN TAB 650MG DOSE (2X325MG) PO SCH ×4 (08:00→20:23)
[2020-12-08 08:15] LABS: BLOOD UREA NITROGEN 8 MG/DL (7-18); CALCIUM LEVEL 8.4 MG/DL (8.8-10.2); CARBON DIOXIDE LEVEL 27 MEQ/L (21-32); CHLORIDE LEVEL 110 MEQ/L (98-107); CREATININE FOR GFR 0.58 MG/DL (0.55-1.30); GLOMERULAR FILTRATION RATE > 60.0 (>32); GLUCOSE, FASTING 104 MG/DL (70-100); POTASSIUM SERUM 3.3 MEQ/L (3.5-5.1); SODIUM LEVEL 143 MEQ/L (136-145)
[2020-12-08] MEDS: ENOXAPARIN 40MG/0.4ML SYRINGE (J1650 PER 10MG) SC SCH (08:23)
[2020-12-08] MEDS: LACTOBACILLUS ACIDOPHILUS CAP (BACID) PO SCH ×3 (08:24→20:23)
[2020-12-08] MEDS: ASPIRIN 81MG ENTERIC TABLET PO SCH (08:24)
[2020-12-08] MEDS: LIDOCAINE 5% (LIDODERM) PATCH TD SCH (08:24)
[2020-12-08] MEDS: CYANOCOBALAMIN 500 MCG TAB PO SCH (08:24)
[2020-12-08] MEDS: OCUVITE 1 TAB PO SCH (08:24)
[2020-12-08] MEDS: GABAPENTIN 100 MG CAP PO SCH ×3 (08:24→20:23)
[2020-12-08] MEDS: guaiFENesin 200 MG TAB PO SCH ×3 (08:25→20:23)
[2020-12-08] MEDS: MAGNESIUM OXIDE 400MG TAB (MAG-OX) PO SCH (08:26)
[2020-12-08] MEDS: MIRALAX *UNIT DOSE* 17GM PACKET PO SCH (08:26)
[2020-12-08] MEDS: OMEPRAZOLE 20 MG CAP PO SCH (08:26)
[2020-12-08] MEDS: DOCUSATE SODIUM 100MG CAPSULE PO SCH ×3 (08:26→20:24)
[2020-12-08] MEDS: FUROSEMIDE 20 MG TAB PO SCH (08:27)
[2020-12-08] MEDS: REMEDY PHYTOPLEX Z-GUARD PASTE 113GM TUBE (FROM STOREROOM PRODUCT) TOP SCH ×3 (08:27→20:24)
[2020-12-08] MEDS: SALIVA SUBSTITUTE(MOUTHKOTE) BTL MT SCH ×4 (08:28→20:24)
[2020-12-08 08:39] LABS: ERYTHROCYTE SEDIMENTATION RATE 21 mm/hr (0-30)
[2020-12-08] MEDS ORDERED: POTASSIUM CHLORIDE 10 MEQ SR TABLET PO ONE (10:00)
[2020-12-08 14:00] VITALS: BP 117/60
[2020-12-08] MEDS: traMADol 50 MG TAB PO PRN (15:11)
[2020-12-08] MEDS: POLYVINYL ALCOHOL OPHTH SOLN 15 ML(LIQUITEARS) OU SCH ×3 (16:05→20:24)
[2020-12-08 20:00] VITALS: BP 132/68
[2020-12-08] MEDS: SENNA 8.6 MG TAB (SENOKOT) PO SCH (20:23)
[2020-12-08] MEDS: **NOTE PATIENT COMMENT** MISC XX SCH (20:25)
[2020-12-09] MEDS: LevoFLOXacin 750 MG TABLET PO SCH (05:09)
[2020-12-09] MEDS: traMADol 50 MG TAB PO SCH ×2 (05:09→20:58)
[2020-12-09 06:00] VITALS: BP 152/86
[2020-12-09] MEDS: COMBIVENT RESPIMAT 100-20MCG INHALER 4GM INH SCH ×3 (07:28→20:31)
[2020-12-09 07:35] LABS: BLOOD UREA NITROGEN 6 MG/DL (7-18); CALCIUM LEVEL 9.3 MG/DL (8.8-10.2); CARBON DIOXIDE LEVEL 27 MEQ/L (21-32); CHLORIDE LEVEL 108 MEQ/L (98-107); CREATININE FOR GFR 0.48 MG/DL (0.55-1.30); GLOMERULAR FILTRATION RATE > 60.0 (>32); GLUCOSE, FASTING 93 MG/DL (70-100); POTASSIUM SERUM 3.8 MEQ/L (3.5-5.1); SODIUM LEVEL 141 MEQ/L (136-145)
[2020-12-09] MEDS: ENOXAPARIN 40MG/0.4ML SYRINGE (J1650 PER 10MG) SC SCH (09:57)
[2020-12-09] MEDS: LIDOCAINE 5% (LIDODERM) PATCH TD SCH (09:57)
[2020-12-09] MEDS: MIRALAX *UNIT DOSE* 17GM PACKET PO SCH (09:57)
[2020-12-09] MEDS: MAGNESIUM OXIDE 400MG TAB (MAG-OX) PO SCH (09:58)
[2020-12-09] MEDS: FUROSEMIDE 20 MG TAB PO SCH (09:58)
[2020-12-09] MEDS: ASPIRIN 81MG ENTERIC TABLET PO SCH (09:58)
[2020-12-09] MEDS: OMEPRAZOLE 20 MG CAP PO SCH (09:58)
[2020-12-09] MEDS: OCUVITE 1 TAB PO SCH (09:58)
[2020-12-09] MEDS: POTASSIUM CHLORIDE 10 MEQ SR TABLET PO SCH (09:58)
[2020-12-09] MEDS: CYANOCOBALAMIN 500 MCG TAB PO SCH (09:58)
[2020-12-09] MEDS: DOCUSATE SODIUM 100MG CAPSULE PO SCH ×3 (09:58→20:59)
[2020-12-09] MEDS: ACETAMINOPHEN TAB 650MG DOSE (2X325MG) PO SCH ×4 (09:59→20:58)
[2020-12-09] MEDS: LACTOBACILLUS ACIDOPHILUS CAP (BACID) PO SCH ×3 (09:59→20:59)
[2020-12-09] MEDS: guaiFENesin 200 MG TAB PO SCH ×3 (09:59→20:59)
[2020-12-09] MEDS: SALIVA SUBSTITUTE(MOUTHKOTE) BTL MT SCH ×4 (09:59→20:58)
[2020-12-09] MEDS: REMEDY PHYTOPLEX Z-GUARD PASTE 113GM TUBE (FROM STOREROOM PRODUCT) TOP SCH ×3 (10:00→21:00)
[2020-12-09] MEDS: POLYVINYL ALCOHOL OPHTH SOLN 15 ML(LIQUITEARS) OU SCH ×4 (10:00→21:00)
[2020-12-09] MEDS: GABAPENTIN 100 MG CAP PO SCH ×3 (10:01→20:58)
--- NOTE | 2020-12-09 10:12 | IPNPDOC ---
Text Note Date of Service The patient was seen on 12/09/20. NOTE Patient was seen and examined. No overnight events Exam General: Awake, alert. Not in any acute distress. HEENT: Head normocephalic, atraumatic, sclera are nonicteric. Hearing is grossly intact to conversation. Respiratory: Clear to auscultation bilaterally with no wheezes, rales, or rhonchi. Cardiovascular: Regular rate and rhythm, with no rubs, gallops, or murmur. Abdomen: Soft, nontender, nondistended, no hepatosplenomegaly appreciated. Bowel sounds present. Extremities: 2+ pulses in the radial and dorsalis pedis bilaterally. No evidence of clubbing or cyanosis. Assessment/Plan: 1) Rehabilitation for mobility and reduced functional ability to perform ADLs Chronic low back pain status post recent lumbar facet blocks with persistent left lower extremity weakness and pain, Per recommendations from PM&R team 2) Left-sided chest infiltrate and pleural effusion -Cont treat for possible aspiration pneumonia with Zosyn -Patient does not have a productive cough, therefore sputum sample has not been obtained -A plan for evaluation by speech therapy -Continue to monitor labs on a daily basis. 2) Metabolic encephalopathy Hyponatremia Polypharmacy -All of these seem to be resolved at this time, continue to monitor, and recommend judicious administration of pain medications. GERD -Continue omeprazole DVT prophylaxis -Continue Lovenox VS,Fishbone, I+O VS, Fishbone, I+O Laboratory Tests 12/09/20 06:42 Vital Signs Date Time Temp Pulse Resp B/P (MAP) Pulse Ox O2 Delivery O2 Flow Rate FiO2 12/09/20 06:00 97.2 103 18 152/86 (108) 97 Room Air I&O- Last 24 Hours up to 6 AM 12/09/20 06:00 Intake Total 890 ml Balance 890 ml LEIGH CAMACHO MD Dec 09, 2020 10:12
[2020-12-09 14:00] VITALS: BP 128/62
[2020-12-09 20:00] VITALS: BP 120/62
[2020-12-09] MEDS: SENNA 8.6 MG TAB (SENOKOT) PO SCH (21:00)
[2020-12-09] MEDS: **NOTE PATIENT COMMENT** MISC XX SCH (21:00)
[2020-12-10] MEDS: LevoFLOXacin 750 MG TABLET PO SCH (05:41)
[2020-12-10] MEDS: traMADol 50 MG TAB PO SCH ×2 (05:41→21:24)
[2020-12-10 06:00] VITALS: BP 130/68
[2020-12-10] MEDS ORDERED: diphenhydrAMINE 25MG CAP PO ONE ×2 (08:00→12:00)
[2020-12-10] MEDS: COMBIVENT RESPIMAT 100-20MCG INHALER 4GM INH SCH ×3 (08:08→20:00)
[2020-12-10 08:57] LABS: BASO % 0.2 % (0.0-1.0); EOS # 0.1 10^3/uL (0.0-0.5); EOS % 2.4 % (0.0-3.0); HEMATOCRIT 34.7 % (36.0-47.0); HEMOGLOBIN 11.6 g/dl (12.0-15.5); LYMPH # 0.8 10^3/uL (1.5-5.0); LYMPH % 18.3 % (24.0-44.0); MEAN CORPUSCULAR HEMOGLOBIN 32.7 pg (27.0-33.0); MEAN CORPUSCULAR HGB CONC 33.4 g/dl (32.0-36.5); MEAN CORPUSCULAR VOLUME 97.7 fl (80.0-96.0); MONO # 0.3 10^3/uL (0.0-0.8); MONO % 7.4 % (2.0-8.0); NEUTROPHILS # 3.3 10^3/uL (1.5-8.5); NEUTROPHILS % 71.3 % (36.0-66.0); PLATELET COUNT, AUTOMATED 238 10^3/uL (150-450); RED BLOOD COUNT 3.55 10^6/uL (4.00-5.40); WHITE BLOOD COUNT 4.6 10^3/uL (4.0-10.0)
[2020-12-10] MEDS: guaiFENesin 200 MG TAB PO SCH ×3 (09:00→21:23)
[2020-12-10] MEDS: REMEDY PHYTOPLEX Z-GUARD PASTE 113GM TUBE (FROM STOREROOM PRODUCT) TOP SCH ×3 (09:00→21:25)
[2020-12-10] MEDS: LACTOBACILLUS ACIDOPHILUS CAP (BACID) PO SCH ×3 (09:13→21:23)
[2020-12-10] MEDS: MIRALAX *UNIT DOSE* 17GM PACKET PO SCH (09:13)
[2020-12-10] MEDS: CYANOCOBALAMIN 500 MCG TAB PO SCH (09:13)
[2020-12-10] MEDS: ACETAMINOPHEN TAB 650MG DOSE (2X325MG) PO SCH ×4 (09:14→21:23)
[2020-12-10] MEDS: FUROSEMIDE 20 MG TAB PO SCH (09:14)
[2020-12-10] MEDS: ASPIRIN 81MG ENTERIC TABLET PO SCH (09:14)
[2020-12-10] MEDS: GABAPENTIN 100 MG CAP PO SCH ×3 (09:14→21:23)
[2020-12-10] MEDS: OCUVITE 1 TAB PO SCH (09:14)
[2020-12-10] MEDS: POTASSIUM CHLORIDE 10 MEQ SR TABLET PO SCH (09:15)
[2020-12-10] MEDS: OMEPRAZOLE 20 MG CAP PO SCH (09:15)
[2020-12-10] MEDS: LIDOCAINE 5% (LIDODERM) PATCH TD SCH (09:15)
[2020-12-10] MEDS: MAGNESIUM OXIDE 400MG TAB (MAG-OX) PO SCH (09:15)
[2020-12-10] MEDS: POLYVINYL ALCOHOL OPHTH SOLN 15 ML(LIQUITEARS) OU SCH ×4 (09:15→21:25)
[2020-12-10] MEDS: ENOXAPARIN 40MG/0.4ML SYRINGE (J1650 PER 10MG) SC SCH (09:15)
[2020-12-10] MEDS: DOCUSATE SODIUM 100MG CAPSULE PO SCH ×3 (09:15→21:24)
[2020-12-10 09:17] LABS: BLOOD UREA NITROGEN 8 MG/DL (7-18); CALCIUM LEVEL 9.1 MG/DL (8.8-10.2); CARBON DIOXIDE LEVEL 27 MEQ/L (21-32); CHLORIDE LEVEL 109 MEQ/L (98-107); CK-MB VALUE MASS 1.3 NG/ML (<3.6); CPK CREATINE PHOSPHOKINASE 49 U/L (26-192); CREATININE FOR GFR 0.63 MG/DL (0.55-1.30); GLOMERULAR FILTRATION RATE > 60.0 (>32); GLUCOSE, FASTING 131 MG/DL (70-100); MB/CK RELATIVE INDEX 2.65 (< OR =4); POTASSIUM SERUM 3.6 MEQ/L (3.5-5.1); SODIUM LEVEL 142 MEQ/L (136-145); TROPONIN I < 0.02 NG/ML (< 0.10)
[2020-12-10] MEDS ORDERED: diphenhydrAMINE 25MG CAP PO PRN (12:45)
--- NOTE | 2020-12-10 12:46 | IPNPDOC ---
PM&R Progress Note DATE OF SERVICE: Dec 08, 2020 [employer] Progress Note Subjective: Patient reporting her eyes feel dry and that she would like some drops. She is using the knee brace to help prevent her left knee from buckling. She staes her pain is well enough controlled. REVIEW OF SYSTEMS: The following is a completed review of systems and has been reviewed. Review of systems otherwise unremarkable. PAIN: Patient self reports left leg pain and low back EYES: No recent vision changes, chronic diplopia EARS, NOSE, & THROAT: No throat pain, + reports difficulty swallowing due to dry mouth CARDIOVASCULAR: Denies chest pain or palpitations PULMONARY: +mild shortness of breath GASTROINTESTINAL: + constipation (resolved) GENITOURINARY: denies dysuria MUSCULOSKELETAL: left sided weakness NEUROLOGICAL:denies tremor or paresthesias HEMATOLOGICAL: denies easy bruising SKIN: denies rash PSYCHIATRIC: Unremarkable All other review of systems found to be negative. PHYSICAL EXAMINATION: VITAL SIGNS: Please see below. GENERAL: Pleasant and cooperative. No acute distress. HEENT: PERRL. Extraocular movements intact. Clear conjunctiva CARDIOVASCULAR: Regular rate and rhythm. No murmurs, rubs, or gallops LUNGS: Clear to auscultation bilaterally. No wheezes. No rhonchi ABDOMEN: Soft, nontender, mildly distended, non-tender to palpation, Positive bowel sounds NEUROLOGICAL: Alert and oriented times three. Cranial nerves II through XII grossly intact. Sensation grossly intact in all 4 limbs, tina-anal region intact to light touch EXTREMITIES: 5-\\5 strength bilateral upper extremities. 5\\5 strength right lower extremity. 4-/5 strength in left lower extremity. +bilat LE edema (improving) SKIN: no sacral erythema ASSESSMENT:85-year-old F with past medical history of 2 CVAs, diastolic CHF, chronic low back pain s/p recent lumbar facet blocks with left leg weakness who presents status post encephalopathy due to hyponatremia and polypharmacy PLAN: 1. Rehab- PT/OT advance mobility and ADLs, strengthen/stretch/maintain ROM all 4 limbs, brace left leg as needed -GREASE PRESS HELPER for swallow eval, patient reporting dry mouth interfering with swallowing, denies coughing with water 2. Neuro-recent admission for metabolic encephalopathy due to hyponatremia and polypharmacy, monitor on ARU, judicious with pain meds - hx of CVAs with diplopia, c/u secondary stroke prevention, ASA 3. 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 Multilevel neural foraminal narrowing as above. Degenerative spondylolisthesis at L4-5 and degenerative retrolisthesis at L1-2. Chronic partial anterior wedging L5 vertebral body." s/p bilat L4-L5, L5-S1 facet blocks on 10-02-20, patient and family reporting her left leg became very weak about 3 weeks ago, patient subjective decreased sensation in the perianal region (sensation intact on exam), now bowel/bladder incontinence however out of concern for possible cauda equina MRI ordered showing multilevel neural foraminal and canal stenosis, no cauda equina, images sent to Ortho clinic in [place] and reviewed by provider who states there are no emergent findings on imaging but would like to see patient soon to discuss possible decompression surgery, appointment set up for 12-12-20 at noon -flexion extension X-rays were negative for spondylolisthesis instability 3. Cardiac- chronic diastolic CHF, daily weights, fluid restrict, concern patient may have been fluid overloaded on admission given weight gain on record, subjective shortness of breath, and recent IVF given on acute side for her hyponatremia, BNP mildly elevated 600s, s/p 1x dose IV lasix, c/u on daily lasix and monitor, patient breathing better today 4. Resp- CXR 12-04-20 showing left sided infiltrate and new left sided pleural effusion, started on zosyn for possible aspiration PNA switched to po levaquin, diet downgraded to level 3 speech following, diuretic ordered to treat effusion 5. VAsc- patient reporting she has had clots in her legs in the past? +Kezia's on left side, however Doppler negative for DVT bilat - on lovenox currently for DVT ppx 6. GI ppx- omeprazole -constipation resolved, patient deneis incontinence 7. Pain- gabapentin, tylneol, tramadol, lidoderm patch 8. - monitor PVRs 9. Electrolytes- recent hyponatremia due to SIADH, Na normalized, c/u off salt tabs given concern for possible fluid overload, and c/u to monitor-stable 11. Code: patient does not want chest compressions, however if she still has a pulse, but her breathing is compromised she would like a trial of intubation, MOLST form has been signed Allergies Coded Allergies: bee venom protein (honey bee) (Verified Allergy, Unknown, 11/19/20) povidone-iodine (Verified Allergy, Unknown, 11/19/20) Vital Signs Vital Signs Date Time Temp Pulse Resp B/P (MAP) Pulse Ox O2 Delivery O2 Flow Rate FiO2 12/10/20 06:00 98.8 91 18 130/68 (88) 96 Room Air Laboratory Data CBC/BMP Laboratory Tests 12/10/20 08:41 Labs 24H Laboratory Tests 2 12/10/20 08:41: Immature Granulocyte % (Auto) 0.4, Neutrophils (%) (Auto) 71.3H, Lymphocytes (%) (Auto) 18.3L, Monocytes (%) (Auto) 7.4, Eosinophils (%) (Auto) 2.4, Basophils (%) (Auto) 0.2, Neutrophils # (Auto) 3.3, Lymphocytes # (Auto) 0.8L, Monocytes # (Auto) 0.3, Eosinophils # (Auto) 0.1, Basophils # (Auto) 0.0, Nucleated Red Blood Cells % (auto) 0.0, Anion Gap 6L, Glomerular Filtration Rate > 60.0, Calcium Level 9.1, Total Creatine Kinase 49, Creatine Kinase MB 1.3, Creatine Kinase MB Relative Index 2.65, Troponin I < 0.02 Current Medications Current Medications Current Medications Medications (Trade) Dose Ordered Sig/Franck Route PRN Reason Start Time Stop Time Status Last Admin Dose Admin Acetaminophen (Tylenol Tab) 650 mg QID PO 12/03/20 17:00 12/10/20 12:15 Al Hydrox/Mg Hydrox/Simethicone (Mylanta) 30 ml Q4HP PRN PO DYSPEPSIA 12/03/20 13:10 12/03/20 20:31 Albuterol/ Ipratropium (Combivent Respimat 100-20mcg) 1 puff RTID INH 12/04/20 14:00 12/10/20 08:08 Artificial Tears (Akwa Tears) 2 drop QID OU 12/08/20 16:05 12/10/20 09:15 Aspirin (Ecotrin) 81 mg DAILY PO 12/04/20 09:00 12/10/20 09:14 Bisacodyl (Dulcolax Suppository) 10 mg DAILYPRN PRN [place] CONSTIPATION 12/03/20 13:10 Cyanocobalamin (Vitamin B12) 1,500 mcg DAILY PO 12/04/20 09:00 12/10/20 09:13 Docusate Sodium (Colace) 100 mg BID PO 12/03/20 21:00 12/04/20 11:47 DC 12/04/20 07:20 Docusate Sodium (Colace) 100 mg TID PO 12/04/20 16:00 12/10/20 09:15 Enoxaparin Sodium (Lovenox) 40 mg DAILY SC 12/04/20 09:00 12/10/20 09:15 Furosemide (Lasix) 20 mg DAILY PO 12/05/20 09:00 12/10/20 09:14 Gabapentin (Neurontin) 100 mg TID PO 12/03/20 16:00 12/10/20 09:14 Guaifenesin (Robitussin Tab) 400 mg TID PO 12/04/20 16:00 12/09/20 20:59 Lactobacillus Acidophilus (Bacid) 1 ea TID PO 12/04/20 16:00 12/10/20 09:13 Levofloxacin (Levaquin) 750 mg DAILY@06 PO 12/07/20 06:00 12/11/20 06:01 12/10/20 05:41 Lidocaine (Lidoderm Patch) 2 patch DAILY TD 12/04/20 09:00 12/10/20 09:15 Magnesium Oxide (Mag-Ox) 400 mg DAILY PO 12/04/20 09:00 12/10/20 09:15 Multivitamins (Ocuvite(I-Zaira)) 1 tab DAILY PO 12/04/20 09:00 12/10/20 09:14 Non-Formulary Medication ( See Comment Field Below ) REMOVE LIDODERM PATCH DAILY@21 XX 12/03/20 21:00 12/09/20 21:00 Omeprazole (PriLOSEC) 20 mg DAILY PO 12/04/20 09:00 12/10/20 09:15 Piperacillin Sod/ Tazobactam Sod 4.5 gm/Dextrose 50 ml @ 50 mls/hr Q6H IV 12/04/20 14:00 12/06/20 23:00 DC 12/06/20 20:12 Polyethylene Glycol (Miralax) 1 pkt DAILY PO 12/04/20 08:45 12/10/20 09:13 Potassium Chloride (Micro-K Extencaps) 10 meq DAILY PO 12/09/20 09:00 12/10/20 09:15 Saliva Substitute (Mouthkote) 2 sprays QID MT 12/04/20 13:00 12/10/20 08:25 DC 12/09/20 20:58 Senna (Senokot) 1 tab QHS PO 12/03/20 21:00 12/07/20 19:55 Sodium Chloride (Sodium Chloride) 1 gm DAILY PO 12/04/20 09:00 12/04/20 12:37 DC 12/04/20 07:22 Tramadol HCl (Ultram) 50 mg BID@0600,2100 PO 12/04/20 21:00 12/10/20 05:41 Tramadol HCl (Ultram) 50 mg Q4HP PRN PO MODERATE PAIN (PS 5-7) 12/03/20 13:10 12/04/20 11:47 DC 12/04/20 04:48 Tramadol HCl (Ultram) 50 mg Q8HP PRN PO MODERATE PAIN (PS 5-7) 12/04/20 11:45 12/08/20 15:11 MICHAEL NEGRO MD Dec 10, 2020 12:46
--- NOTE | 2020-12-10 12:49 | IPNPDOC ---
PM&R Progress Note DATE OF SERVICE: Dec 09, 2020 [employer] Progress Note Subjective: Patient reporting she thinks she will be able to go home and get help from her family. She is agreeable to going to [place] to see the ortho surgeon. REVIEW OF SYSTEMS: The following is a completed review of systems and has been reviewed. Review of systems otherwise unremarkable. PAIN: Patient self reports left leg pain and low back EYES: No recent vision changes, chronic diplopia EARS, NOSE, & THROAT: No throat pain, + reports difficulty swallowing due to dry mouth CARDIOVASCULAR: Denies chest pain or palpitations PULMONARY: +mild shortness of breath GASTROINTESTINAL: + constipation (resolved) GENITOURINARY: denies dysuria MUSCULOSKELETAL: left sided weakness NEUROLOGICAL:denies tremor or paresthesias HEMATOLOGICAL: denies easy bruising SKIN: denies rash PSYCHIATRIC: Unremarkable All other review of systems found to be negative. PHYSICAL EXAMINATION: VITAL SIGNS: Please see below. GENERAL: Pleasant and cooperative. No acute distress. HEENT: PERRL. Extraocular movements intact. Clear conjunctiva CARDIOVASCULAR: Regular rate and rhythm. No murmurs, rubs, or gallops LUNGS: Clear to auscultation bilaterally. No wheezes. No rhonchi ABDOMEN: Soft, nontender, mildly distended, non-tender to palpation, Positive bowel sounds NEUROLOGICAL: Alert and oriented times three. Cranial nerves II through XII grossly intact. Sensation grossly intact in all 4 limbs, tina-anal region intact to light touch EXTREMITIES: 5-\\5 strength bilateral upper extremities. 5\\5 strength right lower extremity. 4-/5 strength in left lower extremity. +bilat LE edema (improving) SKIN: no sacral erythema ASSESSMENT:85-year-old F with past medical history of 2 CVAs, diastolic CHF, chronic low back pain s/p recent lumbar facet blocks with left leg weakness who presents status post encephalopathy due to hyponatremia and polypharmacy PLAN: 1. Rehab- PT/OT advance mobility and ADLs, strengthen/stretch/maintain ROM all 4 limbs, brace left leg as needed -RENAL DIETITIAN for swallow eval, patient reporting dry mouth interfering with swallowing, denies coughing with water 2. Neuro-recent admission for metabolic encephalopathy due to hyponatremia and polypharmacy, monitor on ARU, judicious with pain meds - hx of CVAs with diplopia, c/u secondary stroke prevention, ASA 3. 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 Multilevel neural foraminal narrowing as above. Degenerative spondylolisthesis at L4-5 and degenerative retrolisthesis at L1-2. Chronic partial anterior wedging L5 vertebral body." s/p bilat L4-L5, L5-S1 facet blocks on 10-02-20, patient and family reporting her left leg became very weak about 3 weeks ago, patient subjective decreased sensation in the perianal region (sensation intact on exam), now bowel/bladder incontinence however out of concern for possible cauda equina MRI ordered showing multilevel neural foraminal and canal stenosis, no cauda equina, images sent to Ortho clinic in [place] and reviewed by provider who states there are no emergent findings on imaging but would like to see patient soon to discuss possible decompression surgery, appointment set up for 12-12-20 at noon, son Alicia was called and made aware of spine images and willing to transport his mother to and from [place] appointment on Tuesday pending therapy car-transfer training -flexion extension X-rays were negative for spondylolisthesis instability 3. Cardiac- chronic diastolic CHF, daily weights, fluid restrict, concern patient may have been fluid overloaded on admission given weight gain on record, subjective shortness of breath, and recent IVF given on acute side for her hyponatremia, BNP mildly elevated 600s, s/p 1x dose IV lasix, c/u on daily lasix and monitor, patient breathing better today 4. Resp- CXR 12-04-20 showing left sided infiltrate and new left sided pleural effusion, started on zosyn for possible aspiration PNA switched to po levaquin, diet downgraded to level 3 speech following, diuretic ordered to treat effusion 5. [facility]sc- patient reporting she has had clots in her legs in the past? -Doppler negative for DVT bilat - on lovenox currently for DVT ppx 6. GI ppx- omeprazole -constipation resolved, patient denies incontinence 7. Pain- gabapentin, tylneol, tramadol, lidoderm patch 8. - monitor PVRs 9. Electrolytes- recent hyponatremia due to SIADH, Na normalized, c/u off salt tabs given concern for possible fluid overload, and c/u to monitor-stable 11. Code: patient does not want chest compressions, however if she still has a pulse, but her breathing is compromised she would like a trial of intubation, MOLST form has been signed Allergies Coded Allergies: bee venom protein (honey bee) (Verified Allergy, Unknown, 11/19/20) povidone-iodine (Verified Allergy, Unknown, 11/19/20) Vital Signs Vital Signs Date Time Temp Pulse Resp B/P (MAP) Pulse Ox O2 Delivery O2 Flow Rate FiO2 12/10/20 06:00 98.8 91 18 130/68 (88) 96 Room Air Laboratory Data CBC/BMP Laboratory Tests 12/10/20 08:41 Labs 24H Laboratory Tests 2 12/10/20 08:41: Immature Granulocyte % (Auto) 0.4, Neutrophils (%) (Auto) 71.3H, Lymphocytes (%) (Auto) 18.3L, Monocytes (%) (Auto) 7.4, Eosinophils (%) (Auto) 2.4, Basophils (%) (Auto) 0.2, Neutrophils # (Auto) 3.3, Lymphocytes # (Auto) 0.8L, Monocytes # (Auto) 0.3, Eosinophils # (Auto) 0.1, Basophils # (Auto) 0.0, Nucleated Red Blood Cells % (auto) 0.0, Anion Gap 6L, Glomerular Filtration Rate > 60.0, Calcium Level 9.1, Total Creatine Kinase 49, Creatine Kinase MB 1.3, Creatine Kinase MB Relative Index 2.65, Troponin I < 0.02 Current Medications Current Medications Current Medications Medications (Trade) Dose Ordered Sig/Franck Route PRN Reason Start Time Stop Time Status Last Admin Dose Admin Acetaminophen (Tylenol Tab) 650 mg QID PO 12/03/20 17:00 12/10/20 12:15 Al Hydrox/Mg Hydrox/Simethicone (Mylanta) 30 ml Q4HP PRN PO DYSPEPSIA 12/03/20 13:10 12/03/20 20:31 Albuterol/ Ipratropium (Combivent Respimat 100-20mcg) 1 puff RTID INH 12/04/20 14:00 12/10/20 08:08 Artificial Tears (Akwa Tears) 2 drop QID OU 12/08/20 16:05 12/10/20 09:15 Aspirin (Ecotrin) 81 mg DAILY PO 12/04/20 09:00 12/10/20 09:14 Bisacodyl (Dulcolax Suppository) 10 mg DAILYPRN PRN [place] CONSTIPATION 12/03/20 13:10 Cyanocobalamin (Vitamin B12) 1,500 mcg DAILY PO 12/04/20 09:00 12/10/20 09:13 Docusate Sodium (Colace) 100 mg BID PO 12/03/20 21:00 12/04/20 11:47 DC 12/04/20 07:20 Docusate Sodium (Colace) 100 mg TID PO 12/04/20 16:00 12/10/20 09:15 Enoxaparin Sodium (Lovenox) 40 mg DAILY SC 12/04/20 09:00 12/10/20 09:15 Furosemide (Lasix) 20 mg DAILY PO 12/05/20 09:00 12/10/20 09:14 Gabapentin (Neurontin) 100 mg TID PO 12/03/20 16:00 12/10/20 09:14 Guaifenesin (Robitussin Tab) 400 mg TID PO 12/04/20 16:00 12/09/20 20:59 Lactobacillus Acidophilus (Bacid) 1 ea TID PO 12/04/20 16:00 12/10/20 09:13 Levofloxacin (Levaquin) 750 mg DAILY@06 PO 12/07/20 06:00 12/11/20 06:01 12/10/20 05:41 Lidocaine (Lidoderm Patch) 2 patch DAILY TD 12/04/20 09:00 12/10/20 09:15 Magnesium Oxide (Mag-Ox) 400 mg DAILY PO 12/04/20 09:00 12/10/20 09:15 Multivitamins (Ocuvite(I-Zaira)) 1 tab DAILY PO 12/04/20 09:00 12/10/20 09:14 Non-Formulary Medication ( See Comment Field Below ) REMOVE LIDODERM PATCH DAILY@21 XX 12/03/20 21:00 12/09/20 21:00 Omeprazole (PriLOSEC) 20 mg DAILY PO 12/04/20 09:00 12/10/20 09:15 Piperacillin Sod/ Tazobactam Sod 4.5 gm/Dextrose 50 ml @ 50 mls/hr Q6H IV 12/04/20 14:00 12/06/20 23:00 DC 12/06/20 20:12 Polyethylene Glycol (Miralax) 1 pkt DAILY PO 12/04/20 08:45 12/10/20 09:13 Potassium Chloride (Micro-K Extencaps) 10 meq DAILY PO 12/09/20 09:00 12/10/20 09:15 Saliva Substitute (Mouthkote) 2 sprays QID MT 12/04/20 13:00 12/10/20 08:25 DC 12/09/20 20:58 Senna (Senokot) 1 tab QHS PO 12/03/20 21:00 12/07/20 19:55 Sodium Chloride (Sodium Chloride) 1 gm DAILY PO 12/04/20 09:00 12/04/20 12:37 DC 12/04/20 07:22 Tramadol HCl (Ultram) 50 mg BID@0600,2100 PO 12/04/20 21:00 12/10/20 05:41 Tramadol HCl (Ultram) 50 mg Q4HP PRN PO MODERATE PAIN (PS 5-7) 12/03/20 13:10 12/04/20 11:47 DC 12/04/20 04:48 Tramadol HCl (Ultram) 50 mg Q8HP PRN PO MODERATE PAIN (PS 5-7) 12/04/20 11:45 12/08/20 15:11 MICHAEL NEGRO MD Dec 10, 2020 12:49
--- NOTE | 2020-12-10 13:03 | IPNPDOC ---
PM&R Progress Note DATE OF SERVICE: Dec 10, 2020 Diesel Tractor Engine Mechanic Progress Note Subjective: Patient reporting she ate a handful of [employer] original chewy caramel candies this morning before breakfast, stating this is the first time she has ever had them, and developed a tingling sensation in her tongue. She reported a heavy feeling in her chest after ingesting this candy which resolved following a dose of Benadryl. She says she is allergic to almonds and some other foods, but can't remember what they are. She was evaluated after being given Benadryl and stated she did not feel more short of breath REVIEW OF SYSTEMS: The following is a completed review of systems and has been reviewed. Review of systems otherwise unremarkable. PAIN: Patient self reports left leg pain and low back EYES: No recent vision changes, chronic diplopia EARS, NOSE, & THROAT: No throat pain, + reports difficulty swallowing due to dry mouth CARDIOVASCULAR: Denies chest pain or palpitations PULMONARY: +mild shortness of breath GASTROINTESTINAL: + constipation (resolved) GENITOURINARY: denies dysuria MUSCULOSKELETAL: left sided weakness NEUROLOGICAL:denies tremor or paresthesias HEMATOLOGICAL: denies easy bruising SKIN: denies rash PSYCHIATRIC: Unremarkable All other review of systems found to be negative. PHYSICAL EXAMINATION: VITAL SIGNS: Please see below. GENERAL: Pleasant and cooperative. No acute distress. HEENT: PERRL. Extraocular movements intact. Clear conjunctiva, tongue (not swollen) with several raised papules CARDIOVASCULAR: Regular rate and rhythm. No murmurs, rubs, or gallops LUNGS: Clear to auscultation bilaterally. No wheezes. No rhonchi ABDOMEN: Soft, nontender, mildly distended, non-tender to palpation, Positive bowel sounds NEUROLOGICAL: Alert and oriented times three. Cranial nerves II through XII grossly intact. Sensation grossly intact in all 4 limbs, tina-anal region intact to light touch EXTREMITIES: 5-\\5 strength bilateral upper extremities. 5\\5 strength right lower extremity. 4-/5 strength in left lower extremity. +bilat LE edema (improving) SKIN: no sacral erythema ASSESSMENT:85-year-old F with past medical history of 2 CVAs, diastolic CHF, chronic low back pain s/p recent lumbar facet blocks with left leg weakness who presents status post encephalopathy due to hyponatremia and polypharmacy PLAN: 1. 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 Neuro-recent admission for metabolic encephalopathy due to hyponatremia and polypharmacy, monitor on ARU, judicious with pain meds - hx of CVAs with diplopia, c/u secondary stroke prevention, ASA 3. 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 Multilevel neural foraminal narrowing as above. Degenerative spondylolisthesis at L4-5 and degenerative retrolisthesis at L1-2. Chronic partial anterior wedging L5 vertebral body." s/p bilat L4-L5, L5-S1 facet blocks on 10-02-20, patient and family reporting her left leg became very weak about 3 weeks ago, patient subjective decreased sensation in the perianal region (sensation intact on exam), now bowel/bladder incontinence however out of concern for possible cauda equina MRI ordered showing multilevel neural foraminal and canal stenosis, no cauda equina, images sent to Ortho clinic in [place] and reviewed by provider who states there are no emergent findings on imaging but would like to see patient soon to discuss possible decompression surgery, appointment set up for 12-12-20 at noon, son Alicia was called and made aware of spine images and willing to transport his mother to and from [place] appointment on Tuesday pending therapy car-transfer training -flexion extension X-rays were negative for spondylolisthesis instability 3. Cardiac- chronic diastolic CHF, daily weights, fluid restrict, concern patient may have been fluid overloaded on admission given weight gain on record, subjective shortness of breath, and recent IVF given on acute side for her hyponatremia, BNP mildly elevated 600s, s/p 1x dose IV lasix, c/u on daily lasix and monitor, patient breathing better today 4. Resp- CXR 12-04-20 showing left sided infiltrate and new left sided pleural effusion, started on zosyn for possible aspiration PNA switched to po levaquin, diet downgraded to level 3 speech following, diuretic ordered to treat effusion 5. VAsc- patient reporting she has had clots in her legs in the past? -Doppler negative for DVT bilat - on lovenox currently for DVT ppx 6. GI ppx- omeprazole -constipation resolved, patient denies incontinence 7. Pain- gabapentin, tylneol, tramadol, lidoderm patch 8. - monitor PVRs 9. Electrolytes- recent hyponatremia due to SIADH, Na normalized, c/u off salt tabs given concern for possible fluid overload, and c/u to monitor-stable 11. Code: patient does not want chest compressions, however if she still has a pulse, but her breathing is compromised she would like a trial of intubation, MOLST form has been signed 12. Allergy- patient had allergic reaction today most likely due to [employer] original caramel chewy candies, unclear what component of candy was a trigger, she did not develop tongue swelling, but did have an itchy tongue with inflamed/slightly enlarged tongue papules in addition to a heavy feeling on her chest (likely due to allergic reaction), her symptoms resolved with Benadryl given at 8am and noon, prn Benadryl ordered as well, no signs of respiratory distress -CK/trop ordered due to transient chest pressure which came back negative -also stopped mouthkote as may be irritating her tongue, she has been receiving this since 12-04-20 so could be a delayed hypersensitivity reaction, but more likely it is a food allergy Allergies Coded Allergies: bee venom protein (honey bee) (Verified Allergy, Unknown, 11/19/20) povidone-iodine (Verified Allergy, Unknown, 11/19/20) Vital Signs Vital Signs Date Time Temp Pulse Resp B/P (MAP) Pulse Ox O2 Delivery O2 Flow Rate FiO2 12/10/20 06:00 98.8 91 18 130/68 (88) 96 Room Air Laboratory Data CBC/BMP Laboratory Tests 12/10/20 08:41 Labs 24H Laboratory Tests 2 12/10/20 08:41: Immature Granulocyte % (Auto) 0.4, Neutrophils (%) (Auto) 71.3H, Lymphocytes (%) (Auto) 18.3L, Monocytes (%) (Auto) 7.4, Eosinophils (%) (Auto) 2.4, Basophils (%) (Auto) 0.2, Neutrophils # (Auto) 3.3, Lymphocytes # (Auto) 0.8L, Monocytes # (Auto) 0.3, Eosinophils # (Auto) 0.1, Basophils # (Auto) 0.0, Nucleated Red Blood Cells % (auto) 0.0, Anion Gap 6L, Glomerular Filtration Rate > 60.0, Calcium Level 9.1, Total Creatine Kinase 49, Creatine Kinase MB 1.3, Creatine K inase MB Relative Index 2.65, Troponin I < 0.02 Current Medications Current Medications Current Medications Medications (Trade) Dose Ordered Sig/Franck Route PRN Reason Start Time Stop Time Status Last Admin Dose Admin Acetaminophen (Tylenol Tab) 650 mg QID PO 12/03/20 17:00 12/10/20 12:15 Al Hydrox/Mg Hydrox/Simethicone (Mylanta) 30 ml Q4HP PRN PO DYSPEPSIA 12/03/20 13:10 12/03/20 20:31 Albuterol/ Ipratropium (Combivent Respimat 100-20mcg) 1 puff RTID INH 12/04/20 14:00 12/10/20 08:08 Artificial Tears (Akwa Tears) 2 drop QID OU 12/08/20 16:05 12/10/20 09:15 Aspirin (Ecotrin) 81 mg DAILY PO 12/04/20 09:00 12/10/20 09:14 Bisacodyl (Dulcolax Suppository) 10 mg DAILYPRN PRN [place] CONSTIPATION 12/03/20 13:10 Cyanocobalamin (Vitamin B12) 1,500 mcg DAILY PO 12/04/20 09:00 12/10/20 09:13 Docusate Sodium (Colace) 100 mg BID PO 12/03/20 21:00 12/04/20 11:47 DC 12/04/20 07:20 Docusate Sodium (Colace) 100 mg TID PO 12/04/20 16:00 12/10/20 09:15 Enoxaparin Sodium (Lovenox) 40 mg DAILY SC 12/04/20 09:00 12/10/20 09:15 Furosemide (Lasix) 20 mg DAILY PO 12/05/20 09:00 12/10/20 09:14 Gabapentin (Neurontin) 100 mg TID PO 12/03/20 16:00 12/10/20 09:14 Guaifenesin (Robitussin Tab) 400 mg TID PO 12/04/20 16:00 12/09/20 20:59 Lactobacillus Acidophilus (Bacid) 1 ea TID PO 12/04/20 16:00 12/10/20 09:13 Levofloxacin (Levaquin) 750 mg DAILY@06 PO 12/07/20 06:00 12/11/20 06:01 12/10/20 05:41 Lidocaine (Lidoderm Patch) 2 patch DAILY TD 12/04/20 09:00 12/10/20 09:15 Magnesium Oxide (Mag-Ox) 400 mg DAILY PO 12/04/20 09:00 12/10/20 09:15 Multivitamins (Ocuvite(I-Zaira)) 1 tab DAILY PO 12/04/20 09:00 12/10/20 09:14 Non-Formulary Medication ( See Comment Field Below ) REMOVE LIDODERM PATCH DAILY@21 XX 12/03/20 21:00 12/09/20 21:00 Omeprazole (PriLOSEC) 20 mg DAILY PO 12/04/20 09:00 12/10/20 09:15 Piperacillin Sod/ Tazobactam Sod 4.5 gm/Dextrose 50 ml @ 50 mls/hr Q6H IV 12/04/20 14:00 12/06/20 23:00 DC 12/06/20 20:12 Polyethylene Glycol (Miralax) 1 pkt DAILY PO 12/04/20 08:45 12/10/20 09:13 Potassium Chloride (Micro-K Extencaps) 10 meq DAILY PO 12/09/20 09:00 12/10/20 09:15 Saliva Substitute (Mouthkote) 2 sprays QID MT 12/04/20 13:00 12/10/20 08:25 DC 12/09/20 20:58 Senna (Senokot) 1 tab QHS PO 12/03/20 21:00 12/07/20 19:55 Sodium Chloride (Sodium Chloride) 1 gm DAILY PO 12/04/20 09:00 12/04/20 12:37 DC 12/04/20 07:22 Tramadol HCl (Ultram) 50 mg BID@0600,2100 PO 12/04/20 21:00 12/10/20 05:41 Tramadol HCl (Ultram) 50 mg Q4HP PRN PO MODERATE PAIN (PS 5-7) 12/03/20 13:10 12/04/20 11:47 DC 12/04/20 04:48 Tramadol HCl (Ultram) 50 mg Q8HP PRN PO MODERATE PAIN (PS 5-7) 12/04/20 11:45 12/08/20 15:11 MICHAEL NEGRO MD Dec 10, 2020 13:03
[2020-12-10 14:00] VITALS: BP 122/58
--- NOTE | 2020-12-10 15:58 | IPNPDOC ---
Text Note Date of Service The patient was seen on 12/10/20. NOTE Patient was seen and examined. No overnight events Exam General: Awake, alert. Not in any acute distress. HEENT: Head normocephalic, atraumatic, sclera are nonicteric. Hearing is grossly intact to conversation. Respiratory: Clear to auscultation bilaterally with no wheezes, rales, or rhonchi. Cardiovascular: Regular rate and rhythm, with no rubs, gallops, or murmur. Abdomen: Soft, nontender, nondistended, no hepatosplenomegaly appreciated. Bowel sounds present. Extremities: 2+ pulses in the radial and dorsalis pedis bilaterally. No evidence of clubbing or cyanosis. Assessment/Plan: 1) Rehabilitation for mobility and reduced functional ability to perform ADLs Chronic low back pain status post recent lumbar facet blocks with persistent left lower extremity weakness and pain, Per recommendations from PM&R team 2) Left-sided chest infiltrate and pleural effusion -Cont treat for possible aspiration pneumonia with Zosyn -Patient does not have a productive cough, therefore sputum sample has not been obtained -A plan for evaluation by speech therapy -Continue to monitor labs on a daily basis. 2) Metabolic encephalopathy, Multifactorial. Hyponatremia, Polypharmacy -All of these seem to be resolved at this time, continue to monitor, and recommend judicious administration of pain medications. GERD -Continue omeprazole DVT prophylaxis -Continue Lovenox VS,Fishbone, I+O VS, Fishbone, I+O Laboratory Tests 12/10/20 08:41 Vital Signs Date Time Temp Pulse Resp B/P (MAP) Pulse Ox O2 Delivery O2 Flow Rate FiO2 12/10/20 14:00 99.4 98 18 122/58 (79) 97 Room Air I&O- Last 24 Hours up to 6 AM 12/10/20 06:00 Intake Total 1040 ml Balance 1040 ml LEIGH CAMACHO MD Dec 10, 2020 15:58
[2020-12-10 20:00] VITALS: BP 132/63
[2020-12-10] MEDS: SENNA 8.6 MG TAB (SENOKOT) PO SCH (21:24)
[2020-12-10] MEDS: **NOTE PATIENT COMMENT** MISC XX SCH (21:28)
[2020-12-11] MEDS: LevoFLOXacin 750 MG TABLET PO SCH (05:12)
[2020-12-11] MEDS: traMADol 50 MG TAB PO SCH ×2 (05:12→21:00)
[2020-12-11 06:00] VITALS: BP 133/64
[2020-12-11] MEDS: COMBIVENT RESPIMAT 100-20MCG INHALER 4GM INH SCH ×3 (07:11→20:35)
[2020-12-11] MEDS: MIRALAX *UNIT DOSE* 17GM PACKET PO SCH (07:42)
[2020-12-11] MEDS: ASPIRIN 81MG ENTERIC TABLET PO SCH (07:43)
[2020-12-11] MEDS: guaiFENesin 200 MG TAB PO SCH ×3 (07:43→21:07)
[2020-12-11] MEDS: GABAPENTIN 100 MG CAP PO SCH ×3 (07:43→21:07)
[2020-12-11] MEDS: ACETAMINOPHEN TAB 650MG DOSE (2X325MG) PO SCH ×4 (07:43→21:07)
[2020-12-11] MEDS: ENOXAPARIN 40MG/0.4ML SYRINGE (J1650 PER 10MG) SC SCH (07:43)
[2020-12-11] MEDS: DOCUSATE SODIUM 100MG CAPSULE PO SCH ×3 (07:43→21:00)
[2020-12-11] MEDS: LACTOBACILLUS ACIDOPHILUS CAP (BACID) PO SCH ×3 (07:44→21:07)
[2020-12-11] MEDS: MAGNESIUM OXIDE 400MG TAB (MAG-OX) PO SCH (07:44)
[2020-12-11] MEDS: OCUVITE 1 TAB PO SCH (07:44)
[2020-12-11] MEDS: FUROSEMIDE 20 MG TAB PO SCH (07:44)
[2020-12-11] MEDS: CYANOCOBALAMIN 500 MCG TAB PO SCH (07:44)
[2020-12-11] MEDS: OMEPRAZOLE 20 MG CAP PO SCH (07:44)
[2020-12-11] MEDS: POTASSIUM CHLORIDE 10 MEQ SR TABLET PO SCH (07:45)
[2020-12-11] MEDS: LIDOCAINE 5% (LIDODERM) PATCH TD SCH (07:45)
[2020-12-11] MEDS: REMEDY PHYTOPLEX Z-GUARD PASTE 113GM TUBE (FROM STOREROOM PRODUCT) TOP SCH ×3 (07:46→21:10)
[2020-12-11] MEDS: POLYVINYL ALCOHOL OPHTH SOLN 15 ML(LIQUITEARS) OU SCH ×4 (07:46→21:10)
[2020-12-11 14:00] VITALS: BP 111/69
--- NOTE | 2020-12-11 16:18 | IPNPDOC ---
Text Note Date of Service The patient was seen on 12/11/20. NOTE Patient was seen and examined. No overnight events Exam General: Awake, alert. Not in any acute distress. HEENT: Head normocephalic, atraumatic, sclera are nonicteric. Hearing is grossly intact to conversation. Respiratory: Clear to auscultation bilaterally with no wheezes, rales, or rhonchi. Cardiovascular: Regular rate and rhythm, with no rubs, gallops, or murmur. Abdomen: Soft, nontender, nondistended, no hepatosplenomegaly appreciated. Bowel sounds present. Extremities: 2+ pulses in the radial and dorsalis pedis bilaterally. No evidence of clubbing or cyanosis. Assessment/Plan: 1) Rehabilitation for mobility and reduced functional ability to perform ADLs Chronic low back pain status post recent lumbar facet blocks with persistent left lower extremity weakness and pain, Per recommendations from PM&R team 2) Left-sided chest infiltrate and pleural effusion -Completed the course of abx with levaquin -Patient does not have a productive cough, therefore sputum sample has not been obtained - Cont speech therapy and asp precautions -Continue to monitor labs 2) Metabolic encephalopathy, Multifactorial. Hyponatremia, Polypharmacy -All of these seem to be resolved at this time, continue to monitor, and recommend judicious administration of pain medications. GERD -Continue omeprazole DVT prophylaxis -Continue Lovenox VS,Fishbone, I+O VS, Fishbone, I+O Vital Signs Date Time Temp Pulse Resp B/P (MAP) Pulse Ox O2 Delivery O2 Flow Rate FiO2 12/11/20 14:00 99.4 111 20 111/69 (83) 92 Room Air I&O- Last 24 Hours up to 6 AM 12/11/20 06:00 Intake Total 1400 ml Balance 1400 ml LEIGH CAMACHO MD Dec 11, 2020 16:18
[2020-12-11 20:00] VITALS: BP 106/60
[2020-12-11] MEDS: SENNA 8.6 MG TAB (SENOKOT) PO SCH (21:00)
[2020-12-11] MEDS: **NOTE PATIENT COMMENT** MISC XX SCH (21:10)
[2020-12-12] MEDS: traMADol 50 MG TAB PO SCH ×2 (05:31→21:11)
[2020-12-12 06:00] VITALS: BP 137/66
[2020-12-12] MEDS: COMBIVENT RESPIMAT 100-20MCG INHALER 4GM INH SCH ×3 (07:20→18:00)
[2020-12-12] MEDS: ASPIRIN 81MG ENTERIC TABLET PO SCH (07:52)
[2020-12-12] MEDS: ACETAMINOPHEN TAB 650MG DOSE (2X325MG) PO SCH ×4 (07:52→21:11)
[2020-12-12] MEDS: MAGNESIUM OXIDE 400MG TAB (MAG-OX) PO SCH (07:52)
[2020-12-12] MEDS: guaiFENesin 200 MG TAB PO SCH ×3 (07:52→21:11)
[2020-12-12] MEDS: CYANOCOBALAMIN 500 MCG TAB PO SCH (07:52)
[2020-12-12] MEDS: POTASSIUM CHLORIDE 10 MEQ SR TABLET PO SCH (07:53)
[2020-12-12] MEDS: LACTOBACILLUS ACIDOPHILUS CAP (BACID) PO SCH ×3 (07:53→21:11)
[2020-12-12] MEDS: GABAPENTIN 100 MG CAP PO SCH (07:53)
[2020-12-12] MEDS: ENOXAPARIN 40MG/0.4ML SYRINGE (J1650 PER 10MG) SC SCH (07:53)
[2020-12-12] MEDS: OCUVITE 1 TAB PO SCH (07:53)
[2020-12-12] MEDS: OMEPRAZOLE 20 MG CAP PO SCH (07:53)
[2020-12-12] MEDS: LIDOCAINE 5% (LIDODERM) PATCH TD SCH (07:54)
[2020-12-12] MEDS: POLYVINYL ALCOHOL OPHTH SOLN 15 ML(LIQUITEARS) OU SCH ×4 (07:55→21:12)
[2020-12-12] MEDS: REMEDY PHYTOPLEX Z-GUARD PASTE 113GM TUBE (FROM STOREROOM PRODUCT) TOP SCH ×3 (07:55→21:12)
[2020-12-12] MEDS: MIRALAX *UNIT DOSE* 17GM PACKET PO SCH (07:55)
[2020-12-12] MEDS: FUROSEMIDE 20 MG TAB PO SCH (07:56)
[2020-12-12] MEDS: DOCUSATE SODIUM 100MG CAPSULE PO SCH ×3 (07:56→21:00)
--- NOTE | 2020-12-12 09:15 | IPNPDOC ---
PM&R Progress Note DATE OF SERVICE: Dec 12, 2020 B2B Sales Consultant Progress Note Subjective: Patient seen and assess following her return from [facility] appointment stating she feels well and that she has agreed to have surgery and was told she would be contacted to set this up. REVIEW OF SYSTEMS: The following is a completed review of systems and has been reviewed. Review of systems otherwise unremarkable. PAIN: Patient self reports left leg pain and low back EYES: No recent vision changes, chronic diplopia EARS, NOSE, & THROAT: No throat pain, + reports difficulty swallowing due to dry mouth CARDIOVASCULAR: Denies chest pain or palpitations PULMONARY: +mild shortness of breath GASTROINTESTINAL: + constipation (resolved) GENITOURINARY: denies dysuria, intermittent retention MUSCULOSKELETAL: left sided weakness (improving) NEUROLOGICAL:denies tremor or paresthesias HEMATOLOGICAL: denies easy bruising SKIN: denies rash PSYCHIATRIC: Unremarkable All other review of systems found to be negative. PHYSICAL EXAMINATION: VITAL SIGNS: Please see below. GENERAL: Pleasant and cooperative. No acute distress. HEENT: PERRL. Extraocular movements intact. Clear conjunctiva, tongue (not swollen) with several raised papules CARDIOVASCULAR: Regular rate and rhythm. No murmurs, rubs, or gallops LUNGS: Clear to auscultation bilaterally. No wheezes. No rhonchi ABDOMEN: Soft, nontender, mildly distended, non-tender to palpation, Positive bowel sounds NEUROLOGICAL: Alert and oriented times three. Cranial nerves II through XII grossly intact. Sensation grossly intact in all 4 limbs, tina-anal region intact to light touch EXTREMITIES: 5-\\5 strength bilateral upper extremities. 5\\5 strength right lower extremity. 4-/5 strength in left lower extremity. +bilat LE edema (improving) SKIN: no sacral erythema ASSESSMENT:85-year-old F with past medical history of 2 CVAs, diastolic CHF, chronic low back pain s/p recent lumbar facet blocks with left leg weakness who presents status post encephalopathy due to hyponatremia and polypharmacy PLAN: 1. 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 Neuro-recent admission for metabolic encephalopathy due to hyponatremia and polypharmacy, monitor on ARU, judicious with pain meds - hx of CVAs with diplopia, c/u secondary stroke prevention, ASA 3. 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 Multilevel neural foraminal narrowing as above. Degenerative spondylolisthesis at L4-5 and degenerative retrolisthesis at L1-2. Chronic partial anterior wedging L5 vertebral body." s/p bilat L4-L5, L5-S1 facet blocks on 10-02-20, patient and family reporting her left leg became very weak about 3 weeks ago, patient subjective decreased sensation in the perianal region (sensation intact on exam), no bowel/bladder incontinence however out of concern for possible cauda equina MRI ordered showing multilevel neural foraminal and canal stenosis, no cauda equina, images sent to Ortho clinic in [place] and reviewed by provider who states there are no emergent findings on imaging but would like to see patient soon to discuss possible decompression surgery, appointment set up for 12-12-20 at noon, son Alicia initially agreed to transport his mother, however on 12-10-20 he came for car transfer training, but declined to participate stating he did not feel comfortable driving his mother, I spoke with him 12-11-20 and he agreed to meet his mother at the appointment in [place]- transport set up for today, will await ortho recs, patient does want to consider surgical intervention for her back -flexion extension X-rays were negative for spondylolisthesis instability 3. Cardiac- chronic diastolic CHF, daily weights, fluid restrict, concern patient may have been fluid overloaded on admission given weight gain on record, subjective shortness of breath, and recent IVF given on acute side for her hyponatremia, BNP mildly elevated 600s, s/p 1x dose IV lasix, c/u on daily lasix and monitor, patient breathing c/u to improve 4. Resp- CXR 12-04-20 showing left sided infiltrate and new left sided pleural effusion, started on zosyn for possible aspiration PNA switched to po levaquin, diet downgraded to level 3 speech following, diuretic ordered to treat effusion 5. VAsc- patient reporting she has had clots in her legs in the past? -Doppler negative for DVT bilat - on lovenox currently for DVT ppx 6. GI ppx- omeprazole -constipation resolved, patient denies incontinence 7. Pain- gabapentin, tylneol, tramadol, lidoderm patch 8. - monitor PVRs -patient with intermittent requirement for catheterizations, will start flomax and a q2h voiding schedule for urinary retention 9. Electrolytes- recent hyponatremia due to SIADH, Na normalized, c/u off salt tabs given concern for possible fluid overload, and c/u to monitor-stable 11. Code: patient does not want chest compressions, however if she still has a pulse, but her breathing is compromised she would like a trial of intubation, MOLST form has been signed 12. Allergy- patient had allergic reaction 12-10-20 most likely due to [employer] original caramel chewy candies, unclear what component of candy was a trigger, she did not develop tongue swelling, but did have an itchy tongue with inflamed/slightly enlarged tongue papules in addition to a heavy feeling on her chest (likely due to allergic reaction), her symptoms resolved with Benadryl given at 8am and noon, prn Benadryl ordered as well, no signs of respiratory distress- no further issues -CK/trop ordered due to transient chest pressure which came back negative- no further issues -also stopped mouthkote as may be irritating her tongue, she has been receiving this since 12-04-20 so could be a delayed hypersensitivity reaction, but more likely it is a food allergy 13. Dispo- patient's family unable to provide 24-7 care at this time, she will benefit from ongoing rehab, will clarify with [facility] timeline for upcoming back surgery Allergies Coded Allergies: bee venom protein (honey bee) (Verified Allergy, Unknown, 11/19/20) povidone-iodine (Verified Allergy, Unknown, 11/19/20) Uncoded Allergies: douglas's orgininal chewy candy (Allergy, Intermediate, itchy tongue , 12/10/20) Vital Signs Vital Signs Date Time Temp Pulse Resp B/P (MAP) Pulse Ox O2 Delivery O2 Flow Rate FiO2 12/12/20 06:00 99.1 98 16 137/66 (89) 98 Room Air Current Medications Current Medications Current Medications Medications (Trade) Dose Ordered Sig/Franck Route PRN Reason Start Time Stop Time Status Last Admin Dose Admin Acetaminophen (Tylenol Tab) 650 mg QID PO 12/03/20 17:00 12/12/20 07:52 Al Hydrox/Mg Hydrox/Simethicone (Mylanta) 30 ml Q4HP PRN PO DYSPEPSIA 12/03/20 13:10 12/03/20 20:31 Albuterol/ Ipratropium (Combivent Respimat 100-20mcg) 1 puff RTID INH 12/04/20 14:00 12/12/20 07:20 Artificial Tears (Akwa Tears) 2 drop QID OU 12/08/20 16:05 12/12/20 07:55 Aspirin (Ecotrin) 81 mg DAILY PO 12/04/20 09:00 12/12/20 07:52 Bisacodyl (Dulcolax Suppository) 10 mg DAILYPRN PRN [place] CONSTIPATION 12/03/20 13:10 Cyanocobalamin (Vitamin B12) 1,500 mcg DAILY PO 12/04/20 09:00 12/12/20 07:52 Diphenhydramine HCl (Benadryl) 25 mg Q6HP PRN PO ITCHING 12/10/20 12:45 12/10/20 19:27 Docusate Sodium (Colace) 100 mg BID PO 12/03/20 21:00 12/04/20 11:47 DC 12/04/20 07:20 Docusate Sodium (Colace) 100 mg TID PO 12/04/20 16:00 12/11/20 16:39 Enoxaparin Sodium (Lovenox) 40 mg DAILY SC 12/04/20 09:00 12/12/20 07:53 Furosemide (Lasix) 20 mg DAILY PO 12/05/20 09:00 12/12/20 07:56 Gabapentin (Neurontin) 100 mg TID PO 12/03/20 16:00 12/12/20 07:53 Guaifenesin (Robitussin Tab) 400 mg TID PO 12/04/20 16:00 12/12/20 07:52 Lactobacillus Acidophilus (Bacid) 1 ea TID PO 12/04/20 16:00 12/12/20 07:53 Levofloxacin (Levaquin) 750 mg DAILY@06 PO 12/07/20 06:00 12/11/20 06:01 DC 12/11/20 05:12 Lidocaine (Lidoderm Patch) 2 patch DAILY TD 12/04/20 09:00 12/12/20 07:54 Magnesium Oxide (Mag-Ox) 400 mg DAILY PO 12/04/20 09:00 12/12/20 07:52 Multivitamins (Ocuvite(I-Zaira)) 1 tab DAILY PO 12/04/20 09:00 12/12/20 07:53 Non-Formulary Medication ( See Comment Field Below ) REMOVE LIDODERM PATCH DAILY@21 XX 12/03/20 21:00 12/11/20 21:10 Omeprazole (PriLOSEC) 20 mg DAILY PO 12/04/20 09:00 12/12/20 07:53 Piperacillin Sod/ Tazobactam Sod 4.5 gm/Dextrose 50 ml @ 50 mls/hr Q6H IV 12/04/20 14:00 12/06/20 23:00 DC 12/06/20 20:12 Polyethylene Glycol (Miralax) 1 pkt DAILY PO 12/04/20 08:45 12/11/20 07:42 Potassium Chloride (Micro-K Extencaps) 10 meq DAILY PO 12/09/20 09:00 12/12/20 07:53 Saliva Substitute (Mouthkote) 2 sprays QID MT 12/04/20 13:00 12/10/20 08:25 DC 12/09/20 20:58 Senna (Senokot) 1 tab QHS PO 12/03/20 21:00 12/10/20 21:24 Sodium Chloride (Sodium Chloride) 1 gm DAILY PO 12/04/20 09:00 12/04/20 12:37 DC 12/04/20 07:22 Tamsulosin HCl (Flomax) 0.4 mg QHS PO 12/12/20 21:00 UNV Tramadol HCl (Ultram) 50 mg BID@0600,2100 PO 12/04/20 21:00 12/12/20 05:31 Tramadol HCl (Ultram) 50 mg Q4HP PRN PO MODERATE PAIN (PS 5-7) 12/03/20 13:10 12/04/20 11:47 DC 12/04/20 04:48 Tramadol HCl (Ultram) 50 mg Q8HP PRN PO MODERATE PAIN (PS 5-7) 12/04/20 11:45 12/08/20 15:11 MICHAEL NEGRO MD Dec 12, 2020 09:15
[2020-12-12 19:11] LABS: BASO % 0.5 % (0.0-1.0); EOS # 0.1 10^3/uL (0.0-0.5); EOS % 3.1 % (0.0-3.0); HEMOGLOBIN 10.8 g/dl (12.0-15.5); LYMPH % 25.3 % (24.0-44.0); MEAN CORPUSCULAR HEMOGLOBIN 32.5 pg (27.0-33.0); MEAN CORPUSCULAR HGB CONC 33.8 g/dl (32.0-36.5); MEAN CORPUSCULAR VOLUME 96.4 fl (80.0-96.0); MONO # 0.4 10^3/uL (0.0-0.8); MONO % 10.1 % (2.0-8.0); NEUTROPHILS # 2.4 10^3/uL (1.5-8.5); NEUTROPHILS % 60.7 % (36.0-66.0); PLATELET COUNT, AUTOMATED 235 10^3/uL (150-450); RED BLOOD COUNT 3.32 10^6/uL (4.00-5.40); WHITE BLOOD COUNT 3.9 10^3/uL (4.0-10.0)
[2020-12-12 19:16] LABS: BLOOD UREA NITROGEN 15 MG/DL (7-18); CALCIUM LEVEL 8.8 MG/DL (8.8-10.2); CARBON DIOXIDE LEVEL 26 MEQ/L (21-32); CHLORIDE LEVEL 109 MEQ/L (98-107); CREATININE FOR GFR 0.68 MG/DL (0.55-1.30); GLOMERULAR FILTRATION RATE > 60.0 (>32); GLUCOSE, FASTING 113 MG/DL (70-100); POTASSIUM SERUM 3.9 MEQ/L (3.5-5.1); SODIUM LEVEL 141 MEQ/L (136-145)
[2020-12-12 20:00] VITALS: BP 119/62
[2020-12-12] MEDS: SENNA 8.6 MG TAB (SENOKOT) PO SCH (21:00)
[2020-12-12] MEDS: TAMSULOSIN 0.4 MG CAP PO SCH (21:11)
[2020-12-12] MEDS: **NOTE PATIENT COMMENT** MISC XX SCH (21:12)
[2020-12-13] MEDS: traMADol 50 MG TAB PO SCH ×2 (05:13→20:46)
[2020-12-13 06:00] VITALS: BP 115/56
[2020-12-13] MEDS: COMBIVENT RESPIMAT 100-20MCG INHALER 4GM INH SCH ×3 (07:38→19:40)
[2020-12-13] MEDS: MAGNESIUM OXIDE 400MG TAB (MAG-OX) PO SCH (08:10)
[2020-12-13] MEDS: POLYVINYL ALCOHOL OPHTH SOLN 15 ML(LIQUITEARS) OU SCH ×4 (08:10→20:46)
[2020-12-13] MEDS: ENOXAPARIN 40MG/0.4ML SYRINGE (J1650 PER 10MG) SC SCH (08:10)
[2020-12-13] MEDS: LIDOCAINE 5% (LIDODERM) PATCH TD SCH (08:10)
[2020-12-13] MEDS: ACETAMINOPHEN TAB 650MG DOSE (2X325MG) PO SCH ×4 (08:11→20:45)
[2020-12-13] MEDS: CYANOCOBALAMIN 500 MCG TAB PO SCH (08:11)
[2020-12-13] MEDS: OCUVITE 1 TAB PO SCH (08:11)
[2020-12-13] MEDS: guaiFENesin 200 MG TAB PO SCH ×3 (08:12→20:46)
[2020-12-13] MEDS: OMEPRAZOLE 20 MG CAP PO SCH (08:12)
[2020-12-13] MEDS: MIRALAX *UNIT DOSE* 17GM PACKET PO SCH (08:13)
[2020-12-13] MEDS: ASPIRIN 81MG ENTERIC TABLET PO SCH (08:13)
[2020-12-13] MEDS: DOCUSATE SODIUM 100MG CAPSULE PO SCH ×3 (08:13→20:46)
[2020-12-13] MEDS: LACTOBACILLUS ACIDOPHILUS CAP (BACID) PO SCH ×3 (08:13→20:46)
[2020-12-13] MEDS: FUROSEMIDE 20 MG TAB PO SCH (08:13)
[2020-12-13] MEDS: POTASSIUM CHLORIDE 10 MEQ SR TABLET PO SCH (08:13)
[2020-12-13] MEDS: REMEDY PHYTOPLEX Z-GUARD PASTE 113GM TUBE (FROM STOREROOM PRODUCT) TOP SCH ×3 (08:15→20:47)
[2020-12-13 14:00] VITALS: BP 110/56
[2020-12-13 20:00] VITALS: BP 116/59
[2020-12-13] MEDS: TAMSULOSIN 0.4 MG CAP PO SCH (20:46)
[2020-12-13] MEDS: SENNA 8.6 MG TAB (SENOKOT) PO SCH (20:46)
[2020-12-13] MEDS: **NOTE PATIENT COMMENT** MISC XX SCH (20:47)
[2020-12-14] MEDS: traMADol 50 MG TAB PO PRN (03:49)
[2020-12-14] MEDS: traMADol 50 MG TAB PO SCH ×2 (05:58→20:28)
[2020-12-14 06:00] VITALS: BP 140/65
[2020-12-14] MEDS: COMBIVENT RESPIMAT 100-20MCG INHALER 4GM INH SCH ×3 (07:18→20:00)
[2020-12-14] MEDS: DOCUSATE SODIUM 100MG CAPSULE PO SCH ×3 (07:33→20:22)
[2020-12-14] MEDS: MIRALAX *UNIT DOSE* 17GM PACKET PO SCH (09:00)
[2020-12-14] MEDS: ENOXAPARIN 40MG/0.4ML SYRINGE (J1650 PER 10MG) SC SCH (09:16)
[2020-12-14] MEDS: LACTOBACILLUS ACIDOPHILUS CAP (BACID) PO SCH ×3 (09:17→20:27)
[2020-12-14] MEDS: FUROSEMIDE 20 MG TAB PO SCH (09:17)
[2020-12-14] MEDS: CYANOCOBALAMIN 500 MCG TAB PO SCH (09:17)
[2020-12-14] MEDS: ASPIRIN 81MG ENTERIC TABLET PO SCH (09:18)
[2020-12-14] MEDS: ACETAMINOPHEN TAB 650MG DOSE (2X325MG) PO SCH ×4 (09:19→20:27)
[2020-12-14] MEDS: guaiFENesin 200 MG TAB PO SCH ×3 (09:19→20:28)
[2020-12-14] MEDS: POTASSIUM CHLORIDE 10 MEQ SR TABLET PO SCH (09:19)
[2020-12-14] MEDS: OMEPRAZOLE 20 MG CAP PO SCH (09:19)
[2020-12-14] MEDS: OCUVITE 1 TAB PO SCH (09:20)
[2020-12-14] MEDS: LIDOCAINE 5% (LIDODERM) PATCH TD SCH (09:20)
[2020-12-14] MEDS: MAGNESIUM OXIDE 400MG TAB (MAG-OX) PO SCH (09:20)
[2020-12-14] MEDS: REMEDY PHYTOPLEX Z-GUARD PASTE 113GM TUBE (FROM STOREROOM PRODUCT) TOP SCH ×3 (09:21→20:28)
[2020-12-14] MEDS: POLYVINYL ALCOHOL OPHTH SOLN 15 ML(LIQUITEARS) OU SCH ×4 (09:22→20:28)
[2020-12-14 14:00] VITALS: BP 108/51
[2020-12-14 20:00] VITALS: BP 119/61
[2020-12-14] MEDS: SENNA 8.6 MG TAB (SENOKOT) PO SCH (20:22)
[2020-12-14] MEDS: TAMSULOSIN 0.4 MG CAP PO SCH (20:27)
[2020-12-14] MEDS: **NOTE PATIENT COMMENT** MISC XX SCH (20:29)
[2020-12-15] MEDS: traMADol 50 MG TAB PO PRN (01:11)
[2020-12-15] MEDS: traMADol 50 MG TAB PO SCH ×2 (05:29→21:23)
[2020-12-15 06:00] VITALS: BP 147/68
[2020-12-15 07:12] LABS: BASO % 0.6 % (0.0-1.0); EOS # 0.1 10^3/uL (0.0-0.5); EOS % 1.8 % (0.0-3.0); HEMATOCRIT 36.4 % (36.0-47.0); LYMPH # 0.9 10^3/uL (1.5-5.0); LYMPH % 28.7 % (24.0-44.0); MEAN CORPUSCULAR HEMOGLOBIN 32.2 pg (27.0-33.0); MEAN CORPUSCULAR VOLUME 97.6 fl (80.0-96.0); MONO # 0.3 10^3/uL (0.0-0.8); MONO % 8.8 % (2.0-8.0); NEUTROPHILS % 59.8 % (36.0-66.0); PLATELET COUNT, AUTOMATED 284 10^3/uL (150-450); RED BLOOD COUNT 3.73 10^6/uL (4.00-5.40); WHITE BLOOD COUNT 3.3 10^3/uL (4.0-10.0)
[2020-12-15] MEDS: COMBIVENT RESPIMAT 100-20MCG INHALER 4GM INH SCH ×3 (07:34→20:47)
[2020-12-15 07:35] LABS: BLOOD UREA NITROGEN 10 MG/DL (7-18); CALCIUM LEVEL 9.2 MG/DL (8.8-10.2); CARBON DIOXIDE LEVEL 27 MEQ/L (21-32); CHLORIDE LEVEL 107 MEQ/L (98-107); CREATININE FOR GFR 0.44 MG/DL (0.55-1.30); GLOMERULAR FILTRATION RATE > 60.0 (>32); GLUCOSE, FASTING 99 MG/DL (70-100); POTASSIUM SERUM 4.5 MEQ/L (3.5-5.1); SODIUM LEVEL 140 MEQ/L (136-145)
[2020-12-15] MEDS: OCUVITE 1 TAB PO SCH (08:48)
[2020-12-15] MEDS: guaiFENesin 200 MG TAB PO SCH ×3 (08:48→21:21)
[2020-12-15] MEDS: CYANOCOBALAMIN 500 MCG TAB PO SCH (08:49)
[2020-12-15] MEDS: ACETAMINOPHEN TAB 650MG DOSE (2X325MG) PO SCH ×4 (08:49→21:22)
[2020-12-15] MEDS: MAGNESIUM OXIDE 400MG TAB (MAG-OX) PO SCH (08:50)
[2020-12-15] MEDS: LACTOBACILLUS ACIDOPHILUS CAP (BACID) PO SCH ×3 (08:50→21:22)
[2020-12-15] MEDS: OMEPRAZOLE 20 MG CAP PO SCH (08:50)
[2020-12-15] MEDS: FUROSEMIDE 20 MG TAB PO SCH (08:50)
[2020-12-15] MEDS: ASPIRIN 81MG ENTERIC TABLET PO SCH (08:50)
[2020-12-15] MEDS: POTASSIUM CHLORIDE 10 MEQ SR TABLET PO SCH (08:51)
[2020-12-15] MEDS: MIRALAX *UNIT DOSE* 17GM PACKET PO SCH (08:52)
[2020-12-15] MEDS: DOCUSATE SODIUM 100MG CAPSULE PO SCH ×3 (08:52→21:00)
[2020-12-15] MEDS: POLYVINYL ALCOHOL OPHTH SOLN 15 ML(LIQUITEARS) OU SCH ×4 (08:54→21:23)
[2020-12-15] MEDS: ENOXAPARIN 40MG/0.4ML SYRINGE (J1650 PER 10MG) SC SCH (08:54)
[2020-12-15] MEDS: LIDOCAINE 5% (LIDODERM) PATCH TD SCH (08:57)
[2020-12-15] MEDS: REMEDY PHYTOPLEX Z-GUARD PASTE 113GM TUBE (FROM STOREROOM PRODUCT) TOP SCH ×3 (08:58→21:23)
[2020-12-15 14:00] VITALS: BP 125/63
--- NOTE | 2020-12-15 14:20 | IPNPDOC ---
Text Note Date of Service The patient was seen on 12/15/20. NOTE Patient was seen and examined. No overnight events Exam General: Awake, alert. Not in any acute distress. HEENT: Head normocephalic, atraumatic, sclera are nonicteric. Hearing is grossly intact to conversation. Respiratory: Clear to auscultation bilaterally with no wheezes, rales, or rhonchi. Cardiovascular: Regular rate and rhythm, with no rubs, gallops, or murmur. Abdomen: Soft, nontender, nondistended, no hepatosplenomegaly appreciated. Bowel sounds present. Extremities: 2+ pulses in the radial and dorsalis pedis bilaterally. No evidence of clubbing or cyanosis. Assessment/Plan: 1) Rehabilitation for mobility and reduced functional ability to perform ADLs Chronic low back pain status post recent lumbar facet blocks with persistent left lower extremity weakness and pain, Per recommendations from PM&R team 2) History of chronic low back pain s/p recent lumbar facet blocks with persistent LLE weakness and pain significantly contributing to mobility impairments. 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 Multilevel neural foraminal narrowing as above. Degenerative spondylolisthesis at L4-5 and degenerative retrolisthesis at L1-2. Chronic partial anterior wedging L5 vertebral body." s/p bilat L4-L5, L5-S1 facet blocks on 10-02-20, patient and family reporting her left leg became very weak about 3 weeks ago, MRI showing multilevel neural foraminal and canal stenosis, no cauda equina, . Ortho clinic in [place] and reviewed by provider who states there are no emergent findings on imaging but would like to see patient after dc and currently pt continies rehab 3) Left-sided chest infiltrate and pleural effusion. Completed the course of abx with levaquin. Cont speech therapy and asp precautions. Continue to monitor labs 4) Metabolic encephalopathy, Multifactorial. Hyponatremia, Polypharmacy: All of these seem to be resolved at this time, continue to monitor, and recommend judicious administration of pain medications. GERD: Continue omeprazole DVT prophylaxis: Continue Lovenox Dispo as per primary VS,Fishbone, I+O VS, Fishbone, I+O Laboratory Tests 12/15/20 06:31 Vital Signs Date Time Temp Pulse Resp B/P (MAP) Pulse Ox O2 Delivery O2 Flow Rate FiO2 12/15/20 06:00 98.8 103 18 147/68 (94) 96 Room Air I&O- Last 24 Hours up to 6 AM 12/15/20 06:00 Intake Total 2130 ml Balance 2130 ml LEIGH CAMACHO MD Dec 15, 2020 14:17
[2020-12-15 21:00] VITALS: BP 151/75
[2020-12-15] MEDS: SENNA 8.6 MG TAB (SENOKOT) PO SCH (21:00)
[2020-12-15] MEDS: TAMSULOSIN 0.4 MG CAP PO SCH (21:21)
[2020-12-15] MEDS: **NOTE PATIENT COMMENT** MISC XX SCH (21:23)
[2020-12-16] MEDS: traMADol 50 MG TAB PO SCH ×2 (05:55→21:52)
[2020-12-16 06:26] VITALS: BP 139/67
[2020-12-16] MEDS: COMBIVENT RESPIMAT 100-20MCG INHALER 4GM INH SCH ×3 (07:31→20:42)
[2020-12-16] MEDS: DOCUSATE SODIUM 100MG CAPSULE PO SCH ×3 (09:00→21:53)
[2020-12-16] MEDS: MIRALAX *UNIT DOSE* 17GM PACKET PO SCH (09:00)
[2020-12-16] MEDS: ACETAMINOPHEN TAB 650MG DOSE (2X325MG) PO SCH ×4 (09:38→21:55)
[2020-12-16] MEDS: OCUVITE 1 TAB PO SCH (09:38)
[2020-12-16] MEDS: CYANOCOBALAMIN 500 MCG TAB PO SCH (09:38)
[2020-12-16] MEDS: ASPIRIN 81MG ENTERIC TABLET PO SCH (09:38)
[2020-12-16] MEDS: LACTOBACILLUS ACIDOPHILUS CAP (BACID) PO SCH ×3 (09:38→21:55)
[2020-12-16] MEDS: guaiFENesin 200 MG TAB PO SCH ×3 (09:38→21:55)
[2020-12-16] MEDS: ENOXAPARIN 40MG/0.4ML SYRINGE (J1650 PER 10MG) SC SCH (09:38)
[2020-12-16] MEDS: OMEPRAZOLE 20 MG CAP PO SCH (09:40)
[2020-12-16] MEDS: FUROSEMIDE 20 MG TAB PO SCH (09:40)
[2020-12-16] MEDS: LIDOCAINE 5% (LIDODERM) PATCH TD SCH (09:41)
[2020-12-16] MEDS: MAGNESIUM OXIDE 400MG TAB (MAG-OX) PO SCH (09:41)
[2020-12-16] MEDS: POTASSIUM CHLORIDE 10 MEQ SR TABLET PO SCH (09:41)
[2020-12-16] MEDS: REMEDY PHYTOPLEX Z-GUARD PASTE 113GM TUBE (FROM STOREROOM PRODUCT) TOP SCH ×3 (09:42→21:56)
[2020-12-16] MEDS: POLYVINYL ALCOHOL OPHTH SOLN 15 ML(LIQUITEARS) OU SCH ×4 (09:42→21:00)
--- NOTE | 2020-12-16 13:46 | IPNPDOC ---
Text Note Date of Service The patient was seen on 12/16/20. NOTE Patient was seen and examined. No overnight events Exam General: Awake, alert. Not in any acute distress. HEENT: Head normocephalic, atraumatic, sclera are nonicteric. Hearing is grossly intact to conversation. Respiratory: Clear to auscultation bilaterally with no wheezes, rales, or rhonchi. Cardiovascular: Regular rate and rhythm, with no rubs, gallops, or murmur. Abdomen: Soft, nontender, nondistended, no hepatosplenomegaly appreciated. Bowel sounds present. Extremities: 2+ pulses in the radial and dorsalis pedis bilaterally. No evidence of clubbing or cyanosis. Assessment/Plan: 1) Rehabilitation for mobility and reduced functional ability to perform ADLs Chronic low back pain status post recent lumbar facet blocks with persistent left lower extremity weakness and pain, Per recommendations from PM&R team 2) History of chronic low back pain s/p recent lumbar facet blocks with persist ent LLE weakness and pain significantly contributing to mobility impairments. 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 Multilevel neural foraminal narrowing as above. Degenerative spondylolisthesis at L4-5 and degenerative retrolisthesis at L1-2. Chronic partial anterior wedging L5 vertebral body." s/p bilat L4-L5, L5-S1 facet bl ocks on 10-02-20, patient and family reporting her left leg became very weak about 3 weeks ago, MRI showing multilevel neural foraminal and canal stenosis, no cauda equina, . Ortho clinic in [place] and reviewed by provider who states there are no emerge nt findings on imaging but would like to see patient after dc and currently pt continies rehab 3) Left-sided chest infiltrate and pleural effusion. Completed the course of abx with levaquin. Cont speech therapy and asp precautions. Continue to monitor l abs 4) Metabolic encephalopathy, Multifactorial. Hyponatremia, Polypharmacy: All of these seem to be resolved at this time, continue to monitor, and recommend judicious administration of pain medications. GERD: Continue omeprazole DVT prophylaxis: Continue Lovenox VS,Fishbone, I+O VS, Fishbone, I+O Vital Signs Date Time Temp Pulse Resp B/P (MAP) Pulse Ox O2 Delivery O2 Flow Rate FiO2 12/16/20 06:26 99.0 108 18 139/67 (34) 97 Room Air I&O- Last 24 Hours up to 6 AM 12/16/20 06:00 Intake Total 840 ml Balance 840 ml LEIGH CAMACHO MD Dec 16, 2020 13:46
[2020-12-16 14:00] VITALS: BP 140/65
[2020-12-16 20:00] VITALS: BP 148/65
[2020-12-16] MEDS: SENNA 8.6 MG TAB (SENOKOT) PO SCH (21:53)
[2020-12-16] MEDS: METOPROLOL TART 25 MG TABLET PO SCH (21:53)
[2020-12-16] MEDS: **NOTE PATIENT COMMENT** MISC XX SCH (21:55)
[2020-12-16] MEDS: TAMSULOSIN 0.4 MG CAP PO SCH (21:55)
[2020-12-17 05:11] VITALS: BP 120/62
[2020-12-17] MEDS: METOPROLOL TART 25 MG TABLET PO SCH ×3 (05:55→21:33)
[2020-12-17] MEDS: traMADol 50 MG TAB PO SCH ×2 (05:55→21:35)
[2020-12-17 07:03] LABS: BASO % 0.3 % (0.0-1.0); EOS % 0.9 % (0.0-3.0); HEMATOCRIT 37.7 % (36.0-47.0); HEMOGLOBIN 12.7 g/dl (12.0-15.5); LYMPH # 0.8 10^3/uL (1.5-5.0); LYMPH % 24.3 % (24.0-44.0); MEAN CORPUSCULAR HEMOGLOBIN 32.5 pg (27.0-33.0); MEAN CORPUSCULAR HGB CONC 33.7 g/dl (32.0-36.5); MEAN CORPUSCULAR VOLUME 96.4 fl (80.0-96.0); MONO # 0.3 10^3/uL (0.0-0.8); MONO % 9.1 % (2.0-8.0); NEUTROPHILS # 2.2 10^3/uL (1.5-8.5); NEUTROPHILS % 65.1 % (36.0-66.0); PLATELET COUNT, AUTOMATED 340 10^3/uL (150-450); RED BLOOD COUNT 3.91 10^6/uL (4.00-5.40); WHITE BLOOD COUNT 3.4 10^3/uL (4.0-10.0)
[2020-12-17] MEDS: COMBIVENT RESPIMAT 100-20MCG INHALER 4GM INH SCH ×3 (07:05→19:53)
[2020-12-17 07:29] LABS: BLOOD UREA NITROGEN 12 MG/DL (7-18); CALCIUM LEVEL 9.3 MG/DL (8.8-10.2); CARBON DIOXIDE LEVEL 26 MEQ/L (21-32); CHLORIDE LEVEL 104 MEQ/L (98-107); GLOMERULAR FILTRATION RATE > 60.0 (>32); GLUCOSE, FASTING 116 MG/DL (70-100); POTASSIUM SERUM 4.2 MEQ/L (3.5-5.1); SODIUM LEVEL 139 MEQ/L (136-145)
[2020-12-17] MEDS: LIDOCAINE 5% (LIDODERM) PATCH TD SCH (08:48)
[2020-12-17] MEDS: MAGNESIUM OXIDE 400MG TAB (MAG-OX) PO SCH (08:48)
[2020-12-17] MEDS: guaiFENesin 200 MG TAB PO SCH ×3 (08:48→21:34)
[2020-12-17] MEDS: ENOXAPARIN 40MG/0.4ML SYRINGE (J1650 PER 10MG) SC SCH (08:48)
[2020-12-17] MEDS: DOCUSATE SODIUM 100MG CAPSULE PO SCH ×3 (08:49→21:34)
[2020-12-17] MEDS: ACETAMINOPHEN TAB 650MG DOSE (2X325MG) PO SCH ×4 (08:49→21:34)
[2020-12-17] MEDS: OMEPRAZOLE 20 MG CAP PO SCH (08:49)
[2020-12-17] MEDS: POTASSIUM CHLORIDE 10 MEQ SR TABLET PO SCH (08:49)
[2020-12-17] MEDS: CYANOCOBALAMIN 500 MCG TAB PO SCH (08:49)
[2020-12-17] MEDS: FUROSEMIDE 20 MG TAB PO SCH (08:49)
[2020-12-17] MEDS: LACTOBACILLUS ACIDOPHILUS CAP (BACID) PO SCH ×3 (08:49→21:34)
[2020-12-17] MEDS: MIRALAX *UNIT DOSE* 17GM PACKET PO SCH (08:50)
[2020-12-17] MEDS: OCUVITE 1 TAB PO SCH (08:50)
[2020-12-17] MEDS: ASPIRIN 81MG ENTERIC TABLET PO SCH (08:50)
[2020-12-17] MEDS: REMEDY PHYTOPLEX Z-GUARD PASTE 113GM TUBE (FROM STOREROOM PRODUCT) TOP SCH ×3 (08:51→21:35)
[2020-12-17] MEDS: POLYVINYL ALCOHOL OPHTH SOLN 15 ML(LIQUITEARS) OU SCH ×4 (09:00→21:36)
[2020-12-17 13:43] VITALS: BP 120/59
[2020-12-17 14:00] VITALS: BP 120/59
[2020-12-17 20:00] VITALS: BP 119/72
[2020-12-17] MEDS: **NOTE PATIENT COMMENT** MISC XX SCH (21:33)
[2020-12-17] MEDS: TAMSULOSIN 0.4 MG CAP PO SCH (21:34)
[2020-12-17] MEDS: SENNA 8.6 MG TAB (SENOKOT) PO SCH (21:34)
[2020-12-18] MEDS: traMADol 50 MG TAB PO SCH ×2 (05:19→21:22)
[2020-12-18] MEDS: METOPROLOL TART 25 MG TABLET PO SCH ×3 (05:23→21:20)
[2020-12-18 06:00] VITALS: BP 128/61
[2020-12-18] MEDS: FUROSEMIDE 20 MG TAB PO SCH (07:10)
[2020-12-18] MEDS: CYANOCOBALAMIN 500 MCG TAB PO SCH (07:10)
[2020-12-18] MEDS: ASPIRIN 81MG ENTERIC TABLET PO SCH (07:10)
[2020-12-18] MEDS: OCUVITE 1 TAB PO SCH (07:11)
[2020-12-18] MEDS: DOCUSATE SODIUM 100MG CAPSULE PO SCH ×3 (07:11→21:21)
[2020-12-18] MEDS: ACETAMINOPHEN TAB 650MG DOSE (2X325MG) PO SCH ×4 (07:11→21:21)
[2020-12-18] MEDS: OMEPRAZOLE 20 MG CAP PO SCH (07:11)
[2020-12-18] MEDS: MAGNESIUM OXIDE 400MG TAB (MAG-OX) PO SCH (07:11)
[2020-12-18] MEDS: LIDOCAINE 5% (LIDODERM) PATCH TD SCH (07:12)
[2020-12-18] MEDS: LACTOBACILLUS ACIDOPHILUS CAP (BACID) PO SCH ×3 (07:12→21:21)
[2020-12-18] MEDS: ENOXAPARIN 40MG/0.4ML SYRINGE (J1650 PER 10MG) SC SCH (07:12)
[2020-12-18] MEDS: POLYVINYL ALCOHOL OPHTH SOLN 15 ML(LIQUITEARS) OU SCH ×4 (07:12→21:22)
[2020-12-18] MEDS: guaiFENesin 200 MG TAB PO SCH ×3 (07:12→21:22)
[2020-12-18] MEDS: POTASSIUM CHLORIDE 10 MEQ SR TABLET PO SCH (07:12)
[2020-12-18] MEDS: REMEDY PHYTOPLEX Z-GUARD PASTE 113GM TUBE (FROM STOREROOM PRODUCT) TOP SCH ×3 (07:13→21:22)
[2020-12-18] MEDS: COMBIVENT RESPIMAT 100-20MCG INHALER 4GM INH SCH ×3 (07:45→19:45)
[2020-12-18] MEDS: MIRALAX *UNIT DOSE* 17GM PACKET PO SCH (08:09)
--- NOTE | 2020-12-18 09:45 | IPNPDOC ---
PM&R Progress Note DATE OF SERVICE: Dec 18, 2020 [employer] Maker Progress Note Subjective: Patient seen in her room stating she is feeling good, that she able to void now without getting catheterized and she is getting stronger. REVIEW OF SYSTEMS: The following is a completed review of systems and has been reviewed. Review of systems otherwise unremarkable. PAIN: Patient self reports left leg pain and low back EYES: No recent vision changes, chronic diplopia EARS, NOSE, & THROAT: No throat pain, + reports difficulty swallowing due to dry mouth (resolved) CARDIOVASCULAR: Denies chest pain or palpitations PULMONARY: +mild shortness of breath (resolved) GASTROINTESTINAL: + constipation (resolved) GENITOURINARY: denies dysuria, intermittent retention (improving) MUSCULOSKELETAL: left sided weakness (improving) NEUROLOGICAL:denies tremor or paresthesias HEMATOLOGICAL: denies easy bruising SKIN: denies rash PSYCHIATRIC: Unremarkable All other review of systems found to be negative. PHYSICAL EXAMINATION: VITAL SIGNS: Please see below. GENERAL: Pleasant and cooperative. No acute distress. HEENT: PERRL. Extraocular movements intact. Clear conjunctiva, tongue (not swollen) with several raised papules CARDIOVASCULAR: Regular rate and rhythm. No murmurs, rubs, or gallops LUNGS: Clear to auscultation bilaterally. No wheezes. No rhonchi ABDOMEN: Soft, nontender, mildly distended, non-tender to palpation, Positive bowel sounds NEUROLOGICAL: Alert and oriented times three. Cranial nerves II through XII grossly intact. Sensation grossly intact in all 4 limbs, tina-anal region intact to light touch EXTREMITIES: 5-\\5 strength bilateral upper extremities. 5\\5 strength right lower extremity. 4-/5 strength in left lower extremity. +bilat LE edema (improving) SKIN: no sacral erythema ASSESSMENT:85-year-old F with past medical history of 2 CVAs, diastolic CHF, chronic low back pain s/p recent lumbar facet blocks with left leg weakness who presents status post encephalopathy due to hyponatremia and polypharmacy PLAN: 1. Rehab- PT/OT advance mobility and ADLs, strengthen/stretch/maintain ROM all 4 limbs, brace left leg as needed, ambulating with RW -DRIFT MINER for swallow eval, patient's dysphagia improving, upgraded to regular diet 2. Neuro-recent admission for metabolic encephalopathy due to hyponatremia and polypharmacy, monitor on ARU, judicious with pain meds - hx of CVAs with diplopia, c/u secondary stroke prevention, ASA 3. 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 Multilevel neural foraminal narrowing as above. Degenerative spondylolisthesis at L4-5 and degenerative retrolisthesis at L1-2. Chronic partial anterior wedging L5 vertebral body." s/p bilat L4-L5, L5-S1 facet blocks on 10-02-20, patient and family reporting her left leg became very weak about 3 weeks ago, patient subjective decreased sensation in the perianal region (sensation intact on exam), no bowel/bladder incontinence however out of concern for possible cauda equina MRI ordered showing multilevel neural foraminal and canal stenosis, no cauda equina, images sent to Ortho clinic in [place] and reviewed by provider, patient seen by ortho group 12-12-20 spoke with ortho group at [facility] and they state surgical intervention is not urgent, it will be a same day procedurethat they will set it up over the next several weeks, that patient can continue getting ongoing rehab -flexion extension X-rays negative for spondylolisthesis instability 3. Cardiac- chronic diastolic CHF, daily weights, fluid restrict, c/u on daily lasix and monitor, patient breathing c/u to improve 4. Resp- CXR 12-04-20 showing left sided infiltrate and new left sided pleural effusion, started on zosyn for possible aspiration PNA switched to po levaquin which has been completed 5. VAsc- patient reporting she has had clots in her legs in the past? -Doppler negative for DVT bilat - on lovenox currently for DVT ppx 6. GI ppx- omeprazole -constipation resolved, patient denies incontinence 7. Pain- gabapentin d/c'd due to dry mouth causing dysphagia, cont tylneol, tramadol, lidoderm patch 8. - monitor PVRs, patient voiding better since starting flomax and a q2h voiding schedule 9. Electrolytes- recent hyponatremia due to SIADH, Na normalized, c/u off salt tabs given concern for possible fluid overload, and c/u to monitor-stable 11. Code: patient does not want chest compressions, however if she still has a pulse, but her breathing is compromised she would like a trial of intubation, MOLST form has been signed, DNR trial of Intubation 12. Allergy- patient had allergic reaction 12-10-20 most likely due to [employer] original caramel chewy candies, unclear what component of candy was a trigger, she did not develop tongue swelling, but did have an itchy tongue with inflamed/slightly enlarged tongue papules in addition to a heavy feeling on her chest (likely due to allergic reaction), her symptoms resolved with Benadryl given at 8am and noon, prn Benadryl ordered as well, no signs of respiratory distress- no further issues -CK/trop ordered due to transient chest pressure which came back negative- no further issues -also stopped mouthkote as may be irritating her tongue, she has been receiving this since 12-04-20 so could be a delayed hypersensitivity reaction, but more likely it is a food allergy- no further symptoms 13. Dispo- patient's family unable to provide 24-7 care at this time, she will benefit from ongoing rehab Allergies Coded Allergies: bee venom protein (honey bee) (Verified Allergy, Unknown, 11/19/20) povidone-iodine (Verified Allergy, Unknown, 11/19/20) Uncoded Allergies: douglas's orgininal chewy candy (Allergy, Intermediate, itchy tongue , 12/10/20) Vital Signs Vital Signs Date Time Temp Pulse Resp B/P (MAP) Pulse Ox O2 Delivery O2 Flow Rate FiO2 12/18/20 06:00 98.8 90 18 128/61 (83) 93 Room Air Current Medications Current Medications Current Medications Medications (Trade) Dose Ordered Sig/Franck Route PRN Reason Start Time Stop Time Status Last Admin Dose Admin Acetaminophen (Tylenol Tab) 650 mg QID PO 12/03/20 17:00 12/18/20 07:11 Al Hydrox/Mg Hydrox/Simethicone (Mylanta) 30 ml Q4HP PRN PO DYSPEPSIA 12/03/20 13:10 12/03/20 20:31 Albuterol/ Ipratropium (Combivent Respimat 100-20mcg) 1 puff RTID INH 12/04/20 14:00 12/17/20 19:53 Artificial Tears (Akwa Tears) 2 drop QID OU 12/08/20 16:05 12/18/20 07:12 Aspirin (Ecotrin) 81 mg DAILY PO 12/04/20 09:00 12/18/20 07:10 Bisacodyl (Dulcolax Suppository) 10 mg DAILYPRN PRN OR CONSTIPATION 12/03/20 13:10 Cyanocobalamin (Vitamin B12) 1,500 mcg DAILY PO 12/04/20 09:00 12/18/20 07:10 Diphenhydramine HCl (Benadryl) 25 mg Q6HP PRN PO ITCHING 12/10/20 12:45 12/10/20 19:27 Docusate Sodium (Colace) 100 mg BID PO 12/03/20 21:00 12/04/20 11:47 DC 12/04/20 07:20 Docusate Sodium (Colace) 100 mg TID PO 12/04/20 16:00 12/18/20 07:11 Enoxaparin Sodium (Lovenox) 40 mg DAILY SC 12/04/20 09:00 12/18/20 07:12 Furosemide (Lasix) 20 mg DAILY PO 12/05/20 09:00 12/18/20 07:10 Gabapentin (Neurontin) 100 mg TID PO 12/03/20 16:00 12/12/20 15:04 DC 12/12/20 07:53 Guaifenesin (Robitussin Tab) 400 mg TID PO 12/04/20 16:00 12/17/20 21:34 Lactobacillus Acidophilus (Bacid) 1 ea TID PO 12/04/20 16:00 12/18/20 07:12 Levofloxacin (Levaquin) 750 mg DAILY@06 PO 12/07/20 06:00 12/11/20 06:01 DC 12/11/20 05:12 Lidocaine (Lidoderm Patch) 2 patch DAILY TD 12/04/20 09:00 12/18/20 07:12 Magnesium Oxide (Mag-Ox) 400 mg DAILY PO 12/04/20 09:00 12/18/20 07:11 Metoprolol Tartrate (Lopressor) 25 mg Q8H PO 12/16/20 22:00 12/18/20 05:23 Multivitamins (Ocuvite(I-Zaira)) 1 tab DAILY PO 12/04/20 09:00 12/18/20 07:11 Non-Formulary Medication ( See Comment Field Below ) REMOVE LIDODERM PATCH DAILY@21 XX 12/03/20 21:00 12/17/20 21:33 Omeprazole (PriLOSEC) 20 mg DAILY PO 12/04/20 09:00 12/18/20 07:11 Piperacillin Sod/ Tazobactam Sod 4.5 gm/Dextrose 50 ml @ 50 mls/hr Q6H IV 12/04/20 14:00 12/06/20 23:00 DC 12/06/20 20:12 Polyethylene Glycol (Miralax) 1 pkt DAILY PO 12/04/20 08:45 12/11/20 07:42 Potassium Chloride (Micro-K Extencaps) 10 meq DAILY PO 12/09/20 09:00 12/18/20 07:12 Saliva Substitute (Mouthkote) 2 sprays QID MT 12/04/20 13:00 12/10/20 08:25 DC 12/09/20 20:58 Senna (Senokot) 1 tab QHS PO 12/03/20 21:00 12/17/20 21:34 Sodium Chloride (Sodium Chloride) 1 gm DAILY PO 12/04/20 09:00 12/04/20 12:37 DC 12/04/20 07:22 Tamsulosin HCl (Flomax) 0.4 mg QHS PO 12/12/20 21:00 12/17/20 21:34 Tramadol HCl (Ultram) 50 mg BID@0600,2100 PO 12/04/20 21:00 12/18/20 05:19 Tramadol HCl (Ultram) 50 mg Q4HP PRN PO MODERATE PAIN (PS 5-7) 12/03/20 13:10 12/04/20 11:47 DC 12/04/20 04:48 Tramadol HCl (Ultram) 50 mg Q8HP PRN PO MODERATE PAIN (PS 5-7) 12/04/20 11:45 12/15/20 01:11 MICHAEL NEGRO MD Dec 18, 2020 09:45
--- NOTE | 2020-12-18 09:45 | IPNPDOC ---
PM&R Progress Note DATE OF SERVICE: Dec 16, 2020 Roofer Applicator Progress Note Subjective: Patient seen in her room stating her mouth is less dry and she can swallow better. Her pain is well controlled and she is feeling stronger. REVIEW OF SYSTEMS: The following is a completed review of systems and has been reviewed. Review of systems otherwise unremarkable. PAIN: Patient self reports left leg pain and low back EYES: No recent vision changes, chronic diplopia EARS, NOSE, & THROAT: No throat pain, + reports difficulty swallowing due to dry mouth (resolved) CARDIOVASCULAR: Denies chest pain or palpitations PULMONARY: +mild shortness of breath GASTROINTESTINAL: + constipation (resolved) GENITOURINARY: denies dysuria, intermittent retention (improving) MUSCULOSKELETAL: left sided weakness (improving) NEUROLOGICAL:denies tremor or paresthesias HEMATOLOGICAL: denies easy bruising SKIN: denies rash PSYCHIATRIC: Unremarkable All other review of systems found to be negative. PHYSICAL EXAMINATION: VITAL SIGNS: Please see below. GENERAL: Pleasant and cooperative. No acute distress. HEENT: PERRL. Extraocular movements intact. Clear conjunctiva, tongue (not swollen) with several raised papules CARDIOVASCULAR: Regular rate and rhythm. No murmurs, rubs, or gallops LUNGS: Clear to auscultation bilaterally. No wheezes. No rhonchi ABDOMEN: Soft, nontender, mildly distended, non-tender to palpation, Positive bowel sounds NEUROLOGICAL: Alert and oriented times three. Cranial nerves II through XII grossly intact. Sensation grossly intact in all 4 limbs, tina-anal region intact to light touch EXTREMITIES: 5-\\5 strength bilateral upper extremities. 5\\5 strength right lower extremity. 4-/5 strength in left lower extremity. +bilat LE edema (improving) SKIN: no sacral erythema ASSESSMENT:85-year-old F with past medical history of 2 CVAs, diastolic CHF, chronic low back pain s/p recent lumbar facet blocks with left leg weakness who presents status post encephalopathy due to hyponatremia and polypharmacy PLAN: 1. Rehab- PT/OT advance mobility and ADLs, strengthen/stretch/maintain ROM all 4 limbs, brace left leg as needed, ambulating with RW -CATERING DIRECTOR for swallow eval, patient;s dysphagia improving, upgraded to regular diet 2. Neuro-recent admission for metabolic encephalopathy due to hyponatremia and polypharmacy, monitor on ARU, judicious with pain meds - hx of CVAs with diplopia, c/u secondary stroke prevention, ASA 3. 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 Multilevel neural foraminal narrowing as above. Degenerative spondylolisthesis at L4-5 and degenerative retrolisthesis at L1-2. Chronic partial anterior wedging L5 vertebral body." s/p bilat L4-L5, L5-S1 facet blocks on 10-02-20, patient and family reporting her left leg became very w eak about 3 weeks ago, patient subjective decreased sensation in the perianal region (sensation intact on exam), no bowel/bladder incontinence however out of concern for possible cauda equina MRI ordered showing multilevel neural foraminal and canal stenosis, no cauda equina, images sent to Ortho clinic in [place] and reviewed by provider, patient seen by ortho group 12-12-20 spoke with ortho group at [facility] and they state surgical intervention is not urgent, it will be a same day procedurethat they will set it up over the next several weeks, that patient can continue getting ongoing rehab -flexion extension X-rays negative for spondylolisthesis instability 3. Cardiac- chronic diastolic CHF, daily weights, fluid restrict, c/u on daily l asix and monitor, patient breathing c/u to improve 4. Resp- CXR 12-04-20 showing left sided infiltrate and new left sided pleural effusion, started on zosyn for possible aspiration PNA switched to po levaquin which has been completed 5. VAsc- patient reporting she has had clots in her legs in the past? -Doppler negative for DVT bilat - on lovenox currently for DVT ppx 6. GI ppx- omeprazole -constipation resolved, patient denies incontinence 7. Pain- gabapentin d/c'd due to dry mouth causing dysphagia, cont tylneol, tramadol, lidoderm patch 8. - monitor PVRs, patient voiding better since starting flomax and a q2h voiding schedule 9. Electrolytes- recent hyponatremia due to SIADH, Na normalized, c/u off salt tabs given concern for possible fluid overload, and c/u to monitor-stable 11. Code: patient does not want chest compressions, however if she still has a pulse, but her breathing is compromised she would like a trial of intubation, MOLST form has been signed, DNR trial of Intubation 12. Allergy- patient had allergic reaction 12-10-20 most likely due to [employer] original caramel chewy candies, unclear what component of candy was a trigger, she did not develop tongue swelling, but did have an itchy tongue with inflamed/slightly enlarged tongue papules in addition to a heavy feeling on her chest (likely due to allergic reaction), her symptoms resolved with Benadryl given at 8am and noon, prn Benadryl ordered as well, no signs of respiratory distress- no further issues -CK/trop ordered due to transient chest pressure which came back negative- no further issues -also stopped mouthkote as may be irritating her tongue, she has been receiving this since 12-04-20 so could be a delayed hypersensitivity reaction, but more likely it is a food allergy 13. Dispo- patient's family unable to provide 24-7 care at this time, she will benefit from ongoing rehab Allergies Coded Allergies: bee venom protein (honey bee) (Verified Allergy, Unknown, 11/19/20) povidone-iodine (Verified Allergy, Unknown, 11/19/20) Uncoded Allergies: douglas's orgininal chewy candy (Allergy, Intermediate, itchy tongue , 12/10/20) Vital Signs Vital Signs Date Time Temp Pulse Resp B/P (MAP) Pulse Ox O2 Delivery O2 Flow Rate FiO2 12/18/20 06:00 98.8 90 18 128/61 (83) 93 Room Air Current Medications Current Medications Current Medications Medications (Trade) Dose Ordered Sig/Franck Route PRN Reason Start Time Stop Time Status Last Admin Dose Admin Acetaminophen (Tylenol Tab) 650 mg QID PO 12/03/20 17:00 12/18/20 07:11 Al Hydrox/Mg Hydrox/Simethicone (Mylanta) 30 ml Q4HP PRN PO DYSPEPSIA 12/03/20 13:10 12/03/20 20:31 Albuterol/ Ipratropium (Combivent Respimat 100-20mcg) 1 puff RTID INH 12/04/20 14:00 12/17/20 19:53 Artificial Tears (Akwa Tears) 2 drop QID OU 12/08/20 16:05 12/18/20 07:12 Aspirin (Ecotrin) 81 mg DAILY PO 12/04/20 09:00 12/18/20 07:10 Bisacodyl (Dulcolax Suppository) 10 mg DAILYPRN PRN HI CONSTIPATION 12/03/20 13:10 Cyanocobalamin (Vitamin B12) 1,500 mcg DAILY PO 12/04/20 09:00 12/18/20 07:10 Diphenhydramine HCl (Benadryl) 25 mg Q6HP PRN PO ITCHING 12/10/20 12:45 12/10/20 19:27 Docusate Sodium (Colace) 100 mg BID PO 12/03/20 21:00 12/04/20 11:47 DC 12/04/20 07:20 Docusate Sodium (Colace) 100 mg TID PO 12/04/20 16:00 12/18/20 07:11 Enoxaparin Sodium (Lovenox) 40 mg DAILY SC 12/04/20 09:00 12/18/20 07:12 Furosemide (Lasix) 20 mg DAILY PO 12/05/20 09:00 12/18/20 07:10 Gabapentin (Neurontin) 100 mg TID PO 12/03/20 16:00 12/12/20 15:04 DC 12/12/20 07:53 Guaifenesin (Robitussin Tab) 400 mg TID PO 12/04/20 16:00 12/17/20 21:34 Lactobacillus Acidophilus (Bacid) 1 ea TID PO 12/04/20 16:00 12/18/20 07:12 Levofloxacin (Levaquin) 750 mg DAILY@06 PO 12/07/20 06:00 12/11/20 06:01 DC 12/11/20 05:12 Lidocaine (Lidoderm Patch) 2 patch DAILY TD 12/04/20 09:00 12/18/20 07:12 Magnesium Oxide (Mag-Ox) 400 mg DAILY PO 12/04/20 09:00 12/18/20 07:11 Metoprolol Tartrate (Lopressor) 25 mg Q8H PO 12/16/20 22:00 12/18/20 05:23 Multivitamins (Ocuvite(I-Zaira)) 1 tab DAILY PO 12/04/20 09:00 12/18/20 07:11 Non-Formulary Medication ( See Comment Field Below ) REMOVE LIDODERM PATCH DAILY@21 XX 12/03/20 21:00 12/17/20 21:33 Omeprazole (PriLOSEC) 20 mg DAILY PO 12/04/20 09:00 12/18/20 07:11 Piperacillin Sod/ Tazobactam Sod 4.5 gm/Dextrose 50 ml @ 50 mls/hr Q6H IV 12/04/20 14:00 12/06/20 23:00 DC 12/06/20 20:12 Polyethylene Glycol (Miralax) 1 pkt DAILY PO 12/04/20 08:45 12/11/20 07:42 Potassium Chloride (Micro-K Extencaps) 10 meq DAILY PO 12/09/20 09:00 12/18/20 07:12 Saliva Substitute (Mouthkote) 2 sprays QID MT 12/04/20 13:00 12/10/20 08:25 DC 12/09/20 20:58 Senna (Senokot) 1 tab QHS PO 12/03/20 21:00 12/17/20 21:34 Sodium Chloride (Sodium Chloride) 1 gm DAILY PO 12/04/20 09:00 12/04/20 12:37 DC 12/04/20 07:22 Tamsulosin HCl (Flomax) 0.4 mg QHS PO 12/12/20 21:00 12/17/20 21:34 Tramadol HCl (Ultram) 50 mg BID@0600,2100 PO 12/04/20 21:00 12/18/20 05:19 Tramadol HCl (Ultram) 50 mg Q4HP PRN PO MODERATE PAIN (PS 5-7) 12/03/20 13:10 12/04/20 11:47 DC 12/04/20 04:48 Tramadol HCl (Ultram) 50 mg Q8HP PRN PO MODERATE PAIN (PS 5-7) 12/04/20 11:45 12/15/20 01:11 MICHAEL NEGRO MD Dec 18, 2020 09:45
[2020-12-18] MEDS ORDERED: PILL CUTTER 1 EACH XX PRN (13:30)
[2020-12-18 14:00] VITALS: BP 98/53
[2020-12-18 20:00] VITALS: BP 125/67
[2020-12-18] MEDS: SENNA 8.6 MG TAB (SENOKOT) PO SCH (21:21)
[2020-12-18] MEDS: TAMSULOSIN 0.4 MG CAP PO SCH (21:21)
[2020-12-18] MEDS: **NOTE PATIENT COMMENT** MISC XX SCH (21:21)
[2020-12-19] MEDS: METOPROLOL TART 25 MG TABLET PO SCH ×3 (05:39→21:18)
[2020-12-19] MEDS: traMADol 50 MG TAB PO SCH ×2 (05:40→21:00)
[2020-12-19 05:54] VITALS: BP 124/60
[2020-12-19 06:00] VITALS: BP 113/58
[2020-12-19] MEDS: COMBIVENT RESPIMAT 100-20MCG INHALER 4GM INH SCH ×3 (07:12→20:24)
[2020-12-19 09:38] LABS: BASO % 0.7 % (0.0-1.0); EOS % 0.4 % (0.0-3.0); HEMOGLOBIN 12.1 g/dl (12.0-15.5); LYMPH # 0.6 10^3/uL (1.5-5.0); LYMPH % 13.8 % (24.0-44.0); MEAN CORPUSCULAR HEMOGLOBIN 32.8 pg (27.0-33.0); MEAN CORPUSCULAR HGB CONC 33.6 g/dl (32.0-36.5); MEAN CORPUSCULAR VOLUME 97.6 fl (80.0-96.0); MONO # 0.5 10^3/uL (0.0-0.8); MONO % 10.2 % (2.0-8.0); NEUTROPHILS # 3.4 10^3/uL (1.5-8.5); NEUTROPHILS % 74.5 % (36.0-66.0); PLATELET COUNT, AUTOMATED 365 10^3/uL (150-450); RED BLOOD COUNT 3.69 10^6/uL (4.00-5.40); WHITE BLOOD COUNT 4.5 10^3/uL (4.0-10.0)
[2020-12-19 10:12] LABS: BLOOD UREA NITROGEN 16 MG/DL (7-18); CALCIUM LEVEL 8.9 MG/DL (8.8-10.2); CARBON DIOXIDE LEVEL 26 MEQ/L (21-32); CHLORIDE LEVEL 109 MEQ/L (98-107); CREATININE FOR GFR 0.74 MG/DL (0.55-1.30); GLOMERULAR FILTRATION RATE > 60.0 (>32); GLUCOSE, FASTING 133 MG/DL (70-100); POTASSIUM SERUM 4.2 MEQ/L (3.5-5.1); SODIUM LEVEL 140 MEQ/L (136-145)
[2020-12-19] MEDS: MIRALAX *UNIT DOSE* 17GM PACKET PO SCH (11:00)
[2020-12-19] MEDS: LIDOCAINE 5% (LIDODERM) PATCH TD SCH (11:01)
[2020-12-19] MEDS: OMEPRAZOLE 20 MG CAP PO SCH (11:02)
[2020-12-19] MEDS: DOCUSATE SODIUM 100MG CAPSULE PO SCH ×3 (11:02→21:00)
[2020-12-19] MEDS: LACTOBACILLUS ACIDOPHILUS CAP (BACID) PO SCH ×3 (11:02→21:19)
[2020-12-19] MEDS: CYANOCOBALAMIN 500 MCG TAB PO SCH (11:02)
[2020-12-19] MEDS: OCUVITE 1 TAB PO SCH (11:02)
[2020-12-19] MEDS: ACETAMINOPHEN TAB 650MG DOSE (2X325MG) PO SCH ×4 (11:03→21:18)
[2020-12-19] MEDS: FUROSEMIDE 20 MG TAB PO SCH (11:03)
[2020-12-19] MEDS: ENOXAPARIN 40MG/0.4ML SYRINGE (J1650 PER 10MG) SC SCH (11:04)
[2020-12-19] MEDS: MAGNESIUM OXIDE 400MG TAB (MAG-OX) PO SCH (11:04)
[2020-12-19] MEDS: guaiFENesin 200 MG TAB PO SCH ×3 (11:04→21:16)
[2020-12-19] MEDS: ASPIRIN 81MG ENTERIC TABLET PO SCH (11:04)
[2020-12-19] MEDS: POLYVINYL ALCOHOL OPHTH SOLN 15 ML(LIQUITEARS) OU SCH ×4 (11:05→21:19)
[2020-12-19] MEDS: REMEDY PHYTOPLEX Z-GUARD PASTE 113GM TUBE (FROM STOREROOM PRODUCT) TOP SCH ×3 (11:05→21:20)
[2020-12-19] MEDS: POTASSIUM CHLORIDE 10 MEQ SR TABLET PO SCH (11:06)
[2020-12-19 14:00] VITALS: BP 100/55
--- NOTE | 2020-12-19 14:07 | IPNPDOC ---
PM&R Progress Note DATE OF SERVICE: Dec 19, 2020 Boot And Shoe Laborer Progress Note Subjective: Patient stating she continues to feel well and that her pain is well controlled on the lower dose of tramadol. REVIEW OF SYSTEMS: The following is a completed review of systems and has been reviewed. Review of systems otherwise unremarkable. PAIN: Patient self reports left leg pain and low back EYES: No recent vision changes, chronic diplopia EARS, NOSE, & THROAT: No throat pain, + reports difficulty swallowing due to dry mouth (resolved) CARDIOVASCULAR: Denies chest pain or palpitations PULMONARY: denies cough or shortness of breath GASTROINTESTINAL: + constipation (resolved) GENITOURINARY: denies dysuria, intermittent retention (improving) MUSCULOSKELETAL: left sided weakness (improving) NEUROLOGICAL:denies tremor or paresthesias HEMATOLOGICAL: denies easy bruising SKIN: denies rash PSYCHIATRIC: Unremarkable All other review of systems found to be negative. PHYSICAL EXAMINATION: VITAL SIGNS: Please see below. GENERAL: Pleasant and cooperative. No acute distress. HEENT: PERRL. Extraocular movements intact. Clear conjunctiva, tongue (not swollen) with several raised papules CARDIOVASCULAR: Regular rate and rhythm. No murmurs, rubs, or gallops LUNGS: Clear to auscultation bilaterally. No wheezes. No rhonchi ABDOMEN: Soft, nontender, mildly distended, non-tender to palpation, Positive bowel sounds NEUROLOGICAL: Alert and oriented times three. Cranial nerves II through XII grossly intact. Sensation grossly intact in all 4 limbs, tina-anal region intact to light touch EXTREMITIES: 5-\\5 strength bilateral upper extremities. 5\\5 strength right lower extremity. 4-/5 strength in left lower extremity. +bilat LE edema (resolved) SKIN: no sacral erythema ASSESSMENT:85-year-old F with past medical history of 2 CVAs, diastolic CHF, chronic low back pain s/p recent lumbar facet blocks with left leg weakness who presents status post encephalopathy due to hyponatremia and polypharmacy PLAN: 1. Rehab- PT/OT advance mobility and ADLs, strengthen/stretch/maintain ROM all 4 limbs, brace left leg as needed, ambulating further with RW -HIGHWAY LANDSCAPE ARCHITECT for swallow eval, patient's dysphagia improving, upgraded to regular diet 2. Neuro-recent admission for metabolic encephalopathy due to hyponatremia and polypharmacy, monitor on ARU, judicious with pain meds - hx of CVAs with diplopia, c/u secondary stroke prevention, ASA 3. 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 Multilevel neural foraminal narrowing as above. Degenerative spondylolisthesis at L4-5 and degenerative retrolisthesis at L1-2. Chronic partial anterior wedging L5 vertebral body." s/p bilat L4-L5, L5-S1 facet blocks on 10-02-20, patient and family reporting her left leg became very weak about 3 weeks ago, patient subjective decreased sensation in the perianal region (sensation intact on exam), no bowel/bladder incontinence however out of concern for possible cauda equina MRI ordered showing multilevel neural foraminal and canal stenosis, no cauda equina, images sent to Ortho clinic in [place] and reviewed by provider, patient seen by ortho group 12-12-20 spoke with ortho group at [facility] and they state surgical intervention is not urgent, it will be a same day procedure that they will set it up over the next several weeks, that patient can continue getting ongoing rehab -flexion extension X-rays negative for spondylolisthesis instability 3. Cardiac- chronic diastolic CHF, daily weights, fluid restrict, c/u on daily lasix and monitor, patient breathing c/u to improve 4. Resp- CXR 12-04-20 showing left sided infiltrate and new left sided pleural effusion, started on zosyn for possible aspiration PNA switched to po levaquin which has been completed 5. [facility]- patient reporting she has had clots in her legs in the past? -Doppler negative for DVT bilat - on lovenox currently for DVT ppx 6. GI ppx- omeprazole -constipation resolved, patient denies incontinence 7. Pain- gabapentin d/c'd due to dry mouth causing dysphagia, cont tylneol, tramadol, lidoderm patch 8. - monitor PVRs, patient voiding better since starting flomax and a q2h voiding schedule 9. Electrolytes- recent hyponatremia due to SIADH, Na normalized, c/u off salt tabs given concern for possible fluid overload, and c/u to monitor-stable 11. Code: DNR trial of Intubation 12. Allergy- patient had allergic reaction 12-10-20 most likely due to Werther's original caramel chewy candies, unclear what component of candy was a trigger, she did not develop tongue swelling, but did have an itchy tongue with inflamed/slightly enlarged tongue papules in addition to a heavy feeling on her chest (likely due to allergic reaction), her symptoms resolved with Benadryl given at 8am and noon, prn Benadryl ordered as well, no signs of respiratory di stress- no further issues -CK/trop ordered due to transient chest pressure which came back negative- no further issues -also stopped mouthkote as may be irritating her tongue, she has been receiving this since 12-04-20 so could be a delayed hypersensitivity reaction, but more likely it is a food allergy- no further symptoms 13. Dispo- patient's family unable to provide 24-7 care at this time, she will benefit from ongoing rehab Allergies Coded Allergies: bee venom protein (honey bee) (Verified Allergy, Unknown, 11/19/20) povidone-iodine (Verified Allergy, Unknown, 11/19/20) Uncoded Allergies: ariadna's orgininal chewy candy (Allergy, Intermediate, itchy tongue , 12/10/20) Vital Signs Vital Signs Date Time Temp Pulse Resp B/P (MAP) Pulse Ox O2 Delivery O2 Flow Rate FiO2 12/19/20 05:54 98.2 77 18 124/60 (81) 95 Room Air Laboratory Data CBC/BMP Laboratory Tests 12/19/20 09:21 Labs 24H Laboratory Tests 2 12/19/20 09:21: Immature Granulocyte % (Auto) 0.4, Neutrophils (%) (Auto) 74.5H, Lymphocytes (%) (Auto) 13.8L, Monocytes (%) (Auto) 10.2H, Eosinophils (%) (Auto) 0.4, Basophils (%) (Auto) 0.7, Neutrophils # (Auto) 3.4, Lymphocytes # (Auto) 0.6L, Monocytes # (Auto) 0.5, Eosinophils # (Auto) 0.0, Basophils # (Auto) 0.0, Nucleated Red Blood Cells % (auto) 0.0, Anion Gap 5L, Glomerular Filtration Rate > 60.0, Calcium Level 8.9 Current Medications Current Medications Current Medications Medications (Trade) Dose Ordered Sig/Franck Route PRN Reason Start Time Stop Time Status Last Admin Dose Admin Acetaminophen (Tylenol Tab) 650 mg QID PO 12/03/20 17:00 12/19/20 11:03 Al Hydrox/Mg Hydrox/Simethicone (Mylanta) 30 ml Q4HP PRN PO DYSPEPSIA 12/03/20 13:10 12/03/20 20:31 Albuterol/ Ipratropium (Combivent Respimat 100-20mcg) 1 puff RTID INH 12/04/20 14:00 12/19/20 12:50 Artificial Tears (Akwa Tears) 2 drop QID OU 12/08/20 16:05 12/19/20 11:05 Aspirin (Ecotrin) 81 mg DAILY PO 12/04/20 09:00 12/19/20 11:04 Bisacodyl (Dulcolax Suppository) 10 mg DAILYPRN PRN [place] CONSTIPATION 12/03/20 13:10 Cyanocobalamin (Vitamin B12) 1,500 mcg DAILY PO 12/04/20 09:00 12/19/20 11:02 Diphenhydramine HCl (Benadryl) 25 mg Q6HP PRN PO ITCHING 12/10/20 12:45 12/10/20 19:27 Docusate Sodium (Colace) 100 mg BID PO 12/03/20 21:00 12/04/20 11:47 DC 12/04/20 07:20 Docusate Sodium (Colace) 100 mg TID PO 12/04/20 16:00 12/19/20 11:02 Enoxaparin Sodium (Lovenox) 40 mg DAILY SC 12/04/20 09:00 12/19/20 11:04 Furosemide (Lasix) 20 mg DAILY PO 12/05/20 09:00 12/18/20 07:10 Gabapentin (Neurontin) 100 mg TID PO 12/03/20 16:00 12/12/20 15:04 DC 12/12/20 07:53 Guaifenesin (Robitussin Tab) 400 mg TID PO 12/04/20 16:00 12/19/20 11:04 Lactobacillus Acidophilus (Bacid) 1 ea TID PO 12/04/20 16:00 12/19/20 11:02 Levofloxacin (Levaquin) 750 mg DAILY@06 PO 12/07/20 06:00 12/11/20 06:01 DC 12/11/20 05:12 Lidocaine (Lidoderm Patch) 2 patch DAILY TD 12/04/20 09:00 12/19/20 11:01 Magnesium Oxide (Mag-Ox) 400 mg DAILY PO 12/04/20 09:00 12/19/20 11:04 Metoprolol Tartrate (Lopressor) 25 mg Q8H PO 12/16/20 22:00 12/19/20 05:39 Multivitamins (Ocuvite(I-Zaira)) 1 tab DAILY PO 12/04/20 09:00 12/19/20 11:02 Non-Formulary Medication ( See Comment Field Below ) REMOVE LIDODERM PATCH DAILY@ XX 12/03/20 21:00 12/18/20 21:21 Omeprazole (PriLOSEC) 20 mg DAILY PO 12/04/20 09:00 12/19/20 11:02 Piperacillin Sod/ Tazobactam Sod 4.5 gm/Dextrose 50 ml @ 50 mls/hr Q6H IV 12/04/20 14:00 12/06/20 23:00 DC 12/06/20 20:12 Polyethylene Glycol (Miralax) 1 pkt DAILY PO 12/04/20 08:45 12/19/20 11:00 Potassium Chloride (Micro-K Extencaps) 10 meq DAILY PO 12/09/20 09:00 12/19/20 11:06 Saliva Substitute (Mouthkote) 2 sprays QID MT 12/04/20 13:00 12/10/20 08:25 DC 12/09/20 20:58 Senna (Senokot) 1 tab QHS PO 12/03/20 21:00 12/18/20 21:21 Sodium Chloride (Sodium Chloride) 1 gm DAILY PO 12/04/20 09:00 12/04/20 12:37 DC 12/04/20 07:22 Tamsulosin HCl (Flomax) 0.4 mg QHS PO 12/12/20 21:00 12/18/20 21:21 Tramadol HCl (Ultram) 25 mg BID@0600,2100 PO 12/18/20 21:00 12/19/20 05:40 Tramadol HCl (Ultram) 50 mg BID@0600,2100 PO 12/04/20 21:00 12/18/20 13:24 DC 12/18/20 05:19 Tramadol HCl (Ultram) 50 mg Q4HP PRN PO MODERATE PAIN (PS 5-7) 12/03/20 13:10 12/04/20 11:47 DC 12/04/20 04:48 Tramadol HCl (Ultram) 50 mg Q8HP PRN PO MODERATE PAIN (PS 5-7) 12/04/20 11:45 12/18/20 13:24 DC 12/15/20 01:11 MICHAEL NEGRO MD Dec 19, 2020 14:07
[2020-12-19 20:00] VITALS: BP 113/58
[2020-12-19] MEDS: SENNA 8.6 MG TAB (SENOKOT) PO SCH (21:00)
[2020-12-19] MEDS: **NOTE PATIENT COMMENT** MISC XX SCH (21:18)
[2020-12-19] MEDS: TAMSULOSIN 0.4 MG CAP PO SCH (21:19)
[2020-12-20] MEDS: METOPROLOL TART 25 MG TABLET PO SCH ×3 (06:15→21:12)
[2020-12-20] MEDS: traMADol 50 MG TAB PO SCH ×2 (06:16→20:24)
[2020-12-20 06:27] VITALS: BP 133/63
[2020-12-20] MEDS: COMBIVENT RESPIMAT 100-20MCG INHALER 4GM INH SCH ×3 (07:07→20:18)
[2020-12-20] MEDS: REMEDY PHYTOPLEX Z-GUARD PASTE 113GM TUBE (FROM STOREROOM PRODUCT) TOP SCH ×3 (09:00→20:25)
[2020-12-20] MEDS: FUROSEMIDE 20 MG TAB PO SCH (09:00)
[2020-12-20] MEDS: LIDOCAINE 5% (LIDODERM) PATCH TD SCH (09:24)
[2020-12-20] MEDS: MIRALAX *UNIT DOSE* 17GM PACKET PO SCH (09:24)
[2020-12-20] MEDS: ACETAMINOPHEN TAB 650MG DOSE (2X325MG) PO SCH ×4 (09:25→20:24)
[2020-12-20] MEDS: DOCUSATE SODIUM 100MG CAPSULE PO SCH ×3 (09:25→20:27)
[2020-12-20] MEDS: CYANOCOBALAMIN 500 MCG TAB PO SCH (09:25)
[2020-12-20] MEDS: guaiFENesin 200 MG TAB PO SCH ×3 (09:25→20:24)
[2020-12-20] MEDS: ASPIRIN 81MG ENTERIC TABLET PO SCH (09:25)
[2020-12-20] MEDS: OMEPRAZOLE 20 MG CAP PO SCH (09:25)
[2020-12-20] MEDS: POTASSIUM CHLORIDE 10 MEQ SR TABLET PO SCH (09:25)
[2020-12-20] MEDS: LACTOBACILLUS ACIDOPHILUS CAP (BACID) PO SCH ×3 (09:26→20:24)
[2020-12-20] MEDS: MAGNESIUM OXIDE 400MG TAB (MAG-OX) PO SCH (09:26)
[2020-12-20] MEDS: OCUVITE 1 TAB PO SCH (09:26)
[2020-12-20] MEDS: ENOXAPARIN 40MG/0.4ML SYRINGE (J1650 PER 10MG) SC SCH (09:28)
[2020-12-20] MEDS: POLYVINYL ALCOHOL OPHTH SOLN 15 ML(LIQUITEARS) OU SCH ×4 (09:29→20:25)
[2020-12-20 14:00] VITALS: BP 129/64
[2020-12-20] MEDS: TAMSULOSIN 0.4 MG CAP PO SCH (20:24)
[2020-12-20] MEDS: **NOTE PATIENT COMMENT** MISC XX SCH (20:25)
[2020-12-20] MEDS: SENNA 8.6 MG TAB (SENOKOT) PO SCH (20:27)
[2020-12-20 20:30] VITALS: BP 126/61
[2020-12-21] MEDS: METOPROLOL TART 25 MG TABLET PO SCH ×3 (05:58→21:22)
[2020-12-21] MEDS: traMADol 50 MG TAB PO SCH ×2 (05:59→21:20)
[2020-12-21 06:00] VITALS: BP 127/63
[2020-12-21] MEDS: COMBIVENT RESPIMAT 100-20MCG INHALER 4GM INH SCH ×3 (07:13→19:44)
[2020-12-21] MEDS: CYANOCOBALAMIN 500 MCG TAB PO SCH (08:16)
[2020-12-21] MEDS: MAGNESIUM OXIDE 400MG TAB (MAG-OX) PO SCH (08:16)
[2020-12-21] MEDS: FUROSEMIDE 20 MG TAB PO SCH (08:16)
[2020-12-21] MEDS: OMEPRAZOLE 20 MG CAP PO SCH (08:16)
[2020-12-21] MEDS: guaiFENesin 200 MG TAB PO SCH ×3 (08:16→21:13)
[2020-12-21] MEDS: LACTOBACILLUS ACIDOPHILUS CAP (BACID) PO SCH ×3 (08:16→21:13)
[2020-12-21] MEDS: ASPIRIN 81MG ENTERIC TABLET PO SCH (08:16)
[2020-12-21] MEDS: LIDOCAINE 5% (LIDODERM) PATCH TD SCH (08:17)
[2020-12-21] MEDS: ACETAMINOPHEN TAB 650MG DOSE (2X325MG) PO SCH ×4 (08:17→21:20)
[2020-12-21] MEDS: ENOXAPARIN 40MG/0.4ML SYRINGE (J1650 PER 10MG) SC SCH (08:17)
[2020-12-21] MEDS: OCUVITE 1 TAB PO SCH (08:17)
[2020-12-21] MEDS: POTASSIUM CHLORIDE 10 MEQ SR TABLET PO SCH (08:17)
[2020-12-21] MEDS: MIRALAX *UNIT DOSE* 17GM PACKET PO SCH (08:18)
[2020-12-21] MEDS: POLYVINYL ALCOHOL OPHTH SOLN 15 ML(LIQUITEARS) OU SCH ×4 (08:18→21:20)
[2020-12-21] MEDS: DOCUSATE SODIUM 100MG CAPSULE PO SCH ×3 (08:18→21:00)
[2020-12-21] MEDS: REMEDY PHYTOPLEX Z-GUARD PASTE 113GM TUBE (FROM STOREROOM PRODUCT) TOP SCH ×3 (08:18→21:21)
[2020-12-21 14:00] VITALS: BP 96/52
[2020-12-21 20:00] VITALS: BP 101/55
[2020-12-21] MEDS: SENNA 8.6 MG TAB (SENOKOT) PO SCH (21:00)
[2020-12-21] MEDS: TAMSULOSIN 0.4 MG CAP PO SCH (21:13)
[2020-12-21] MEDS: **NOTE PATIENT COMMENT** MISC XX SCH (21:21)
[2020-12-22 06:00] VITALS: BP 116/58
[2020-12-22 06:47] LABS: BASO % 0.4 % (0.0-1.0); EOS # 0.1 10^3/uL (0.0-0.5); EOS % 1.5 % (0.0-3.0); HEMATOCRIT 37.6 % (36.0-47.0); HEMOGLOBIN 12.6 g/dl (12.0-15.5); LYMPH # 1.2 10^3/uL (1.5-5.0); LYMPH % 24.8 % (24.0-44.0); MEAN CORPUSCULAR HEMOGLOBIN 32.9 pg (27.0-33.0); MEAN CORPUSCULAR HGB CONC 33.5 g/dl (32.0-36.5); MEAN CORPUSCULAR VOLUME 98.2 fl (80.0-96.0); MONO # 0.5 10^3/uL (0.0-0.8); MONO % 9.6 % (2.0-8.0); NEUTROPHILS # 2.9 10^3/uL (1.5-8.5); NEUTROPHILS % 63.1 % (36.0-66.0); PLATELET COUNT, AUTOMATED 395 10^3/uL (150-450); RED BLOOD COUNT 3.83 10^6/uL (4.00-5.40); WHITE BLOOD COUNT 4.7 10^3/uL (4.0-10.0)
[2020-12-22] MEDS: traMADol 50 MG TAB PO SCH ×2 (07:12→20:51)
[2020-12-22] MEDS: METOPROLOL TART 25 MG TABLET PO SCH ×3 (07:13→21:35)
[2020-12-22 07:14] LABS: BLOOD UREA NITROGEN 17 MG/DL (7-18); CALCIUM LEVEL 8.5 MG/DL (8.8-10.2); CARBON DIOXIDE LEVEL 24 MEQ/L (21-32); CHLORIDE LEVEL 109 MEQ/L (98-107); CREATININE FOR GFR 0.58 MG/DL (0.55-1.30); GLOMERULAR FILTRATION RATE > 60.0 (>32); GLUCOSE, FASTING 105 MG/DL (70-100); POTASSIUM SERUM 4.1 MEQ/L (3.5-5.1); SODIUM LEVEL 139 MEQ/L (136-145)
[2020-12-22] MEDS: MIRALAX *UNIT DOSE* 17GM PACKET PO SCH (09:00)
[2020-12-22] MEDS: DOCUSATE SODIUM 100MG CAPSULE PO SCH ×3 (09:00→20:51)
[2020-12-22] MEDS: ENOXAPARIN 40MG/0.4ML SYRINGE (J1650 PER 10MG) SC SCH (09:29)
[2020-12-22] MEDS: LIDOCAINE 5% (LIDODERM) PATCH TD SCH (09:29)
[2020-12-22] MEDS: LACTOBACILLUS ACIDOPHILUS CAP (BACID) PO SCH ×3 (09:30→20:50)
[2020-12-22] MEDS: OCUVITE 1 TAB PO SCH (09:30)
[2020-12-22] MEDS: ASPIRIN 81MG ENTERIC TABLET PO SCH (09:30)
[2020-12-22] MEDS: FUROSEMIDE 20 MG TAB PO SCH (09:31)
[2020-12-22] MEDS: POTASSIUM CHLORIDE 10 MEQ SR TABLET PO SCH (09:32)
[2020-12-22] MEDS: CYANOCOBALAMIN 500 MCG TAB PO SCH (09:32)
[2020-12-22] MEDS: guaiFENesin 200 MG TAB PO SCH ×3 (09:32→20:50)
[2020-12-22] MEDS: MAGNESIUM OXIDE 400MG TAB (MAG-OX) PO SCH (09:32)
[2020-12-22] MEDS: ACETAMINOPHEN TAB 650MG DOSE (2X325MG) PO SCH ×4 (09:33→20:51)
[2020-12-22] MEDS: OMEPRAZOLE 20 MG CAP PO SCH (09:34)
--- NOTE | 2020-12-22 09:36 | IPNPDOC ---
PM&R Progress Note DATE OF SERVICE: Dec 22, 2020 Automotive Technology Instructor Progress Note Subjective: Patient stating she feels stronger each day, no new cough, no new pain, and she is ready to go to short term rehab once there is a bed available. REVIEW OF SYSTEMS: The following is a completed review of systems and has been reviewed. Review of systems otherwise unremarkable. PAIN: Patient self reports left leg pain and low back EYES: No recent vision changes, chronic diplopia EARS, NOSE, & THROAT: No throat pain, + reports difficulty swallowing due to dry mouth (resolved) CARDIOVASCULAR: Denies chest pain or palpitations PULMONARY: denies cough or shortness of breath GASTROINTESTINAL: + constipation (resolved) GENITOURINARY: denies dysuria, intermittent retention (improving) MUSCULOSKELETAL: left sided weakness (improving) NEUROLOGICAL:denies tremor or paresthesias HEMATOLOGICAL: denies easy bruising SKIN: denies rash PSYCHIATRIC: Unremarkable All other review of systems found to be negative. PHYSICAL EXAMINATION: VITAL SIGNS: Please see below. GENERAL: Pleasant and cooperative. No acute distress. HEENT: PERRL. Extraocular movements intact. Clear conjunctiva CARDIOVASCULAR: Regular rate and rhythm. No murmurs, rubs, or gallops LUNGS: Clear to auscultation bilaterally. No wheezes. No rhonchi ABDOMEN: Soft, nontender, mildly distended, non-tender to palpation, Positive bowel sounds NEUROLOGICAL: Alert and oriented times three. Cranial nerves II through XII grossly intact. Sensation grossly intact in all 4 limbs, tina-anal region intact to light touch EXTREMITIES: 5-\\5 strength bilateral upper extremities. 5\\5 strength right lower extremity. 4+/5 strength in left lower extremity. +bilat LE edema (resolved) SKIN: no sacral erythema ASSESSMENT:85-year-old F with past medical history of 2 CVAs, diastolic CHF, ch ronic low back pain s/p recent lumbar facet blocks with left leg weakness who presents status post encephalopathy due to hyponatremia and polypharmacy PLAN: 1. Rehab- PT/OT advance mobility and ADLs, strengthen/stretch/maintain ROM all 4 limbs, brace left leg as needed, ambulating further with RW -TELEGRAPH EDITOR for swallow eval, patient's dysphagia improving, upgraded to regular diet 2. Neuro-recent admission for metabolic encephalopathy due to hyponatremia and polypharmacy, monitor on ARU, judicious with pain meds - hx of CVAs with diplopia, c/u secondary stroke prevention, ASA 3. 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 Multilevel neural foraminal narrowing as above. Degenerative spondylolisthesis at L4-5 and degenerative retrolisthesis at L1-2. Chronic partial anterior wedging L5 vertebral body." s/p bilat L4-L5, L5-S1 facet blocks on 10-02-20, patient and family reporting her left leg became very weak about 3 weeks ago, patient subjective decreased sensation in the perianal r egion (sensation intact on exam), no bowel/bladder incontinence however out of concern for possible cauda equina MRI ordered showing multilevel neural foraminal and canal stenosis, no cauda equina, images sent to Ortho clinic in [place] and reviewed by provider, patient seen by ortho group 12-12-20 spoke with ortho group at [facility] and they state surgical intervention is not urgent, it will be a same day procedure that they will set it up over the next several weeks, that patient can continue getting ongoing rehab -flexion extension X-rays negative for spondylolisthesis instability 3. Cardiac- chronic diastolic CHF, daily weights, fluid restrict, c/u on daily lasix and monitor, patient breathing c/u to improve 4. Resp- CXR 12-04-20 showing left sided infiltrate and new left sided pleural effusion, started on zosyn for possible aspiration PNA switched to po levaquin w hich has been completed 5. [facility]- patient reporting she has had clots in her legs in the past? -Doppler negative for DVT bilat - on lovenox currently for DVT ppx 6. GI ppx- omeprazole -constipation resolved, patient denies incontinence 7. Pain- gabapentin d/c'd due to dry mouth causing dysphagia, cont tylneol, tramadol, lidoderm patch 8. - monitor PVRs, patient voiding better since starting flomax and a q2h voiding schedule 9. Electrolytes- recent hyponatremia due to SIADH, Na normalized, c/u off salt tabs given concern for possible fluid overload, and c/u to monitor-stable 11. Code: DNR trial of Intubation 12. Allergy- patient had allergic reaction 7-28-21 most likely due to Douglas's original caramel chewy candies, unclear what component of candy was a trigger, she did not develop tongue swelling, but did have an itchy tongue with inflamed/slightly enlarged tongue papules in addition to a heavy feeling on her chest (likely due to allergic reaction), her symptoms resolved with Benadryl given at 8am and noon, prn Benadryl ordered as well, no signs of respiratory distress- no further issues -CK/trop ordered due to transient chest pressure which came back negative- no further issues -also stopped mouthkote as may be irritating her tongue, she has been receiving this since 12-04-20 so could be a delayed hypersensitivity reaction, but more likely it is a food allergy- no further symptoms 13. Dispo- patient's family unable to provide 24-7 care at this time, she will benefit from ongoing rehab Allergies Coded Allergies: bee venom protein (honey bee) (Verified Allergy, Unknown, 11/19/20) povidone-iodine (Verified Allergy, Unknown, 11/19/20) Uncoded Allergies: douglas's orgininal chewy candy (Allergy, Intermediate, itchy tongue , 12/10/20) Vital Signs Vital Signs Date Time Temp Pulse Resp B/P (MAP) Pulse Ox O2 Delivery O2 Flow Rate FiO2 12/22/20 07:13 96 116/58 12/22/20 07:12 20 Room Air 12/22/20 06:00 98.8 95 Laboratory Data CBC/BMP Laboratory Tests 12/22/20 06:11 Labs 24H Laboratory Tests 2 12/22/20 06:11: Immature Granulocyte % (Auto) 0.6, Neutrophils (%) (Auto) 63.1, Lymphocytes (%) (Auto) 24.8, Monocytes (%) (Auto) 9.6H, Eosinophils (%) (Auto) 1.5, Basophils (%) (Auto) 0.4, Neutrophils # (Auto) 2.9, Lymphocytes # (Auto) 1.2L, Monocytes # (Auto) 0.5, Eosinophils # (Auto) 0.1, Basophils # (Auto) 0.0, Nucleated Red Blood Cells % (auto) 0.0, Anion Gap 6L, Glomerular Filtration Rate > 60.0, Calcium Level 8.5L Current Medications Current Medications Current Medications Medications (Trade) Dose Ordered Sig/Franck Route PRN Reason Start Time Stop Time Status Last Admin Dose Admin Acetaminophen (Tylenol Tab) 650 mg QID PO 12/03/20 17:00 12/21/20 21:20 Al Hydrox/Mg Hydrox/Simethicone (Mylanta) 30 ml Q4HP PRN PO DYSPEPSIA 12/03/20 13:10 12/03/20 20:31 Albuterol/ Ipratropium (Combivent Respimat 100-20mcg) 1 puff RTID INH 12/04/20 14:00 12/21/20 19:44 Artificial Tears (Akwa Tears) 2 drop QID OU 12/08/20 16:05 12/21/20 21:20 Aspirin (Ecotrin) 81 mg DAILY PO 12/04/20 09:00 12/21/20 08:16 Bisacodyl (Dulcolax Suppository) 10 mg DAILYPRN PRN [place] CONSTIPATION 12/03/20 13:10 Cyanocobalamin (Vitamin B12) 1,500 mcg DAILY PO 12/04/20 09:00 12/21/20 08:16 Diphenhydramine HCl (Benadryl) 25 mg Q6HP PRN PO ITCHING 12/10/20 12:45 12/10/20 19:27 Docusate Sodium (Colace) 100 mg BID PO 12/03/20 21:00 12/04/20 11:47 DC 12/04/20 07:20 Docusate Sodium (Colace) 100 mg TID PO 12/04/20 16:00 12/20/20 16:27 Enoxaparin Sodium (Lovenox) 40 mg DAILY SC 12/04/20 09:00 12/21/20 08:17 Furosemide (Lasix) 20 mg DAILY PO 12/05/20 09:00 12/21/20 08:16 Gabapentin (Neurontin) 100 mg TID PO 12/03/20 16:00 12/12/20 15:04 DC 12/12/20 07:53 Guaifenesin (Robitussin Tab) 400 mg TID PO 12/04/20 16:00 12/21/20 21:13 Lactobacillus Acidophilus (Bacid) 1 ea TID PO 12/04/20 16:00 12/21/20 21:13 Levofloxacin (Levaquin) 750 mg DAILY@06 PO 12/07/20 06:00 12/11/20 06:01 DC 12/11/20 05:12 Lidocaine (Lidoderm Patch) 2 patch DAILY TD 12/04/20 09:00 12/21/20 08:17 Magnesium Oxide (Mag-Ox) 400 mg DAILY PO 12/04/20 09:00 12/21/20 08:16 Metoprolol Tartrate (Lopressor) 25 mg Q8H PO 12/16/20 22:00 12/22/20 07:13 Miscellaneous (Unresolved Clarification Entry) SEE LABEL COMMENTS QID XX 12/21/20 09:00 Multivitamins (Ocuvite(I-Zaira)) 1 tab DAILY PO 12/04/20 09:00 12/21/20 08:17 Non-Formulary Medication ( See Comment Field Below ) REMOVE LIDODERM PATCH DAILY@21 XX 12/03/20 21:00 12/21/20 21:21 Omeprazole (PriLOSEC) 20 mg DAILY PO 12/04/20 09:00 12/21/20 08:16 Piperacillin Sod/ Tazobactam Sod 4.5 gm/Dextrose 50 ml @ 50 mls/hr Q6H IV 12/04/20 14:00 12/06/20 23:00 DC 12/06/20 20:12 Polyethylene Glycol (Miralax) 1 pkt DAILY PO 12/04/20 08:45 12/20/20 09:24 Potassium Chloride (Micro-K Extencaps) 10 meq DAILY PO 12/09/20 09:00 12/21/20 08:17 Saliva Substitute (Mouthkote) 2 sprays QID MT 12/04/20 13:00 12/10/20 08:25 DC 12/09/20 20:58 Senna (Senokot) 1 tab QHS PO 12/03/20 21:00 12/18/20 21:21 Sodium Chloride (Sodium Chloride) 1 gm DAILY PO 12/04/20 09:00 12/04/20 12:37 DC 12/04/20 07:22 Tamsulosin HCl (Flomax) 0.4 mg QHS PO 12/12/20 21:00 12/21/20 21:13 Tramadol HCl (Ultram) 25 mg BID@0600,2100 PO 12/18/20 21:00 12/22/20 07:12 Tramadol HCl (Ultram) 50 mg BID@0600,2100 PO 12/04/20 21:00 12/18/20 13:24 DC 12/18/20 05:19 Tramadol HCl (Ultram) 50 mg Q4HP PRN PO MODERATE PAIN (PS 5-7) 12/03/20 13:10 12/04/20 11:47 DC 12/04/20 04:48 Tramadol HCl (Ultram) 50 mg Q8HP PRN PO MODERATE PAIN (PS 5-7) 12/04/20 11:45 12/18/20 13:24 DC 12/15/20 01:11 MICHAEL NEGRO MD Dec 22, 2020 09:36
[2020-12-22] MEDS: POLYVINYL ALCOHOL OPHTH SOLN 15 ML(LIQUITEARS) OU SCH ×4 (09:56→20:52)
[2020-12-22 09:57] VITALS: BP 116/58
[2020-12-22] MEDS: COMBIVENT RESPIMAT 100-20MCG INHALER 4GM INH SCH ×3 (10:51→20:59)
[2020-12-22] MEDS: REMEDY PHYTOPLEX Z-GUARD PASTE 113GM TUBE (FROM STOREROOM PRODUCT) TOP SCH ×3 (12:17→20:52)
[2020-12-22 14:00] VITALS: BP 98/56
[2020-12-22 20:00] VITALS: BP 118/57
[2020-12-22] MEDS: TAMSULOSIN 0.4 MG CAP PO SCH (20:50)
[2020-12-22] MEDS: SENNA 8.6 MG TAB (SENOKOT) PO SCH (20:51)
[2020-12-22] MEDS: **NOTE PATIENT COMMENT** MISC XX SCH (20:53)
[2020-12-23 06:00] VITALS: BP 104/59
[2020-12-23] MEDS: METOPROLOL TART 25 MG TABLET PO SCH ×3 (06:00→21:21)
[2020-12-23] MEDS: traMADol 50 MG TAB PO SCH ×2 (06:01→21:16)
[2020-12-23] MEDS: COMBIVENT RESPIMAT 100-20MCG INHALER 4GM INH SCH ×3 (07:16→19:31)
[2020-12-23] MEDS: DOCUSATE SODIUM 100MG CAPSULE PO SCH ×3 (09:00→21:00)
[2020-12-23] MEDS: LIDOCAINE 5% (LIDODERM) PATCH TD SCH (09:00)
[2020-12-23] MEDS: MIRALAX *UNIT DOSE* 17GM PACKET PO SCH (09:00)
[2020-12-23] MEDS: OMEPRAZOLE 20 MG CAP PO SCH (09:25)
[2020-12-23] MEDS: LACTOBACILLUS ACIDOPHILUS CAP (BACID) PO SCH ×3 (09:25→21:14)
[2020-12-23] MEDS: guaiFENesin 200 MG TAB PO SCH ×3 (09:25→21:14)
[2020-12-23] MEDS: FUROSEMIDE 20 MG TAB PO SCH (09:25)
[2020-12-23] MEDS: OCUVITE 1 TAB PO SCH (09:25)
[2020-12-23] MEDS: MAGNESIUM OXIDE 400MG TAB (MAG-OX) PO SCH (09:26)
[2020-12-23] MEDS: ENOXAPARIN 40MG/0.4ML SYRINGE (J1650 PER 10MG) SC SCH (09:26)
[2020-12-23] MEDS: POTASSIUM CHLORIDE 10 MEQ SR TABLET PO SCH (09:26)
[2020-12-23] MEDS: CYANOCOBALAMIN 500 MCG TAB PO SCH (09:26)
[2020-12-23] MEDS: ASPIRIN 81MG ENTERIC TABLET PO SCH (09:26)
[2020-12-23] MEDS: POLYVINYL ALCOHOL OPHTH SOLN 15 ML(LIQUITEARS) OU SCH ×4 (09:27→21:16)
[2020-12-23] MEDS: REMEDY PHYTOPLEX Z-GUARD PASTE 113GM TUBE (FROM STOREROOM PRODUCT) TOP SCH ×3 (09:27→21:18)
[2020-12-23] MEDS: ACETAMINOPHEN TAB 650MG DOSE (2X325MG) PO SCH ×3 (09:28→21:15)
--- NOTE | 2020-12-23 12:08 | IPNPDOC ---
PM&R Progress Note DATE OF SERVICE: Dec 23, 2020 Supervisor Welding Equipment Repairer Progress Note Subjective: Patient stating she feels good and her plan after short term rehab is to move into her new home in [place] with her son. She states her left leg is getting stronger and she has no pain. She is agreeable to going to a short term rehab facility that is not in the [place] area if it means she can be transferred sooner. She was open to going to [place]. REVIEW OF SYSTEMS: The following is a completed review of systems and has been reviewed. Review of systems otherwise unremarkable. PAIN: Patient self reports left leg pain and low back EYES: No recent vision changes, chronic diplopia EARS, NOSE, & THROAT: No throat pain, + reports difficulty swallowing due to dry mouth (resolved) CARDIOVASCULAR: Denies chest pain or palpitations PULMONARY: denies cough or shortness of breath GASTROINTESTINAL: + constipation (resolved) GENITOURINARY: denies dysuria, intermittent retention (improving) MUSCULOSKELETAL: left sided weakness (improving) NEUROLOGICAL:denies tremor or paresthesias HEMATOLOGICAL: denies easy bruising SKIN: denies rash PSYCHIATRIC: Unremarkable All other review of systems found to be negative. PHYSICAL EXAMINATION: VITAL SIGNS: Please see below. GENERAL: Pleasant and cooperative. No acute distress. HEENT: PERRL. Extraocular movements intact. Clear conjunctiva CARDIOVASCULAR: Regular rate and rhythm. No murmurs, rubs, or gallops LUNGS: Clear to auscultation bilaterally. No wheezes. No rhonchi ABDOMEN: Soft, nontender, mildly distended, non-tender to palpation, Positive bowel sounds NEUROLOGICAL: Alert and oriented times three. Cranial nerves II through XII grossly intact. Sensation grossly intact in all 4 limbs, tina-anal region intact to light touch EXTREMITIES: 5-\\5 strength bilateral upper extremities. 5\\5 strength right lower extremity. 4+/5 strength in left lower extremity. +bilat LE edema (resolved) SKIN: no sacral erythema ASSESSMENT:85-year-old F with past medical history of 2 CVAs, diastolic CHF, chronic low back pain s/p recent lumbar facet blocks with left leg weakness who presents status post encephalopathy due to hyponatremia and polypharmacy PLAN: 1. Rehab- PT/OT advance mobility and ADLs, strengthen/stretch/maintain ROM all 4 limbs, brace left leg as needed, ambulating further with RW -[employer]S TECHNICIAN for swallow eval, patient's dysphagia improving, upgraded to regular diet 2. Neuro-recent admission for metabolic encephalopathy due to hyponatremia and polypharmacy, monitor on ARU, judicious with pain meds - hx of CVAs with diplopia, c/u secondary stroke prevention, ASA 3. 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 Multilevel neural foraminal narrowing as above. Degenerative spondylolisthesis at L4-5 and degenerative retrolisthesis at L1-2. Chronic partial anterior wedging L5 vertebral body." s/p bilat L4-L5, L5-S1 facet blocks on 10-02-20, patient and family reporting her left leg became very weak about 3 weeks ago, patient subjective decreased sensation in the perianal region (sensation intact on exam), no bowel/bladder incontinence however out of concern for possible cauda equina MRI ordered showing multilevel neural foraminal and canal stenosis, no cauda equina, images sent to Ortho clinic in [place] and reviewed by provider, patient seen by ortho group 12-12-20 spoke with ortho group at [facility] and they state surgical intervention is not urgent, it will be a same day procedure that they will set it up over the next several weeks, that patient can continue getting ongoing rehab -flexion extension X-rays negative for spondylolisthesis instability 3. Cardiac- chronic diastolic CHF, daily weights, fluid restrict, c/u on daily lasix and monitor, patient breathing c/u to improve 4. Resp- CXR 12-04-20 showing left sided infiltrate and new left sided pleural effusion, started on zosyn for possible aspiration PNA switched to po levaquin which has been completed 5. [facility]sc- patient reporting she has had clots in her legs in the past? -Doppler negative for DVT bilat - on lovenox currently for DVT ppx 6. GI ppx- omeprazole -constipation resolved, patient denies incontinence 7. Pain- gabapentin d/c'd due to dry mouth causing dysphagia, cont tylneol, tramadol, lidoderm patch 8. - monitor PVRs, patient voiding better since starting flomax and a q2h voiding schedule 9. Electrolytes- recent hyponatremia due to SIADH, Na normalized, c/u off salt tabs given concern for possible fluid overload, and c/u to monitor-stable 11. Code: DNR trial of Intubation 12. Allergy- patient had allergic reaction 12-10-20 most likely due to Douglas[employer] original caramel chewy candies, unclear what component of candy was a trigger, she did not develop tongue swelling, but did have an itchy tongue with inflamed/slightly enlarged tongue papules in addition to a heavy feeling on her chest (likely due to allergic reaction), her symptoms resolved with Benadryl given at 8am and noon, prn Benadryl ordered as well, no signs of respiratory distress- no further issues -CK/trop ordered due to transient chest pressure which came back negative- no further issues -also stopped mouthkote as may be irritating her tongue, she has been receiving this since 12-04-20 so could be a delayed hypersensitivity reaction, but more likely it is a food allergy- no further symptoms 13. Dispo- patient's family unable to provide 24-7 care at this time, she will benefit from ongoing rehab, awaiting SNF bed to open up Allergies Coded Allergies: bee venom protein (honey bee) (Verified Allergy, Unknown, 11/19/20) povidone-iodine (Verified Allergy, Unknown, 11/19/20) Uncoded Allergies: douglas's orgininal chewy candy (Allergy, Intermediate, itchy tongue , 12/10/20) Vital Signs Vital Signs Date Time Temp Pulse Resp B/P (MAP) Pulse Ox O2 Delivery O2 Flow Rate FiO2 12/23/20 06:01 18 Room Air 12/23/20 06:00 98.4 91 104/59 (74) 96 Current Medications Current Medications Current Medications Medications (Trade) Dose Ordered Sig/Franck Route PRN Reason Start Time Stop Time Status Last Admin Dose Admin Acetaminophen (Tylenol Tab) 650 mg QID PO 12/03/20 17:00 12/23/20 09:28 Al Hydrox/Mg Hydrox/Simethicone (Mylanta) 30 ml Q4HP PRN PO DYSPEPSIA 12/03/20 13:10 12/03/20 20:31 Albuterol/ Ipratropium (Combivent Respimat 100-20mcg) 1 puff RTID INH 12/04/20 14:00 12/23/20 07:16 Artificial Tears (Akwa Tears) 2 drop QID OU 12/08/20 16:05 12/23/20 09:27 Aspirin (Ecotrin) 81 mg DAILY PO 12/04/20 09:00 12/23/20 09:26 Bisacodyl (Dulcolax Suppository) [address] CONSTIPATION 12/03/20 13:10 Cyanocobalamin (Vitamin B12) 1,500 mcg DAILY PO 12/04/20 09:00 12/23/20 09:26 Diphenhydramine HCl (Benadryl) 25 mg Q6HP PRN PO ITCHING 12/10/20 12:45 12/10/20 19:27 Docusate Sodium (Colace) 100 mg BID PO 12/03/20 21:00 12/04/20 11:47 DC 12/04/20 07:20 Docusate Sodium (Colace) 100 mg TID PO 12/04/20 16:00 12/20/20 16:27 Enoxaparin Sodium (Lovenox) 40 mg DAILY SC 12/04/20 09:00 12/23/20 09:26 Furosemide (Lasix) 20 mg DAILY PO 12/05/20 09:00 12/23/20 09:25 Gabapentin (Neurontin) 100 mg TID PO 12/03/20 16:00 12/12/20 15:04 DC 12/12/20 07:53 Guaifenesin (Robitussin Tab) 400 mg TID PO 12/04/20 16:00 12/23/20 09:25 Lactobacillus Acidophilus (Bacid) 1 ea TID PO 12/04/20 16:00 12/23/20 09:25 Levofloxacin (Levaquin) 750 mg DAILY@06 PO 12/07/20 06:00 12/11/20 06:01 DC 12/11/20 05:12 Lidocaine (Lidoderm Patch) 2 patch DAILY TD 12/04/20 09:00 12/22/20 09:29 Magnesium Oxide (Mag-Ox) 400 mg DAILY PO 12/04/20 09:00 12/23/20 09:26 Metoprolol Tartrate (Lopressor) 25 mg Q8H PO 12/16/20 22:00 12/22/20 07:13 Miscellaneous (Unresolved Clarification Entry) SEE LABEL COMMENTS QID XX 12/21/20 09:00 12/22/20 10:50 DC Multivitamins (Ocuvite(I-Zaira)) 1 tab DAILY PO 12/04/20 09:00 12/23/20 09:25 Non-Formulary Medication ( See Comment Field Below ) REMOVE LIDODERM PATCH DAILY@21 XX 12/03/20 21:00 12/21/20 21:21 Omeprazole (PriLOSEC) 20 mg DAILY PO 12/04/20 09:00 12/23/20 09:25 Piperacillin Sod/ Tazobactam Sod 4.5 gm/Dextrose 50 ml @ 50 mls/hr Q6H IV 12/04/20 14:00 12/06/20 23:00 DC 12/06/20 20:12 Polyethylene Glycol (Miralax) 1 pkt DAILY PO 12/04/20 08:45 12/20/20 09:24 Potassium Chloride (Micro-K Extencaps) 10 meq DAILY PO 12/09/20 09:00 12/23/20 09:26 Saliva Substitute (Mouthkote) 2 sprays QID MT 12/04/20 13:00 12/10/20 08:25 DC 12/09/20 20:58 Senna (Senokot) 1 tab QHS PO 12/03/20 21:00 12/18/20 21:21 Sodium Chloride (Sodium Chloride) 1 gm DAILY PO 12/04/20 09:00 12/04/20 12:37 DC 12/04/20 07:22 Tamsulosin HCl (Flomax) 0.4 mg QHS PO 12/12/20 21:00 12/22/20 20:50 Tramadol HCl (Ultram) 25 mg BID@0600,2100 PO 12/18/20 21:00 12/23/20 06:01 Tramadol HCl (Ultram) 50 mg BID@0600,2100 PO 12/04/20 21:00 12/18/20 13:24 DC 12/18/20 05:19 Tramadol HCl (Ultram) 50 mg Q4HP PRN PO MODERATE PAIN (PS 5-7) 12/03/20 13:10 12/04/20 11:47 DC 12/04/20 04:48 Tramadol HCl (Ultram) 50 mg Q8HP PRN PO MODERATE PAIN (PS 5-7) 12/04/20 11:45 12/18/20 13:24 DC 12/15/20 01:11 MICHAEL NEGRO MD Dec 23, 2020 12:08
[2020-12-23 14:00] VITALS: BP 107/53
[2020-12-23 20:00] VITALS: BP 108/57
[2020-12-23] MEDS: SENNA 8.6 MG TAB (SENOKOT) PO SCH (21:00)
[2020-12-23] MEDS: TAMSULOSIN 0.4 MG CAP PO SCH (21:14)
[2020-12-23] MEDS: **NOTE PATIENT COMMENT** MISC XX SCH (21:17)
[2020-12-24 06:00] VITALS: BP 116/69
[2020-12-24] MEDS: traMADol 50 MG TAB PO SCH ×2 (06:11→20:57)
[2020-12-24] MEDS: METOPROLOL TART 25 MG TABLET PO SCH ×3 (06:12→21:01)
[2020-12-24] MEDS: COMBIVENT RESPIMAT 100-20MCG INHALER 4GM INH SCH ×3 (07:23→20:55)
[2020-12-24] MEDS: OCUVITE 1 TAB PO SCH (08:50)
[2020-12-24] MEDS: guaiFENesin 200 MG TAB PO SCH ×3 (08:50→20:58)
[2020-12-24] MEDS: ASPIRIN 81MG ENTERIC TABLET PO SCH (08:50)
[2020-12-24] MEDS: MAGNESIUM OXIDE 400MG TAB (MAG-OX) PO SCH (08:50)
[2020-12-24] MEDS: FUROSEMIDE 20 MG TAB PO SCH (08:50)
[2020-12-24] MEDS: POTASSIUM CHLORIDE 10 MEQ SR TABLET PO SCH (08:50)
[2020-12-24] MEDS: LACTOBACILLUS ACIDOPHILUS CAP (BACID) PO SCH ×3 (08:51→20:58)
[2020-12-24] MEDS: ACETAMINOPHEN TAB 650MG DOSE (2X325MG) PO SCH ×4 (08:51→20:58)
[2020-12-24] MEDS: CYANOCOBALAMIN 500 MCG TAB PO SCH (08:51)
[2020-12-24] MEDS: OMEPRAZOLE 20 MG CAP PO SCH (08:51)
[2020-12-24] MEDS: ENOXAPARIN 40MG/0.4ML SYRINGE (J1650 PER 10MG) SC SCH (08:51)
[2020-12-24] MEDS: DOCUSATE SODIUM 100MG CAPSULE PO SCH ×3 (08:52→20:58)
[2020-12-24] MEDS: MIRALAX *UNIT DOSE* 17GM PACKET PO SCH (08:52)
[2020-12-24] MEDS: POLYVINYL ALCOHOL OPHTH SOLN 15 ML(LIQUITEARS) OU SCH ×4 (08:52→20:59)
[2020-12-24] MEDS: LIDOCAINE 5% (LIDODERM) PATCH TD SCH (08:52)
[2020-12-24] MEDS: REMEDY PHYTOPLEX Z-GUARD PASTE 113GM TUBE (FROM STOREROOM PRODUCT) TOP SCH ×3 (08:53→20:59)
--- NOTE | 2020-12-24 13:57 | IPNPDOC ---
PM&R Progress Note DATE OF SERVICE: Dec 24, 2020 Chief Internal Auditor Progress Note Subjective: Patient seen in her room and has no complaints. She is hoping to be able to go home to her new house in [place] to live with her son once furniture is set up. REVIEW OF SYSTEMS: The following is a completed review of systems and has been reviewed. Review of systems otherwise unremarkable. PAIN: Patient self reports left leg pain and low back EYES: No recent vision changes, chronic diplopia EARS, NOSE, & THROAT: No throat pain, + reports difficulty swallowing due to dry mouth (resolved) CARDIOVASCULAR: Denies chest pain or palpitations PULMONARY: denies cough or shortness of breath GASTROINTESTINAL: + constipation (resolved) GENITOURINARY: denies dysuria, intermittent retention (improving) MUSCULOSKELETAL: left sided weakness (improving) NEUROLOGICAL:denies tremor or paresthesias HEMATOLOGICAL: denies easy bruising SKIN: denies rash PSYCHIATRIC: Unremarkable All other review of systems found to be negative. PHYSICAL EXAMINATION: VITAL SIGNS: Please see below. GENERAL: Pleasant and cooperative. No acute distress. HEENT: PERRL. Extraocular movements intact. Clear conjunctiva CARDIOVASCULAR: Regular rate and rhythm. No murmurs, rubs, or gallops LUNGS: Clear to auscultation bilaterally. No wheezes. No rhonchi ABDOMEN: Soft, nontender, mildly distended, non-tender to palpation, Positive bowel sounds NEUROLOGICAL: Alert and oriented times three. Cranial nerves II through XII grossly intact. Sensation grossly intact in all 4 limbs, tina-anal region intact to light touch EXTREMITIES: 5-\\5 strength bilateral upper extremities. 5\\5 strength right lower extremity. 4+/5 strength in left lower extremity. +bilat LE edema (resolved) SKIN: no sacral erythema ASSESSMENT:85-year-old F with past medical history of 2 CVAs, diastolic CHF, chronic low back pain s/p recent lumbar facet blocks with left leg weakness who presents status post encephalopathy due to hyponatremia and polypharmacy PLAN: 1. Rehab- PT/OT advance mobility and ADLs, strengthen/stretch/maintain ROM all 4 limbs, brace left leg as needed, ambulating further with RW -CLAY HOISTER for swallow eval, patient's dysphagia improving, upgraded to regular diet 2. Neuro-recent admission for metabolic encephalopathy due to hyponatremia and polypharmacy, monitor on ARU, judicious with pain meds - hx of CVAs with diplopia, c/u secondary stroke prevention, ASA 3. 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 Multilevel neural foraminal narrowing as above. Degenerative spondylolisthesis at L4-5 and degenerative retrolisthesis at L1-2. Chronic partial anterior wedging L5 vertebral body." s/p bilat L4-L5, L5-S1 facet blocks on 10-02-20, patient and family reporting her left leg became very weak about 3 weeks ago, patient subjective decreased sensation in the perianal region (sensation intact on exam), no bowel/bladder incontinence however out of concern for possible cauda equina MRI ordered showing multilevel neural foraminal and canal stenosis, no cauda equina, images sent to Ortho clinic in [place] and reviewed by provider, patient seen by ortho group 12-12-20 spoke with ortho group at [facility] and they state surgical intervention is not urgent, it will be a same day procedure that they will set it up over the next several weeks, that patient can continue getting ongoing rehab -flexion extension X-rays negative for spondylolisthesis instability 3. Cardiac- chronic diastolic CHF, daily weights, fluid restrict, c/u on daily lasix and monitor, patient breathing c/u to improve 4. Resp- CXR 12-04-20 showing left sided infiltrate and new left sided pleural effusion, started on zosyn for possible aspiration PNA switched to po levaquin which has been completed 5. [facility]sc- patient reporting she has had clots in her legs in the past? -Doppler negative for DVT bilat - on lovenox currently for DVT ppx 6. GI ppx- omeprazole -constipation resolved, patient denies incontinence 7. Pain- gabapentin d/c'd due to dry mouth causing dysphagia, cont Tylenol, tramadol, Lidoderm patch 8. - monitor PVRs, patient voiding better since starting flomax and a q2h voiding schedule 9. Electrolytes- recent hyponatremia due to SIADH, Na normalized, c/u off salt tabs given concern for possible fluid overload, and c/u to monitor-stable 11. Code: DNR trial of Intubation 12. Allergy- patient had allergic reaction 12-10-20 most likely due to [employer] original caramel chewy candies, unclear what component of candy was a trigger, she did not develop tongue swelling, but did have an itchy tongue with i nflamed/slightly enlarged tongue papules in addition to a heavy feeling on her chest (likely due to allergic reaction), her symptoms resolved with Benadryl given at 8am and noon, prn Benadryl ordered as well, no signs of respiratory distress, CK/trop ordered due to transient chest pressure which came back negative- no further issues -also stopped mouthkote as may be irritating her tongue, she has been receiving this since 12-04-20 so could be a delayed hypersensitivity reaction, but more likely it is a food allergy- no further symptoms 13. Dispo- patient's family unable to provide 24-7 care at this time, she will benefit from ongoing rehab, awaiting SNF bed to open up Allergies Coded Allergies: bee venom protein (honey bee) (Verified Allergy, Unknown, 11/19/20) povidone-iodine (Verified Allergy, Unknown, 11/19/20) Uncoded Allergies: douglas's orgininal chewy candy (Allergy, Intermediate, itchy tongue , 12/10/20) Vital Signs Vital Signs Date Time Temp Pulse Resp B/P (MAP) Pulse Ox O2 Delivery O2 Flow Rate FiO2 12/24/20 13:43 80 102/51 12/24/20 06:11 18 12/24/20 06:00 98.9 96 Room Air Current Medications Current Medications Current Medications Medications (Trade) Dose Ordered Sig/Franck Route PRN Reason Start Time Stop Time Status Last Admin Dose Admin Acetaminophen (Tylenol Tab) 650 mg QID PO 12/03/20 17:00 12/24/20 13:43 Al Hydrox/Mg Hydrox/Simethicone (Mylanta) 30 ml Q4HP PRN PO DYSPEPSIA 12/03/20 13:10 12/03/20 20:31 Albuterol/ Ipratropium (Combivent Respimat 100-20mcg) 1 puff RTID INH 12/04/20 14:00 12/24/20 07:23 Artificial Tears (Akwa Tears) 2 drop QID OU 12/08/20 16:05 12/24/20 08:52 Aspirin (Ecotrin) 81 mg DAILY PO 12/04/20 09:00 12/24/20 08:50 Bisacodyl (Dulcolax Suppository) [address] CONSTIPATION 12/03/20 13:10 Cyanocobalamin (Vitamin B12) 1,500 mcg DAILY PO 12/04/20 09:00 12/24/20 08:51 Diphenhydramine HCl (Benadryl) 25 mg Q6HP PRN PO ITCHING 12/10/20 12:45 12/10/20 19:27 Docusate Sodium (Colace) 100 mg BID PO 12/03/20 21:00 12/04/20 11:47 DC 12/04/20 07:20 Docusate Sodium (Colace) 100 mg TID PO 12/04/20 16:00 12/20/20 16:27 Enoxaparin Sodium (Lovenox) 40 mg DAILY SC 12/04/20 09:00 12/24/20 08:51 Furosemide (Lasix) 20 mg DAILY PO 12/05/20 09:00 12/24/20 08:50 Gabapentin (Neurontin) 100 mg TID PO 12/03/20 16:00 12/12/20 15:04 DC 12/12/20 07:53 Guaifenesin (Robitussin Tab) 400 mg TID PO 12/04/20 16:00 12/24/20 08:50 Lactobacillus Acidophilus (Bacid) 1 ea TID PO 12/04/20 16:00 12/24/20 08:51 Levofloxacin (Levaquin) 750 mg DAILY@06 PO 12/07/20 06:00 12/11/20 06:01 DC 12/11/20 05:12 Lidocaine (Lidoderm Patch) 2 patch DAILY TD 12/04/20 09:00 12/24/20 08:52 Magnesium Oxide (Mag-Ox) 400 mg DAILY PO 12/04/20 09:00 12/24/20 08:50 Metoprolol Tartrate (Lopressor) 25 mg Q8H PO 12/16/20 22:00 12/24/20 06:12 Miscellaneous (Unresolved Clarification Entry) SEE LABEL COMMENTS QID XX 12/21/20 09:00 12/22/20 10:50 DC Multivitamins (Ocuvite(I-Zaira)) 1 tab DAILY PO 12/04/20 09:00 12/24/20 08:50 Non-Formulary Medication ( See Comment Field Below ) REMOVE LIDODERM PATCH DAILY@21 XX 12/03/20 21:00 12/23/20 21:17 Omeprazole (PriLOSEC) 20 mg DAILY PO 12/04/20 09:00 12/24/20 08:51 Piperacillin Sod/ Tazobactam Sod 4.5 gm/Dextrose 50 ml @ 50 mls/hr Q6H IV 12/04/20 14:00 12/06/20 23:00 DC 12/06/20 20:12 Polyethylene Glycol (Miralax) 1 pkt DAILY PO 12/04/20 08:45 12/20/20 09:24 Potassium Chloride (Micro-K Extencaps) 10 meq DAILY PO 12/09/20 09:00 12/24/20 08:50 Saliva Substitute (Mouthkote) 2 sprays QID MT 12/04/20 13:00 12/10/20 08:25 DC 12/09/20 20:58 Senna (Senokot) 1 tab QHS PO 12/03/20 21:00 12/18/20 21:21 Sodium Chloride (Sodium Chloride) 1 gm DAILY PO 12/04/20 09:00 12/04/20 12:37 DC 12/04/20 07:22 Tamsulosin HCl (Flomax) 0.4 mg QHS PO 12/12/20 21:00 12/23/20 21:14 Tramadol HCl (Ultram) 25 mg BID@0600,2100 PO 12/18/20 21:00 12/24/20 06:11 Tramadol HCl (Ultram) 50 mg BID@0600,2100 PO 12/04/20 21:00 12/18/20 13:24 DC 12/18/20 05:19 Tramadol HCl (Ultram) 50 mg Q4HP PRN PO MODERATE PAIN (PS 5-7) 12/03/20 13:10 12/04/20 11:47 DC 12/04/20 04:48 Tramadol HCl (Ultram) 50 mg Q8HP PRN PO MODERATE PAIN (PS 5-7) 12/04/20 11:45 12/18/20 13:24 DC 12/15/20 01:11 MICHAEL NEGRO MD Dec 24, 2020 13:57
[2020-12-24 14:00] VITALS: BP 102/51
[2020-12-24 20:00] VITALS: BP 106/52
[2020-12-24] MEDS: TAMSULOSIN 0.4 MG CAP PO SCH (20:58)
[2020-12-24] MEDS: SENNA 8.6 MG TAB (SENOKOT) PO SCH (20:58)
[2020-12-24] MEDS: **NOTE PATIENT COMMENT** MISC XX SCH (21:00)
[2020-12-25] MEDS: METOPROLOL TART 25 MG TABLET PO SCH ×3 (05:40→21:04)
[2020-12-25] MEDS: traMADol 50 MG TAB PO SCH ×2 (05:40→21:03)
[2020-12-25 06:00] VITALS: BP 134/63
[2020-12-25] MEDS: COMBIVENT RESPIMAT 100-20MCG INHALER 4GM INH SCH ×3 (07:20→19:37)
[2020-12-25] MEDS: LIDOCAINE 5% (LIDODERM) PATCH TD SCH (08:52)
[2020-12-25] MEDS: ENOXAPARIN 40MG/0.4ML SYRINGE (J1650 PER 10MG) SC SCH (08:52)
[2020-12-25] MEDS: MAGNESIUM OXIDE 400MG TAB (MAG-OX) PO SCH (08:53)
[2020-12-25] MEDS: guaiFENesin 200 MG TAB PO SCH ×3 (08:53→21:03)
[2020-12-25] MEDS: OMEPRAZOLE 20 MG CAP PO SCH (08:53)
[2020-12-25] MEDS: OCUVITE 1 TAB PO SCH (08:53)
[2020-12-25] MEDS: POTASSIUM CHLORIDE 10 MEQ SR TABLET PO SCH (08:53)
[2020-12-25] MEDS: ACETAMINOPHEN TAB 650MG DOSE (2X325MG) PO SCH ×4 (08:53→21:04)
[2020-12-25] MEDS: LACTOBACILLUS ACIDOPHILUS CAP (BACID) PO SCH ×3 (08:54→21:04)
[2020-12-25] MEDS: FUROSEMIDE 20 MG TAB PO SCH (08:54)
[2020-12-25] MEDS: CYANOCOBALAMIN 500 MCG TAB PO SCH (08:54)
[2020-12-25] MEDS: ASPIRIN 81MG ENTERIC TABLET PO SCH (08:54)
[2020-12-25] MEDS: DOCUSATE SODIUM 100MG CAPSULE PO SCH ×3 (08:54→21:00)
[2020-12-25] MEDS: MIRALAX *UNIT DOSE* 17GM PACKET PO SCH (08:55)
[2020-12-25] MEDS: REMEDY PHYTOPLEX Z-GUARD PASTE 113GM TUBE (FROM STOREROOM PRODUCT) TOP SCH ×3 (08:55→21:04)
[2020-12-25] MEDS: POLYVINYL ALCOHOL OPHTH SOLN 15 ML(LIQUITEARS) OU SCH ×4 (08:56→21:04)
[2020-12-25 10:44] LABS: BASO % 0.5 % (0.0-1.0); EOS # 0.1 10^3/uL (0.0-0.5); EOS % 1.9 % (0.0-3.0); HEMATOCRIT 37.7 % (36.0-47.0); HEMOGLOBIN 12.4 g/dl (12.0-15.5); LYMPH # 0.9 10^3/uL (1.5-5.0); LYMPH % 21.9 % (24.0-44.0); MEAN CORPUSCULAR HEMOGLOBIN 32.5 pg (27.0-33.0); MEAN CORPUSCULAR HGB CONC 32.9 g/dl (32.0-36.5); MONO # 0.3 10^3/uL (0.0-0.8); MONO % 8.1 % (2.0-8.0); NEUTROPHILS # 2.8 10^3/uL (1.5-8.5); NEUTROPHILS % 67.1 % (36.0-66.0); PLATELET COUNT, AUTOMATED 390 10^3/uL (150-450); RED BLOOD COUNT 3.81 10^6/uL (4.00-5.40); WHITE BLOOD COUNT 4.2 10^3/uL (4.0-10.0)
[2020-12-25 11:06] LABS: BLOOD UREA NITROGEN 14 MG/DL (7-18); CALCIUM LEVEL 9.1 MG/DL (8.8-10.2); CARBON DIOXIDE LEVEL 26 MEQ/L (21-32); CHLORIDE LEVEL 108 MEQ/L (98-107); CREATININE FOR GFR 0.64 MG/DL (0.55-1.30); GLOMERULAR FILTRATION RATE > 60.0 (>32); GLUCOSE, FASTING 125 MG/DL (70-100); POTASSIUM SERUM 4.6 MEQ/L (3.5-5.1); SODIUM LEVEL 140 MEQ/L (136-145)
[2020-12-25 14:00] VITALS: BP 102/58
[2020-12-25] MEDS: SENNA 8.6 MG TAB (SENOKOT) PO SCH (21:00)
[2020-12-25] MEDS: TAMSULOSIN 0.4 MG CAP PO SCH (21:04)
[2020-12-25] MEDS: **NOTE PATIENT COMMENT** MISC XX SCH (21:04)
[2020-12-25 22:00] VITALS: BP 110/57
[2020-12-26] MEDS: traMADol 50 MG TAB PO SCH ×2 (05:52→20:21)
[2020-12-26] MEDS: METOPROLOL TART 25 MG TABLET PO SCH ×3 (05:53→21:01)
[2020-12-26 06:00] VITALS: BP 119/55
[2020-12-26] MEDS: COMBIVENT RESPIMAT 100-20MCG INHALER 4GM INH SCH ×3 (07:14→19:49)
[2020-12-26] MEDS: REMEDY PHYTOPLEX Z-GUARD PASTE 113GM TUBE (FROM STOREROOM PRODUCT) TOP SCH ×3 (09:00→20:21)
[2020-12-26] MEDS: CYANOCOBALAMIN 500 MCG TAB PO SCH (10:07)
[2020-12-26] MEDS: ENOXAPARIN 40MG/0.4ML SYRINGE (J1650 PER 10MG) SC SCH (10:08)
[2020-12-26] MEDS: ASPIRIN 81MG ENTERIC TABLET PO SCH (10:08)
[2020-12-26] MEDS: ACETAMINOPHEN TAB 650MG DOSE (2X325MG) PO SCH ×4 (10:08→20:20)
[2020-12-26] MEDS: POTASSIUM CHLORIDE 10 MEQ SR TABLET PO SCH (10:09)
[2020-12-26] MEDS: DOCUSATE SODIUM 100MG CAPSULE PO SCH ×3 (10:09→20:21)
[2020-12-26] MEDS: OCUVITE 1 TAB PO SCH (10:09)
[2020-12-26] MEDS: LACTOBACILLUS ACIDOPHILUS CAP (BACID) PO SCH ×3 (10:09→20:20)
[2020-12-26] MEDS: MAGNESIUM OXIDE 400MG TAB (MAG-OX) PO SCH (10:09)
[2020-12-26] MEDS: guaiFENesin 200 MG TAB PO SCH ×3 (10:09→20:21)
[2020-12-26] MEDS: OMEPRAZOLE 20 MG CAP PO SCH (10:10)
[2020-12-26] MEDS: FUROSEMIDE 20 MG TAB PO SCH (10:10)
[2020-12-26] MEDS: POLYVINYL ALCOHOL OPHTH SOLN 15 ML(LIQUITEARS) OU SCH ×4 (10:10→20:22)
[2020-12-26] MEDS: LIDOCAINE 5% (LIDODERM) PATCH TD SCH (10:10)
[2020-12-26] MEDS: MIRALAX *UNIT DOSE* 17GM PACKET PO SCH (10:10)
[2020-12-26 14:00] VITALS: BP 101/55
[2020-12-26 20:00] VITALS: BP 106/55
[2020-12-26] MEDS: TAMSULOSIN 0.4 MG CAP PO SCH (20:20)
[2020-12-26] MEDS: SENNA 8.6 MG TAB (SENOKOT) PO SCH (20:21)
[2020-12-26] MEDS: **NOTE PATIENT COMMENT** MISC XX SCH (20:22)
--- NOTE | 2020-12-26 22:28 | IPNPDOC ---
PM&R Progress Note DATE OF SERVICE: Dec 25, 2020 Face Man Progress Note Subjective: Patient seen in therapy in the gym stating she feels good and has no new complaints. REVIEW OF SYSTEMS: The following is a completed review of systems and has been reviewed. Review of systems otherwise unremarkable. PAIN: Patient self reports left leg pain and low back EYES: No recent vision changes, chronic diplopia EARS, NOSE, & THROAT: No throat pain, + reports difficulty swallowing due to dry mouth (resolved) CARDIOVASCULAR: Denies chest pain or palpitations PULMONARY: denies cough or shortness of breath GASTROINTESTINAL: + constipation (resolved) GENITOURINARY: denies dysuria, intermittent retention (improving) MUSCULOSKELETAL: left sided weakness (improving) NEUROLOGICAL:denies tremor or paresthesias HEMATOLOGICAL: denies easy bruising SKIN: denies rash PSYCHIATRIC: Unremarkable All other review of systems found to be negative. PHYSICAL EXAMINATION: VITAL SIGNS: Please see below. GENERAL: Pleasant and cooperative. No acute distress. HEENT: PERRL. Extraocular movements intact. Clear conjunctiva CARDIOVASCULAR: Regular rate and rhythm. No murmurs, rubs, or gallops LUNGS: Clear to auscultation bilaterally. No wheezes. No rhonchi ABDOMEN: Soft, nontender, mildly distended, non-tender to palpation, Positive bowel sounds NEUROLOGICAL: Alert and oriented times three. Cranial nerves II through XII grossly intact. Sensation grossly intact in all 4 limbs, tina-anal region intact to light touch EXTREMITIES: 5-\\5 strength bilateral upper extremities. 5\\5 strength right lower extremity. 4+/5 strength in left lower extremity. +bilat LE edema (resolved) SKIN: no sacral erythema ASSESSMENT:85-year-old F with past medical history of 2 CVAs, diastolic CHF, chronic low back pain s/p recent lumbar facet blocks with left leg weakness who presents status post encephalopathy due to hyponatremia and polypharmacy PLAN: 1. Rehab- PT/OT advance mobility and ADLs, strengthen/stretch/maintain ROM all 4 limbs, brace left leg as needed, ambulating further with RW -[employer] for swallow eval, patient's dysphagia improving, upgraded to regular diet 2. Neuro-recent admission for metabolic encephalopathy due to hyponatremia and polypharmacy, monitor on ARU, judicious with pain meds - hx of CVAs with diplopia, c/u secondary stroke prevention, ASA 3. 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 Multilevel neural foraminal narrowing as above. Degenerative spondylolisthesis at L4-5 and degenerative retrolisthesis at L1-2. Chronic partial anterior wedging L5 vertebral body." s/p bilat L4-L5, L5-S1 facet blocks on 10-02-20, patient and family reporting her left leg became very weak about 3 weeks ago, patient subjective decreased sensation in the perianal region (sensation intact on exam), no bowel/bladder incontinence however out of concern for possible cauda equina MRI ordered showing multilevel neural foraminal and canal stenosis, no cauda equina, images sent to Ortho clinic in [place] and reviewed by provider, patient seen by ortho group 12-12-20 spoke with ortho group at [facility] and they state surgical intervention is not urgent, it will be a same day procedure that they will set it up over the next several weeks, that patient can continue getting ongoing rehab- follow-up appointment with orthoepdic surgery scheduled for 12-26-20 discussed with son Alicia who agrees to drive his mother down to the appointment -flexion extension X-rays negative for spondylolisthesis instability 3. Cardiac- chronic diastolic CHF, daily weights, fluid restrict, c/u on daily lasix and monitor, patient breathing c/u to improve 4. Resp- CXR 12-04-20 showing left sided infiltrate and new left sided pleural effusion, started on zosyn for possible aspiration PNA switched to po levaquin which has been completed 5. VAsc- patient reporting she has had clots in her legs in the past? -Doppler negative for DVT bilat - on lovenox currently for DVT ppx 6. GI ppx- omeprazole -constipation resolved, patient denies incontinence 7. Pain- gabapentin d/c'd due to dry mouth causing dysphagia, cont Tylenol, tramadol, Lidoderm patch 8. - monitor PVRs, patient voiding better since starting flomax and a q2h voiding schedule 9. Electrolytes- recent hyponatremia due to SIADH, Na normalized, c/u off salt tabs given concern for possible fluid overload, and c/u to monitor-stable 11. Code: DNR trial of Intubation 12. Allergy- patient had allergic reaction 12-10-20 most likely due to [employer] original caramel chewy candies, unclear what component of candy was a trigger, she did not develop tongue swelling, but did have an itchy tongue with inflamed/slightly enlarged tongue papules in addition to a heavy feeling on her chest (likely due to allergic reaction), her symptoms resolved with Benadryl given at 8am and noon, prn Benadryl ordered as well, no signs of respiratory distress, CK/trop ordered due to transient chest pressure which came back nega tive- no further issues -also stopped mouthkote as may be irritating her tongue, she has been receiving this since 12-04-20 so could be a delayed hypersensitivity reaction, but more likely it is a food allergy- no further symptoms 13. Dispo- patient's family now able to provide some care at home and patient has progressed functionally such that she can be home alone for periods of time, discharge postponed until 12-29-20 t Allergies Coded Allergies: bee venom protein (honey bee) (Verified Allergy, Unknown, 11/19/20) povidone-iodine (Verified Allergy, Unknown, 11/19/20) Uncoded Allergies: radhather's orgininal chewy candy (Allergy, Intermediate, itchy tongue , 12/10/20) Vital Signs Vital Signs Date Time Temp Pulse Resp B/P (MAP) Pulse Ox O2 Delivery O2 Flow Rate FiO2 12/26/20 21:01 72 97/50 12/26/20 20:21 18 Room Air 12/26/20 20:00 98.7 96 Current Medications Current Medications Current Medications Medications (Trade) Dose Ordered Sig/Franck Route PRN Reason Start Time Stop Time Status Last Admin Dose Admin Acetaminophen (Tylenol Tab) 650 mg QID PO 12/03/20 17:00 12/26/20 20:20 Al Hydrox/Mg Hydrox/Simethicone (Mylanta) 30 ml Q4HP PRN PO DYSPEPSIA 12/03/20 13:10 12/03/20 20:31 Albuterol/ Ipratropium (Combivent Respimat 100-20mcg) 1 puff RTID INH 12/04/20 14:00 12/26/20 19:49 Artificial Tears (Akwa Tears) 2 drop QID OU 12/08/20 16:05 12/26/20 20:22 Aspirin (Ecotrin) 81 mg DAILY PO 12/04/20 09:00 12/26/20 10:08 Bisacodyl (Dulcolax Suppository) 10 mg DAILYPRN PRN [place] CONSTIPATION 12/03/20 13:10 Cyanocobalamin (Vitamin B12) 1,500 mcg DAILY PO 12/04/20 09:00 12/26/20 10:07 Diphenhydramine HCl (Benadryl) 25 mg Q6HP PRN PO ITCHING 12/10/20 12:45 12/10/20 19:27 Docusate Sodium (Colace) 100 mg BID PO 12/03/20 21:00 12/04/20 11:47 DC 12/04/20 07:20 Docusate Sodium (Colace) 100 mg TID PO 12/04/20 16:00 12/26/20 17:40 Enoxaparin Sodium (Lovenox) 40 mg DAILY SC 12/04/20 09:00 12/26/20 10:08 Furosemide (Lasix) 20 mg DAILY PO 12/05/20 09:00 12/26/20 10:10 Gabapentin (Neurontin) 100 mg TID PO 12/03/20 16:00 12/12/20 15:04 DC 12/12/20 07:53 Guaifenesin (Robitussin Tab) 400 mg TID PO 12/04/20 16:00 12/26/20 20:21 Lactobacillus Acidophilus (Bacid) 1 ea TID PO 12/04/20 16:00 12/26/20 20:20 Levofloxacin (Levaquin) 750 mg DAILY@06 PO 12/07/20 06:00 12/11/20 06:01 DC 12/11/20 05:12 Lidocaine (Lidoderm Patch) 2 patch DAILY TD 12/04/20 09:00 12/26/20 10:10 Magnesium Oxide (Mag-Ox) 400 mg DAILY PO 12/04/20 09:00 12/26/20 10:09 Metoprolol Tartrate (Lopressor) 25 mg Q8H PO 12/16/20 22:00 12/26/20 17:40 Miscellaneous (Unresolved Clarification Entry) SEE LABEL COMMENTS QID XX 12/21/20 09:00 8/21 10:50 DC Multivitamins (Ocuvite(I-Zaira)) 1 tab DAILY PO 12/04/20 09:00 12/26/20 10:09 Non-Formulary Medication ( See Comment Field Below ) REMOVE LIDODERM PATCH DAILY@21 XX 12/03/20 21:00 12/26/20 20:22 Omeprazole (PriLOSEC) 20 mg DAILY PO 12/04/20 09:00 12/26/20 10:10 Piperacillin Sod/ Tazobactam Sod 4.5 gm/Dextrose 50 ml @ 50 mls/hr Q6H IV 12/04/20 14:00 12/06/20 23:00 DC 12/06/20 20:12 Polyethylene Glycol (Miralax) 1 pkt DAILY PO 12/04/20 08:45 12/26/20 10:10 Potassium Chloride (Micro-K Extencaps) 10 meq DAILY PO 12/09/20 09:00 12/26/20 10:09 Saliva Substitute (Mouthkote) 2 sprays QID MT 12/04/20 13:00 12/10/20 08:25 DC 12/09/20 20:58 Senna (Senokot) 1 tab QHS PO 12/03/20 21:00 12/18/20 21:21 Sodium Chloride (Sodium Chloride) 1 gm DAILY PO 12/04/20 09:00 12/04/20 12:37 DC 12/04/20 07:22 Tamsulosin HCl (Flomax) 0.4 mg QHS PO 12/12/20 21:00 12/26/20 20:20 Tramadol HCl (Ultram) 25 mg BID@0600,2100 PO 12/18/20 21:00 12/26/20 20:21 Tramadol HCl (Ultram) 50 mg BID@0600,2100 PO 12/04/20 21:00 12/18/20 13:24 DC 12/18/20 05:19 Tramadol HCl (Ultram) 50 mg Q4HP PRN PO MODERATE PAIN (PS 5-7) 12/03/20 13:10 12/04/20 11:47 DC 12/04/20 04:48 Tramadol HCl (Ultram) 50 mg Q8HP PRN PO MODERATE PAIN (PS 5-7) 12/04/20 11:45 12/18/20 13:24 DC 12/15/20 01:11 MICHAEL NEGRO MD Dec 26, 2020 22:28
[2020-12-27] MEDS: METOPROLOL TART 25 MG TABLET PO SCH ×3 (05:46→21:37)
[2020-12-27 06:00] VITALS: BP 129/67
[2020-12-27] MEDS ORDERED: traMADol 50 MG TAB PO PRN (07:00)
[2020-12-27] MEDS: ACETAMINOPHEN TAB 650MG DOSE (2X325MG) PO SCH ×4 (08:52→20:06)
[2020-12-27] MEDS: LACTOBACILLUS ACIDOPHILUS CAP (BACID) PO SCH ×3 (08:52→20:06)
[2020-12-27] MEDS: ENOXAPARIN 40MG/0.4ML SYRINGE (J1650 PER 10MG) SC SCH (08:52)
[2020-12-27] MEDS: FUROSEMIDE 20 MG TAB PO SCH (08:52)
[2020-12-27] MEDS: CYANOCOBALAMIN 500 MCG TAB PO SCH (08:52)
[2020-12-27] MEDS: DOCUSATE SODIUM 100MG CAPSULE PO SCH ×3 (08:52→20:05)
[2020-12-27] MEDS: POTASSIUM CHLORIDE 10 MEQ SR TABLET PO SCH (08:52)
[2020-12-27] MEDS: OMEPRAZOLE 20 MG CAP PO SCH (08:52)
[2020-12-27] MEDS: MAGNESIUM OXIDE 400MG TAB (MAG-OX) PO SCH (08:52)
[2020-12-27] MEDS: OCUVITE 1 TAB PO SCH (08:52)
[2020-12-27] MEDS: REMEDY PHYTOPLEX Z-GUARD PASTE 113GM TUBE (FROM STOREROOM PRODUCT) TOP SCH ×3 (08:53→20:06)
[2020-12-27] MEDS: guaiFENesin 200 MG TAB PO SCH ×3 (08:53→20:06)
[2020-12-27] MEDS: MIRALAX *UNIT DOSE* 17GM PACKET PO SCH (08:53)
[2020-12-27] MEDS: LIDOCAINE 5% (LIDODERM) PATCH TD SCH (08:53)
[2020-12-27] MEDS: POLYVINYL ALCOHOL OPHTH SOLN 15 ML(LIQUITEARS) OU SCH ×4 (08:53→20:06)
[2020-12-27] MEDS: ASPIRIN 81MG ENTERIC TABLET PO SCH (08:54)
[2020-12-27] MEDS: COMBIVENT RESPIMAT 100-20MCG INHALER 4GM INH SCH ×3 (08:57→20:22)
[2020-12-27 09:07] LABS: BASO % 0.2 % (0.0-1.0); EOS # 0.1 10^3/uL (0.0-0.5); EOS % 2.1 % (0.0-3.0); HEMATOCRIT 39.6 % (36.0-47.0); LYMPH # 1.1 10^3/uL (1.5-5.0); LYMPH % 23.1 % (24.0-44.0); MEAN CORPUSCULAR HEMOGLOBIN 32.7 pg (27.0-33.0); MEAN CORPUSCULAR HGB CONC 32.8 g/dl (32.0-36.5); MEAN CORPUSCULAR VOLUME 99.5 fl (80.0-96.0); MONO # 0.3 10^3/uL (0.0-0.8); MONO % 6.6 % (2.0-8.0); NEUTROPHILS # 3.2 10^3/uL (1.5-8.5); NEUTROPHILS % 67.6 % (36.0-66.0); PLATELET COUNT, AUTOMATED 329 10^3/uL (150-450); RED BLOOD COUNT 3.98 10^6/uL (4.00-5.40); WHITE BLOOD COUNT 4.7 10^3/uL (4.0-10.0)
[2020-12-27 09:23] LABS: BLOOD UREA NITROGEN 15 MG/DL (7-18); CALCIUM LEVEL 9.1 MG/DL (8.8-10.2); CARBON DIOXIDE LEVEL 22 MEQ/L (21-32); CHLORIDE LEVEL 112 MEQ/L (98-107); GLOMERULAR FILTRATION RATE > 60.0 (>32); GLUCOSE, FASTING 155 MG/DL (70-100); POTASSIUM SERUM 3.8 MEQ/L (3.5-5.1); SODIUM LEVEL 142 MEQ/L (136-145)
[2020-12-27 14:00] VITALS: BP 93/50
[2020-12-27 20:00] VITALS: BP 112/64
[2020-12-27] MEDS: SENNA 8.6 MG TAB (SENOKOT) PO SCH (20:05)
[2020-12-27] MEDS: **NOTE PATIENT COMMENT** MISC XX SCH (20:06)
[2020-12-27] MEDS: TAMSULOSIN 0.4 MG CAP PO SCH (20:06)
[2020-12-28] MEDS: METOPROLOL TART 25 MG TABLET PO SCH ×3 (05:37→21:44)
[2020-12-28 06:00] VITALS: BP 129/64
[2020-12-28] MEDS: LIDOCAINE 5% (LIDODERM) PATCH TD SCH ×2 (07:16→09:00)
[2020-12-28] MEDS: MAGNESIUM OXIDE 400MG TAB (MAG-OX) PO SCH (07:17)
[2020-12-28] MEDS: ENOXAPARIN 40MG/0.4ML SYRINGE (J1650 PER 10MG) SC SCH (07:17)
[2020-12-28] MEDS: POTASSIUM CHLORIDE 10 MEQ SR TABLET PO SCH (07:17)
[2020-12-28] MEDS: DOCUSATE SODIUM 100MG CAPSULE PO SCH ×3 (07:17→20:20)
[2020-12-28] MEDS: OMEPRAZOLE 20 MG CAP PO SCH (07:17)
[2020-12-28] MEDS: LACTOBACILLUS ACIDOPHILUS CAP (BACID) PO SCH ×3 (07:17→20:20)
[2020-12-28] MEDS: ACETAMINOPHEN TAB 650MG DOSE (2X325MG) PO SCH ×4 (07:17→20:20)
[2020-12-28] MEDS: OCUVITE 1 TAB PO SCH (07:18)
[2020-12-28] MEDS: FUROSEMIDE 20 MG TAB PO SCH (07:18)
[2020-12-28] MEDS: CYANOCOBALAMIN 500 MCG TAB PO SCH (07:18)
[2020-12-28] MEDS: MIRALAX *UNIT DOSE* 17GM PACKET PO SCH (07:18)
[2020-12-28] MEDS: guaiFENesin 200 MG TAB PO SCH ×3 (07:18→20:20)
[2020-12-28] MEDS: ASPIRIN 81MG ENTERIC TABLET PO SCH (07:18)
[2020-12-28] MEDS: REMEDY PHYTOPLEX Z-GUARD PASTE 113GM TUBE (FROM STOREROOM PRODUCT) TOP SCH ×3 (07:19→20:20)
[2020-12-28] MEDS: POLYVINYL ALCOHOL OPHTH SOLN 15 ML(LIQUITEARS) OU SCH ×4 (07:19→20:21)
[2020-12-28] MEDS: COMBIVENT RESPIMAT 100-20MCG INHALER 4GM INH SCH ×3 (08:42→19:24)
[2020-12-28 14:00] VITALS: BP 107/59
[2020-12-28 20:00] VITALS: BP 121/61
[2020-12-28] MEDS: TAMSULOSIN 0.4 MG CAP PO SCH (20:20)
[2020-12-28] MEDS: SENNA 8.6 MG TAB (SENOKOT) PO SCH (20:20)
[2020-12-28] MEDS: **NOTE PATIENT COMMENT** MISC XX SCH (20:21)
[2020-12-28] MEDS ORDERED: FLOM0.4C39 PO (21:40)
[2020-12-28] MEDS ORDERED: VITA500T40 PO (21:40)
[2020-12-28] MEDS ORDERED: ASPI-551 PO (21:40)
[2020-12-28] MEDS ORDERED: OMEP-218 PO (21:40)
[2020-12-28] MEDS ORDERED: MAGN400T2 PO (21:40)
[2020-12-28] MEDS ORDERED: TRAM50TA2 PO (21:40)
[2020-12-28] MEDS ORDERED: FURO20TA2 PO (21:40)
[2020-12-28] MEDS ORDERED: METO1TAB87 PO (21:40)
[2020-12-28] MEDS ORDERED: KLOR10TA76 PO (21:40)
[2020-12-29 05:23] VITALS: BP 144/66
[2020-12-29] MEDS: METOPROLOL TART 25 MG TABLET PO SCH (05:23)
[2020-12-29 06:00] VITALS: BP 144/66
[2020-12-29] MEDS: COMBIVENT RESPIMAT 100-20MCG INHALER 4GM INH SCH (07:09)
[2020-12-29] MEDS: ASPIRIN 81MG ENTERIC TABLET PO SCH (08:26)
[2020-12-29] MEDS: FUROSEMIDE 20 MG TAB PO SCH (08:26)
[2020-12-29] MEDS: ENOXAPARIN 40MG/0.4ML SYRINGE (J1650 PER 10MG) SC SCH (08:26)
[2020-12-29] MEDS: OMEPRAZOLE 20 MG CAP PO SCH (08:26)
[2020-12-29] MEDS: DOCUSATE SODIUM 100MG CAPSULE PO SCH (08:26)
[2020-12-29] MEDS: CYANOCOBALAMIN 500 MCG TAB PO SCH (08:26)
[2020-12-29] MEDS: LACTOBACILLUS ACIDOPHILUS CAP (BACID) PO SCH (08:27)
[2020-12-29] MEDS: OCUVITE 1 TAB PO SCH (08:27)
[2020-12-29] MEDS: ACETAMINOPHEN TAB 650MG DOSE (2X325MG) PO SCH (08:27)
[2020-12-29] MEDS: MIRALAX *UNIT DOSE* 17GM PACKET PO SCH (08:27)
[2020-12-29] MEDS: guaiFENesin 200 MG TAB PO SCH (08:27)
[2020-12-29] MEDS: POTASSIUM CHLORIDE 10 MEQ SR TABLET PO SCH (08:27)
[2020-12-29] MEDS: LIDOCAINE 5% (LIDODERM) PATCH TD SCH (08:28)
[2020-12-29] MEDS: REMEDY PHYTOPLEX Z-GUARD PASTE 113GM TUBE (FROM STOREROOM PRODUCT) TOP SCH (08:28)
[2020-12-29] MEDS: POLYVINYL ALCOHOL OPHTH SOLN 15 ML(LIQUITEARS) OU SCH (08:28)
[2020-12-29] MEDS: MAGNESIUM OXIDE 400MG TAB (MAG-OX) PO SCH (08:29)
--- NOTE | 2020-12-31 11:57 | PMRDS ---
NAME: LORENZO KHAN [facility] WT ID#: [id number] : [id number] JOB: [id number] [place]: 12/29/2020 ACCT: [id number] DOCTOR: MICHAEL NEGRO MD PMR DISCHARGE SUMMARY DATE OF ADMISSION: 12/03/2020 DATE OF DISCHARGE: 12/29/2020 CHIEF COMPLAINT/DISCHARGE DIAGNOSIS: Weakness in the setting of lumbar stenosis. HISTORY OF PRESENT ILLNESS: This is an 85-year-old female with a past medical history of chronic diastolic CHF, hypertension, migraines, dementia, right knee OA, lumbar vertebral compression fractures, BPPV, history of CVAs, diplopia, pulmonary hypertension, chronic low back pain; status post recent bilateral lumbar facet blocks with left leg pain and weakness, who presented to [facility] ED on 11/29/2020 with worsening confusion, reported falls and found to have acute hyponatremia with a sodium of below 125. She was noticed to be encephalopathic and have uncontrolled blood pressures. CTH was negative for acute intracranial findings and pelvic imaging was negative for fracture. 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 NS and salt tabs. Her NSAIDs were also discontinued; were thought to be contributing to SIADH. Her sodium improved as well as her mentation and she was evaluated by therapy, who found to have mobility and ADL impairments below her prior level of function and she was deemed medically appropriate for discharge at [facility]U on 12/03/2020. On initial evaluation, patient reports she feels short of breath, but denies cough or congestion. She also states she has some difficulty swallowing which she attributes to the dry hospital air and states this happens to her anytime she is in the hospital. She reports she has not have a bowel movement in days. PAST MEDICAL HISTORY: As per HPI. HOSPITAL COURSE: Patient was admitted and enrolled in a comprehensive PT/OT, speech and language pathology program. She received 24 hour nursing supervision and weekly team meetings were held to discuss her progress. Patient initially complained of difficulty breathing, for which chest x-ray was ordered; showing a left-sided infiltrate and a new left-sided pleural effusion. She was started on Zosyn for potential aspiration pneumonia and eventually switched to p.o. Levaquin with overall improvement in her respiratory status. She was also placed on Lasix for her history of chronic diastolic CHF and again her breathing did improve. Patient was noted to have persistent left lower extremity weakness and pain and further workup for spine pathology was performed while on rehab. CT spine did show "multilevel degenerative disc and osteoarthritic facet disease, multilevel neuroforaminal narrowing as above, degenerative spondylolisthesis at L4-5, degenerative retrolisthesis at L1-2, chronic partial anterior wedging L5 vertebral body." The patient did not complain of any bowel or bladder incontinence and although she did initially describe some decreased sensation in the perianal area, on exam she did not have any decreased sensation. Out of concern for possible need for surgical intervention, images were sent down to [facility] where she was eventually seen by their ortho group on 12/12/2020, who suggested a non-urgent laminectomy procedure to be performed once she was discharged from inpatient rehab. Patient did gradually get stronger with notable improvements in her left lower extremity weakness and her pain was very well controlled with Tramadol and Lidoderm patching. Patient's diet was downgraded initially to level 3 due to dry mouth and her Gabapentin was discontinued, which did improve this. Her diet was again upgraded to a regular diet before discharge. Patient was noted to have some urinary retention, which did improve after starting Flomax. She had an allergic reaction during her hospital course, probably due to eating [employer] Original [place] Chewy Candies and she developed an itchy tongue, that did resolve with the administration of Benadryl. Patient improved quite well and ultimately was deemed medically and functionally stable to return home with family on 12/29/2020. DISCHARGE MEDICATIONS: As per instructions. FUNCTIONAL HISTORY: On discharge, the patient was modified independent; able to ambulate 200 feet at a modified independent level and in occupational therapy she also was modified independent for toileting and dressing. Thank you for this referral.
== END 2020-12-29 13:15 | disposition home health service (06) | DRG 552 ==
LOC: M PM&R 16:43 → UNDODISIN 16:45
PROVIDERS: ADMIT Physical Medicine & Rehabilitation; ATTEND Physical Medicine & Rehabilitation
DX: M43.16 Spondylolisthesis, lumbar region (principal); I50.32 Chronic diastolic (congestive) heart failure; K59.00 Constipation, unspecified; I11.0 Hypertensive heart disease with heart failure; G43.909 Migraine, unspecified, not intractable, without status migrainosus; F03.90 Unspecified dementia, unspecified severity, without behavioral disturbance, psychotic disturbance, mood disturbance, and anxiety; M17.11 Unilateral primary osteoarthritis, right knee; H81.10 Benign paroxysmal vertigo, unspecified ear; I27.20 Pulmonary hypertension, unspecified; M54.5 Low back pain; R29.6 Repeated falls; Z74.09 Other reduced mobility; Z74.1 Need for assistance with personal care; Z86.73 Personal history of transient ischemic attack (TIA), and cerebral infarction without residual deficits; H53.2 Diplopia; M79.662 Pain in left lower leg; R53.1 Weakness; M51.36 Other intervertebral disc degeneration, lumbar region; Z66 Do not resuscitate; Z79.82 Long term (current) use of aspirin; Z79.899 Other long term (current) drug therapy; Z91.030 Bee allergy status; Z88.8 Allergy status to other drugs, medicaments and biological substances